=== PATIENT | female | born 1960 | race Caucasian/White ===

== ENCOUNTER → 2018-08-02 08:22 | Outpatient (CLI) | payer OTHER, SELFPAY ==
[2018-08-02 10:32] LABS: Homocysteine 8.4 umol/L (3.2-10.7)
[2018-08-02 10:45] LABS: Anion Gap 9 (5-15); BUN 18 mg/dL (7-18); BUN/Creat Ratio 24.4 RATIO (10-20); CRP < 2.90 mg/L (0.0-3.0); CRP, High Sensitivity Cardiac 0.18 mg/L; Chloride 108 mmol/L (98-107); Cholesterol 219 mg/dL (200); Creatinine, Serum 0.74 mg/dL (0.55-1.02); EST Glomerular Filtration Rate 86 mL/min (>60); Est Glom Filt Rate - Afr Amer 104 mL/min (>60); Glucose 95 mg/dL (74-106); High Density Lipoprotein 82 mg/dL; Sodium Level 143 mmol/L (136-145); Thyroid Stim Hormone (TSH) 1.54 uIU/mL (0.358-3.74); Triglycerides 77 mg/dL; Very Low Density Lipoprotein 15 mg/dL (5-40)
[2018-08-02 12:36] LABS: Microalbumin,Random Urine 11.1 mg/L (NO RANGE EST.); Microalbumin:Creatinine Ratio 6.8 mg/g CRE (<30 mg/g CRE)
== END ==
PROVIDERS: Family Provider Family Medicine; PCP Family Medicine; Visit Provider Family Medicine
DX: Z00.00 Encounter for general adult medical examination without abnormal findings (principal); M50.90 Cervical disc disorder, unspecified, unspecified cervical region; I10 Essential (primary) hypertension
CPT/HCPCS: 36415; 80048; 80061; 82043; 82570; 83090; 84443; 86140; 86141

== ENCOUNTER → 2018-09-04 07:40 | Outpatient (CLI) | payer OTHER, SELFPAY ==
--- NOTE | 2018-09-04 07:43 | BI_ITS ---
MAMMOGRAPHY - BILATERAL SCREENING REASON FOR EXAM: Female, 57 years old. Routine annual screening examination. PERTINENT HISTORY: Non-contributory. TECHNIQUE: Digital bilateral breast patty (3D mammographic acquisition) in the CC and MLO projections. 2-D mediolateral oblique (MLO) and craniocaudad (CC) views of both breasts were obtained. CAD: Full Field Digital Mammography with Computer Added Detection was performed. COMPARISON: Comparison is made with prior study dated April 05, 2009. FINDINGS: Breast Composition: The breasts are heterogeneously dense, which may obscure small masses. There are no dominant masses or suspicious calcifications. No other significant abnormalities are identified. There has been no significant change since the prior study. BI/SCREENING MAMM (CAD), BILAT IMPRESSION: Stable bilateral screening mammogram. Yearly follow-up mammogram recommended. (A) ASSESSMENT CATEGORY: BIRADS Category 1: Negative. A letter regarding these results will be sent to the patient by the facility within 30 days. Approximately 10% of breast cancers are not detected by mammography. A normal mammogram should not delay biopsy of a clinically suspicious abnormality. [id number] Electronically Signed: Murali Gerard, at 9:24 EST , Service support ,
== END ==
PROVIDERS: Family Provider Family Medicine; PCP Family Medicine; Referring Provider Family Medicine; Visit Provider Family Medicine
DX: Z12.31 Encounter for screening mammogram for malignant neoplasm of breast (principal)
CPT/HCPCS: 77063; 77067

== ENCOUNTER → 2019-09-12 08:00 | Outpatient (CLI) | payer OTHER, SELFPAY ==
[2019-09-12 11:15] LABS: Anion Gap 6 (5-15); BUN 17 mg/dL (7-18); BUN/Creat Ratio 23.2 RATIO (10-20); Calcium,Total 9.5 mg/dL (8.5-10.1); Chloride 107 mmol/L (98-107); Cholesterol 239 mg/dL (200); Creatinine, Serum 0.73 mg/dL (0.55-1.02); EST Glomerular Filtration Rate 86 mL/min (>60); Est Glom Filt Rate - Afr Amer 104 mL/min (>60); Glucose 93 mg/dL (74-106); High Density Lipoprotein 88 mg/dL; Potassium 3.8 mmol/L (3.5-5.1); Sodium Level 138 mmol/L (136-145)
[2019-09-12 11:34] LABS: Creatinine, Urine (random) < 13.00 mg/dL (NO RANGE EST.); Microalbumin,Random Urine < 5.0 mg/L (NO RANGE EST.)
== END ==
PROVIDERS: PCP Family Medicine; Referring Provider Family Medicine; Visit Provider Family Medicine
DX: I10 Essential (primary) hypertension (principal)
CPT/HCPCS: 36415; 80048; 82043; 82465; 82570; 83718

== ENCOUNTER → 2019-10-03 10:12 | Outpatient (CLI) | payer OTHER, SELFPAY ==
--- NOTE | 2019-10-03 10:40 | BI_ITS ---
MAMMOGRAPHY - BILATERAL SCREENING REASON FOR EXAM: Female, 58 years old. Routine annual screening examination. PERTINENT HISTORY: Non-contributory. TECHNIQUE: Digital bilateral breast frandy (3D mammographic acquisition) in the CC and MLO projections. 2-D mediolateral oblique (MLO) and craniocaudad (CC) views of both breasts were obtained. CAD: Full Field Digital Mammography with Computer Added Detection was performed. COMPARISON: Comparison is made with prior examination dated September 04, 2018. FINDINGS: Breast Composition: The breasts are heterogeneously dense, which may obscure small masses. There are no dominant masses or suspicious calcifications. No other significant abnormalities are identified. There has been no significant change since the prior study. BI/SCREEN MAMM (CAD) W/FRANDY BILAT IMPRESSION: Stable bilateral screening mammogram. Yearly follow-up mammogram recommended. (A) ASSESSMENT CATEGORY: BIRADS Category 1: Negative. A letter regarding these results will be sent to the patient by the facility within 30 days. Approximately 10% of breast cancers are not detected by mammography. A normal mammogram should not delay biopsy of a clinically suspicious abnormality. [id number] Electronically Signed: Murali Gerard, at 11:26 EDT , Service support ,
== END ==
PROVIDERS: PCP Family Medicine; Referring Provider Family Medicine; Visit Provider Family Medicine
DX: Z12.31 Encounter for screening mammogram for malignant neoplasm of breast (principal)
CPT/HCPCS: 77063; 77067

== ENCOUNTER → 2020-05-05 08:15 | Outpatient (CLI) | payer OTHER, SELFPAY ==
[2020-05-05 10:55] LABS: Vitamin D,25 Hydroxy 52.8 ng/mL
[2020-05-05 11:07] LABS: CRP, High Sensitivity Cardiac 0.19 mg/L; Cholesterol 227 mg/dL (200); High Density Lipoprotein 101 mg/dL; Thyroid Stim Hormone (TSH) 1.66 uIU/mL (0.358-3.74); Triglycerides 69 mg/dL; Very Low Density Lipoprotein 14 mg/dL (5-40)
== END ==
PROVIDERS: PCP Family Medicine; Referring Provider Family Medicine; Visit Provider Family Medicine
DX: I10 Essential (primary) hypertension (principal); E55.9 Vitamin D deficiency, unspecified
CPT/HCPCS: 36415; 80061; 82306; 84443; 86141

== ENCOUNTER → 2020-10-15 10:51 | Outpatient (CLI) | payer OTHER, SELFPAY ==
--- NOTE | 2020-10-15 10:54 | RAD_ITS ---
STUDY: X-RAY - LUMBAR SPINE REASON FOR EXAM: Female, 59 years old. BACK PAIN TECHNIQUE: 5 view(s) of the lumbar spine were obtained. COMPARISON: None FINDINGS: Normal lumbar lordosis. There is a mild levoscoliosis of the lumbar spine. There is a normal alignment of the vertebrae. There is multilevel endplate spondylosis of the lumbar vertebrae. There is multi-level degenerative disc disease with multi-level disc space narrowing. There is no demonstrated fracture. The soft tissue structures are unremarkable. RAD/L/S Spine Min 4 Views IMPRESSION: Degenerative changes of the spine, as detailed above. Mild levoscoliosis Electronically Signed: Gallo Heredia MD at 11:16 EDT , Service support ,
[2020-10-15 13:28] LABS: AST(SGOT) 12 U/L (15-37); Alanine Aminotransfer ALT/SGPT 23 U/L (13-56); Albumin, Serum 3.7 g/dL (3.2-5.0); Alkaline Phosphatase 79 U/L (45-117); Anion Gap 6 (5-15); BUN 19 mg/dL (7-18); BUN/Creat Ratio 27.6 RATIO (10-20); Chloride 109 mmol/L (98-107); Creatinine, Serum 0.69 mg/dL (0.55-1.02); EST Glomerular Filtration Rate 92 mL/min (>60); Est Glom Filt Rate - Afr Amer 112 mL/min (>60); Ferritin 87 ng/mL (8-252); Globulin 3.6 g/dL (2.2-4.2); Glucose 89 mg/dL (74-106); Potassium 3.6 mmol/L (3.5-5.1); Protein, Total 7.3 g/dL (6.4-8.2); Sodium Level 140 mmol/L (136-145); Thyroid Stim Hormone (TSH) 1.16 uIU/mL (0.358-3.74)
[2020-10-15 13:31] LABS: Microalbumin,Random Urine < 5.0 mg/L (NO RANGE EST.)
== END ==
PROVIDERS: PCP Family Medicine; Referring Provider Family Medicine; Visit Provider Family Medicine
DX: I10 Essential (primary) hypertension (principal); G25.81 Restless legs syndrome; M54.9 Dorsalgia, unspecified
CPT/HCPCS: 36415; 72110; 80053; 82043; 82570; 82728; 84443

== ENCOUNTER → 2021-04-08 09:41 | Outpatient (CLI) | payer OTHER, SELFPAY | PROVIDERS: PCP Family Medicine; Referring Provider Family Medicine; Visit Provider Family Medicine | DX: Z01.84 Encounter for antibody response examination (principal) | CPT/HCPCS: 36415 ==

== ENCOUNTER → 2022-02-22 | Outpatient (CLI) | payer OTHER, SELFPAY ==
--- NOTE | 2022-02-22 08:03 | BI_ITS ---
MAMMOGRAPHY - BILATERAL SCREENING 3-D TOMOSYNTHESIS REASON FOR EXAM: Female, 61 years old. SCREENING PERTINENT HISTORY: No significant family history. TECHNIQUE: 2-D mammograms and 3-D Tomosynthesis of the breast (s) were performed. CAD was performed. COMPARISON: 10/03/2019 FINDINGS: The breast composition is heterogeneously dense that can obscure small breast masses. Scattered benign calcifications are seen. No dominant nodule in the right breast. 1 cm oval circumscribed equal density mass in the axillary tail left breast and focal compression views recommended for further evaluation. No suspicious calcifications.. No architectural distortion is identified. There is no skin thickening or retraction. BI/SCRN MAMM (CAD)W/FRANDY BILAT IMPRESSION: 1 cm oval circumscribed equal density mass maxillary tail left breast and focal compression views recommended for further evaluation. ASSESSMENT CATEGORY: BIRADS Category 0: Incomplete. Need additional imaging evaluation as above. A letter regarding these results will be sent to the patient by the facility within 30 days. FOLLOW UP RECOMMENDATION: Additional imaging recommended as above. (E) Approximately 10% of breast cancers are not detected by mammography. A normal mammogram should not delay biopsy of a clinically suspicious abnormality. Electronically Signed: Jagdeep Garcia MD at 9:19 EDT ,
== END | disposition home or self-care (01) ==
LOC: OPBI 08:01
PROVIDERS: PCP Family Medicine; Visit Provider Family Medicine
DX: Z12.31 Encounter for screening mammogram for malignant neoplasm of breast (principal); N63.32 Unspecified lump in axillary tail of the left breast
CPT/HCPCS: 77063; 77067

== ENCOUNTER → 2022-03-01 | Outpatient (CLI) | payer OTHER, SELFPAY ==
--- NOTE | 2022-03-01 13:35 | BI_ITS ---
MAMMOGRAPHY - UNILATERAL DIAGNOSTIC: LEFT BREAST REASON FOR EXAM: Female, 61 years old. Abnormal screening mammogram. PERTINENT HISTORY: Non-contributory. TECHNIQUE: Compression spot views of the left breast were obtained in the mediolateral oblique and craniocaudad projections were obtained. CAD: Full Field Digital Mammography with Computer Added Detection was performed. COMPARISON: Comparison is made with prior mammogram dated 02/22/2022. FINDINGS: Breast Composition: The breasts are heterogeneously dense, which may obscure small masses. There is a 1.1 cm x 0.7 cm spiculated nodule in the deep upper central portion of the left breast. Correlation with ultrasound is recommended. No other significant abnormalities are identified. BI/DIAG MAMM W/CAD, UNILAT IMPRESSION: 1.1 cm x 0.7 cm spiculated nodule in the deep upper central portion of the left breast as described. Correlation with ultrasound is recommended. ASSESSMENT CATEGORY: BIRADS Category 0: Incomplete. Need additional imaging evaluation. A letter regarding these results will be sent to the patient by the facility within 30 days. Approximately 10% of breast cancers are not detected by mammography. A normal mammogram should not delay biopsy of a clinically suspicious abnormality. Electronically Signed: Murali Gerard MD at 14:23 EDT ,
--- NOTE | 2022-03-01 13:35 | US_ITS ---
STUDY: ULTRASOUND BREAST - LEFT REASON FOR EXAM: Female, 61 years old. Abnormal screening and diagnostic mammograms. TECHNIQUE: Axial and longitudinal images of the LEFT breast were performed with a high resolution ultrasound transducer. # OF IMAGES: 16 COMPARISON: Comparison is made with prior mammogram done earlier in the day. FINDINGS: LEFT Breast: The mammographic abnormality corresponds to an 8 mm x 7 mm x 7 mm slightly lobulated hypoechoic solid nodule. Biopsy recommended. US/Breast Limited Unilateral IMPRESSION: 8 mm x 7 mm x 7 mm slightly lobulated hypoechoic solid nodule 11 o''clock position breast at 12 cm from nipple. Biopsy recommended. ASSESSMENT CATEGORY: BIRADS Category 4: Suspicious - Biopsy Should Be Considered. A letter regarding these results will be sent to the patient by the facility within 30 days. Electronically Signed: Murali Gerard MD at 14:30 EDT ,
== END | disposition home or self-care (01) ==
LOC: OPBI 13:33
PROVIDERS: PCP Family Medicine; Visit Provider Family Medicine
DX: N63.22 Unspecified lump in the left breast, upper inner quadrant (principal)
CPT/HCPCS: 76642; 77065

== ENCOUNTER → 2022-03-15 | Outpatient (CLI) | payer OTHER, SELFPAY ==
--- NOTE | 2022-03-15 | IMM_PTH ---
PATIENT: LILIA ALBA LOC: [facility] U#:[id number] AGE/SX: 61/F ROOM: RE03/15/[address]: Dr. Eliceo Johnson MD : 1960 BED: DIS: 03/15/2022 SPEC #: [id number] RECD: 03/16/22 14:22 STATUS: ERNIE REQ #: [id number] IRMA: 03/15/22 00:[address]: Eliceo Johnson DEPT: IMMUNOHISTOCHEMISTRY RECD BY: Renetta Masters ENTERED: 03/16/22 14:23 SP TYPE: IMMUNO OTHR DR: Dr. Naman Proctor MD Tissues: Left breast, NOS Procedures: CALPONIN-1 (add) CK5-6 (add) CK8 (add) E-CAD (add) HER2 MICHAEL (add) KI-67 (add) P53 (add) IL (add) P40 (add) ER (initial) PHYSICIAN & INSTITUTION [address] [address] SPECIMEN INFORMATION: Tissue Source: Left breast Clinical Info: Left breast mass Specimen Number: [id number] CPT code: 86650, 68913 x6, 32338 x3 METHODOLOGY: Deparaffinized sections of prefer/formalin-fixed tissue or PAP/DQ stained slides are incubated with monoclonal/polyclonal antibodies/oligonucleotide probes. Localization is made via biotin free immunoperoxidase method. Appropriate controls are performed and reacted as expected. Results on target cell population are indicated in the following table: RESULTS: ANTIBODY / CLONE RESULT E-Cad (ECH-6) positive CK8 (29natgR49) positive Calponin-1 (ZL815D) negative CK5-6 (D5 & 1684) negative P40 (BC28) negative P53 (DO-7) positive (>80%) Ki-67 (30-9) positive, moderate (~50%) MORPHOMETRIC ANALYSIS ER (clone 6F11) 0 IL (clone 16/1E2) 0 Her-2Neu (clone CB11) 3+ The prognostic test for HER2 is performed on formalin-fixed paraffin embedded tissue. A 3+ (positive) staining pattern is defined as intense, homogeneous, complete, circumferential membranous staining in >10% of contiguous tumor cells. A similar weak (2+) staining pattern is interpreted as equivocal. NAM follow-up testing is recommended for all equivocal cases. Positivity/negativity for ER/IL is reported if > or < 1% of the tumor cells are immuno- reactive, respectively. The ASCO/CAP criteria is used for scoring. Reference: Journal of Clinical Oncology, 2013; 31:7424-4017 & 2010; 16:0911-9259. Duration of fixation: 9.5 Hrs; Sample Adequate: Yes. These assays have not been validated on decalcified tissues. Results should be interpreted with caution given the likelihood of false negativity on decalcified specimens. These tests were developed and their performance characteristics determined by [facility]. They may not have been cleared or approved by the U.S. Food and Drug Administration. The FDA has determined that such clearance or approval is not necessary. The above immunohistochemical/dualISH markers are ordered and reviewed by the Pathologist. INTERPRETATION: Left breast, core biopsy: Invasive ductal carcinoma, nuclear grade 3. Negative for estrogen receptors (unfavorable prognostic indicator). Negative for progesterone receptors (unfavorable prognostic indicator). Positive for overexpression of HKR3qqa. SJ:sanjana 03/17/2022
--- NOTE | 2022-03-15 | BRBX_PTH ---
PATIENT: LILIA ALBA LOC: [facility] U#:[id number] AGE/SX: 61/F ROOM: RE03/15/[address]: Dr. Eliceo Johnson MD : 1960 BED: DIS: 03/15/2022 SPEC #: [id number] RECD: 03/15/22 12:46 STATUS: ERNIE IYER #: [id number] IRMA: 03/15/22 00:[address]: Eliceo Johnson DEPT: SURGICAL PATHOLOGY RECD BY: Sb Cohen ENTERED: 03/15/22 12:46 SP TYPE: BREAST BX OTHR DR: Dr. Naman Proctor MD Tissues: Left breast, NOS Procedures: Surgery Specimen Level IV HEADER OPERATION: Left breast biopsy PRE-OP DIAGNOSIS: Left breast mass TISSUE SUBMITTED: Left breast tissue MICROSCOPIC DIAGNOSIS Left breast, core biopsy: Invasive ductal carcinoma, nuclear grade 3 (0.8 cm in greatest length). See comment. ANNA:sanjana 03/16/2022 COMMENT Skeletal muscle tissue fragments are also noted in the specimen. No invasion of tumor is noted in the skeletal muscle tissue framents. Immunohistochemistry ([id number]) supports the above diagnosis. ER/MA/Azl4lwu studies are being performed on sections of tumor and the results from this study will be reported separately ([id number]). Case has been reviewed in consultation with Dr. Ureña who concurs with the above diagnosis. IDC:AM MICROSCOPIC DESCRIPTION Slides are reviewed. GROSS DESCRIPTION Received in fixative is one container labeled with the patient's name and designated left breast. The specimen consists of multiple elongated fragments of coronel-yellow fibroadipose tissue that in aggregate measure 1.5 x 0.6 x 0.1 cm. The entire specimen is submitted in one cassette. / SJ:sanjana 03/15/2022 TC:0 CPT: 14110 ADDENDUM ADDENDUM ADDENDUM ADDENDUM ADDENDUM ADDENDUM ADDENDUM ADDENDUM ADDENDUM ADDENDUM ADDENDUM 08/18/2022 10:25 ADDENDUM 08/18/2022 10:25 ADDENDUM 08/18/2022 10:25 ADDENDUM 08/18/2022 10:25 ADDENDUM 08/18/2022 10:25 This addendum is added to incorporate an outside pathology consultation report. The case was examined at [facility] (#[id number]) and the following diagnosis was rendered. Left breast, core biopsy: Invasive ductal carcinoma, grade 3 (score: tubule 3, nuclear 3, mitotic 2), 0.7 cm in greatest length. Please see complete above mentioned consultation report in EMR
== END | disposition home or self-care (01) ==
LOC: LABSPEC 12:24
PROVIDERS: PCP Family Medicine; Visit Provider Surgery
DX: C50.912 Malignant neoplasm of unspecified site of left female breast (principal)
CPT/HCPCS: 88305; 88341; 88342

== ENCOUNTER → 2022-03-22 | Outpatient (CLI) | payer OTHER, SELFPAY ==
--- NOTE | 2022-03-22 08:36 | US_ITS ---
STUDY: ULTRASOUND BREAST - LEFT REASON FOR EXAM: Female, 61 years old. Clip placement following biopsy. TECHNIQUE: Axial and longitudinal images of the LEFT breast were performed with a high resolution ultrasound transducer. # OF IMAGES: 38 COMPARISON: Comparison is made with prior mammogram dated 03/01/2022. FINDINGS: LEFT Breast: The tissue marker is seen adjacent to the lobulated nodule. US/Breast Limited Unilateral IMPRESSION: Patient with marker is seen adjacent to the lobulated nodule. ASSESSMENT CATEGORY: BIRADS Category 2: Benign. A letter regarding these results will be sent to the patient by the facility within 30 days. Electronically Signed: Murali Gerard MD at 9:34 EDT ,
--- NOTE | 2022-03-22 08:36 | BI_ITS ---
MAMMOGRAPHY - UNILATERAL DIAGNOSTIC: LEFT BREAST REASON FOR EXAM: Female, 61 years old. Post biopsy clip placement. PERTINENT HISTORY: Abnormal screening mammogram. TECHNIQUE: Mediolateral oblique and craniocaudad views were obtained. CAD: Full Field Digital Mammography with Computer Added Detection was performed. COMPARISON: Comparison is made with prior mammogram dated 02/22/2022. FINDINGS: Breast Composition: The breasts are heterogeneously dense, which may obscure small masses. A tissue clip marker is seen within the nodular density in the deep upper central aspect of the left breast. No other significant abnormalities are identified. BI/DIAG MAMM W/CAD, UNILAT IMPRESSION: Tissue clip marker is seen within the nodular density in the deep axillary central portion of the left breast. ASSESSMENT CATEGORY: BIRADS Category 2: Benign. A letter regarding these results will be sent to the patient by the facility within 30 days. Approximately 10% of breast cancers are not detected by mammography. A normal mammogram should not delay biopsy of a clinically suspicious abnormality. Electronically Signed: Murali Gerard MD at 9:33 EDT ,
== END | disposition home or self-care (01) ==
PROVIDERS: PCP Family Medicine; Referring Provider Surgery; Visit Provider Surgery
DX: C50.919 Malignant neoplasm of unspecified site of unspecified female breast (principal)
CPT/HCPCS: 76642; 77065

== ENCOUNTER 2022-04-05 08:57 | Day surgery (SDC) | payer OTHER, SELFPAY ==
[2022-04-05] VITALS (7 sets, daily range): BP systolic 139–164; BP diastolic 77–87; PULSE 59–74; RESP 16–18; TEMP 36.6–37.1; O2SAT 97–100; BMI 25.7
[2022-04-05] MEDS: Lactated Ringers 1,000 ML 15 ML IV (09:05)
--- NOTE | 2022-04-05 09:55 | HP.PCM_ITS ---
History and Physical Date of Admission: 04/05/22 Date of Service:? 03/28/22 MR#: [id number] Acct: [id number] Patient:LILIA CRAWFORD Rep #: [id number] : 1960 ? ? Provider: Dr. Eliceo Johnson MD Age/Sex:? 61/F ? ? Location: [facility] Status: Signed Intake Intake Visit Reasons:?Discuss/schedule port Chief Complaint: Discuss Port Placement [employer] Required: No Is patient in pain?: No Allergies No Known Allergies Allergy (Unverified 03/28/22 10:21) Medications aspirin 81 mg tablet,delayed release (Adult Aspirin Regimen) 81 mg PO DAILY 03/15/22 [History Confirmed 03/28/22] valsartan 160 mg tablet 160 mg PO DAILY 03/15/22 [History Confirmed 03/28/22] ascorbate calcium (vitamin C) 500 mg tablet 1,000 mg PO DAILY 03/27/22 [History Confirmed 03/28/22] cetirizine 10 mg tablet (Allergy Relief (cetirizine)) 10 mg PO DAILY PRN 03/27/22 [History Confirmed 03/28/22] cholecalciferol (vitamin D3) 125 mcg (5,000 unit) capsule 125 mcg PO DAILY 03/27/22 [History Confirmed 03/28/22] coenzyme Q10 100 mg capsule (CoQ-10) 200 mg PO DAILY 03/27/22 [History Confirmed 03/28/22] glucosamine-chondroitin 500 mg-400 mg tablet (Cosamin DS) 3 tab PO TID 03/27/22 [History Confirmed 03/28/22] indapamide 1.25 mg tablet 0.625 mg PO .QOD 03/27/22 [History Confirmed 03/28/22] magnesium citrate 100 mg tablet 100 mg PO DAILY 03/27/22 [History Confirmed 03/28/22] melatonin 10 mg tablet 10 mg PO HS 03/27/22 [History Confirmed 03/28/22] -kyo-fge-other lzggd0s-tsvw oil 350 mg- 400 mg capsule 1 cap PO DAILY 03/27/22 [History Confirmed 03/28/22] turmeric 400 mg capsule 750 mg PO 03/27/22 [History Confirmed 03/28/22] PFSH Medical History? Anxiety Asthma Breast cancer of upper-outer quadrant of left female breast Hypertension Surgical History? History of carpal tunnel release Family History? Father Hypertension Diabetes Lung cancer SmokerMother HypertensionSister Breast cancer,? Onset Age: 62 ?? ? precancerous cells, lumpectomy/radiation Cancer,? Onset Age: 50 ?? ? lung - other sister (smoker) Hypertension Smoker Multiple sclerosis ?? ? sister w/ breast cancerBrother Heart disease Hypertension Social History? household members:? spouse number of children:? 4 Smoking Status:? Former smoker Tobacco: How many years used:? 10 how long ago did patient quit smoking:? in her mid 20's second hand exposure:? Yes alcohol intake:? current alcohol intake frequency: a few times a week Alcohol type: wine details:? occasional substance use type:? does not use HPI HPI Chief Complaint: Discuss Port Placement Details: Patient was informed that this visit will be billed to patient. This visit was conducted during -. LILIA ALBA, is a 61 F who presents via telephone today for discussions around a subcutaneous port placement.? She was previously evaluated by me on 03/15/2022 and underwent ultrasound-guided core needle biopsy of a left breast lesion and led to a diagnosis of infiltrating ductal carcinoma.? On pathologic analysis this measured 0.8 cm in greatest dimension, but morphometric analysis showed it to be ER KY negative HER2 positive.? She met with oncology yesterday and plans are to perform neoadjuvant chemotherapy.? Therefore, she requires durable vascular access?occasioning today's visit. Mrs. Alba denies any prior central line placement and states she is only ever had regular IVs.? She has no history of renal dysfunction and confirms that she is checked every 6 months for this issue given her history of hypertension.? She has no active rashes or skin infections.? She denies any history of staph infections.? She was not given a definitive date on initiating her chemotherapy, but estimates it to be either later next week or earlier the following week following a echocardiogram late next week. Exam Const General: cooperative Orientation: alert, awake and oriented x3 Chest Other: No further physical exam could be obtained given the nature of today's visit Details: Details:: Exam was limited due to phone visit with no video. Quality Reporting Tobacco Screening ([facility] 138) Smoking Status: Former smoker Coding Level of Care Code Level 2 Telephone Diagnoses Breast cancer of upper-outer quadrant of left female breast? C50.412 Time Spent (min) 15 Assessment and Plan Assessment and Plan (1) Breast cancer of upper-outer quadrant of left female breast: ?Status:?Acute ?Comment: This is a 61-year-old female with infiltrating ductal carcinoma of the left breast ER/KY negative, HER2 positive who is due for initiation of neoadjuvant therapy.? Oncology requests port placement for initiation of chemotherapy.? Patient has no prior history of central venous access or concerns for impending dialysis.? Further, she has no history of cutaneous infections.? We reviewed the procedure for placement of a port in detail as well as the postoperative recommendations for avoiding line infections.? Patient denies any further questions.? She has been given the number for our supervisor hairspring fabrication to set up a date so that this access will be in place for initiation of chemotherapy either later next week or earlier the following week. ?Plan: ? Placement of ultrasound-guided right versus left, tunneled, internal jugular Port-A-Cath at first mutually agreeable date?to be selected by patient with our office supervisor [employer] fabrication I have re-examined the patient. There are no clinical changes since date of exam. I reviewed the details of the procedure as well as postprocedure expectations with the patient and her sister. Mrs. Alba was interested to know whether she is able to go in their new hot tub with her port. I have informed her that this would be unsafe until the wound is completely healed over the port pocket. She expressed understanding of this information and has no further questions regarding the procedure. We will therefore plan to proceed with ultrasound-guided right versus left insertion of tunneled Port-A-Cath today.
[2022-04-05] MEDS: Cefazolin 2 GM in 0.9% Normal Saline 100 ML IV (10:32)
--- NOTE | 2022-04-05 11:56 | OP.PCM_ITS ---
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 Reference #[id number], LOT [id number] Surgeon: Eliceo Johnson performance improvement specialist: None Type of Anesthesia: MAC/Supplemental Anesthesiologist: Cornel Booker Special Medications: Heparinized saline (concentration 50U/5mL) Description of Procedure: After appropriate identification in the preoperative holding area the patient was brought to the operating room. There she was administered preoperative antibiotics and positioned supine on the operating room table. Once sedation was begun, the upper chest and lower cervical region were prepped and draped in usual sterile fashion. A formal timeout was then conducted to confirm both the patient and procedure. Ultrasound was used to localize the right internal jugular vein. Then a wheal of 0.25% bupivacaine plain local anesthetic was raised superficially in this location and the vein was accessed under direct ultrasound guidance using a Seldinger technique and micro access kit to place a guidewire. The position of the guidewire was confirmed with fluoroscopy. The micro access guidewire was exchanged for standard 035 guidewire using provided sheath. Next the position of the port pocket was determined and again local anesthetic was used to anesthetize the area of both the pocket and the tunneling cephalad. A transverse incision approximately 3 cm in width was made down thro ugh the subcutaneous tissue. Selective electrocautery was used to obtain hemostasis. Then with blunt dissection the port pocket was developed. The catheter was connected to the tunneler and was tunneled up to the position of the guidewire. Here the dilator and peel-away sheath were placed over the guidewire and the guidewire was removed. Position was again confirmed with fluoroscopy. The catheter length was estimated based on the external placement of a hemostat to approximate the level of the yaquelin and the cavoatrial junction. The catheter was then fed into the sheath and slowly the sheath was peeled away as the catheter was inserted fully into the neck. Back in the chest the excess catheter was trimmed and the port was connected to the catheter. The port was tied into the pocket using 2-0 Prolene. Function was then tested using sterile saline on a Elizondo needle. The port pocket was closed with a deep dermal stitch using a running 3-0 Vicryl followed by 4-0 Monocryl subcuticular stitch. The 1 cm incision in the neck was closed with a single interrupted subcuticular stitch using 4-0 Monocryl. The port was accessed percutaneously and aspirated and flushed easily with saline then it was locked with 2.5 mL of heparinized saline (concentration 50U/5mL). Dermabond was applied as a dressing. Patient was then aroused from the sedation and taken to PACU for ongoing jozef very were a portable chest x-ray was obtained to confirm port positioning and exclude any pneumothorax. Complications None Procedures Cardiovascular CF Procedures [id number]: [id number] Insert tunneled cv cath
--- NOTE | 2022-04-05 11:58 | DCINST_ITS ---
Discharge Instructions Diet Discharge Diet: No restrictions Activity May shower in (days): 1 Dressing / Incision Call your doctor if your incision/area has: Increased Pain/ Swelling, Increased Redness and Swelling at the incision site Call your doctor if you observe: Fever of 101 or Higher and Uncontrolled pain Follow Up Care Test Results: Test results from this visit will be discussed in further detail at your follow- up appointment, if applicable. Discharge Plan Admission Primary Reason for Your Visit: Placement of right Port-A-Cath Attending Provider: Eliceo Johnson Primary Care Provider: Naman Proctor Instructions Patient Instructions: Caring for Your Central Vein Access Discharge Orders/Prescriptions Prescriptions: No Action aspirin [Adult Aspirin Regimen] 81 mg tablet,delayed release (DR/EC) 81 mg PO DAILY valsartan 160 mg tablet 160 mg PO DAILY indapamide 1.25 mg tablet 0.625 mg PO .QOD magnesium citrate 100 mg tablet 100 mg PO DAILY cholecalciferol (vitamin D3) 125 mcg (5,000 unit) capsule 125 mcg PO DAILY hkypr-1b-gtw-epa-fish oil 350-400 mg capsule 1 cap PO DAILY coenzyme Q10 [CoQ-10] 100 mg capsule 200 mg PO DAILY ascorbate calcium (vitamin C) 500 mg tablet 1,000 mg PO DAILY glucosamine-chondroitin [Cosamin DS] 500-400 mg tablet 3 tab PO TID melatonin 10 mg tablet 10 mg PO HS turmeric 400 mg capsule 750 mg PO DAILY Label Comments: takes Turmeric/Curcumin 750mg daily cetirizine [Allergy Relief (cetirizine)] 10 mg tablet 10 mg PO DAILY PRN (Reason: ALLERGIES) lidocaine-prilocaine 2.5-2.5 % cream 1 applic topical ONCE PRN (Reason: port access) 30 Days Qty: 30 2RF ondansetron 8 mg tablet,disintegrating 8 mg PO Q8H PRN (Reason: nausea and vomiting) Qty: 30 2RF prochlorperazine maleate 10 mg tablet 10 mg PO Q6H PRN (Reason: nausea and vomiting) Qty: 30 2RF Referrals / Follow Up: Naman Proctor MD [Primary Care Provider] - Disposition Disposition (needs filled in before D/C Order can be placed): Home, Self Care
--- NOTE | 2022-04-05 12:10 | RAD_ITS ---
STUDY: X-RAY CHEST REASON FOR EXAM: Female, 61 years old. Status post line placement TECHNIQUE: Single AP portable view of the chest. COMPARISON: None. FINDINGS: A right-sided portacatheter is seen with the tip at the junction of the superior vena cava and right atrium. EKG electrodes are seen. The lungs are clear and expanded. There is no demonstrated pleural abnormality. Normal size heart. Normal mediastinum and kar. Normal visualized pulmonary arteries. Normal visualized aortic arch and descending thoracic aorta. Normal visualized thoracic spine. Normal visualized ribs, clavicles, and shoulders. There is no demonstrated abnormality of the visualized soft tissue structures of the upper abdomen. RAD/CXR for Line Placement IMPRESSION: The tip of the right heron catheter is at the junction of the superior vena cava and right atrium. Electronically Signed: Murali Gerard MD at 12:41 EDT ,
== END 2022-04-05 13:16 | disposition home or self-care (01) ==
LOC: SDC 08:58 → AC 08:58
PROVIDERS: PCP Family Medicine; Referring Provider Surgery; Visit Provider Surgery
PROC: (CPT 36561; principal; 2022-04-05 10:15)
DX: Z45.2 Encounter for adjustment and management of vascular access device (principal); C50.412 Malignant neoplasm of upper-outer quadrant of left female breast; I10 Essential (primary) hypertension; M19.90 Unspecified osteoarthritis, unspecified site; Z17.0 Estrogen receptor positive status [ER+]; Z79.82 Long term (current) use of aspirin; Z79.899 Other long term (current) drug therapy; Z87.891 Personal history of nicotine dependence
CPT/HCPCS: 36561; 00532; 71045; 77001; J7120; C1788; J2405

== ENCOUNTER → 2022-04-06 | Outpatient (CLI) | payer OTHER, SELFPAY ==
--- NOTE | 2022-04-06 11:03 | ECHODONC_ITS ---
Reason For Study: Breast Cancer Procedure This was a 2D Doppler, Color Flow transthoracic echocardiogram. Myocardial strain analysis was performed in this exam to aid in the assessment of cardiac function. Exam performed in department. Left Ventricle Normal LV size. Left ventricular systolic function is normal. The estimated ejection fraction is 65 %. No regional wall motion abnormalities noted. Right Ventricle Normal RV size. Normal systolic function. Atria Normal left atrium. Normal right atrium. Mitral Valve Normal mitral valve. Tricuspid Valve Normal tricuspid valve. Aortic Valve Normal aortic valve. Trisinus/trileaflet aortic valve. Pulmonic Valve Normal pulmonic valve. Great Vessels Normal aortic root. The pulmonary artery is normal size. Normal inferior vena cava. Pericardium/Pleural No pericardial effusion. MMode/2D Measurements & Calculations LVIDd: 4.6 cm IVSd: 1.0 cm Ao root diam: 2.7 cm LVIDs: 3.0 cm LVPWd: 0.83 cm LA dimension: 3.6 cm RVDd: 2.5 cm FS: 34.4 % LAV(MOD-bp): 44.9 ml LVAd ap4: 19.6 cm2 SV(MOD-sp4): 29.5 ml LAV(MOD-bp) Indexed: 26.7 ml/m2 LVLd ap4: 6.8 cm LAV(MOD-sp2): 39.3 ml EDV(MOD-sp4): 47.0 ml LAV(MOD-sp4): 46.2 ml EDV(sp4-el): 48.0 ml LVAs ap4: 9.7 cm2 LVLs ap4: 4.6 cm ESV(MOD-sp4): 17.5 ml ESV(sp4-el): 17.2 ml EF(MOD-sp4): 62.7 % EF(sp4-el): 64.2 % SV(sp4-el): 30.8 ml LA A4 area: 17.4 cm2 RA A4 area: 11.1 cm2 Time Measurements MV dec time: 0.19 sec Doppler Measurements & Calculations MV E max johnny: 72.0 cm/sec Lat Peak E' Johnny: 9.3 cm/sec Med Peak E' Johnny: 8.8 cm/sec MV A max johnny: 111.1 cm/sec E/E' lat: 7.8 E/E' med: 8.2 MV E/A: 0.65 MV V2 max: 100.0 cm/sec MV P1/2t max johnny: 81.6 cm/sec Ao V2 max: 116.8 cm/sec MV max P.0 mmHg MV P1/2t: 61.8 msec Ao max P.5 mmHg MV V2 mean: 54.9 cm/sec Ao V2 mean: 75.7 cm/sec MV mean P.4 mmHg MV dec slope: 386.9 cm/sec2 Ao mean P.6 mmHg MV V2 VTI: 27.2 cm MVA(P1/2t): 3.6 cm2 Ao V2 VTI: 27.5 cm LV V1 max: 111.1 cm/sec PA V2 max: 83.8 cm/sec TR max johnny: 239.6 cm/sec LV V1 max P.9 mmHg PA V2 mean: 59.6 cm/sec TR max P.0 mmHg ECHO/ONC Echo Complete Interpretation Summary Normal LV size. Left ventricular systolic function is normal. The estimated ejection fraction is 65 %. The global longitudinal strain is normal. The global longitudinal strain = -23. 6 % (normal). Structurally normal valves. Ordering Physician: Chantale Jeronimo Referring Physician: Chantale Jeronimo Performed By: Cristiano Walter RCS
== END | disposition home or self-care (01) ==
LOC: CVS 11:03
PROVIDERS: PCP Family Medicine; Referring Provider Internal Medicine Hematology & Oncology; Visit Provider Internal Medicine Hematology & Oncology
DX: Z01.818 Encounter for other preprocedural examination (principal); C50.412 Malignant neoplasm of upper-outer quadrant of left female breast
CPT/HCPCS: 93306; 93356

== ENCOUNTER → 2022-06-29 | Outpatient (CLI) | payer OTHER, SELFPAY ==
--- NOTE | 2022-06-29 07:44 | ECHODONC_ITS ---
Reason For Study: Breast CA Procedure This was a 2D Doppler, Color Flow transthoracic echocardiogram. Myocardial strain analysis was performed in this exam to aid in the assessment of cardiac function. The exam was of adequate technical quality. Exam performed in department. Left Ventricle Normal LV size. Mid cavitary false tendon noted. Left ventricular systolic function is normal. The estimated ejection fraction is 70 %. The global longitudinal strain = -19 % (normal). No evidence for diastolic dysfunction. No regional wall motion abnormalities noted. Right Ventricle Normal RV size. Normal systolic function. Atria Normal left atrium. Normal right atrium. No doppler evidence for ASD. Mitral Valve There is no mitral annular calcification. Normal mitral valve. Trivial mitral valve insufficiency. Tricuspid Valve Normal tricuspid valve. Mild to moderate (1-2+) tricuspid valve insufficiency. Right ventricular systolic pressure estimated to be 24 mmHg. Aortic Valve Trisinus/trileaflet aortic valve. Normal aortic valve. Pulmonic Valve The pulmonic valve is not well visualized. Trivial pulmonic valve insufficiency. Great Vessels Normal sized aortic root. Pericardium/Pleural No pericardial effusion. MMode/2D Measurements & Calculations LVIDd: 3.6 cm IVSd: 1.0 cm Ao root diam: 2.9 cm LVIDs: 2.1 cm LVPWd: 0.87 cm RVDd: 3.0 cm FS: 39.9 % LAV(MOD-bp): 26.0 ml LVAd ap4: 19.4 cm2 LVAd ap2: 19.3 cm2 LAV(MOD-bp) Indexed: 15.6 ml/m2 LVLd ap4: 6.7 cm LVLd ap2: 6.9 cm LAV(MOD-sp2): 30.6 ml EDV(MOD-sp4): 46.0 ml EDV(MOD-sp2): 46.1 ml LAV(MOD-sp4): 21.8 ml EDV(sp4-el): 47.4 ml EDV(sp2-el): 45.8 ml LVAs ap4: 9.6 cm2 LVAs ap2: 9.7 cm2 LVLs ap4: 5.4 cm LVLs ap2: 6.0 cm ESV(MOD-sp4): 14.4 ml ESV(MOD-sp2): 13.7 ml ESV(sp4-el): 14.6 ml ESV(sp2-el): 13.4 ml EF(MOD-sp4): 68.7 % EF(MOD-sp2): 70.2 % EF(sp4-el): 69.1 % SV(MOD-sp4): 31.6 ml SV(MOD-sp2): 32.4 ml SV(sp4-el): 32.7 ml LA dimension(2D): 3.4 cm LA A4 area: 10.8 cm2 RA A4 area: 9.8 cm2 Time Measurements MV dec time: 0.26 sec Doppler Measurements & Calculations MV E max johnny: 64.0 cm/sec Lat Peak E' Johnny: 6.8 cm/sec Med Peak E' Johnny: 6.7 cm/sec MV A max johnny: 87.8 cm/sec E/E' lat: 9.4 E/E' med: 9.5 MV E/A: 0.73 MV dec slope: 265.7 cm/sec2 Ao V2 max: 120.2 cm/sec LV V1 max: 92.2 cm/sec Ao max P.8 mmHg LV V1 max P.4 mmHg PA V2 max: 99.1 cm/sec TR max johnny: 228.8 cm/sec TR max P.0 mmHg ECHO/ONC Echo Complete Interpretation Summary Left ventricular systolic function is normal. The estimated ejection fraction is 70 %. The global longitudinal strain = -19 % (normal). Mid cavitary false tendon noted. Trivial mitral valve insufficiency. Mild to moderate (1-2+) tricuspid valve insufficiency. Trivial pulmonic valve insufficiency. Right ventricular systolic pressure estimated to be 24 mmHg. No evidence for diastolic dysfunction. Ordering Physician: Janet Hernandez Referring Physician: Naman Proctor MD Performed By: Neda Singh RDCS
== END | disposition home or self-care (01) ==
LOC: CVS 07:44
PROVIDERS: PCP Family Medicine; Visit Provider Nurse Practitioner Family
DX: Z79.899 Other long term (current) drug therapy (principal); C50.919 Malignant neoplasm of unspecified site of unspecified female breast; Z51.81 Encounter for therapeutic drug level monitoring
CPT/HCPCS: 93306; 93356

== ENCOUNTER 2022-09-19 12:00 | Outpatient (RCR) | payer OTHER, SELFPAY ==
--- NOTE | 2022-03-10 12:54 | HP.PTEVAL ---
Patient's Visit Information LILIA ALBA is a 61 year old F referred to Physical Therapy by Dr. Claire Ybarra MD with a diagnosis of CYSTOCELE, UTERINE PROLAPSE. Date of Evaluation: 03/10/22 Physical Therapist: Elizabeth Miller PT, Cert MDT - Visit Plan Frequency: 1x/Week Duration: 6-8 Plan: MANUAL PF THERAPY FOR STRENGTHENING, LENGTHENING/RELAXATION AND ENDURANCE TRAINING. CONSIDER INTERNAL OR EXTERNAL PF BIOFEEDBACK WITH EQUIPMENT. TRAINING IN COORDINATION OF PELVIC FLOOR MUSCULATURE WITH CORE (TRANSVERSE ABDOMINUS) AND HIP STRENGTHENING AND ADL'S. TRAINING IN ABDOMINAL CAVITY PRESSURE MGMT WITH ADL'S TO DECREASE ANY URINARY LEAKING. EDUCATION IN PROLAPSE MANGEMENT DURING ADL'S. - Subjective Work/Leisure: WATCHING 3 YEAR OLD GRANDDAUGHTER 3 DAYS A WEEK. [address] [place]. Disability: NO. Present symptoms: PATIENT REPORTS SHE FEELS PRESSURE IN THE PELVIC AREA DAILY BUT NOT CONSTANT. ABOUT 6-8 WEEKS AGO SHE FIRST NOTICED PROLAPSE TYPE SYMPTOMS AND IT DIDN'T GO AWAY SO SHE WENT TO DR. NOYOLA. SHE WAS THEN REFERRED TO DR. YBARRA. Present since: ABOUT 2 MONTHS AGO. Pain Scale: NO PAIN. Commenced as a result of: NO APPARENT REASON. Worse: LIFTING UP GRANDDAUGHTER (ABOUT 30 LBS). Better: KEGEL EX. Disturbed sleep: YES. HAS TO GET UP TO URINATE AT LEAST ONCE A NIGHT. Coughing/sneezing/straining: POSITIVE FOR UTERINE LEAKING BUT NOT DAILY - ONCE IN AWHILE. Bowel or Bladder Dysfunction: NO BOWEL INCONTINENCE. REPORTS MINIMAL BLADDER INCONTINENCE. Accidents: NO. Unexplained weight loss: NO. TESTS: URINE TEST AND BLADDER US. DOING A LOG ABOUT URINATING AND FLUID INTAKE FOR DR. YBARRA. PMH/Recent major surgery: HTN, ARTHRITIS IN KNEES - TREATED WITH PT. DDD IN LOW BACK. OTHER: PATIENT REPORTS DR. YBARRA TOLD HER SHE HAS MILD TO MODERATE UTERINE AND BLADDER PROLAPSE AND SURGERY NOT RECOMMENDED AT THIS TIME. NO PESSARY AT THIS TIME. - Objective Sitting/Standing Posture: SCOLIOSIS. LEFT SHLD LEVEL LOWER THAN RIGHT. Lordosis: REDUCED. Other Observations: INDEP GAIT AND TRANSFERS. Sensory deficit: RIZWAN LE LIGHT TOUCH SENSATION GROSSLY INTACT AND SYMMETRICAL. ROM deficit: RIZWAN LE'S WFL. Motor deficit: RIZWAN LE'S GROSSLY 5/5 WITH MMT'ING EXCEPT HIPS 4/5. PF WEAKNESS - SEE BELOW. Dural Signs: NEGATIVE RIZWAN LE'S. Lumbar mvmt loss: flex - MIN. ext - IRENA. R SG - MOD. L SG - MOD. PATIENT C/O MILD LOW BACK PAIN WITH RIZWAN SG TESTING. Core strength: POOR. Palpation: INTERNAL EXAM OF PELVIC FLOOR MUSCLES REVEALS 3/5 STRENGTH X 4 SEC AND TIGHTNESS. NO TENDERNESS WITH PALPATION OF PELVIC FLOOR. - Goals Goal 1:: INCREASE PELVIC FLOOR MUSCLE STRENGTH GRADE TO 5/5 Goal Time Frame: 6-8 Weeks Goal 2:: PATIENT WILL DEMONSTRATE 10 CONSISTENT AND CONSECUTIVE 10 SECOND PELVIC FLOOR MUSCLE CONTRACTIONS. Goal Time Frame: 6-8 Weeks Goal 3:: VOID FREQUENCEY EVERY 3-4 HOURS Goal Time Frame: 6-8 Weeks Goal 4:: FLUID INTAKE OF ? BODY WEIGHT IN OUNCES PER DAY WITH 2/3 BEING WATER. Goal Time Frame: 6-8 Weeks Goal 5:: PATIENT WILL BE INDEP WITH A HEP FOR CONTINUED IMPROVEMENT ONCE FORMAL PHYSICAL THERAPY CONCLUDES. Goal Time Frame: 6-8 Weeks - Anticipated Interventions Patient/Client Instruction: Educate patient on: Condition, Plan of Care, Risk Factors For the Purpose of:: To improve self management Therapeutic Exercise to Include: Strength training, Endurance training, Coordination, Postural training, Flexibilty training, Neuromotor development, Biofeedback For the Purpose of:: To improve muscle performance and motor function, To increase tolerance to activity/condition/position Manual Therapy Techniques to Include: Trigger point massage, Soft tissue mobilization, Other Comment: MANUAL BIOFEEDBACK For the Purpose of:: To improve muscle performance and motor function Thank you for the opportunity to evaluate your patient. For Medicare and Medicare HMO plans, please review the plan of care and approve it. It will need to be FAXED BACK to us at [phone] for Medicare purposes. For Medicare only, by signing this I certify the plan of care. Please let me know if there are questions or concerns regarding this plan of care. Physician Signature: Date:
--- NOTE | 2022-09-19 12:55 | HP.PTDCSUM ---
It has been my pleasure to treat LILIA ALBA referred by Dr. Claire Cummings MD, with the diagnosis of CYSTOCELE, UTERINE PROLAPSE for a total of 8 visit(s). Discharge Date: Please see the following information for a summary of their discharge status. Subjective: PATIENT REPORTS SHE IS NOT HAVING ANY INCONTINENCE SX'S. PATIENT REPORTS SHE DOES STILL GET A FEELING OF PROLAPSE BUT IT IS INTERMITTENT AND NOT DAILY. PATIENT REPORTS SHE HAS DONE HER SX'S INTERMITTENTLY BUT SOMETIMES TOO TIRED TO. STATES SHE IS BACK TO FEELING BETTER AND READY TO RE-START STRENGTHENING. PESSARY HAS NOT BEEN RECOMMENDED BY DR. CUMMINGS AND STATES SHE DOES NOT WANT ONE. HAS NOT BEEN BACK TO DR. CUMMINGS - PUT ON HOLD DUE TO CANCER AND WANTS TO DO PT FIRST. CHEMOTHERAPY UNTIL JUL 26 2022. 08/22/22 HAD LUMPECTOMY. RADIATION TREATMENTS WILL START NEXT MONDAY 09/25 X 3-4 WKS, 5 DAYS A WK. Objective/Function: PATIENT WAS SEEN TODAY FOR RE-ASSESSMENT OF PROGRESS TOWARD THE SET PT GOALS AND THE NEED FOR FURTHER PHYSICAL THERAPY VS READINESS FOR DISCHARGE. ALL GOALS APPEAR TO HAVE BEEN MET AND PATIENT IS APPROPRIATE FOR DISCHARGE. PATIENT IS AGREEABLE. PROGRESSED PATIENT TO PF ELEVATOR EX TODAY. WRITTEN HOME INSTRUCTIONS FOR ALL EX'S HAVE BEEN PROVIDED. Goal 1:: INCREASE PELVIC FLOOR MUSCLE STRENGTH GRADE TO 5/5 Goal Progress: SUBJECTIVELY MET Goal 2:: PATIENT WILL DEMONSTRATE 10 CONSISTENT AND CONSECUTIVE 10 SECOND PELVIC FLOOR MUSCLE CONTRACTIONS. Goal Progress: SUBJECTIVELY MET Goal 3:: VOID FREQUENCEY EVERY 3-4 HOURS Goal Progress: SUBJECTIVELY MET Goal 4:: FLUID INTAKE OF ? BODY WEIGHT IN OUNCES PER DAY WITH 2/3 BEING WATER. Goal Progress: SUBJECTIVELY MET Goal 5:: PATIENT WILL BE INDEP WITH A HEP FOR CONTINUED IMPROVEMENT ONCE FORMAL PHYSICAL THERAPY CONCLUDES. Goal Progress: Goal Met Plan: C/C If there are questions or concerns regarding this patient's physical therapy, please feel free to call me at [phone]. Thank you for the referral of this patient. Sincerely, Elizabeth Miller, PT, Cert MDT
== END 2022-09-19 19:00 | disposition home or self-care (01) ==
LOC: PT 12:00
PROVIDERS: PCP Family Medicine; Referring Provider Urology; Visit Provider Urology
DX: N32.89 Other specified disorders of bladder (principal); N18.4 Chronic kidney disease, stage 4 (severe)
CPT/HCPCS: 97162; 97164; 97530

== ENCOUNTER → 2022-09-19 | Outpatient (CLI) | payer OTHER, SELFPAY ==
--- NOTE | 2022-09-19 09:44 | BD_ITS ---
STUDY: DUAL ENERGY X-RAY ABSORPTIOMETRY / DXA REASON FOR EXAM: Female, 61 years old. Z780 TECHNIQUE: Bone Mineral Density (BMD) measurements of lumbar spine and bilateral hips were obtained. COMPARISON: None. FINDINGS: Lumbar Spine (L1-L4): g/cm2 (0.948) / T-score (-0.8) / Z-score (0.8) Findings are suggestive of normal bone density with a low fracture risk. Left Femur Total: g/cm2 (0.800) / T-score (-1.2) / Z-score (-0.1) Left Femoral Neck: g/cm2 (0.705) / T-score (-1.3) / Z-score (0.1) Right Femur Total: g/cm2 (0.828) / T-score (-0.9) / Z-score (0.2) Right Femoral Neck: g/cm2 (0.705) / T-score (-1.3) / Z-score (0.1) BD/Dexa Bone Density Study IMPRESSION: The patient is considered osteopenic as outlined below according to World Darius Organization (WHO) criteria with a low fracture risk. Reference Information: The T-score is the number of standard deviations above or below the standard which is normal for young adults at their peak bone mineral density. The World Health Organization (WHO) interprets the T-scores as follows: Above -1 Normal bone density Between -1 and -2.5 Osteopenia Equal to / or below -2.5 Osteoporosis As a practical clinical guideline, osteopenia may be graded as follows: Mild -1 through -1.5 Moderate -1.6 through -2.0 Severe -2.1 through -2.4 The Z-score is the number of standard deviations above or below age-matched controls. A Z-score of less than -1.5 would be considered abnormal. References: 1. NIH Osteoporosis and Related Bone Diseases www osteo.org 2. International Society for Clinical Densitometry www iscd.org 3. National Osteoporosis Foundation www nof.org Electronically Signed: Murali Gerard MD at 12:43 EDT ,
--- NOTE | 2022-09-19 13:55 | ECHOLONC_ITS ---
Reason For Study: OTHER Procedure This was a limited 2D transthoracic echocardiogram. Exam performed in department. Left Ventricle Normal LV size. Left ventricular systolic function is normal. The estimated ejection fraction is 60 %. No regional wall motion abnormalities noted. Right Ventricle Normal RV size. Normal systolic function. Atria Normal left atrium. Normal right atrium. Mitral Valve Normal mitral valve. Tricuspid Valve Normal tricuspid valve. Aortic Valve Normal aortic valve. Trisinus/trileaflet aortic valve. Pulmonic Valve Normal pulmonic valve. Great Vessels Normal aortic root. The pulmonary artery is normal size. Normal inferior vena cava. Pericardium/Pleural No pericardial effusion. MMode/2D Measurements & Calculations LVIDd: 4.0 cm IVSd: 1.2 cm LAV(MOD-bp): 35.1 ml LVIDs: 2.7 cm LVPWd: 0.87 cm LAV(MOD-bp) Indexed: 21.4 ml/m2 FS: 32.3 % LAV(MOD-sp2): 51.5 ml LAV(MOD-sp4): 20.2 ml SV(MOD-sp4): 34.9 ml SV(sp4-el): 37.5 ml LVAd ap4: 21.5 cm2 LVLd ap4: 6.9 cm EDV(MOD-sp4): 55.5 ml EDV(sp4-el): 57.1 ml LVAs ap4: 11.6 cm2 LVLs ap4: 5.8 cm ESV(MOD-sp4): 20.6 ml ESV(sp4-el): 19.6 ml EF(MOD-sp4): 62.9 % EF(sp4-el): 65.7 % LA A4 area: 10.1 cm2 LA dimension(2D): 3.7 cm RA A4 area: 10.8 cm2 ECHO/ONC Echo, Limited Study Interpretation Summary Normal LV size. Left ventricular systolic function is normal. The estimated ejection fraction is 60 %. Structurally normal valves. The global longitudinal strain is normal. The globa l longitudinal strain = -20.8 % (normal). Ordering Physician: Chantale Jeronimo Referring Physician: Naman Proctor Performed By: Isaura Gipson RCS
== END | disposition home or self-care (01) ==
LOC: OPBD 09:34
PROVIDERS: PCP Family Medicine; Referring Provider Family Medicine; Visit Provider Family Medicine
DX: C50.412 Malignant neoplasm of upper-outer quadrant of left female breast (principal)
CPT/HCPCS: 77080; 93308; 93356

== ENCOUNTER → 2022-12-20 | Outpatient (CLI) | payer OTHER, SELFPAY ==
--- NOTE | 2022-12-20 10:00 | ECHODONC_ITS ---
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 Myocardial strain analysis was performed in this exam to aid in the assessment of cardiac function. Exam performed in department. Left Ventricle Normal LV size. Left ventricular systolic function is normal. The estimated ejection fraction is 65 %. Stage 1 diastolic dysfunction. No regional wall motion abnormalities noted. Right Ventricle Normal RV size. Normal systolic function. Atria Normal left atrium. Normal right atrium. Mitral Valve Normal mitral valve. Tricuspid Valve Normal tricuspid valve. Aortic Valve Normal aortic valve. Trisinus/trileaflet aortic valve. Pulmonic Valve Normal pulmonic valve. Great Vessels Normal aortic root. The pulmonary artery is normal size. Normal inferior vena cava. Pericardium/Pleural No pericardial effusion. MMode/2D Measurements & Calculations LVIDd: 3.7 cm IVSd: 0.94 cm Ao root diam: 3.0 cm LVIDs: 2.4 cm LVPWd: 0.85 cm RVDd: 3.0 cm FS: 36.7 % LAV(MOD-bp): 21.9 ml LVAd ap4: 18.6 cm2 SV(MOD-sp4): 29.8 ml LAV(MOD-bp) Indexed: 13.5 ml/m2 LVLd ap4: 6.6 cm LAV(MOD-sp2): 32.6 ml EDV(MOD-sp4): 43.2 ml LAV(MOD-sp4): 14.9 ml EDV(sp4-el): 44.8 ml LVAs ap4: 9.1 cm2 LVLs ap4: 5.1 cm ESV(MOD-sp4): 13.4 ml ESV(sp4-el): 13.8 ml EF(MOD-sp4): 69.0 % EF(sp4-el): 69.2 % SV(sp4-el): 31.0 ml LA A4 area: 8.6 cm2 LA dimension(2D): 3.2 cm RA A4 area: 6.9 cm2 Time Measurements MV dec time: 0.23 sec Doppler Measurements & Calculations MV E max johnny: 72.0 cm/sec Lat Peak E' Johnny: 7.0 cm/sec Med Peak E' Johnny: 6.0 cm/sec MV A max johnny: 101.5 cm/sec E/E' lat: 10.3 E/E' med: 12.0 MV E/A: 0.71 Ao V2 max: 116.2 cm/sec LV V1 max: 98.4 cm/sec MV dec slope: 307.8 cm/sec2 Ao max P.4 mmHg LV V1 max P.9 mmHg Ao V2 mean: 80.8 cm/sec Ao mean P.9 mmHg Ao V2 VTI: 24.6 cm PA V2 max: 85.3 cm/sec TR max johnny: 252.2 cm/sec TR max P.4 mmHg ECHO/ONC Echo Complete Interpretation Summary Normal LV size. Left ventricular systolic function is normal. The estimated ejection fraction is 65 %. Stage 1 diastolic dysfunction. The global longitudinal strain is normal. The global longitudinal strain = -22. 4 % (normal). Ordering Physician: Janet Hernandez Referring Physician: Naman Proctor Performed By: Yuliana Pandya RDCS, RVT
== END | disposition home or self-care (01) ==
LOC: CVS 10:00
PROVIDERS: PCP Family Medicine; Referring Provider Internal Medicine Hematology & Oncology; Visit Provider Internal Medicine Hematology & Oncology
DX: Z51.81 Encounter for therapeutic drug level monitoring (principal); C50.919 Malignant neoplasm of unspecified site of unspecified female breast; Z79.899 Other long term (current) drug therapy
CPT/HCPCS: 93306; 93356

== ENCOUNTER → 2023-05-29 | Outpatient (CLI) | payer OTHER, SELFPAY ==
--- NOTE | 2023-05-29 13:02 | ECHODONC_ITS ---
Reason For Study: ANTINEOPLASTIC CHEMO Procedure This was a 2D Doppler, Color Flow transthoracic echocardiogram. Myocardial strain analysis was performed in this exam to aid in the assessment of cardiac function. Exam performed in department. Left Ventricle Normal LV size. Left ventricular systolic function is normal. The estimated ejection fraction is 67 %. Stage 1 diastolic dysfunction. No regional wall motion abnormalities noted. Right Ventricle Normal right ventricle. Normal systolic function. Atria Normal left atrium. Normal right atrium. Mitral Valve Normal mitral valve. Tricuspid Valve Normal tricuspid valve. Mild tricuspid valve insufficiency. Pulmonary artery systolic pressure is 24 mmHg. Aortic Valve Trisinus/trileaflet aortic valve. Pulmonic Valve Normal pulmonic valve. Great Vessels Normal aortic root. The pulmonary artery is normal size. Normal inferior vena cava. Pericardium/Pleural No pericardial effusion. MMode/2D Measurements & Calculations LVIDd: 4.5 cm IVSd: 0.78 cm Ao root diam: 2.8 cm LVIDs: 3.1 cm LVPWd: 0.78 cm RVDd: 2.8 cm FS: 31.4 % LAV(MOD-bp): 42.0 ml LA A4 area: 13.7 cm2 LA dimension(2D): 3.6 cm LAV(MOD-bp) Indexed: 25.4 ml/m2 LAV(MOD-sp2): 39.0 ml LAV(MOD-sp4): 39.2 ml TAPSE: 2.3 cm Time Measurements MV dec time: 0.22 sec Doppler Measurements & Calculations MV E max johnny: 72.1 cm/sec Lat Peak E' Johnny: 5.5 cm/sec Med Peak E' Johnny: 7.5 cm/sec MV A max johnny: 93.6 cm/sec E/E' lat: 13.1 E/E' med: 9.6 MV E/A: 0.77 MV V2 max: 114.8 cm/sec MV P1/2t max johnny: 97.6 cm/sec Ao V2 max: 105.1 cm/sec MV max P.3 mmHg MV P1/2t: 81.7 msec Ao max P.4 mmHg MV V2 mean: 62.4 cm/sec Ao V2 mean: 73.4 cm/sec MV mean P.8 mmHg MV dec slope: 349.7 cm/sec2 Ao mean P.5 mmHg MV V2 VTI: 27.7 cm MVA(P1/2t): 2.7 cm2 Ao V2 VTI: 24.6 cm AV (velocity ratio): 0.85 LV V1 max: 96.3 cm/sec PA V2 max: 96.6 cm/sec TR max johnny: 232.7 cm/sec LV V1 max P.7 mmHg PA V2 mean: 67.9 cm/sec TR max P.7 mmHg LV V1 mean P.0 mmHg LV V1 mean: 66.4 cm/sec LV V1 VTI: 20.8 cm ECHO/ONC Echo Complete Interpretation Summary Normal LV size. Left ventricular systolic function is normal. The estimated ejection fraction is 67 %. Stage 1 diastolic dysfunction. The global longitudinal strain is normal. The global longitudinal strain = -20. 9 % (normal). Ordering Physician: Josue Haywood Referring Physician: Naman Proctor Performed By: Kaur Bishop, CHONG, RVT
--- NOTE | 2023-05-29 13:06 | CT_ITS ---
STUDY: CT CHEST WITHOUT CONTRAST REASON FOR EXAM: Female, 62 years old. LIPID PROFILE. Cardiac Over read examination. RADIATION DOSAGE (If Supplied By Facility): CTDIvol = ( 12.19 ) mGy, DLP = ( 195.04 ) mGycm TECHNIQUE: Transaxial imaging was performed without the administration of intravenous contrast material. Individualized dose optimization techniques were used for this CT. COMPARISON: No relevant priors. FINDINGS: CHEST Minimal linear scarring and/or linear atelectasis in the posterior medial segment of the left lower lobe. There is no demonstrated pleural abnormality. There are calcifications of the coronary arteries. There are small lymph nodes within the mediastinum, which are normal in size and morphology most compatible with reactive lymph hyperplasia. Normal hilar regions. Normal unenhanced pulmonary arteries. Atherosclerotic plaque formation of the aortic arch. Normal osseous structures. Small hiatal hernia. CT/Limited Chest CT Cardiac Only IMPRESSION: Coronary artery calcification. Electronically Signed: Murali Gerard MD at 12:29 EST ,
--- NOTE | 2023-05-29 17:08 | CA.SCORE ---
Calcium Scoring Date of Study:: 05/29/23 Indications Indications: Abnormal Lipid profile Coronary Calcium Scoring: High-resolution Computed Tomographic imaging of the chest was performed on [05/29/23 ], with particular attention paid to the coronary arteries. Images from the examination were analyzed for the presence and extent of coronary artery calcification , using coronary calcium quantification software. The patient tolerated the procedure well and there were no complications. The results of the coronary calcification analysis are provided below. Findings Coronary Artery Left Main (LM): 0 Left Anterior Descending (LAD): 27 Left Circumflex (LCX): 0 Right Coronary Artery (RCA): 0 Total Agatston Score: 27 Percentile Rankin-75% Calcium Scoring Interpretation: Different methods to categorize the overall amount of coronary plaque. Overall amount CAC SIS Visual of coronary plaque P1 Mild -100 <2 1-2 vessels with mild amount of plaque P2 Moderate 101-300 3-4 1-2 vessels with moderate amount, 3 vessels with mild amount of plaque P3 Severe 301-999 5-7 3 vessels with moderate amount, 1 vessel with severe amount of plaque P4 Extensive >1000 >8 2-3 vessels with severe amount of plaque Conclusion: Minimal atherosclerotic plaque
== END | disposition home or self-care (01) ==
LOC: CVS 13:01
PROVIDERS: PCP Family Medicine; Referring Provider Internal Medicine Cardiovascular Disease; Visit Provider Internal Medicine Cardiovascular Disease
DX: Z51.11 Encounter for antineoplastic chemotherapy (principal); I10 Essential (primary) hypertension; I34.0 Nonrheumatic mitral (valve) insufficiency; Z51.81 Encounter for therapeutic drug level monitoring; Z79.899 Other long term (current) drug therapy
CPT/HCPCS: 75571; 76380; 93306; 93356

== ENCOUNTER → 2023-06-11 | Outpatient (CLI) | payer OTHER, SELFPAY ==
[2023-06-11 12:35] LABS: Absolute Lymphocyte Count 0.75 X10^3/uL (0.83-4.51); Absolute Neutrophil Count 1.7 X10^3/uL (2.0-7.7); Basophil# 0.01 X10^3/uL; Basophil% 0.4 % (0-1); Eosinophil# 0.08 X10^3/uL; Eosinophils% 2.8 % (0-5); Hematocrit 40.4 % (37-47); Hemoglobin 13.7 g/dL (12.0-15.0); Lymphocyte # 0.75 X10^3/ul (0.83-4.51); Lymphocyte % 26.4 % (19-41); Mean Corp Hgb Conc 33.9 g/dL (32-36); Mean Corpuscular Hgb 30.8 pg (27.0-32.0); Mean Corpuscular Volume 90.8 fL (81-99); Mean Platelet Vol. 10.1 fl (6.2-12.0); Monocyte# 0.33 X10^3/uL; Monocyte% 11.6 % (0-10); NRBC Flagged by Analyzer 0 % (0-5); Neutrophil # 1.67 X10^3/uL (2.7-7.7); Neutrophil % 58.8 % (47-70); Platelet Count 186 K/mm3 (150-450); RBC Distribution Width SD 39.9 fl (35.1-43.9); Red Blood Count 4.45 M/mm3 (4.2-5.4); White Blood Count 2.8 K/mm3 (4.4-11.0)
[2023-06-11 12:49] LABS: Microalbumin,Random Urine < 5.0 mg/L (NO RANGE EST.)
[2023-06-11 13:55] LABS: AST(SGOT) 20 U/L (15-37); Alanine Aminotransfer ALT/SGPT 29 U/L (13-56); Albumin, Serum 3.8 g/dL (3.2-5.0); Alkaline Phosphatase 87 U/L (45-117); Anion Gap 8 (5-15); BUN 15 mg/dL (7-18); BUN/Creat Ratio 18.6 RATIO (10-20); Calcium,Total 9.5 mg/dL (8.5-10.1); Chloride 106 mmol/L (98-107); Cholesterol 236 mg/dL (200); EST Glomerular Filtration Rate 76 mL/min (>60); Est Glom Filt Rate - Afr Amer 92 mL/min (>60); Globulin 3.7 g/dL (2.2-4.2); Glucose 106 mg/dL (74-106); High Density Lipoprotein 83 mg/dL; Potassium 3.9 mmol/L (3.5-5.1); Protein, Total 7.5 g/dL (6.4-8.2); Sodium Level 139 mmol/L (136-145); Triglycerides 178 mg/dL; Very Low Density Lipoprotein 36 mg/dL (5-40)
== END | disposition home or self-care (01) ==
LOC: MFPLAB 11:03
PROVIDERS: PCP Family Medicine; Visit Provider Family Medicine
DX: I10 Essential (primary) hypertension (principal)
CPT/HCPCS: 36415; 80053; 80061; 82043; 82570; 85025

== ENCOUNTER → 2023-08-03 | Outpatient (CLI) | payer OTHER, SELFPAY ==
[2023-08-03 12:50] LABS: Vitamin B12 528 pg/mL (211-911)
[2023-08-03 13:35] LABS: T4 Free Direct 0.96 ng/dL (0.76-1.46); Thyroid Stim Hormone (TSH) 1.58 uIU/mL (0.358-3.74)
[2023-08-06 13:07] LABS: ANTINUCLEAR ANTIBODIES DIRECT Positive (Negative)
[2023-08-10 07:08] LABS: Zinc, Plasma or Serum 66 ug/dL (44-115)
== END | disposition home or self-care (01) ==
LOC: MFPLAB 10:52
PROVIDERS: PCP Family Medicine; Visit Provider Family Medicine
DX: R53.83 Other fatigue (principal)
CPT/HCPCS: 36415; 82607; 82746; 84439; 84443; 84630; 86038

== ENCOUNTER → 2024-05-16 | Outpatient (CLI) | payer OTHER, SELFPAY | END | disposition home or self-care (01) | PROVIDERS: PCP Family Medicine; Referring Provider Internal Medicine Cardiovascular Disease; Visit Provider Internal Medicine Cardiovascular Disease | DX: I10 Essential (primary) hypertension (principal) | CPT/HCPCS: 93005 ==

== ENCOUNTER → 2024-05-23 | Outpatient (CLI) | payer OTHER, SELFPAY ==
--- NOTE | 2024-05-23 07:54 | ECHODONC_ITS ---
Reason For Study: Antineoplastic Chemo Procedure This was a 2D Doppler, Color Flow transthoracic echocardiogram. Myocardial strain analysis was performed in this exam to aid in the assessment of cardiac function. Exam performed in department. Left Ventricle Normal LV size. Left ventricular systolic function is normal. The left ventricular ejection fraction is 65 %. No regional wall motion abnormalities noted. Right Ventricle Normal RV size. Normal systolic function. Atria Normal left atrium. Normal right atrium. Mitral Valve Normal mitral valve. Tricuspid Valve Normal tricuspid valve. Mild tricuspid valve insufficiency. Right ventricular systolic pressure estimated to be 30 mmHg. Aortic Valve Trisinus/trileaflet aortic valve. Mild focal aortic valve thickening. Pulmonic Valve Normal pulmonic valve. Great Vessels Normal aortic root. The pulmonary artery is normal size. Normal inferior vena cava. Pericardium/Pleural No pericardial effusion. MMode/2D Measurements & Calculations LVIDd: 3.9 cm IVSd: 0.91 cm Ao root diam: 3.0 cm LVIDs: 2.5 cm LVPWd: 0.94 cm RVDd: 3.0 cm FS: 36.5 % LAV(MOD-bp): 28.3 ml LVAd ap4: 18.1 cm2 SV(MOD-sp4): 27.6 ml LAV(MOD-bp) Indexed: 17.0 ml/m2 LVLd ap4: 6.7 cm SI(MOD-sp4): 16.6 ml/m2 LAV(MOD-sp2): 31.0 ml EDV(MOD-sp4): 41.2 ml LAV(MOD-sp4): 24.2 ml EDV(sp4-el): 41.7 ml LVAs ap4: 9.2 cm2 LVLs ap4: 5.3 cm ESV(MOD-sp4): 13.6 ml ESV(sp4-el): 13.3 ml EF(MOD-sp4): 66.9 % EF(sp4-el): 68.1 % SV(sp4-el): 28.4 ml LA A4 area: 11.4 cm2 LA dimension(2D): 3.8 cm RA A4 area: 7.9 cm2 TAPSE: 1.9 cm Time Measurements MV dec time: 0.23 sec Doppler Measurements & Calculations MV E max johnny: 74.3 cm/sec Lat Peak E' Johnny: 8.8 cm/sec Med Peak E' Johnny: 7.4 cm/sec MV A max johnny: 104.8 cm/sec E/E' lat: 8.5 E/E' med: 10.0 MV E/A: 0.71 Ao V2 max: 121.1 cm/sec LV V1 max: 99.8 cm/sec MV dec slope: 326.8 cm/sec2 Ao max P.9 mmHg LV V1 max P.0 mmHg Ao V2 mean: 77.7 cm/sec Ao mean P.8 mmHg Ao V2 VTI: 23.7 cm PA V2 max: 91.0 cm/sec TR max johnny: 261.6 cm/sec TR max P.4 mmHg ECHO/ONC Echo Complete Interpretation Summary Normal LV size. Left ventricular systolic function is normal. The left ventricular ejection fraction is 65 %. The global longitudinal strain is normal. The global longitudinal strain = -20. 7 % (normal). Structurally normal valves. Compared to previous study, the left ventricular sy stolic function is the same.. Ordering Physician: Josue Haywood Referring Physician: Naman Proctor Performed By: Yuliana Pandya, CHONG, RVT
== END | disposition home or self-care (01) ==
LOC: CVS 07:54
PROVIDERS: PCP Family Medicine; Referring Provider Internal Medicine Cardiovascular Disease; Visit Provider Internal Medicine Cardiovascular Disease
DX: I34.0 Nonrheumatic mitral (valve) insufficiency (principal)
CPT/HCPCS: 93306; 93356

== ENCOUNTER → 2024-05-27 | Outpatient (CLI) | payer OTHER, SELFPAY ==
--- NOTE | 2024-05-27 17:33 | STRESSREP ---
Stress Test Report Exercise stress test. 63-year-old lady with a history of chest pain Stress protocol: Resting EKG demonstrates normal sinus rhythm with a rate of 76 bpm resting blood pressure is 176/86 mmHg. The patient exercised according to the regular Jeremy protocol for a total duration of 9 minutes and 36 seconds attaining a maximum heart rate of 160 bpm which was 102% of maximum predicted heart rate; the maximum workload was 12 metabolic equivalents. At rest there were no ST or T wave changes noted to suggest ischemia and at peak exercise upsloping ST changes only were noted which did not meet the criteria for ischemia. No clinical angina was noted the test was terminated due to the target heart rate being achieved/fatigue. The peak blood pressure was 210/90 mmHg. Rate-pressure product was 28,400. Hypertensive response to exercise noted Conclusion: Exercise stress test with no EKG criteria for ischemia at a high workload. Good functional aerobic capacity. Resting hypertension and hypertensive response to exercise present.
== END | disposition home or self-care (01) ==
LOC: CVS 11:52
PROVIDERS: PCP Family Medicine; Referring Provider Internal Medicine Cardiovascular Disease; Visit Provider Internal Medicine Cardiovascular Disease
DX: I10 Essential (primary) hypertension (principal)
CPT/HCPCS: 93017

== ENCOUNTER → 2024-07-18 | Outpatient (CLI) | payer BC, SELFPAY ==
[2024-07-18 10:56] LABS: Anion Gap 5 (5-15); BUN 20 mg/dL (7-18); BUN/Creat Ratio 23.9 RATIO (10-20); Calcium,Total 9.6 mg/dL (8.5-10.1); Chloride 108 mmol/L (98-107); Creatinine, Serum 0.84 mg/dL (0.55-1.02); EST Glomerular Filtration Rate 73 mL/min (>60); Est Glom Filt Rate - Afr Amer 88 mL/min (>60); Glucose 99 mg/dL (74-106); Potassium 4.1 mmol/L (3.5-5.1); Sodium Level 139 mmol/L (136-145)
[2024-07-18 11:18] LABS: Microalbumin,Random Urine 11.3 mg/L (NO RANGE EST.); Microalbumin:Creatinine Ratio 7.2 mg/g CRE (<30 mg/g CRE)
== END | disposition home or self-care (01) ==
LOC: MFPLAB 08:57
PROVIDERS: PCP Family Medicine; Referring Provider Family Medicine; Visit Provider Family Medicine
DX: I10 Essential (primary) hypertension (principal)
CPT/HCPCS: 36415; 80048; 82043; 82570

== ENCOUNTER → 2025-06-10 | Outpatient (CLI) | payer MEDICARE, BC, SELFPAY ==
--- OUTSIDE RECORDS SUMMARY | 2025-06-10 07:09 | XMS RPT_ITS | CCD ---
Author Organization 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 Vincenzo Proctor Primary Care Provider Dr. Vincenzo Proctor Referring Provider [phone] Eliceo Johnson Attending Provider Dr. Chantale Jeronimo Attending Provider Dr. Vincenzo Proctor Primary Care Provider Dr. Vincenzo Proctor Referring Provider [phone] Eliceo Johnson Attending Provider Dr. Chantale Jeronimo Attending Provider Mary JURY CONSULTANT, JURY CONSULTANT-C Janet Attending Provider Dr. Eliceo Johnson Referring Provider Dr. Eliceo Johnson Other Provider Dr. Josue Haywood Attending Provider Dr. Jay Pascal Attending Provider [phone] Altagracia Kent RN Unavailable Unavailable Mary DIRECTOR OF PUPIL PERSONNEL PROGRAM-EXECUTIVE HOUSEKEEPER, Janet R Unavailable Vincenzo Proctor MD [facility] Avery Rios DO Unavailable Dr. Vincenzo Proctor Primary Care Provider Dr. Vincenzo Proctor Referring Provider Dr. Chantale Jeronimo Attending Provider Mary JURY CONSULTANT, JURY CONSULTANT-C Janet Attending Provider Dr. Jay Pascal Attending Provider Dr. Avery Rios Attending Provider CARMEN Morrison Attending Provider Dr. Josue Haywood Attending Provider Dr. Vincenzo Proctor Primary Care Provider Dr. Vincenzo Proctor Referring Provider Dr. Chantale Jeronimo Attending Provider Dr. Avery Rois Referring Provider Dr. Vincenzo Proctor Primary Care Provider Dr. Vinecnzo Proctor Referring Provider Dr. Chantale Jeronimo Attending Provider Mary JURY CONSULTANT, JURY CONSULTANT-C Janet Attending Provider Donte RN, Altagracia Unavailable Unavailable Mary DIRECTOR OF PUPIL PERSONNEL PROGRAM-EXECUTIVE HOUSEKEEPER, Janet R Unavailable Vincenzo Proctor MD Primary Care Provider [facility] Avery Rios DO Unavailable Dr. Vincenzo Proctor Primary Care Provider Dr. Vincenzo Proctor Referring Provider Dr. Chantale Jeronimo Attending Provider Dr. Eliceo Johnson Attending Provider Dr. Avery Rios Attending Provider CARMEN Morrison Attending Provider Dr. Josue Haywood Attending Provider Trae JURY CONSULTANT, JURY CONSULTANT-C Susan Attending Provider Mumtaz JURY CONSULTANT, JURY CONSULTANT-C Cholo Guevara Attending Provider Dr. Vincenzo Proctor Primary Care Provider Dr. Vincenzo Proctor Referring Provider Dr. Chantale Jeronimo Attending Provider Dr. Avery Rios Attending Provider Mary DIRECTOR OF PUPIL PERSONNEL PROGRAM-EXECUTIVE HOUSEKEEPER, Janet R Unavailable Hitesh BARAJAS, Vincenzo Chappell Primary Care Provider PADMA CARPIO Attending Unavailable PROCTOR, VINCENZO A Primary Care Unavailable PADMA CARPIO Attending Unavailable PROCTOR, VINCENZO A Primary Care Unavailable LUCIANA TY Attending Unavailable PADMA CARPIO Referring Unavailable PROCTOR, VINCENZO A Primary Care Unavailable Hitesh BARAJAS, Dr. Florence Primary Care Provider Hitesh BARAJAS, Dr. Florence Referring Provider Mary JURY CONSULTANT-C, Janet Attending Provider Hitesh BARAJAS, Dr. Florence Primary Care Provider Amada BARAJAS, Dr. Rangel Attending Provider Dr. Avery Rios DO Attending Provider Hitesh BARAJAS, Vincenzo Chappell Primary Care Provider Phani GREGORY [facility], Chantale S Unavailable Avery Rios DO Unavailable NALLELY LILIA Carola Referring Unavailable PROCTOR, VINCENZO A Primary Care Unavailable LORENZO FARRIS III Attending Unavailyuliya BROWNING LILIA Carola Referring Unavailable PROCTOR, VINCENZO A Primary Care Unavailable LORENZO FARRIS III Attending Unavailabl e PROCTOR, VINCENZO A Primary Care Unavailable LORENZO FARRIS III Attending Unavailabl e HAMLETINO LILIA Carola Referring Unavailable MANGINO, LILIA D Referring Unavailable PROCTOR, VINCENZO A Primary Care Unavailable LORENZO FARRIS III Attending Unavailyuliya Hernandez JURY CONSULTANT, Janet Attending Unavailable Proctor, Vincenzo Referring Unavailable Proctor, Vincenzo Primary Care Unavailable Proctor, Vincenzo Primary Care Unavailable Chastity, [place] Attending Unavailable Proctor, Vincenzo Primary Care Unavailable Chastity, [place] Attending Unavailable Chastity, [place] Referring Unavailable Chantale Jeronimo Attending Unavailable Chantale Jeronimo Referring Unavailable Proctor, Vincenzo Primary Care Unavailable Proctor, Vincenzo Attending Unavailable Proctor, Vincenzo Referring Unavailable Proctor, Vincenzo Primary Care Unavailable Proctor, Vincenzo Primary Care Unavailable Chastity, Josue Attending Unavailable Josue Haywood Referring Unavailable Proctor, Vincenzo Primary Care Unavailable Susan Larkin NP Attending Unavailable Proctor, Vincenzo Primary Care Unavailable Josue Haywood Consulting Unavailable oJsue Haywood Attending Unavailable Josue Haywood Referring Unavailable Avery Rios Attending Unavailable Proctor, Vincenzo Referring Unavailable Proctor, Vincenzo Primary Care Unavailable Chantale Jeronimo Attending Unavailable Proctor, Vincenzo Referring Unavailable Proctor, Vincenzo Primary Care Unavailable Janet Hernandez NP Attending Unavailable Proctor, Vincenzo Referring Unavailable Proctor, Vincenzo Primary Care Unavailable Proctor, Vincenzo Primary Care Unavailable Avery Rios Attending Unavailable Proctor, Vincenzo Referring Unavailable Chantale Jeronimo Attending Unavailable Proctor, Vincenzo Referring Unavailable Proctor, Vincenzo Primary Care Unavailable Medications Current Medications Medication Drug Class(es) Dates Sig (Normalized) Sig (Original) ascorbic acid 1000 mg oral tablet (19 sources) Vitamin C take 1 tablet by mouth once daily Ascorbic Acid (Vitamin C) 1000 MG tablet Take 1 tablet by mouth daily. Active calcium ascorbate 500 mg oral tablet (10 sources) Start: 03-27-2022 take 2 tablets by mouth once daily Ascorbate Calcium (Vitamin C) 500 mg tablet Active 1000 mg PO DAILY March 27, 2022 12:00am Start: 03-27-2022 take 1000 mg by mouth once zuhair ly Ascorbate Calcium (Vitamin C) Active 1000 MG PO DAILY March 26, 2022 11:00pm cholecalciferol 0.125 mg oral capsule (20 sources) Vitamin D Start: 03-27-2022 take 1 capsule by mouth once daily Cholecalciferol (Vitamin D3) 125 mcg (5,000 unit) capsule Active 125 ug PO DAILY March 27, 2022 12:00am Cholecalciferol (Vitamin D3) 125 MCG (5000 UT) Tab Dispersible Take by mouth daily. Active cholecalciferol, vitamin D3, 125 mcg (5,000 unit) ODT Take by mouth. Active docosahexaenoic acid 120 mg / eicosapentaenoic acid 180 mg oral capsule (16 sources) take 1 capsule by mouth once daily [place]-3 1000 MG capsule Take 1 capsule by mouth daily. Active flaxseed oil (OMEGA 3 ORAL) (3 sources) take 1000 mg by mouth once daily flaxseed oil (OMEGA 3 ORAL) Take 1,000 mg by mouth once daily. Active Hair Prosthesis (18 sources) Start: 04-12-2022 Hair Prosthesis Active 0 .Route .MEDSUPPLY 1 0 April 12, 2022 5:25pm Alopecia Malignant neoplasm of upper-outer quadrant of left female breast Nonscarring hair loss, unspecified Malignant neoplasm of upper-outer quadrant of left female breast As directed Start: 04-12-2022 Hair Prosthesi s Active 0 .Route .MEDSUPPLY 1 April 12, 2022 5:25pm As directed Start: 04-12-2022 Hair Prosthesi s Active 0 .Route .MEDSUPPLY 1 April 12, 2022 4:25pm As directed Start: 04-06-2022 End: 04-12-2022 Hair Prosthesis Discontinued 0 .Route .MEDSUPPLY 1 0 April 06, 2022 12:00am April 12, 2022 5:26pm Alopecia Malignant neoplasm of upper-outer quadrant of left female breast Nonscarring hair loss, unspecified Malignant neoplasm of upper-outer quadrant of left female breast As directed Start: 04-06-2022 End: 04-12-2022 Hair Prosthesis Discontinued 0 .Route .MEDSUPPLY 1 April 06, 2022 12:00am April 12, 2022 5:26pm As directed Start: 04-06-2022 End: 04-12-2022 Hair Prosthesis Discontinued 0 .Route .MEDSUPPLY April 05, 2022 11:00pm April 12, 2022 4:26pm As directed hydroCHLOROthiazide 25 mg oral tablet (1 source) Thiazide Diuretic Start: 12-24-2009 End: 07-18-2024 HYDROCHLOROTHIAZIDE 25 MG TAB Take one(1) tablet daily. 0 12/24/2009 07/18/2024 Discontinued (Discontinued by Patient) ibuprofen 600 mg oral tablet (2 sources) Nonsteroidal Anti-inflammator y Drug Start: 08-22-2022 End: 09-01-2022 take 1 tablet by mouth every eight hours as needed Ibuprofen 600 MG tablet Take 1 tablet by mouth every 8 hours for mild or moderate pain for 5 days, after 5 days, take every 8 hours NEEDED for pain 30 tablet 0 08/22/2022 09/01/2022 Active lisinopril 20 mg oral tablet (1 source) Angiotensin Converting Enzyme Inhibitor End: 07-18-2024 take 1 tablet by mouth twice daily lisinopril (ZESTRIL, PRINIVIL) 20 mg tablet Take 20 mg by mouth twice daily. 07/18/2024 Discontinued (Discontinued by Patient) MAGNESIUM GLUCONATE (11 sources) MAGNESIUM GLUCON ATE ORAL Take by mouth once daily. Active Magnesium Glucon ate (MAGNESIUM 27 PO) Take by mouth daily. Active Magnesium Glucon ate (MAGNESIUM 27 PO) Take by mouth. 0 Active magnesium oxide 400 mg oral capsule (6 sources) Start: 11-16-2022 take 1 capsule by mouth once daily Magnesium Oxide 400 mg magnesium capsule Active 400 mg PO DAILY November 16, 2022 12:00am melatonin 10 mg oral tablet (17 sources) Start: 03-27-2022 End: 09-20-2022 take 1 tablet by mouth at bedtime as needed Melatonin 10 mg tablet Active 10 mg PO BEDTIME as needed September 20, 2022 11:22am Beeus-4c-Zsx-Epa-Fish Oil (8 sources) Start: 03-27-2022 take 1 capsule by mouth once daily Acxwg-8p-Ela-Epa-Fish Oil Active 1 CAP PO DAILY March 26, 2022 11:00pm Start: 03-27-2022 take 1 capsule by mo [facility] once daily Rtvbu-6q-Jmb-Epa-Fish Oil Active 1 CAP PO DAILY March 27, 2022 12:00am Dmcsj-0j-Dvw-Epa-Fish Oil 350-400 mg capsule (2 sources) Start: 03-27-2022 Sixfi-6n-Wbl-Epa-Fish Oil 350-400 mg capsule Active 1 NMA PO DAILY March 27, 2022 12:00am oxyCODONE hydrochloride 5 mg oral tablet (2 sources) Opioid Agonist Start: 08-22-2022 End: 08-29-2022 take 1 tablet by mouth every six hours as needed for pain oxyCODONE 5 MG tablet Indications: Malignant neoplasm of upper-inner quadrant of left breast in female, estrogen receptor negative Take 1 tablet by mouth every 6 hours as needed for severe pain or breakthrough pain for up to 7 days. 12 tablet 0 08/22/2022 08/29/2022 Active polyethylene glycol 3350 040978 mg / potassium chloride 2970 mg / sodium bicarbonate 6740 mg / sodium chloride 5860 mg / sodium sulfate 94050 mg powder for oral solution (1 source) Osmotic Laxative Start: 07-18-2024 End: 07-18-2024 peg 3350-Electrolytes (GOLYTELY) 236-22.74-6.74 -5.86 gram suspension Indications: Encounter for screening for malignant neoplasm of colon Take 4,000 mL by mouth one time only for 1 dose. Refer to printed prep instructions from your provider. 4000 mL 07/18/2024 07/18/2024 Active valsartan 160 mg oral tablet (20 sources) Angiotensin 2 Receptor Patito Start: 11-09-2023 End: 05-27-2024 take 1 tablet by mouth once daily Valsartan 160 mg tablet Discontinued 160 mg PO DAILY 180 November 09, 2023 10:17am May 27, 2024 6:39pm Start: 04-20-2023 End: 04-20-2023 take 1 tablet by mouth once daily Valsartan 320 mg tablet Discontinued 320 mg PO DAILY 90 April 20, 2023 8:52am April 20, 2023 9:13am Start: 07-18-2022 End: 06-03-2024 take 1 tablet by mouth twice daily Valsartan 160 MG tablet Take 1 tablet by mouth 2 times daily. 07/18/2022 Active Start: 09-01-2020 End: 04-20-2023 take 1 tablet by mouth once daily Valsartan 160 mg tablet Discontinued 160 mg PO DAILY March 15, 2022 12:00am April 20, 2023 8:53am Vitamin B Complex (B Complex-Vitamin B12) tablet (7 sources) Start: 09-20-2022 Vitamin B Comp loretta (B Complex-Vitamin B12) tablet Active 1 {tbl} PO DAILY September 20, 2022 12:00am Start: 09-20-2022 take 1 tablet by chente th once daily Vitamin B Complex (B Complex-Vitamin B12) tablet Active 1 TABLET PO DAILY September 19, 2022 11:00pm Start: 09-20-2022 take 1 tablet by chente th once daily Vitamin B Complex (B Complex-Vitamin B12) tablet Active 1 TABLET PO DAILY September 20, 2022 12:00am VITAMIN B COMPLEX ORAL (3 sources) VITAMIN B COMPLE X ORAL Take by mouth once daily. Active vitamin B12 (6 sources) Vitamin B12 Cyanocobalamin ( B-12 PO) Take by mouth daily. Active Zinc (16 sources) take 1 tablet by mouth once daily Zinc 22.5 MG tablet Take 1 tablet by mouth daily. Active take 1 tablet by mouth once babar y Zinc 22.5 MG tablet Take 1 tablet by mouth daily. 0 Active zinc gluconate 50 mg oral tablet (3 sources) Start: 06-30-2020 take 1 tablet by mouth once daily Zinc Gluconate 50 mg tablet Take 50 mg by mouth once daily. 06/30/2020 Active zinc glycinate (1 source) Start: 02-24-2025 take 1 capsule by mouth once daily Zinc Glycinate 20 mg capsule Active 20 mg PO daily February 24, 2025 12:00am Completed/Discontinued Medications Medication Drug Class(es) Dates Sig (Normalized) Sig (Original) acetaminophen 325 mg oral tablet (4 sources) Start: 08-22-2022 End: 08-22-2022 take 1 tablet by mouth every four hours as needed Acetaminophen (TYLENOL) tablet 650 mg Start: 08-22-2022 End: 09-01-2022 take 3 tablets by mouth every eight hours as needed Acetaminophen 325 MG tablet Take 3 tablets by mouth every 8 hours for mild pain for 5 days, after 5 days, take every 8 hours NEEDED for pain 90 tablet 0 08/22/2022 09/01/2022 Active Start: 08-22-2022 End: 08-22-2022 Acetaminophen (TYLENOL) tabl et 975 mg Acetaminophen / oxyCODONE (1 source) Opioid Agonist Start: 08-22-2022 End: 08-22-2022 take 1 tablet by mouth every four hours as needed oxyCODONE-acetaminophen (PERCOCET) 5-325 MG per tablet 1 tablet aspirin 81 mg delayed release oral tablet (20 sources) Platelet Aggregation Inhibitor, Nonsteroidal Anti-inflammator y Drug Start: 12-24-2009 End: 07-18-2024 take 1 tablet by mouth once daily Aspirin (Adult Aspirin Regimen) 81 mg tablet,delayed release (DR/EC) Discontinued 81 mg PO DAILY March 15, 2022 12:00am March 27, 2023 9:09am End: 03-13-2024 take 1 tablet by mouth once daily ASPIRIN 81 PO Take 1 tablet by mouth daily. 03/13/2024 Discontinued take 1 tablet by chente th once daily ASPIRIN 81 PO Take 1 tablet by mouth daily. 0 Active calcium chloride 0.0014 meq/ml / potassium chloride 0.004 meq/ml / sodium chloride 0.103 meq/ml / sodium lactate 0.028 meq/ml injectable solution (2 sources) Start: 08-05-2024 End: 08-05-2024 take 30 mL intravenously every hour 30 mL/hr, INTRAVENOUS, CONTINUOUS, Starting on Sun08/05/24 at 1200, Until Sun08/05/24 at 1251, Preprocedure Start: 08-22-2022 End: 08-22-2022 Lactated ringers IV solution cetirizine hydrochloride 10 mg oral tablet (10 sources) Histamine-1 Receptor Antagonist Start: 03-27-2022 End: 06-14-2022 take 1 tablet by mouth once daily as needed Cetirizine (Allergy Relief (Cetirizine)) 10 mg tablet Discontinued 10 mg PO DAILY as needed for ALLERGIES March 27, 2022 12:00am June 14, 2022 9:02am chondroitin sulfates 400 mg / glucosamine hydrochloride 500 mg oral tablet (10 sources) Start: 03-27-2022 End: 11-09-2023 Glucosamine-Chondroi tin (Cosamin Ds) 500-400 mg tablet Discontinued 3 {tbl} PO THREE TIMES A DAY March 27, 2022 12:00am November 09, 2023 9:59am Coenzyme Q10 (CO Q 10 PO) (9 sources) End: 03-08-2023 take 1 tablet by mouth once daily Coenzyme Q10 (CO Q 10 PO) Take 1 tablet by mouth daily. 0 03/08/2023 Discontinued (Medication Reconciliation (suppress cancel msg)) take 1 tablet by mouth once babar y Coenzyme Q10 (CO Q 10 PO) Take 1 tablet by mouth daily. 0 Active diphenhydrAMINE (1 source) Histamine-1 Receptor Antagonist Start: 08-05-2024 End: 08-05-2024 12.5-50 mg, INTRAVENOUS, DIRECTED, Starting on Sun08/05/24 at 1230, Until Sun08/05/24 at 1629, DOSING DIRECTED BY PHYSICIAN FOR PROCEDURAL SEDATION ONLY, Intraprocedure doxycycline hyclate 100 mg oral tablet (6 sources) Tetracycline-clas s Drug Start: 11-16-2022 End: 11-20-2022 take 1 tablet by mouth twice daily Doxycycline Hyclate 100 mg tablet Discontinued 100 mg PO TWICE A DAY November 16, 2022 12:00am November 20, 2022 1:39pm X 4 days 1 ml fentaNYL 0.05 mg/ml injection (1 source) Opioid Agonist Start: 08-05-2024 End: 08-05-2024 25-100 mcg, INTRAVENOUS, DIRECTED, Starting on Sun08/05/24 at 1230, Until Sun08/05/24 at 1629, DOSING DIRECTED BY PHYSICIAN FOR PROCEDURAL SEDATION ONLY, Intraprocedure 1 ml haloperidol 5 mg/ml injection (1 source) Typical Antipsychotic Start: 08-22-2022 End: 08-22-2022 Haloperidol lactate (HALDOL) injection 1 mg HYDROmorphone (DILAUDID) injection 0.2 mg (1 source) Start: 08-22-2022 End: 08-22-2022 HYDROmorphone (DILAUDID) injection 0.2 mg HYDROmorphone (DILAUDID) injection 0.5 mg (1 source) Start: 08-22-2022 End: 08-22-2022 take 0.5 mg intravenously every three hours as needed HYDROmorphone (DILAUDID) injection 0.5 mg indapamide 1.25 mg oral tablet (16 sources) Thiazide-like Diuretic Start: 03-27-2022 End: 04-20-2023 take 1 tablet by mouth every other day as needed Indapamide 1.25 mg tablet Discontinued 0.625 mg PO .QOD as needed November 16, 2022 9:58am April 20, 2023 8:58am Start: 03-27-2022 End: 04-20-2023 take 0.625 mg by mouth every other day Indapamide Discontinued 0.625 MG PO .QOD November 16, 2022 8:58am April 20, 2023 7:58am labetalol hydrochloride 5 mg/ml injectable solution (1 source) beta-Adrenergic Patito Start: 08-22-2022 End: 08-22-2022 Labetalol (NORMODYNE) injection 5 mg Lactobacillus Combination No.9 (Adult 50 Plus Probiotic) 4 billion cell capsule (9 sources) Start: 05-03-2022 End: 06-14-2022 take 4 capsules by mouth once daily Lactobacillus Combination No.9 (Adult 50 Plus Probiotic) 4 billion cell capsule Discontinued 4000 NMA PO DAILY May 03, 2022 12:00am June 14, 2022 9:03am administer with a meal Start: 05-03-2022 End: 06-14-2022 take 4 capsules by mouth once daily Lactobacillus Combination No.9 (Adult 50 Plus Probiotic) 4 billion cell capsule Discontinued 4000 MMU CELLS PO DAILY May 03, 2022 12:00am June 14, 2022 9:03am administer with a meal Start: 05-03-2022 End: 06-14-2022 take 4 capsules by mouth once daily Lactobacillus Combination No.9 (Adult 50 Plus Probiotic) 4 billion cell capsule Discontinued 4000 MMU CELLS PO DAILY May 02, 2022 11:00pm June 14, 2022 8:03am administer with a meal 10 ml lidocaine hydrochloride 10 mg/ml injection (2 sources) Antiarrhythmic, Amide Local Anesthetic Start: 08-22-2022 End: 08-22-2022 Lidocaine 1% (PF) (XYLOCAINE MPF) 1 % injection 3 mL Start: 08-22-2022 End: 08-22-2022 Lidocaine (XYLOCAINE) 10 mg/ mL injection 50 mg lidocaine 25 mg/ml / prilocaine 25 mg/ml topical cream (9 sources) Antiarrhythmic, Amide Local Anesthetic Start: 03-29-2022 End: 04-20-2023 Lidocaine-Prilocaine 2.5-2.5 % cream Discontinued 1 NMA TOPICAL ONCE as needed for port access March 29, 2022 12:00am April 20, 2023 8:36am 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 03/13/2024 Discontinued magnesium citrate 100 mg oral tablet (10 sources) Start: 03-27-2022 End: 06-14-2022 take 1 tablet by mouth once daily Magnesium Citrate 100 mg tablet Discontinued 100 mg PO DAILY March 27, 2022 12:00am June 14, 2022 9:04am 5 ml midazolam 1 mg/ml injection (1 source) Benzodiazepine Start: 08-05-2024 End: 08-05-2024 1-5 mg, INTRAVENOUS, DIRECTED, Starting on Sun08/05/24 at 1230, Until Sun08/05/24 at 1629, DOSING DIRECTED BY PHYSICIAN FOR PROCEDURAL SEDATION ONLY, Intraprocedure 2 ml ondansetron 2 mg/ml injection (10 sources) Serotonin-3 Receptor Antagonist Start: 08-22-2022 End: 08-22-2022 take 4 mg intravenously every four hours as needed Ondansetron 4mg/2ml (ZOFRAN) injection 4 mg Start: 03-29-2022 End: 04-20-2023 take 1 tablet by mouth every eight hours as needed for nausea and vomiting Ondansetron 8 mg tablet,disintegrating Discontinued 8 mg PO Q8H as needed for nausea and vomiting March 29, 2022 12:00am April 20, 2023 8:36am 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 07/18/2024 Discontinued (Discontinued by Patient) 2 ml prochlorperazine 5 mg/ml injection (10 sources) Phenothiazine Start: 08-22-2022 End: 08-22-2022 take 5 mg intravenously every hour as needed Prochlorperazine (COMPAZINE) injection 5 mg Start: 03-29-2022 End: 12-06-2022 take 1 tablet by mouth every six hours as needed for nausea and vomiting Prochlorperazine Maleate 10 mg tablet Discontinued 10 mg PO EVERY 6 HOURS as needed for nausea and vomiting March 29, 2022 12:00am December 06, 2022 10:30am Chemotherapy-induced nausea and vomiting Malignant neoplasm of upper-outer quadrant of left female breast Nausea with vomiting, unspecified Adverse effect of antineoplastic and immunosuppressive drugs, initial encounter Malignant neoplasm of upper-outer quadrant of left female breast 1 ml promethazine hydrochloride 25 mg/ml injection (1 source) Phenothiazine Start: 08-22-2022 End: 08-22-2022 take 12.5 mg intravenously every six hours as needed Promethazine (PHENERGAN) injection 12.5 mg sennosides, alf 8.6 mg oral tablet (5 sources) Start: 08-22-2022 End: 03-08-2023 take 1 tablet by mouth every twelve hours as needed Senna 8.6 MG tablet Take 1 tablet by mouth every 12 hours as needed for constipation 20 tablet 0 08/22/2022 03/08/2023 Discontinued TC-99M SULFUR COLLOID (0.10 UM FILTRATE) IVPB 0.36-0.6 millicurie (1 source) Start: 08-22-2022 End: 08-22-2022 TC-99M SULFUR COLLOID (0.10 UM FILTRATE) IVPB 0.36-0.6 millicurie Turmeric extract (10 sources) Start: 03-27-2022 End: 05-03-2022 take 1 capsule by mouth once daily Turmeric 400 mg capsule Discontinued 750 mg PO DAILY March 27, 2022 12:00am May 03, 2022 8:56am Start: 03-27-2022 End: 05-03-2022 take 750 mg by mouth once daily Turmeric Discontinued 750 MG PO DAILY March 27, 2022 12:00am May 03, 2022 8:56am Start: 03-27-2022 End: 05-03-2022 take 750 mg by mouth once daily Turmeric Discontinued 750 MG PO DAILY March 26, 2022 11:00pm May 03, 2022 7:56am Start: 03-27-2022 Turmeric Activ e 750 MG PO March 27, 2022 12:00am ubidecarenone 100 mg oral capsule (10 sources) Start: 03-27-2022 End: 04-20-2023 Coenzyme Q10 (Coq-10) 100 mg capsule Discontinued 200 mg PO DAILY March 27, 2022 12:00am April 20, 2023 8:37am VERIFY LINKED PATCH PLACEMEN T (1 source) Start: 08-22-2022 End: 08-22-2022 VERIFY LINKED PATCH PLACEMEN T Problems Active Problems Problem Classification Problem Date Documented Date Episodic/Chronic Administrative/socia l admission (19 sources) Patient encounter status; Translations: [Counseling, unspecified] Episodic Allergic reactions (12 sources) Acral erythema; Translations: [Localized skin eruption due to drugs and medicaments taken internally] Episodic Anxiety disorders (12 sources) Anxiety; Translations: [Anxiety disorder, unspecified] Chronic Comment on above: SITUATIONAL Asthma (11 sources) Asthma; Translations: [Unspecified asthma, uncomplicated] 03-30-2022 Chronic Comment on above: MILD/NO INHALER Cancer of breast (20 sources) Malignant tumor of breast ; Translations: [Malignant neoplasm of unspecified site of unspecified female breast] Onset: 03-15-2022 Chronic Cancer of breast (1 source) History of malignant neoplasm of breast; Translations: [Personal history of malignant neoplasm of breast] 07-18-2024 Episodic Complications of surgical procedures or medical care (11 sources) Skin reaction to suture material; Translations: [Disruption of wound, unspecified, initial encounter] 09-19-2022 Episodic Esophageal disorders (3 sources) Gastroesophageal reflux disease; Translations: [Gastro-esophageal reflux disease without esophagitis] 12-24-2009 Chronic Essential hypertension (20 sources) Hypertensive disorder; Translations: [Essential (primary) hypertension] Onset: 06-24-2024 03-30-2022 Chronic Fluid and electrolyte disorders (20 sources) Hypokalemia; Translations: [Hypokalemia] Episodic Heart valve disorders (1 source) Nonrheumatic mitral (valve) insufficiency; Translations: [Nonrheumatic mitral (valve) insufficiency] Onset: 06-19-2024 Chronic Maintenance chemotherapy; radiotherapy (19 sources) Patient encounter status; Translations: [Encounter for antineoplastic chemotherapy] Chronic Nonmalignant breast conditions (2 sources) Breast lump; Translations: [Unspecified lump in the left breast, upper inner quadrant] Episodic Osteoarthritis (11 sources) Arthritis; Translations: [Unspecified osteoarthritis, unspecified site] 03-15-2022 Chronic Other aftercare (7 sources) Drug therapy finding; Translations: [Encounter for therapeutic drug level monitoring] 06-14-2022 Episodic Other aftercare (3 sources) Encounter for therapeutic drug level monitoring; Translations: [Encounter for therapeutic drug monitoring] Episodic Other aftercare (2 sources) Long-term current use of drug therapy; Translations: [Encounter for therapeutic drug level monitoring] 06-14-2022 Episodic Other and unspecified benign neoplasm (1 source) Polyp ; Translations: [Benign neoplasm, unspecified site] 08-18-2024 Episodic Other and unspecified benign neoplasm (1 source) Benign neoplasm, unspecified site; Translations: [Adenomatous polyp] Onset: 08-19-2024 Episodic Other circulatory disease (5 sources) Device in situ; Translations: [Presence of other vascular implants and grafts] 04-20-2023 Chronic Comment on above: removed Other circulatory disease (4 sources) Presence of other vascular implants and grafts; Translations: [Other postprocedural status] 03-27-2023 Chronic Other nutritional; endocrine; and metabolic disorders (8 sources) Hypomagnesemia; Translations: [Hypomagnesemia] 08-09-2022 Chronic Other nutritional; endocrine; and metabolic disorders (2 sources) Hypomagnesemia; Translations: [Disorders of magnesium metabolism] 08-09-2022 Chronic Other skin disorders (9 sources) Alopecia; Translations: [Nonscarring hair loss, unspecified] 04-06-2022 Episodic Residual codes; unclassified (2 sources) Estrogen receptor negative status [ER-]; Translations: [Estrogen receptor negative status (ER-)] Onset: 08-04-2022 Episodic Residual codes; unclassified (2 sources) Estrogen receptor positive status [ER+]; Translations: [Estrogen receptor positive status [ER+]] Onset: 05-20-2025 Episodic Past or Other Problems Problem Classification Problem Date Documented Da te Episodic/Chronic Esophageal disorders (3 sources) Esophagitis; Translations: [Esophagitis, unspecified] Onset: 12-27-2009 12-27-2009 Episodic Gastritis and duodenitis (3 sources) Acute gastritis; Translations: [Acute gastritis without bleeding] Onset: 12-27-2009 12-27-2009 Episodic Mood disorders (16 sources) Mood disorders Onset: 08-04-2022 Resolved: 03-19-2025 08-04-2022 Nonspecific chest pain (3 sources) Chest pain; Translations: [Other chest pain] Onset: 12-24-2009 12-24-2009 Episodic Other screening for suspected conditions (not mental disorders or infectious disease) (7 sources) Mammography abnormal; Translations: [Other abnormal and inconclusive findings on diagnostic imaging of breast] Onset: 08-05-2024 03-13-2024 Episodic Results Test Name Value Interpretation Reference Range Facility CBC W/Diff, Automatedon 11- Absolute Lymph 1.08 X10 3/uL Normal 0.83-4.51 [facility] Comment on above: Performed By: #### L 500.4050, L100.0100 #### [facility] [address] [place], [address] Absolute Neut 2.3 X10 3/uL Normal 2.0-7.7 [facility] Comment on above: Performed By: #### L 500.4050, L100.0100 #### [facility] [address] [place], [address] Basophils/100 WBC (Bld) 0.5 % Normal 0-1 [facility] Comment on above: Performed By: #### L 500.4050, L100.0100 #### [facility] [address] [place], [address] Eosinophils/100 WBC (Bld) 1.9 % Normal 0-5 [facility] Comment on above: Performed By: #### L 500.4050, L100.0100 #### [facility] [address] [place], [address] Erythrocyte distribution width (RBC) [Ratio] 12.0 % Normal 11.6-14.6 [facility] Comment on above: Performed By: #### L 500.4050, L100.0100 #### [facility] [address] [place], [address] Hematocrit (Bld) [Volume fraction] 36.9 % Low 37-47 [facility] Comment on above: Performed By: #### L 500.4050, L100.0100 #### [facility] [address] [place], [address] Hemoglobin (Bld) [Mass/Vol] 13.1 g/dL Normal 12.0-15.0 [facility] Comment on above: Performed By: #### L 500.4050, L100.0100 #### [facility] [address] [place], [address] IG% 0.300 Normal 0.0-0.9 [facility] Comment on above: Result Comment: IG% - Immature Granulocytes (promyelocytes, myelocytes and metamyelocytes) > 1% indicates that a LEFT SHIFT is Present. Performed By: #### L 500.4050, L100.0100 #### [facility] [address] [place], [address] Lymphocytes/100 WBC (Bld) 28.8 % Normal 19-41 [facility] Comment on above: Performed By: #### L 500.4050, L100.0100 #### [facility] [address] [place], [address] MCH (RBC) [Entitic mass] 30.2 pg Normal 27.0-32.0 [facility] Comment on above: Performed By: #### L 500.4050, L100.0100 #### [facility] [address] [place], [address] MCHC (RBC) [Mass/Vol] 35.5 g/dL Normal 32-36 [facility] Comment on above: Performed By: #### L 500.4050, L100.0100 #### [facility] [address] [place], [address] MCV (RBC) [Entitic vol] 85.0 fL Normal 81-99 [facility] Comment on above: Performed By: #### L 500.4050, L100.0100 #### [facility] [address] [place], [address] Monocytes/100 WBC (Bld) 8.5 % Normal 0-10 [facility] Comment on above: Performed By: #### L 500.4050, L100.0100 #### [facility] [address] [place], [address] Neutrophils/100 WBC (Bld) 60.0 % Normal 47-70 [facility] Comment on above: Performed By: #### L 500.4050, L100.0100 #### [facility] [address] [place], [address] Nucleated RBC (Bld) [#/Vol] 0 10*3/uL Normal 0-5 [facility] Comment on above: Performed By: #### L 500.4050, L100.0100 #### [facility] [address] [place], [address] Platelet mean volume (Bld) [Entitic vol] 10.0 fL Normal 6.2-12.0 [facility] Comment on above: Performed By: #### L 500.4050, L100.0100 #### [facility] [address] [place], [address] Platelets (Bld) [#/Vol] 179 10*3/uL Normal 150-450 [facility] Comment on above: Performed By: #### L 500.4050, L100.0100 #### [facility] [address] [place], [address] RBC (Bld) [#/Vol] 4.34 10*6/uL Normal 4.2-5.4 [facility] Comment on above: Performed By: #### L 500.4050, L100.0100 #### [facility] [address] [place], [address] RDW SD 37.4 fl Normal 35.1-43.9 [facility] Comment on above: Performed By: #### L 500.4050, L100.0100 #### [facility] [address] [place], [address] WBC (Bld) [#/Vol] 3.8 10*3/uL Low 4.4-11.0 [facility] Comment on above: Performed By: #### L 500.4050, L100.0100 #### [facility] [address] [place], [address] Comprehensive Metabolic Prof ilon 05-19-2025 Albumin [Mass/Vol] 4.2 g/dL Normal 3.4-4.8 [facility] Comment on above: Performed By: #### L 500.4050, L100.0100 #### [facility] [address] [place], [address] Albumin/Globulin [Mass ratio] 1.8 {ratio} Normal 0.9-2.4 [facility] Comment on above: Performed By: #### L 500.4050, L100.0100 #### [facility] [address] [place], [address] ALK PHOS 72 U/L Normal 35-104 [facility] Comment on above: Performed By: #### L 500.4050, L100.0100 #### [facility] [address] [place], [address] ALT [Catalytic activity/Vol] 13 U/L Normal <=34 [facility] Comment on above: Performed By: #### L 500.4050, L100.0100 #### [facility] [address] [place], [address] AST [Catalytic activity/Vol] 17 U/L Normal <=31 [facility] Comment on above: Performed By: #### L 500.4050, L100.0100 #### [facility] [address] [place], [address] Bilirubin [Mass/Vol] 0.28 mg/dL Normal 0.00-1.30 [facility] Comment on above: Performed By: #### L 500.4050, L100.0100 #### [facility] [address] [place], [address] BUN/CRE 18.1 RATIO Normal 10-20 [facility] Comment on above: Performed By: #### L 500.4050, L100.0100 #### [facility] [address] [place], [address] Calcium [Mass/Vol] 9.4 mg/dL Normal 7.6-11.0 [facility] Comment on above: Performed By: #### L 500.4050, L100.0100 #### [facility] [address] [place], [address] Chloride [Moles/Vol] 105 mmol/L Normal 98-108 [facility] Comment on above: Performed By: #### L 500.4050, L100.0100 #### [facility] [address] [place], [address] CO2 [Moles/Vol] 25.9 mmol/L Normal 21.0-32.0 [facility] Comment on above: Performed By: #### L 500.4050, L100.0100 #### [facility] [address] [place], [address] Creatinine [Mass/Vol] 0.92 mg/dL Normal 0.70-1.20 [facility] Comment on above: Performed By: #### L 500.4050, L100.0100 #### [facility] [address] [place], [address] ECRCL 54.73 ml/min Normal 50-250 [facility] Comment on above: Performed By: #### L 500.4050, L100.0100 #### [facility] [address] [place], [address] GAP 9 Normal 5-15 [facility] Comment on above: Performed By: #### L 500.4050, L100.0100 #### [facility] [address] [place], [address] GFR/1.73 sq M.predicted among non-blacks MDRD (S/P/Bld) [Vol rate/Area] 69 mL/min/{1.73_m2} Normal >60 [facility] Comment on above: Result Comment: mL/m in/1.73m2 CKD-EPI Creatinine Equation (2020) Performed By: #### L 500.4050, L100.0100 #### [facility] [address] [place], [address] Globulin (S) [Mass/Vol] 2.4 g/dL Normal 2.2-4.2 [facility] Comment on above: Performed By: #### L 500.4050, L100.0100 #### [facility] [address] [place], [address] Glucose [Mass/Vol] 104 mg/dL High 70-99 [facility] Comment on above: Performed By: #### L 500.4050, L100.0100 #### [facility] [address] [place], [address] Potassium [Moles/Vol] 3.6 mmol/L Normal 3.3-5.1 [facility] Comment on above: Performed By: #### L 500.4050, L100.0100 #### [facility] [address] [place], [address] Sodium [Moles/Vol] 140 mmol/L Normal 133-145 [facility] Comment on above: Performed By: #### L 500.4050, L100.0100 #### [facility] [address] [place], [address] T PROT 6.7 g/dL Normal 5.9-8.4 [facility] Comment on above: Performed By: #### L 500.4050, L100.0100 #### [facility] [address] [place], [address] Urea nitrogen [Mass/Vol] 17 mg/dL Normal 4-19 [facility] Comment on above: Performed By: #### L 500.4050, L100.0100 #### [facility] [address] [place], [address] Oncology Visit Reporton 05-09 Oncology Visit Report [facility] [address] [place] [address] OFFICE VISIT Date of Service: 05/19/25 1528 MR#: [id number] Acct: [id number] Name: LILIA ALBA Rep #: [id number] : 1960 From: Chantale Jeronimo MD Age/Sex: 64/F Location: [email or web address] Status: Signed HPI Subjective Date of Service 01/22/25 Chief Complaint Breast cancer follow-up History of Present Illness 64-year-old female who presented after an abnormal screening mammogram. She missed screening mammography 2020. Positive family history for breast cancer; sister with DCIS. 02/22/2022 Mammograph: MPRESSION: 1 cm oval circumscribed equal density mass maxillary tail left breast and focal compression??? 02/22/2022 U/S: IMPRESSION: 8 mm x 7 mm x 7 mm slightly lobulated hypoechoic solid nodule 11 o''clock position breast at 12 cm from nipple. ???03/15/2022 Left breast, core biopsy: Invasive ductal carcinoma, nuclear grade 3 (0.8 cm in greatest length). ANTIBODY / CLONE RESULT E-Cad (ECH-6) positive CK8 ([id number]) positive Calponin-1 (XL938D) negative CK5-6 (D5 1684) negative P40 (BC28) negative P53 (DO-7) positive (>80%) Ki-67 (30-9) positive, moderate ( 50%) MORPHOMETRIC ANALYSIS ER (clone 6F11) 0 MA (clone 16/1E2) 0 Her-2Neu (clone CB11) 3+ September 21, 2022 left partial mastectomy and sentinel lymph node biopsy Pathology: Complete pathologic remission Treatment summary and response: * Neoadjuvant TCHP April 12, 2022-July 26, 2022 (6 cycles) * Left partial mastectomy with sentinel lymph node biopsy at [facility] September 21, 2022; was in complete pathologic remission. * Adjuvant Herceptin October 24, 2022-March 01, 2023 (1 year total) * Adjuvant radiation therapy to the left breast consisting of 4000 cGy delivered to the whole breast and 4800 cGy delivered to the lumpectomy cavity with a simultaneous integrated boost technique all in 15 fractions.??? She was treated with a 3D conformal technique in the prone position.??? Date of First Treatment: 09/25/2022 Date of Last Treatment: 10/13/2022 Total Elapsed Days (including weekend and holidays): 18 PFSH Medical History Bladder prolapse Hypokalemia Hypomagnesemia Hand foot syndrome HER2-positive carcinoma of breast Encounter for monitoring cardiotoxic drug therapy Hypokalemia Encounter for chemotherapy management Port-A-Cath in place Alopecia Wears contact lenses Wears glasses Cancer Alcohol use Arthritis Back pain Former smoker History of pain when walking History of stress test Cardiology follow-up encounter Encounter for education Breast cancer of upper-outer quadrant of left female breast Asthma Anxiety Hypertension Surgical History History of removal of Port-a-Cath H/O lumpectomy History of carpal tunnel release Family History Father Hypertension Diabetes Lung cancer Smoker Mother Hypertension Sister Breast cancer, Onset Age: 62 precancerous cells, lumpectomy/radiation Cancer, Onset Age: 50 lung - other sister (smoker) Hypertension Smoker Multiple sclerosis sister w/ breast cancer Brother Heart disease Hypertension Social History household members: spouse number of children: 4 Smoking Status: Former smoker Tobacco: How many years used: 10 how long ago did patient quit smoking: in her mid 20's second hand exposure: Yes alcohol intake: current alcohol intake frequency: a few times a week Alcohol type: wine details: occasional substance use type: does not use ROS Constitutional Constitutional: Reports systems reviewed and no addt'l complaints, except as documented; Denies fatigue, fever(s) or weight loss Eyes Eyes: Reports systems reviewed and no addt'l complaints, except as documented; Denies change in vision ENT HEENT: Reports systems reviewed and no addt'l complaints, except as documented; Denies headache(s) or mouth lesions Cardiovascular Cardiovascular: Reports systems reviewed and no addt'l complaints, except as documented; Denies chest pain with activity or edema Respiratory/Chest Respiratory/Chest: Reports systems reviewed and no addt'l complaints, except as documented; Denies cough, dyspnea, wheezing or breast mass Gastrointestinal Gastrointestinal: Reports systems reviewed and no addt'l complaints, except as documented, heartburn and hemorrhoids; Denies change in bowel habits, hematochezia, melena or nausea Genitourinary Genitourinary: Reports systems reviewed and no addt'l complaints, except as documented; Denies difficulty urinating Musculoskeletal Musculoskeletal: Reports systems reviewed and no addt'l complaints, except as documente (more content not included)... Normal [facility] MAMMO DIAGNOSTIC WITH FRANDY B ILATERALon 03-19-2025 MAMMO DIAGNOSTIC WITH FRANDY BILATERAL EXAM: MAMMO DIAGNOSTIC WITH FRANDY BILATERAL, 03/19/2025 11:11 AM CLINICAL INDICATIONS AND HISTORY: screening C50.212:Malignant neoplasm of upper-inner quadrant of left breast in female, estrogen receptor negative Z17.1:Malignant neoplasm of upper-inner quadrant of left breast in female, estrogen receptor negative 64 year old female with history of left breast carcinoma status post lumpectomy, radiation therapy, and chemotherapy in 2022. COMPARISON: Diagnostic mammogram November 11, 2024, March 13, 3035, March 08, 2023. MAMMOGRAM TECHNIQUE: 2-D MLO and CC views were obtained of the bilateral breasts. 3-D MLO and CC digital tomosynthesis images were also acquired. Computer aided detection was utilized. MAMMOGRAM FINDINGS: Breast Density: There are scattered areas of fibroglandular density. Post lumpectomy changes in the left upper central breast at posterior depth. There are stable probably benign calcifications along the anterior margin of the lumpectomy bed. There are no suspicious masses, calcifications, or architectural distortions in the right breast. IMPRESSION: 1. Left breast postsurgical changes with probably benign calcifications, favoring to represent evolving fat necrosis. 12-month follow-up mammogram with magnification views is recommended to ensure two year stability, at the time of bilateral annual mammography. 2. No mammographic evidence of malignancy in the right breast. BI-RADS: 3: Probably benign Recommendation: 12-month follow-up. Recommendation Laterality: Left [facility] Facility: [facility], [address] [place] [address], I personally viewed and interpreted these images and I have reviewed and approved this report. Table formatting from the original result was not included. MAMMO STANDARD RISK SA SITE BEGIN [place] [address] SA SITE END Abnormal [facility] MG Breast - bilateral Diagno sticOrdered By: Sarah Molina on 03-19-2025 Interpretation and review of laboratory results Abnormal [facility] Work Phone: [facility] Work Phone: MG Breast - bilateral Diagno sticon 03-19-2025 IMPRESSION: 1. Left breast postsurgical changes with probably benign calcifications, favoring to represent evolving fat necrosis. 12-month follow-up mammogram with magnification views is recommended to ensure two year stability, at the time of bilateral annual mammography. 2. No mammographic evidence of malignancy in the right breast. BI-RADS: 3: Probably benign Recommendation: 12-month follow-up. Recommendation Laterality: Left [facility] Facility: [facility], [address] [place] [address], I personally viewed and interpreted these images and I have reviewed and approved this report. OLOGY EXAM: MAMMO DIAGNOST IC WITH FRANDY BILATERAL, 03/19/2025 11:11 AM CLINICAL INDICATIONS AND HISTORY: screening C50.212:Malignant neoplasm of upper-inner quadrant of left breast in female, estrogen receptor negative Z17.1:Malignant neoplasm of upper-inner quadrant of left breast in female, estrogen receptor negative 64 year old female with history of left breast carcinoma status post lumpectomy, radiation therapy, and chemotherapy in 2022. COMPARISON: Diagnostic mammogram November 11, 2024, March 13, 3035, March 08, 2023. MAMMOGRAM TECHNIQUE: 2-D MLO and CC views were obtained of the bilateral breasts. 3-D MLO and CC digital tomosynthesis images were also acquired. Computer aided detection was utilized. MAMMOGRAM FINDINGS: Breast Density: There are scattered areas of fibroglandular density. Post lumpectomy changes in the left upper central breast at posterior depth. There are stable probably benign calcifications along the anterior margin of the lumpectomy bed. There are no suspicious masses, calcifications, or architectural distortions in the right breast. RADIOLOGY Sarah Molina DO - 03/19/2025 EXAM: MAMMO DIAGNOSTIC WITH FRANDY BILATERAL, 03/19/2025 11:11 AM CLINICAL INDICATIONS AND HISTORY: screening C50.212:Malignant neoplasm of upper-inner quadrant of left breast in female, estrogen receptor negative Z17.1:Malignant neoplasm of upper-inner quadrant of left breast in female, estrogen receptor negative 64 year old female with history of left breast carcinoma status post lumpectomy, radiation therapy, and chemotherapy in 2022. COMPARISON: Diagnostic mammogram November 11, 2024, March 13, 3035, March 08, 2023. MAMMOGRAM TECHNIQUE: 2-D MLO and CC views were obtained of the bilateral breasts. 3-D MLO and CC digital tomosynthesis images were also acquired. Computer aided detection was utilized. MAMMOGRAM FINDINGS: Breast Density: There are scattered areas of fibroglandular density. Post lumpectomy changes in the left upper central breast at posterior depth. There are stable probably benign calcifications along the anterior margin of the lumpectomy bed. There are no suspicious masses, calcifications, or architectural distortions in the right breast. IMPRESSION IMPRESSION: 1. Left breast postsurgical changes with probably benign calcifications, favoring to represent evolving fat necrosis. 12-month follow-up mammogram with magnification views is recommended to ensure two year stability, at the time of bilateral annual mammography. 2. No mammographic evidence of malignancy in the right breast. BI-RADS: 3: Probably benign Recommendation: 12-month follow-up. Recommendation Laterality: Left [facility] Facility: [facility], [address] [place] [address], I personally viewed and interpreted these images and I have reviewed and approved this report. [facility] Radiology Study observation (narrative) [facility] Radiation Oncology Visiton 0 02-24-2025 Radiation Oncology Visit [facility] [address] [address] OFFICE VISIT Date of Service: 02/24/25934 MR#: [id number] Acct: [id number] Name: LILIA ALBA Rep #: [id number] : 1960 From: Avery Rios DO Age/Sex: 64/F Location: [facility] Status: Signed Intake Vital Signs 06/26/24 14:32 01/22/25 10:58 02/24/25 09:53 Height 5 ft 3 in 5 ft 3 in 5 ft 3 in Weight: 140 lb 2 oz BMI 24.8 BP 156/88 H Blood Pressure Location Rt brachial Position Sitting Respiration 16 Pulse 69 Pulse Source Monitor Temp 97.3 F L Temperature Source Temporal Artery Pulse Oximetry (%) 98 Oxygen Delivery Method room air Intake Visit Reasons: 8 MONTH BREAST F/U Chief Complaint: Breast cancer follow-up Allergies No Known Allergies Allergy (Verified 02/24/25 09:38) Medications ???Medication ???Instructions ???Recorded ???Confirmed ???Type ascorbate calcium (vitamin C) 500 1,000 mg PO DAILY 03/27/22 History mg tablet cholecalciferol (vitamin D3) 125 125 mcg PO DAILY 03/27/22 02/24/25 History mcg (5,000 unit) capsule lnirz7-lde-lch-other tbalo2r-sxoo 1 cap PO DAILY 03/27/22 02/24/25 History oil 350 mg-400 mg capsule Hair Prosthesis #1 ea 04/12/22 01/22/25 Rx melatonin 10 mg tablet 10 mg PO HS PRN 09/20/22 02/24/25 History vitamin B complex (B 1 tab PO DAILY 09/20/22 02/24/25 H istory Complex-Vitamin B12 tablet) magnesium oxide 400 mg PO DAILY 11/16/22 02/24/25 History valsartan 160 mg tablet 160 mg PO BID #180 tabs 06/03/24 0 02/24/25 Rx zinc glycinate 20 mg capsule 20 mg PO QDAY 02/24/25 02/24/25 Hi story Have you fallen in the past year?: No PFSH PFSH Medical History Bladder prolapse Hypokalemia Hypomagnesemia Hand foot syndrome HER2-positive carcinoma of breast Encounter for monitoring cardiotoxic drug therapy Hypokalemia Encounter for chemotherapy management Port-A-Cath in place Alopecia Wears contact lenses Wears glasses Cancer Alcohol use Arthritis Back pain Former smoker History of pain when walking History of stress test Cardiology follow-up encounter Encounter for education Breast cancer of upper-outer quadrant of left female breast Asthma Anxiety Hypertension Home Medications ???Medication ???Instructions ???Recorded ???Last Taken ???Type ascorbate calcium (vitamin C) 500 1,000 mg PO DAILY 03/27/22 Unknow n History mg tablet cholecalciferol (vitamin D3) 125 125 mcg PO DAILY 03/27/22 Unknown History mcg (5,000 unit) capsule eepex4-bbu-xlo-other sstkc9f-roaq 1 cap PO DAILY 03/27/22 Unknown H istory oil 350 mg-400 mg capsule Hair Prosthesis #1 ea 04/12/22 Unknown Rx melatonin 10 mg tablet 10 mg PO HS PRN 09/20/22 Unknown H istory vitamin B complex (B 1 tab PO DAILY 09/20/22 Unknown Hi story Complex-Vitamin B12 tablet) magnesium oxide 400 mg PO DAILY 11/16/22 Unknown H istory valsartan 160 mg tablet 160 mg PO BID #180 tabs 06/03/24 U nknown Rx zinc glycinate 20 mg capsule 20 mg PO QDAY 02/24/25 Unknown His tory Allergy/AdvReac Type Severity Reaction Status Date / Time No Known Allergies Allergy Verified 02/24/25 09:38 Family History Father Hypertension Diabetes Lung cancer Smoker Mother Hypertension Sister Breast cancer, Onset Age: 62 precancerous cells, lumpectomy/radiation Cancer, Onset Age: 50 lung - other sister (smoker) Hypertension Smoker Multiple sclerosis sister w/ breast cancer Brother Heart disease Hypertension Surgical History History of removal of Port-a-Cath H/O lumpectomy History of carpal tunnel release Social History household members: spouse number of children: 4 Smoking Status: Former smoker Tobacco: How many years used: 10 how long ago did patient quit smoking: in her mid 20's second hand exposure: Yes alcohol intake: current alcohol intake frequency: a few times a week Alcohol type: wine details: occasional substance use type: does not use Diagnosis: Lilia Alba is a 64 year-old female diagnosed with clinical stage IA, prognostic stage IA (cT1c cN0, ypT0 yp N0 (i-) (sn) Mx) grade 3 invasive ductal carcinoma (ER 0%, MA 0%, HER2 3+ IHC) status post bilateral screening mammography (02/22/2022), left breast diagnostic mammogram and ultrasound (03/01/2022), left breast core needle biopsy (03/15/2022), completion of 6 cycles of neoadjuvant TCHP (04/12/2022 ??? 07/31/2022), and completion of left breast lumpectomy and sentinel lymph node biopsy (08/22/2022). From 09/25/2022 ??? 10/13/2022 she completed adjuvant radi (more content not included)... Normal [facility] Oncology Visit Reporton 01-06 Oncology Visit Report [facility] [place] [address] OFFICE VISIT Date of Service: 01/22/25 1050 MR#: [id number] Acct: [id number] Name: LILIA ALBA Rep #: [id number] : 1960 From: Janet Hernandez NP [employer] Age/Sex: 64/F Location: [facility] Status: Signed HPI Subjective Date of Service 01/22/25 Chief Complaint Breast cancer follow-up History of Present Illness 64-year-old female who presented after an abnormal screening mammogram. She missed screening mammography 2020. Positive family history for breast cancer; sister with DCIS. 02/22/2022 Mammograph: MPRESSION: 1 cm oval circumscribed equal density mass maxillary tail left breast and focal compression??? 02/22/2022 U/S: IMPRESSION: 8 mm x 7 mm x 7 mm slightly lobulated hypoechoic solid nodule 11 o''clock position breast at 12 cm from nipple. ???03/15/2022 Left breast, core biopsy: Invasive ductal carcinoma, nuclear grade 3 (0.8 cm in greatest length). ANTIBODY / CLONE RESULT E-Cad (ECH-6) positive CK8 ([id number]) positive Calponin-1 (IW904B) negative CK5-6 (D5 1684) negative P40 (BC28) negative P53 (DO-7) positive (>80%) Ki-67 (30-9) positive, moderate ( 50%) MORPHOMETRIC ANALYSIS ER (clone 6F11) 0 MA (clone 16/1E2) 0 Her-2Neu (clone CB11) 3+ September 21, 2022 left partial mastectomy and sentinel lymph node biopsy Pathology: Complete pathologic remission Treatment summary and response: * Neoadjuvant TCHP April 12, 2022-July 26, 2022 (6 cycles) * Left partial mastectomy with sentinel lymph node biopsy at [facility] September 21, 2022; was in complete pathologic remission. * Adjuvant Herceptin October 24, 2022-March 01, 2023 (1 year total) * Adjuvant radiation therapy to the left breast consisting of 4000 cGy delivered to the whole breast and 4800 cGy delivered to the lumpectomy cavity with a simultaneous integrated boost technique all in 15 fractions.??? She was treated with a 3D conformal technique in the prone position.??? Date of First Treatment: 09/25/2022 Date of Last Treatment: 10/13/2022 Total Elapsed Days (including weekend and holidays): 18 Interval History The patient is presenting to clinic for a planned 4 month follow up. She met with Dr. Farris at [facility] for clinical breast exam and she underwent left breast diagnostic mammogram on 12/12/24, BIRADS 3 report indicates redemonstration of probably benign calcifications int he left breast adjacent to prior lumpectomy site. Plans repeat left breast mammogram in March. Exercising three times per week one hour circuit training to include weight lifting and cardio. BPs at home are running 130/70s. Once in a great while experiences palpitations only occurs with anxiety in social situations. Underwent a screening colonoscopy under the care of Dr. Ty at [facility] earlier this year, pt reports 1 polyp and repeat was recommended in 3 years. Specifically denies weight loss, headache, dizziness, CP,, cough, SOB, abd pain, bone pain. PFSH Medical History Bladder prolapse Hypokalemia Hypomagnesemia Hand foot syndrome HER2-positive carcinoma of breast Encounter for monitoring cardiotoxic drug therapy Hypokalemia Encounter for chemotherapy management Port-A-Cath in place Alopecia Wears contact lenses Wears glasses Cancer Alcohol use Arthritis Back pain Former smoker History of pain when walking History of stress test Cardiology follow-up encounter Encounter for education Breast cancer of upper-outer quadrant of left female breast Asthma Anxiety Hypertension Surgical History History of removal of Port-a-Cath H/O lumpectomy History of carpal tunnel release Family History Father Hypertension Diabetes Lung cancer Smoker Mother Hypertension Sister Breast cancer, Onset Age: 62 precancerous cells, lumpectomy/radiation Cancer, Onset Age: 50 lung - other sister (smoker) Hypertension Smoker Multiple sclerosis sister w/ breast cancer Brother Heart disease Hypertension Social History household members: spouse number of children: 4 Smoking Status: Former smoker Tobacco: How many years used: 10 how long ago did patient quit smoking: in her mid 20's second hand exposure: Yes alcohol intake: current alcohol intake frequency: a few times a week Alcohol type: wine details: occasional substance use type: does not use ROS ROS Narrative Negative except as documented in the interval HPI Intake Vital Signs 09/18/24 14:38 01/22/25 10:53 01/22/25 10:58 Height 5 ft 3 in 5 ft 3 in 5 ft 3 in Weight: 140 lb 4 oz 142 lb 4 oz BMI 24.8 25.2 BP 162/78 H 177/82 H B (more content not included)... Normal [facility] CBC W/Diff, Automatedon 09-06 Absolute Lymph 1.04 X10 3/uL Normal 0.83-4.51 [facility] Comment on above: Performed By: #### L 500.4050, L100.0100 #### [facility] [address] [place], [address] Absolute Neut 2.2 X10 3/uL Normal 2.0-7.7 [facility] Comment on above: Performed By: #### L 500.4050, L100.0100 #### [facility] [address] [place], [address] Basophils/100 WBC (Bld) 0.8 % Normal 0-1 [facility] Comment on above: Performed By: #### L 500.4050, L100.0100 #### [facility] [address] [place], [address] Eosinophils/100 WBC (Bld) 2.6 % Normal 0-5 [facility] Comment on above: Performed By: #### L 500.4050, L100.0100 #### [facility] [address] [place], [address] Erythrocyte distribution width (RBC) [Ratio] 12.1 % Normal 11.6-14.6 [facility] Comment on above: Performed By: #### L 500.4050, L100.0100 #### [facility] [address] [place], [address] Hematocrit (Bld) [Volume fraction] 38.2 % Normal 37-47 [facility] Comment on above: Performed By: #### L 500.4050, L100.0100 #### [facility] [address] [place], [address] Hemoglobin (Bld) [Mass/Vol] 13.3 g/dL Normal 12.0-15.0 [facility] Comment on above: Performed By: #### L 500.4050, L100.0100 #### [facility] [address] [place], [address] IG% 0.000 Normal 0.0-0.9 [facility] Comment on above: Result Comment: IG% - Immature Granulocytes (promyelocytes, myelocytes and metamyelocytes) > 1% indicates that a LEFT SHIFT is Present. Performed By: #### L 500.4050, L100.0100 #### [facility] [address] [place], [address] Lymphocytes/100 WBC (Bld) 27.5 % Normal 19-41 [facility] Comment on above: Performed By: #### L 500.4050, L100.0100 #### [facility] [address] [place], [address] MCH (RBC) [Entitic mass] 29.8 pg Normal 27.0-32.0 [facility] Comment on above: Performed By: #### L 500.4050, L100.0100 #### [facility] [address] [place], [address] MCHC (RBC) [Mass/Vol] 34.8 g/dL Normal 32-36 [facility] Comment on above: Performed By: #### L 500.4050, L100.0100 #### [facility] [address] [place], [address] MCV (RBC) [Entitic vol] 85.7 fL Normal 81-99 [facility] Comment on above: Performed By: #### L 500.4050, L100.0100 #### [facility] [address] [place], [address] Monocytes/100 WBC (Bld) 9.8 % Normal 0-10 [facility] Comment on above: Performed By: #### L 500.4050, L100.0100 #### [facility] [address] [place], [address] Neutrophils/100 WBC (Bld) 59.3 % Normal 47-70 [facility] Comment on above: Performed By: #### L 500.4050, L100.0100 #### [facility] [address] [place], [address] Nucleated RBC (Bld) [#/Vol] 0 10*3/uL Normal 0-5 [facility] Comment on above: Performed By: #### L 500.4050, L100.0100 #### [facility] [address] [place], [address] Platelet mean volume (Bld) [Entitic vol] 9.8 fL Normal 6.2-12.0 [facility] Comment on above: Performed By: #### L 500.4050, L100.0100 #### [facility] [address] [place], [address] Platelets (Bld) [#/Vol] 193 10*3/uL Normal 150-450 [facility] Comment on above: Performed By: #### L 500.4050, L100.0100 #### [facility] [address] [place], [address] RBC (Bld) [#/Vol] 4.46 10*6/uL Normal 4.2-5.4 [facility] Comment on above: Performed By: #### L 500.4050, L100.0100 #### [facility] [address] [place], [address] RDW SD 37.8 fl Normal 35.1-43.9 [facility] Comment on above: Performed By: #### L 500.4050, L100.0100 #### [facility] [address] [place], [address] WBC (Bld) [#/Vol] 3.8 10*3/uL Low 4.4-11.0 [facility] Comment on above: Performed By: #### L 500.4050, L100.0100 #### [facility] [address] [place], [address] Comprehensive Metabolic Prof ilon 09-18-2024 Albumin [Mass/Vol] 4.3 g/dL Normal 3.4-4.8 [facility] Comment on above: Performed By: #### L 500.4050, L100.0100 #### [facility] [address] [place], [address] Albumin/Globulin [Mass ratio] 1.6 {ratio} Normal 0.9-2.4 [facility] Comment on above: Performed By: #### L 500.4050, L100.0100 #### [facility] [address] [place], [address] ALK PHOS 79 U/L Normal 35-104 [facility] Comment on above: Performed By: #### L 500.4050, L100.0100 #### [facility] [address] [place], [address] ALT [Catalytic activity/Vol] 21 U/L Normal <=34 [facility] Comment on above: Performed By: #### L 500.4050, L100.0100 #### [facility] [address] [place], [address] AST [Catalytic activity/Vol] 21 U/L Normal <=31 [facility] Comment on above: Performed By: #### L 500.4050, L100.0100 #### [facility] [address] [place], [address] Bilirubin [Mass/Vol] 0.34 mg/dL Normal 0.00-1.30 [facility] Comment on above: Performed By: #### L 500.4050, L100.0100 #### [facility] [address] [place], [address] BUN/CRE 24.2 RATIO High 10-20 [facility] Comment on above: Performed By: #### L 500.4050, L100.0100 #### [facility] [address] [place], [address] Calcium [Mass/Vol] 9.5 mg/dL Normal 7.6-11.0 [facility] Comment on above: Performed By: #### L 500.4050, L100.0100 #### [facility] [address] [place], [address] Chloride [Moles/Vol] 104 mmol/L Normal 98-108 [facility] Comment on above: Performed By: #### L 500.4050, L100.0100 #### [facility] [address] [place], [address] CO2 [Moles/Vol] 23.4 mmol/L Normal 21.0-32.0 [facility] Comment on above: Performed By: #### L 500.4050, L100.0100 #### [facility] [address] [place], [address] Creatinine [Mass/Vol] 0.94 mg/dL Normal 0.70-1.20 [facility] Comment on above: Performed By: #### L 500.4050, L100.0100 #### [facility] [address] [place], [address] ECRCL 54.60 ml/min Normal 50-250 [facility] Comment on above: Performed By: #### L 500.4050, L100.0100 #### [facility] [address] [place], [address] GAP 11 Normal 5-15 [facility] Comment on above: Performed By: #### L 500.4050, L100.0100 #### [facility] [address] [place], [address] GFR/1.73 sq M.predicted among non-blacks MDRD (S/P/Bld) [Vol rate/Area] 67 mL/min/{1.73_m2} Normal >60 [facility] Comment on above: Result Comment: mL/m in/1.73m2 CKD-EPI Creatinine Equation (2020) Performed By: #### L 500.4050, L100.0100 #### [facility] [address] [place], [address] Globulin (S) [Mass/Vol] 2.7 g/dL Normal 2.2-4.2 [facility] Comment on above: Performed By: #### L 500.4050, L100.0100 #### [facility] [address] [place], [address] Glucose [Mass/Vol] 102 mg/dL High 70-99 [facility] Comment on above: Performed By: #### L 500.4050, L100.0100 #### [facility] [address] [place], [address] Potassium [Moles/Vol] 3.7 mmol/L Normal 3.3-5.1 [facility] Comment on above: Performed By: #### L 500.4050, L100.0100 #### [facility] [address] [place], [address] Sodium [Moles/Vol] 138 mmol/L Normal 133-145 [facility] Comment on above: Performed By: #### L 500.4050, L100.0100 #### [facility] [address] [place], [address] T PROT 7.1 g/dL Normal 5.9-8.4 [facility] Comment on above: Performed By: #### L 500.4050, L100.0100 #### [facility] [address] [place], [address] Urea nitrogen [Mass/Vol] 23 mg/dL High 4-19 [facility] Comment on above: Performed By: #### L 500.4050, L100.0100 #### [facility] [address] [place], [address] Oncology Visit Reporton 09-06 Oncology Visit Report [facility] [address] [place] [address] OFFICE VISIT Date of Service: 09/18/24 1435 MR#: [id number] Acct: [id number] Name: LILIA ALBA Rep #: [id number] : 1960 From: Chantale eJronimo MD Age/Sex: 63/F Location: [facility] Status: Signed HPI Subjective Date of Service 09/18/24 Chief Complaint Breast cancer follow-up History of Present Illness 63-year-old female who presented after an abnormal screening mammogram. She missed screening mammography 2020. Positive family history for breast cancer; sister with DCIS. 02/22/2022 Mammograph: MPRESSION: 1 cm oval circumscribed equal density mass maxillary tail left breast and focal compression??? 02/22/2022 U/S: IMPRESSION: 8 mm x 7 mm x 7 mm slightly lobulated hypoechoic solid nodule 11 o''clock position breast at 12 cm from nipple. ???03/15/2022 Left breast, core biopsy: Invasive ductal carcinoma, nuclear grade 3 (0.8 cm in greatest length). ANTIBODY / CLONE RESULT E-Cad (ECH-6) positive CK8 (97yaqpF14) positive Calponin-1 (CJ666L) negative CK5-6 (D5 1684) negative P40 (BC28) negative P53 (DO-7) positive (>80%) Ki-67 (30-9) positive, moderate ( 50%) MORPHOMETRIC ANALYSIS ER (clone 6F11) 0 MA (clone 16/1E2) 0 Her-2Neu (clone CB11) 3+ September 21, 2022 left partial mastectomy and sentinel lymph node biopsy Pathology: Complete pathologic remission Treatment summary and response: * Neoadjuvant TCHP April 12, 2022-July 26, 2022 (6 cycles) * Left partial mastectomy with sentinel lymph node biopsy at [facility] September 21, 2022; was in complete pathologic remission. * Adjuvant Herceptin October 24, 2022-March 01, 2023 (1 year total) * Adjuvant radiation therapy to the left breast consisting of 4000 cGy delivered to the whole breast and 4800 cGy delivered to the lumpectomy cavity with a simultaneous integrated boost technique all in 15 fractions.??? She was treated with a 3D conformal technique in the prone position.??? Date of First Treatment: 09/25/2022 Date of Last Treatment: 10/13/2022 Total Elapsed Days (including weekend and holidays): 18 PFSH Medical History Bladder prolapse Hypokalemia Hypomagnesemia Hand foot syndrome HER2-positive carcinoma of breast Encounter for monitoring cardiotoxic drug therapy Hypokalemia Encounter for chemotherapy management Port-A-Cath in place Alopecia Wears contact lenses Wears glasses Cancer Alcohol use Arthritis Back pain Former smoker History of pain when walking History of stress test Cardiology follow-up encounter Encounter for education Breast cancer of upper-outer quadrant of left female breast Asthma Anxiety Hypertension Surgical History History of removal of Port-a-Cath H/O lumpectomy History of carpal tunnel release Family History Father Hypertension Diabetes Lung cancer Smoker Mother Hypertension Sister Breast cancer, Onset Age: 62 precancerous cells, lumpectomy/radiation Cancer, Onset Age: 50 lung - other sister (smoker) Hypertension Smoker Multiple sclerosis sister w/ breast cancer Brother Heart disease Hypertension Social History household members: spouse number of children: 4 Smoking Status: Former smoker Tobacco: How many years used: 10 how long ago did patient quit smoking: in her mid 20's second hand exposure: Yes alcohol intake: current alcohol intake frequency: a few times a week Alcohol type: wine details: occasional substance use type: does not use ROS Constitutional Constitutional: Reports systems reviewed and no addt'l complaints, except as documented; Denies fatigue, fever(s) or weight loss Eyes Eyes: Reports systems reviewed and no addt'l complaints, except as documented; Denies change in vision ENT HEENT: Reports systems reviewed and no addt'l complaints, except as documented; Denies headache(s) or mouth lesions Cardiovascular Cardiovascular: Reports systems reviewed and no addt'l complaints, except as documented; Denies chest pain with activity or edema Respiratory/Chest Respiratory/Chest: Reports systems reviewed and no addt'l complaints, except as documented; Denies cough, dyspnea or wheezing Gastrointestinal Gastrointestinal: Reports systems reviewed and no addt'l complaints, except as documented, heartburn and hemorrhoids; Denies change in bowel habits, hematochezia, melena or nausea Genitourinary Genitourinary: Reports systems reviewed and no addt'l complaints, except as documented; Denies difficulty urinating Musculoskeletal Musculoskeletal: Reports systems reviewed and no addt'l complaints, except as documented and arthr (more content not included)... Normal [facility] MAMMO DIAGNOSTIC WITH FRANDY L [facility] 09-11-2024 MAMMO DIAGNOSTIC WITH FRANDY LEFT EXAM: MAMMO DIAGNOSTIC WITH FRANDY LEFT, 09/11/2024 11:22 AM CLINICAL INDICATIONS AND HISTORY: bi-rads 3, post surgical changes C50.212:Malignant neoplasm of upper-inner quadrant of left breast in female, estrogen receptor negative R92.8:Abnormal mammogram 63-year-old female six-month follow-up for calcifications in the left breast. History of left-sided IDC status post lumpectomy in 2022 with chemotherapy and radiation. COMPARISON: Mammogram March 13, 2024, March 08, 2023, August 22, 2022 MAMMOGRAM TECHNIQUE: 2-D MLO and CC views were obtained of the breast. 3-D MLO and CC digital tomosynthesis images were also acquired. CC and ML magnification views were also obtained. Computer aided detection was utilized. MAMMOGRAM FINDINGS: Breast Density: There are scattered areas of fibroglandular density. Postsurgical change in the left upper central breast at posterior depth. In the postoperative bed, there is redemonstration of probably benign calcifications which are favored to represent evolving fat necrosis. There are no new suspicious masses, calcifications, or architectural distortions. IMPRESSION: Redemonstration of probably benign calcifications in the left breast adjacent to prior lumpectomy site, likely representing evolving fat necrosis. Recommend 6 month follow-up mammogram with magnification views to ensure stability. BI-RADS: 3: Probably benign Recommendation: 6-month follow-up. Recommendation Laterality: Left [facility] Facility: [facility], [address] [place] [address], I personally viewed and interpreted these images and I have reviewed and approved this report. Table formatting from the original result was not included. MAMMO STANDARD RISK SA SITE BEGIN [place] [id number] MQSA SITE END Abnormal [facility] MG Breast ViewsOrdered By: Misti Jaramillo on 09-11-2024 Interpretation and review of laboratory results Abnormal [facility] Work Phone: [facility] Work Phone: MG Breast Viewson 09-11-2024 IMPRESSION: Redemonstration of probably benign calcifications in the left breast adjacent to prior lumpectomy site, likely representing evolving fat necrosis. Recommend 6 month follow-up mammogram with magnification views to ensure stability. BI-RADS: 3: Probably benign Recommendation: 6-month follow-up. Recommendation Laterality: Left [facility] Facility: [facility], [address] [place] [address], I personally viewed and interpreted these images and I have reviewed and approved this report. OLOGY EXAM: MAMMO DIAGNOST IC WITH FRANDY LEFT, 09/11/2024 11:22 AM CLINICAL INDICATIONS AND HISTORY: bi-rads 3, post surgical changes C50.212:Malignant neoplasm of upper-inner quadrant of left breast in female, estrogen receptor negative R92.8:Abnormal mammogram 63-year-old female six-month follow-up for calcifications in the left breast. History of left-sided IDC status post lumpectomy in 2022 with chemotherapy and radiation. COMPARISON: Mammogram March 13, 2024, March 08, 2023, August 22, 2022 MAMMOGRAM TECHNIQUE: 2-D MLO and CC views were obtained of the breast. 3-D MLO and CC digital tomosynthesis images were also acquired. CC and ML magnification views were also obtained. Computer aided detection was utilized. MAMMOGRAM FINDINGS: Breast Density: There are scattered areas of fibroglandular density. Postsurgical change in the left upper central breast at posterior depth. In the postoperative bed, there is redemonstration of probably benign calcifications which are favored to represent evolving fat necrosis. There are no new suspicious masses, calcifications, or architectural distortions. RADIOLOGY Susan Jaramillo DO - 09/11/2024 EXAM: MAMMO DIAGNOSTIC WITH FRANDY LEFT, 09/11/2024 11:22 AM CLINICAL INDICATIONS AND HISTORY: bi-rads 3, post surgical changes C50.212:Malignant neoplasm of upper-inner quadrant of left breast in female, estrogen receptor negative R92.8:Abnormal mammogram 63-year-old female six-month follow-up for calcifications in the left breast. History of left-sided IDC status post lumpectomy in 2022 with chemotherapy and radiation. COMPARISON: Mammogram March 13, 2024, March 08, 2023, August 22, 2022 MAMMOGRAM TECHNIQUE: 2-D MLO and CC views were obtained of the breast. 3-D MLO and CC digital tomosynthesis images were also acquired. CC and ML magnification views were also obtained. Computer aided detection was utilized. MAMMOGRAM FINDINGS: Breast Density: There are scattered areas of fibroglandular density. Postsurgical change in the left upper central breast at posterior depth. In the postoperative bed, there is redemonstration of probably benign calcifications which are favored to represent evolving fat necrosis. There are no new suspicious masses, calcifications, or architectural distortions. IMPRESSION IMPRESSION: Redemonstration of probably benign calcifications in the left breast adjacent to prior lumpectomy site, likely representing evolving fat necrosis. Recommend 6 month follow-up mammogram with magnification views to ensure stability. BI-RADS: 3: Probably benign Recommendation: 6-month follow-up. Recommendation Laterality: Left MQSA Facility: [facility], [address] [place] [address], I personally viewed and interpreted these images and I have reviewed and approved this report. [facility] Radiology Study observation (narrative) [facility] CNOVon 08-19-2024 CNOV Office Visit (GENSWS ) LILIA ALBA ([id number]) 1960 F Date Time Provider Department 08/19/24 8:00 AM PADMA CARPIO GENSWS During your visit today, we recorded the following information about you: Padma Carpio APRN.CNP 08/19/2024 9:12 AM Signed FOLLOW UP VISIT - ENDOSCOPY Lilia Alba 1960 [id number] REFERRING PHYSICIAN: No referring provider defined for this encounter. Lilia Alba is a patient I am following for screening colonoscopy. Dr. Ty performed lower endoscopy on 08/05/24. The patient was found to have Impression: - Diverticulosis in the sigmoid colon. - Non-bleeding internal hemorrhoids. - One 6 to 10 mm polyp in the ascending colon, removed with a hot snare. Resected and retrieved. Clip (MR conditional) was placed. 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 Pathology demonstrated: FINAL DIAGNOSIS A. Colon, right, polypectomy: - Tubular adenoma. AERhonda/yossi 08/06/2024 The patient notes no complaints since the procedure. VITALS: There were no vitals taken for this visit. General: patient is alert, cooperative, pleasant and in no acute distress On examination, the abdomen is benign. Assessment ASSESSMENT/PLAN: 1. Adenomatous polyp - ICD9: 229.9, ICD10: D36.9 (primary diagnosis) The operative findings and pathology report were reviewed with the patient, and the patient has had the opportunity to ask questions and have questions answered. If the patient notes any problems or changes in bowel function, the patient should contact me immediately. Otherwise I recommend follow up endoscopy in 3 years based on size. HM updated and recall letter generated. Discussed treatment plan and patient voices understanding. Patient's questions answered appropriately. Medications and potential side effects were discussed and patient voices understanding. Return to the office as scheduled or as needed for worsening/no improvement. Padma Carpio APRN.JOHN Allergies As of Date: 08/19/2024 (No Known Allergies) Date Reviewed: 08/19/2024 Reviewed by: Padma Carpio APRN.EXECUTIVE HOUSEKEEPER - Fully Assessed Reason for Visit: Follow Up [171] Primary Visit Diagnosis:Adenomatous polyp [D36.9] Prescriptions as of 08/19/2024 - valsartan (DIOVAN) 160 mg tablet Take 1 tablet by mouth once daily. - Zinc Gluconate 50 mg tablet Take 50 mg by mouth once daily. - cholecalciferol, vitamin D3, 125 mcg (5,000 unit) ODT Take by mouth. - MAGNESIUM GLUCONATE ORAL Take by mouth once daily. - ascorbic acid (VITAMIN C ORAL) Take 1,000 mg by mouth once daily. - flaxseed oil (OMEGA 3 ORAL) Take 1,000 mg by mouth once daily. - VITAMIN B COMPLEX ORAL Take by mouth once daily. Problem List As Of Date 08/19/2024 Noted Resolved Essential Hypertension, Benign [I10] Esophageal Reflux [K21.9] Other Chest Pain [R07.89] 12/24/2009 Unspecified Esophagitis [K20.90] 12/27/2009 Acute Gastritis without Mention of Hemorrhage [*12/27/2009 Encounter Status:Closed by PADMA CARPIO on 08/19/24 Normal [facility] [id number] 08-05-2024 [id number] HNO ID: [id number] Author: GENIE MEDLEY RN Service: ? Author Type: Registered Nurse Type: [id number] Filed: 08/05/2024 12:57 Note Text: The patient received a copy of Colonoscopy discharge instructions that contain information for how to contact the physician who performed the procedure and when to seek medical care. Normal [facility] Colonoscopyon 08-05-2024 Colonoscopy [place] [facility] Gastrointestinal Endoscopy Patient Name: Lilia Alba Procedure Date: 08/05/2024 12:03 PM Date of : 1960 Admit Type: Outpatient Age: 63 Gender: Female Note Status: Finalized Procedure: Colonoscopy Indications: Screening for colorectal malignant neoplasm Providers: Luciana Ty MD Patient Profile: Refer to note in patient chart for documentation of history and physical. Last Colonoscopy: 2013. Referring Physician: Padma Carpio (Referring MD) Medicines: Midazolam 5 mg IV, Fentanyl 50 micrograms IV, Diphenhydramine 50 mg IV Complications: No immediate complications. Requesting Provider: Procedure: Pre-Anesthesia Assessment: - Prior to the procedure, a History and Physical was performed, and patient medications and allergies were reviewed. The patient is competent. The risks and benefits of the procedure and the sedation options and risks were discussed with the patient. All questions were answered and informed consent was obtained. Patient identification and proposed procedure were verified by the physician in the pre-procedure area. Mental Status Examination: alert and oriented. Airway Examination: normal oropharyngeal airway and neck mobility. Respiratory Examination: clear to auscultation. CV Examination: normal. Prophylactic Antibiotics: The patient does not require prophylactic antibiotics. Prior Anticoagulants: The patient has taken no anticoagulant or antiplatelet agents. ASA Grade Assessment: II - A patient with mild systemic disease. After reviewing the risks and benefits, the patient was deemed in satisfactory condition to undergo the procedure. The anesthesia plan was to use moderate sedation / analgesia (conscious sedation). Immediately prior to administration of medications, the patient was re-assessed for adequacy to receive sedatives. The heart rate, respiratory rate, oxygen saturations, blood pressure, adequacy of pulmonary ventilation, and response to care were monitored throughout the procedure. The physical status of the patient was re-assessed after the procedure. After I obtained informed consent, the scope was passed under direct vision. Throughout the procedure, the patient's blood pressure, pulse, and oxygen saturations were monitored continuously. The Colonoscope was introduced through the anus and advanced to the cecum, identified by the appendiceal orifice, IC valve and transillumination. The colonoscopy was performed without difficulty. The patient tolerated the procedure well. The quality of the bowel preparation was adequate to identify polyps greater than 5 mm in size. The appendiceal orifice and the rectum were photographed. Moderate Sedation: The administration of moderate sedation was initiated at 12:14. Moderate (conscious) sedation was personally administered by the endoscopist. The following parameters were monitored: oxygen saturation, heart rate, blood pressure, and response to care. Total physician intraservice time was 18 minutes. Findings: The perianal and digital rectal examinations were normal. Multiple small-mouthed diverticula were found in the sigmoid colon. Non-bleeding internal hemorrhoids were found. A 6 to 10 mm polyp was found in the ascending colon. The polyp was sessile. The polyp was removed with a hot snare. Resection and retrieval were complete. Verification of patient identification for the specimen was done by the nurse. Estimated blood loss was minimal. To prevent bleeding after the polypectomy, one hemostatic clip was successfully placed (MR conditional). Clip weld technician: [employer]. There was no bleeding at the end of the procedure. Estimated blood loss was minimal. Impression: - Diverticulosis in the sigmoid colon. - Non-bleeding internal hemorrhoids. - One 6 to 10 mm polyp in the ascending colon, removed with a hot snare. Resected and retrieved. Clip (MR conditional) was placed. Clip weld technician: [employer]. Recommendation: - Repeat colonoscopy date to be determined after pending pathology results are reviewed for surveillance based on pathology results. - - Follow up with Thea Carpio NP, may be via televisit for discussion of pathology results and determination of timing of future endoscopies - Patient has a contact number available for emergencies. The signs and symptoms of potential delayed complications were discussed with the patient. Return to normal activities tomorrow. Written discharge instructions were provided to the patient. - Continue present medications. - Resume previous diet. Procedure Code(s): --- Professional --- 79512, Colonoscopy, flexible; with removal of tumor(s), polyp(s), or other lesion(s) by snare technique 84568, 59, Moderate sedation services provided by the same physician or other qualified health career services director performing the diagnostic or therap (more content not included)... Normal [facility] Colonoscopy Study observatio non 08-05-2024 [facility] Gastrointestinal Endoscopy Patient Name: Lilia Alba Procedure Date: 08/05/2024 12:03 PM Date of : 1960 Admit Type: Outpatient Age: 63 Gender: Female Note Status: Finalized Procedure: Colonoscopy Indications: Screening for colorectal malignant neoplasm Providers: Luciana Ty MD Patient Profile: Refer to note in patient chart for documentation of history and physical. Last Colonoscopy: 2013. Referring Physician: Padma Carpio (Referring MD) Medicines: Midazolam 5 mg IV, Fentanyl 50 micrograms IV, Diphenhydramine 50 mg IV Complications: No immediate complications. Requesting Provider: Procedure: Pre-Anesthesia Assessment: - Prior to the procedure, a History and Physical was performed, and patient medications and allergies were reviewed. The patient is competent. The risks and benefits of the procedure and the sedation options and risks were discussed with the patient. All questions were answered and informed consent was obtained. Patient identification and proposed procedure were verified by the physician in the pre-procedure area. Mental Status Examination: alert and oriented. Airway Examination: normal oropharyngeal airway and neck mobility. Respiratory Examination: clear to auscultation. CV Examination: normal. Prophylactic Antibiotics: The patient does not require prophylactic antibiotics. Prior Anticoagulants: The patient has taken no anticoagulant or antiplatelet agents. ASA Grade Assessment: II - A patient with mild systemic disease. After reviewing the risks and benefits, the patient was deemed in satisfactory condition to undergo the procedure. The anesthesia plan was to use moderate sedation / analgesia (conscious sedation). Immediately prior to administration of medications, the patient was re-assessed for adequacy to receive sedatives. The heart rate, respiratory rate, oxygen saturations, blood pressure, adequacy of pulmonary ventilation, and response to care were monitored throughout the procedure. The physical status of the patient was re-assessed after the procedure. After I obtained informed consent, the scope was passed under direct vision. Throughout the procedure, the patient's blood pressure, pulse, and oxygen saturations were monitored continuously. The Colonoscope was introduced through the anus and advanced to the cecum, identified by the appendiceal orifice, IC valve and transillumination. The colonoscopy was performed without difficulty. The patient tolerated the procedure well. The quality of the bowel preparation was adequate to identify polyps greater than 5 mm in size. The appendiceal orifice and the rectum were photographed. Moderate Sedation: The administration of moderate sedation was initiated at 12:14. Moderate (conscious) sedation was personally administered by the endoscopist. The following parameters were monitored: oxygen saturation, heart rate, blood pressure, and response to care. Total physician intraservice time was 18 minutes. Findings: The perianal and digital rectal examinations were normal. Multiple small-mouthed diverticula were found in the sigmoid colon. Non-bleeding internal hemorrhoids were found. A 6 to 10 mm polyp was found in the ascending colon. The polyp was sessile. The polyp was removed with a hot snare. Resection and retrieval were complete. Verification of patient identification for the specimen was done by the nurse. Estimated blood loss was minimal. To prevent bleeding after the polypectomy, one hemostatic clip was successfully placed (MR conditional). 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 There was no bleeding at the end of the procedure. Estimated blood loss was minimal. Impression: - Diverticulosis in the sigmoid colon. - Non-bl (more content not included)... PROVATION [facility] Radiology Study observation (narrative) [facility] HISTORY PHYSICALon HISTORY PHYSICAL HNO ID: [id number] Author: LUCIANA TY MD Service: General Surgery Author Type: Physician Type: H&P Filed: 08/05/2024 12:00 Note Text: HISTORY AND PHYSICAL Lilia Alba : 1960 REFERRING PHYSICIAN: No referring provider defined for this encounter. CHIEF COMPLAINT: Patient presents with: Consult: Colonoscopy, 2013 last colonoscopy HPI: Lilia is a 63 year old female referred for endoscopy. Lilia notes due for screening colonoscopy per oncology. Had negative Cologuard in 2022. Lilia denies abdominal pain. Lilia denies diarrhea. Lilia denies constipation. Lilia denies a change in bowel habits. Lilia denies melena. Lilia denies bright red blood per rectum. Lilia denies hemorrhoids. Lilia denies heartburn. Lilia denies dysphagia. Lilia denies a history of ulcers/ peptic ulcer disease. Lilia denies family history of colon issues. Lilia has a history of left breast cancer. Completed chemo/radiation 2022. Just finished Herceoptin 03/2024. She follows with [facility]. Other medical history is significant for HTN, GERD, Anxiety, RLS. Lilia has undergone prior endoscopy. Last colonoscopy was 06/[address] Albert at [facility]. Sedation:Fentanyl 50 micrograms IV, Midazolam 7 mg IV, Diphenhydramine 50 mg IV Impression: - The entire examined colon is normal. CURRENT MEDICATIONS Current Outpatient Medications Medication Sig valsartan (DIOVAN) 160 mg tablet Take 1 tablet by mouth once daily. Zinc Gluconate 50 mg tablet Take 50 mg by mouth once daily. cholecalciferol, vitamin D3, 125 mcg (5,000 unit) ODT Take by mouth. MAGNESIUM GLUCONATE ORAL Take by mouth once daily. ascorbic acid (VITAMIN C ORAL) Take 1,000 mg by mouth once daily. flaxseed oil (OMEGA 3 ORAL) Take 1,000 mg by mouth once daily. VITAMIN B COMPLEX ORAL Take by mouth once daily. peg 3350-Electrolytes (GOLYTELY) 236-22.74-6.74 -5.86 gram suspension Take 4,000 mL by mouth one time only for 1 dose. Refer to printed prep instructions from your provider. No current facility-administered medications for this visit. ALLERGIES: Patient has no known allergies. PAST MEDICAL HISTORY PAST MEDICAL HISTORY Diagnosis Date Acute gastritis without mention of hemorrhage Arrhythmia h/o palpitations, but cardiac workup neg Breast cancer (HCC) Esophageal reflux Esophagitis, unspecified Essential hypertension, benign PAST SURGICAL HISTORY PAST SURGICAL HISTORY Procedure Laterality Date BREAST LUMPECTOMY HX Left breast COLONOSCOPY FLX DX W/COLLJ SPEC WHEN PFRMD 06/24/2014 Colonoscopy EGD TRANSORAL BIOPSY SINGLE/MULTIPLE 12/27/2009 PAST SURGICAL HISTORY OF Left carpel tunnel FAMILY HISTORY FAMILY HISTORY Problem Relation Age of Onset Diabetes Father lung cancer Diabetes Brother Cancer Sister lung cancer SOCIAL HISTORY Social History Tobacco Use Smoking status: Former Vaping Use Vaping status: Never Used Substance Use Topics Alcohol use: No Drug use: No REVIEW OF SYMPTOMS: The review of systems data was entered by the nurse and reviewed by me SEE NURSING NOTE PHYSICAL EXAMINATION: General: The patient is 63 year old, female well nourished, well hydrated in no acute distress. The patient is oriented to time, place, and person. VITALS: Blood pressure 126/64, pulse 71, temperature (!) 35.9 ?C (96.6 ?F), height 160 cm (5' 3), weight 64.4 kg (142 lb), SpO2 99%. Body mass index is 25.15 kg/m?. HEENT: Normal cephalic, ataumatic, pupils are equally round, sclera are anicteric, mucous membranes are moist, oropharynx is clear. Neck has no masses, asymmetry or lymphadenopathy. Respiratory: Clear to auscultation and percussion. Normal respiratory excursion and pattern. Cardiac: Examination is regular rate and rhythm. Normal S1/S2 Abdominal exam: Soft, nontender, with no palpable masses. No hepatosplenomegaly. No palpable hernias. Extremities: no clubbing, cyanosis or edema. No adenopathy. LABORATORY VALUES: As Noted RADIOLOGIC STUDIES: As Noted Assessment IMPRESSION: screen for colon cancer, hx of breast cancer PLAN: I have reviewed my findings with the surgeon. Will plan for lower endoscopy. We discussed the risks and benefits of the planned endoscopy. I have informed the patient that complications can occur including failure to complete the endoscopy and perforation. Lilia had the opportunity to ask questions concerning the planned endoscopy. My staff has also explained the procedure to the patient in understandable terms and has given the patient printed material concerning the procedure. Lilia freely consents to surgery. I plan to use Golytely bowel preparation I have explained to the patient the difference between IV conscious sedation and MAC anesthesia - and I have offered either, according to the patient's wishes. I have explained that with IV conscious sedation there is no anesthesia provider available and therefore there is a limitation of the amount of IV medications t (more content not included)... Normal [facility] SURGICAL PATHOLOGYon 025 CASE REPORT Normal [facility] Comment on above: Order Comment: Speci men Type: TISSUE SPECIMEN Ordering Facility: [facility] Address: [address] [place] [place] [address] Result Comment: Surg ica Pathology Report Case: [id number] Authorizing Provider: Luciana Ty MD Collected: 08/05/2024 12:29 PM Ordering Location: Ambulatory Surgery Received: 08/05/2024 04:01 PM Pathologist: Gisela Johnson MD Specimen: Colon, Polyp, RIGHT colon polyp Performed By: #### S #### [facility] CLIA [id number] [address] [place] [address] OF [facility] FINAL DIAGNOSIS Normal [facility] Comment on above: Order Comment: Speci men Type: TISSUE SPECIMEN Ordering Facility: [facility] Address: [address] [place] [place] [address] Result Comment: A. Kimmie barclayon, right, polypectomy: - Tubular adenoma. AEB/yossi 08/06/2024 Performed By: #### S #### [facility] CLIA [id number] [address] [place] [address] OF [facility] FINAL PERFORMING LAB Normal [facility] Comment on above: Order Comment: Speci chase Type: TISSUE SPECIMEN Ordering Facility: [facility] Address: [address] [place] [place] [address] Result Comment: Diag nostic interpretation performed at: [facility], [address] [place] [address] CLIA# [id number] Radiator Repairer: Roosevelt Elder MD Performed By: #### S #### [facility] CLIA [id number] [address] [place] [address] OF [facility] GROSS DESCRIPTION A. Colon, Polyp Normal [facility] Comment on above: Order Comment: Dashai chase Type: TISSUE SPECIMEN Ordering Facility: [facility] Address: [address] [place] [place] [address] Result Comment: Rece ived in formalin are multiple pieces of coronel, soft tissue aggregating to 1.9 x 0.3 x 0.1 cm. Totally submitted in one cassette. DB August 06, 2024 12:24 AM Gross examination performed at [facility], [address] [place] [address], [place] [address] Performed By: #### S #### [facility] CLIA [id number] [address] [place] [address] [id number], [place] [address] [place] OF [facility] Basic Metabolic Profile (BMP )on 07-18-2024 BUN/CRE 23.9 RATIO High 10-20 [facility] Comment on above: Order Comment: Order Date: 07/15/24 Order Info: 0667-1 - BMP Performed By: #### L 500.2500, L502.0250 #### [facility] [address] [place], [address] CA,Total 9.6 mg/dL Normal 8.5-10.1 [facility] Comment on above: Order Comment: Order Date: 07/15/24 Order Info: 0667- - BMP Performed By: #### L 500.2500, L502.0250 #### [facility] [address] [place], [address] Chloride [Moles/Vol] 108 mmol/L High 98-107 [facility] [facility] [place] Comment on above: Order Comment: Order Date: 07/15/24 Order Info: 0667- - BMP Performed By: #### L 500.2500, L502.0250 #### [facility] [address] [place], [address] CO2 [Moles/Vol] 26.0 mmol/L Normal 21.0-32.0 [facility] Comment on above: Order Comment: Order Date: 07/15/24 Order Info: 0667-1 - BMP Performed By: #### L 500.2500, L502.0250 #### [facility] [address] [place], [address] Creatinine [Mass/Vol] 0.84 mg/dL Normal 0.55-1.02 [facility] Comment on above: Order Comment: Order Date: 07/15/24 Order Info: 0667-1 - BMP Result Comment: The validity of the calculated GFR GFRAA in patients over 70 years has not been determined. Clinical correlation is essential. Performed By: #### L 500.2500, L502.0250 #### [facility] [address] [place], [address] EST GFR - AA 88 mL/min Normal >60 [facility] Comment on above: Order Comment: Order Date: 07/15/24 Order Info: 0667-1 - BMP Result Comment: Afri can Austrian GFR Calc Performed By: #### L 500.2500, L502.0250 #### [facility] [address] [place], [address] GAP 5 Normal 5-15 [facility] Comment on above: Order Comment: Order Date: 07/15/24 Order Info: 0667-1 - BMP Performed By: #### L 500.2500, L502.0250 #### [facility] [address] [place], [address] GFR/1.73 sq M.predicted among non-blacks MDRD (S/P/Bld) [Vol rate/Area] 73 mL/min/{1.73_m2} Normal >60 [facility] Comment on above: Order Comment: Order Date: 07/15/24 Order Info: 0667-1 - BMP Result Comment: Non- GFR Calc Performed By: #### L 500.2500, L502.0250 #### [facility] [address] [place], [address] Glucose [Mass/Vol] 99 mg/dL Normal 74-106 [facility] Comment on above: Order Comment: Order Date: 07/15/24 Order Info: 0667-1 - BMP Performed By: #### L 500.2500, L502.0250 #### [facility] [address] [place], [address] Potassium [Moles/Vol] 4.1 mmol/L Normal 3.5-5.1 [facility] Comment on above: Order Comment: Order Date: 07/15/24 Order Info: 0667-1 - BMP Performed By: #### L 500.2500, L502.0250 #### [facility] [address] [place], [place], [address] Sodium [Moles/Vol] 139 mmol/L Normal 136-145 [facility] Comment on above: Order Comment: Order Date: 07/15/24 Order Info: 0667-1 - BMP Performed By: #### L 500.2500, L502.0250 #### [facility] [address] [place], [place], [address] Urea nitrogen [Mass/Vol] 20 mg/dL High 7-18 [facility] Comment on above: Order Comment: Order Date: 07/15/24 Order Info: 0667-1 - BMP Performed By: #### L 500.2500, L502.0250 #### [facility] [address] [place], [place], [address] CNOVon 07-18-2024 CNOV Office Visit (GENSWS ) LILIA ALBA ([id number]) 1960 F Date Time Provider Department 07/18/24 8:00 AM PADMA CARPIO GENSWS During your visit today, we recorded the following information about you: Temperature Pulse Blood pressure Weight 96.6 degrees 71/minute 126/64 64.4 kg Height 1.6 m Padma Carpio APRN.EXECUTIVE HOUSEKEEPER 07/18/2024 8:36 AM Signed HISTORY AND PHYSICAL Lilia Alba : 1960 REFERRING PHYSICIAN: No referring provider defined for this encounter. CHIEF COMPLAINT: Patient presents with: Consult: Colonoscopy, 2014 last colonoscopy HPI: Lilia is a 63 year old female referred for endoscopy. Lilia notes due for screening colonoscopy per oncology. Had negative Cologuard in 2022. Lilia denies abdominal pain. Lilia denies diarrhea. Lilia denies constipation. Lilia denies a change in bowel habits. Lilia denies melena. Lilia denies bright red blood per rectum. Lilia denies hemorrhoids. Lilia denies heartburn. Lilia denies dysphagia. Lilia denies a history of ulcers/ peptic ulcer disease. Lilia denies family history of colon issues. Lilia has a history of left breast cancer. Completed chemo/radiation 2022. Just finished Herceoptin 03/2024. She follows with [facility]. Other medical history is significant for HTN, GERD, Anxiety, RLS. Lilia has undergone prior endoscopy. Last colonoscopy was 06/[address] Albert at [facility]. Sedation:Fentanyl 50 micrograms IV, Midazolam 7 mg IV, Diphenhydramine 50 mg IV Impression: - The entire examined colon is normal. Current Outpatient Medications Medication Sig valsartan (DIOVAN) 160 mg tablet Take 1 tablet by mouth once daily. Zinc Gluconate 50 mg tablet Take 50 mg by mouth once daily. cholecalciferol, vitamin D3, 125 mcg (5,000 unit) ODT Take by mouth. MAGNESIUM GLUCONATE ORAL Take by mouth once daily. ascorbic acid (VITAMIN C ORAL) Take 1,000 mg by mouth once daily. flaxseed oil (OMEGA 3 ORAL) Take 1,000 mg by mouth once daily. VITAMIN B COMPLEX ORAL Take by mouth once daily. peg 3350-Electrolytes (GOLYTELY) 236-22.74-6.74 -5.86 gram suspension Take 4,000 mL by mouth one time only for 1 dose. Refer to printed prep instructions from your provider. No current facility-administered medications for this visit. ALLERGIES: Patient has no known allergies. PAST MEDICAL HISTORY Diagnosis Date Acute gastritis without mention of hemorrhage Arrhythmia h/o palpitations, but cardiac workup neg Breast cancer (HCC) Esophageal reflux Esophagitis, unspecified Essential hypertension, benign PAST SURGICAL HISTORY Procedure Laterality Date BREAST LUMPECTOMY HX Left breast COLONOSCOPY FLX DX W/COLLJ SPEC WHEN PFRMD 06/24/2014 Colonoscopy EGD TRANSORAL BIOPSY SINGLE/MULTIPLE 12/27/2009 PAST SURGICAL HISTORY OF Left carpel tunnel FAMILY HISTORY Problem Relation Age of Onset Diabetes Father lung cancer Diabetes Brother Cancer Sister lung cancer Social History Tobacco Use Smoking status: Former Vaping Use Vaping status: Never Used Substance Use Topics Alcohol use: No Drug use: No REVIEW OF SYMPTOMS: The review of systems data was entered by the nurse and reviewed by me SEE NURSING NOTE PHYSICAL EXAMINATION: General: The patient is 63 year old, female well nourished, well hydrated in no acute distress. The patient is oriented to time, place, and person. VITALS: Blood pressure 126/64, pulse 71, temperature (!) 35.9 ?C (96.6 ?F), height 160 cm (5' 3), weight 64.4 kg (142 lb), SpO2 99%. Body mass index is 25.15 kg/m?. HEENT: Normal cephalic, ataumatic, pupils are equally round, sclera are anicteric, mucous membranes are moist, oropharynx is clear. Neck has no masses, asymmetry or lymphadenopathy. Respiratory: Clear to auscultation and percussion. Normal respiratory excursion and pattern. Cardiac: Examination is regular rate and rhythm. Normal S1/S2 Abdominal exam: Soft, nontender, with no palpable masses. No hepatosplenomegaly. No palpable hernias. Extremities: no clubbing, cyanosis or edema. No adenopathy. LABORATORY VALUES: As Noted RADIOLOGIC STUDIES: As Noted Assessment IMPRESSION: screen for colon cancer, hx of breast cancer PLAN: I have reviewed my findings with the surgeon. Will plan for lower endoscopy. We discussed the risks and benefits of the planned endoscopy. I have informed the patient that complications can occur including failure to complete the endoscopy and perforation. Lilia had the opportunity to ask questions concerning the planned endoscopy. My staff has also explained the procedure to the patient in understandable terms and has given the patient printed material concerning the procedure. Lilia freely consents to surgery. I plan to use Golytely bowel preparation I have explained to the patient the difference between IV conscious sedation and MAC anesthesia - and I have offered either, accordi (more content not included)... Normal [facility] Microalb:Creat Ratio,Random URon 07-18-2024 Creatinine [Mass/Vol] 157.00 mg/dL Normal NO RANGE EST. [facility] Comment on above: Order Comment: Order Date: 07/15/24 Order Info: 0779-1 - MIACRE Performed By: #### L 500.2500, L502.0250 #### [facility] [address] [place], [address] MALB:CRE 7.2 mg/g CRE Normal <30 mg/g CRE [facility] Comment on above: Order Comment: Order Date: 07/15/24 Order Info: 0779-1 - MIACRE Performed By: #### L 500.2500, L502.0250 #### [facility] [address] [place], [address] MICROALBUMIN,UR 11.3 mg/L Normal NO RANGE EST. [facility] Comment on above: Order Comment: Order Date: 07/15/24 Order Info: 0779-1 - MIACRE Performed By: #### L 500.2500, L502.0250 #### [facility] [address] [place], [address] Oncology Visit Reporton 06-08 Oncology Visit Report [facility] [address] [place] [address] OFFICE VISIT Date of Service: 06/26/24 1407 MR#: [id number] Acct: [id number] Name: LILIA ABLA Rep #: [id number] : 1960 From: Janet Hernandez NP JURY CONSULTANT -C Age/Sex: 63/F Location: [facility] Status: Signed HPI Subjective Date of Service 06/26/24 Chief Complaint Breast cancer follow-up History of Present Illness 63-year-old female who presented after an abnormal screening mammogram. She missed screening mammography 2020. Positive family history for breast cancer; sister with DCIS. 02/22/2022 Mammograph: MPRESSION: 1 cm oval circumscribed equal density mass maxillary tail left breast and focal compression??? 02/22/2022 U/S: IMPRESSION: 8 mm x 7 mm x 7 mm slightly lobulated hypoechoic solid nodule 11 o''clock position breast at 12 cm from nipple. ???03/15/2022 Left breast, core biopsy: Invasive ductal carcinoma, nuclear grade 3 (0.8 cm in greatest length). ANTIBODY / CLONE RESULT E-Cad (ECH-6) positive CK8 (52oytcL38) positive Calponin-1 (EW615D) negative CK5-6 (D5 1684) negative P40 (BC28) negative P53 (DO-7) positive (>80%) Ki-67 (30-9) positive, moderate ( 50%) MORPHOMETRIC ANALYSIS ER (clone 6F11) 0 MA (clone 16/1E2) 0 Her-2Neu (clone CB11) 3+ September 21, 2022 left partial mastectomy and sentinel lymph node biopsy Pathology: Complete pathologic remission Treatment summary and response: * Neoadjuvant TCHP April 12, 2022-July 26, 2022 (6 cycles) * Left partial mastectomy with sentinel lymph node biopsy at [facility] September 21, 2022; was in complete pathologic remission. * Adjuvant Herceptin October 24, 2022-March 01, 2023 (1 year total) * Adjuvant radiation therapy to the left breast consisting of 4000 cGy delivered to the whole breast and 4800 cGy delivered to the lumpectomy cavity with a simultaneous integrated boost technique all in 15 fractions.??? She was treated with a 3D conformal technique in the prone position.??? Date of First Treatment: 09/25/2022 Date of Last Treatment: 10/13/2022 Total Elapsed Days (including weekend and holidays): 18 Interval History The patient is presenting to clinic for a planned 3 month follow up. Specifically denies headache, dizziness, CP, palpitations, cough, SOB, abd pain, bone pain, swelling/pain of her extremities. Does not perform a BSE routinely, but denies any changes in her breasts that she may have noticed while dressing or bathing. Exercises, HIIT, 3 times per week. [facility] Medical History Bladder prolapse Hypokalemia Hypomagnesemia Hand foot syndrome HER2-positive carcinoma of breast Encounter for monitoring cardiotoxic drug therapy Hypokalemia Encounter for chemotherapy management Port-A-Cath in place Alopecia Wears contact lenses Wears glasses Cancer Alcohol use Arthritis Back pain Former smoker History of pain when walking History of stress test Cardiology follow-up encounter Encounter for education Breast cancer of upper-outer quadrant of left female breast Asthma Anxiety Hypertension Surgical History History of removal of Port-a-Cath H/O lumpectomy History of carpal tunnel release Family History Father Hypertension Diabetes Lung cancer Smoker Mother Hypertension Sister Breast cancer, Onset Age: 62 precancerous cells, lumpectomy/radiation Cancer, Onset Age: 50 lung - other sister (smoker) Hypertension Smoker Multiple sclerosis sister w/ breast cancer Brother Heart disease Hypertension Social History household members: spouse number of children: 4 Smoking Status: Former smoker Tobacco: How many years used: 10 how long ago did patient quit smoking: in her mid 20's second hand exposure: Yes alcohol intake: current alcohol intake frequency: a few times a week Alcohol type: wine details: occasional substance use type: does not use ROS ROS Narrative Negative except as documented in the interval HPI Intake Vital Signs 03/25/24 14:11 05/09/24 09:56 06/26/24 14:07 Height 5 ft 3 in 5 ft 3 in 5 ft 3 in Weight: 142 lb BMI 25.1 BP 113/72 Blood Pressure Location Lt brachial Position Sitting Respiration 16 Pulse 80 Pulse Source Monitor Temp 98.2 F Temperature Source Temporal Artery Pulse Oximetry (%) 100 Oxygen Delivery Method room air Intake Car Runner Required: No Accompanied by: Self Is patient in pain?: No Allergies No Known Allergies Allergy (Verified 06/26/24 14:10) Medications ???Medication ???Instructions ???Recorded ???Confirmed ???Type ascorbate calcium (v (more content not included)... Normal [facility] Radiation Oncology Visiton 1 08-27-2023 Radiation Oncology Visit [facility] [address] [place] [address] OFFICE VISIT Date of Service: 06/26/24 1430 MR#: [id number] Acct: [id number] Name: LILIA ALBA Rep #: [id number] : 1960 From: Avery Rios DO Age/Sex: 63/F Location: [facility] Status: Signed Intake Vital Signs 12/04/23 10:32 05/09/24 09:56 06/26/24 14:07 06/26/24 14:32 Height 5 ft 3 in 5 ft 3 in 5 ft 3 in Weight: 142 lb 142 lb BMI 25.1 BP 113/71 Blood Pressure Location Lt brachial Position Sitting Respiration 16 Pulse 80 Pulse Source Monitor Temp 98.2 F Temperature Source Temporal Artery Pulse Oximetry (%) 100 Oxygen Delivery Method room air Intake Visit Reasons: 4 MONTH F/U BREAST Is patient in pain?: No Allergies No Known Allergies Allergy (Verified 06/26/24 14:10) PFSH PFSH Medical History Bladder prolapse Hypokalemia Hypomagnesemia Hand foot syndrome HER2-positive carcinoma of breast Encounter for monitoring cardiotoxic drug therapy Hypokalemia Encounter for chemotherapy management Port-A-Cath in place Alopecia Wears contact lenses Wears glasses Cancer Alcohol use Arthritis Back pain Former smoker History of pain when walking History of stress test Cardiology follow-up encounter Encounter for education Breast cancer of upper-outer quadrant of left female breast Asthma Anxiety Hypertension Allergy/AdvReac Type Severity Reaction Status Date / Time No Known Allergies Allergy Verified 06/26/24 14:10 Family History Father Hypertension Diabetes Lung cancer Smoker Mother Hypertension Sister Breast cancer, Onset Age: 62 precancerous cells, lumpectomy/radiation Cancer, Onset Age: 50 lung - other sister (smoker) Hypertension Smoker Multiple sclerosis sister w/ breast cancer Brother Heart disease Hypertension Surgical History History of removal of Port-a-Cath H/O lumpectomy History of carpal tunnel release Social History household members: spouse number of children: 4 Smoking Status: Former smoker Tobacco: How many years used: 10 how long ago did patient quit smoking: in her mid 20's second hand exposure: Yes alcohol intake: current alcohol intake frequency: a few times a week Alcohol type: wine details: occasional substance use type: does not use Diagnosis: Lilia Alba is a 63 year-old female diagnosed with clinical stage IA, prognostic stage IA (cT1c cN0, ypT0 yp N0 (i-) (sn) Mx) grade 3 invasive ductal carcinoma (ER 0%, MA 0%, HER2 3+ IHC) status post bilateral screening mammography (02/22/2022), left breast diagnostic mammogram and ultrasound (03/01/2022), left breast core needle biopsy (03/15/2022), completion of 6 cycles of neoadjuvant TCHP (04/12/2022 ??? 07/31/2022), and completion of left breast lumpectomy and sentinel lymph node biopsy (08/22/2022). From 09/25/2022 ??? 10/13/2022 she completed adjuvant radiation therapy to the left breast. History of Present Illness: 02/22/2022: Bilateral screening mammography was performed.??? This demonstrated a 1 cm oval circumscribed equal density mass in the axillary tail of the left breast and focal compression views are recommended for further evaluation.??? BI-RADS Category 0. 03/01/2022: Patient completed diagnostic mammogram of the left breast and ultrasound.??? This demonstrated a 1.1 x 0.7 cm spiculated nodule in the deep upper central portion of the left breast.??? On ultrasound the mammographic abnormality corresponds to an 8 x 7 x 7 mm slightly lobulated hypoechoic solid nodule, recommend biopsy.??? BI-RADS Category 4. 03/15/2022: Patient completed left breast core biopsy.??? Pathology demonstrated grade 3 invasive ductal carcinoma (ER 0%, MA 0%, HER2 3+ IHC). 04/12/2022 ??? 07/31/2022: Completed 6 cycles of Taxotere, carboplatin, Herceptin, Perjeta (TCHP) 08/22/2022: Patient completed left breast lumpectomy and sentinel lymph node biopsy to the upper inner quadrant tumor.??? Pathology demonstrated no evidence of residual tumor.??? 1 sentinel lymph node was obtained and did not contain any metastatic disease and no treatment effect was identified.??? ypT0 yp N0 (i-) (sn) From 09/25/2022 ??? 10/13/2022: received adjuvant radiation therapy to the left breast consisting of 4000 cGy delivered to the whole breast and 4800 cGy delivered to the lumpectomy cavity with a simultaneous integrated boost technique all in 15 fractions.??? She was treated with a 3D conformal technique in the prone position. 03/08/2023: Bilateral diagnostic mammogram was performed. This demonstrated bilateral benign- appearing calcifications, p (more content not included)... Normal [facility] Stress Reporton 05-27-2024 Stress Report [facility] [address] [place] [address] MR#: [id number] Acct: [id number] Name: LILIA ALBA Rep #: [id number] : 1960 63 From: Josue Haywood MD Primary Care: Dr. Vincenzo Proctor MD Status: R EG CLI Referring Dr: Josue Haywood MD Sex: F C Stress Test Report Exercise stress test. 63-year-old lady with a history of chest pain Stress protocol: Resting EKG demonstrates normal sinus rhythm with a rate of 76 bpm resting blood pressure is 176/86 mmHg. The patient exercised according to the regular Jeremy protocol for a total duration of 9 minutes and 36 seconds attaining a maximum heart rate of 160 bpm which was 102% of maximum predicted heart rate; the maximum workload was 12 metabolic equivalents. At rest there were no ST or T wave changes noted to suggest ischemia and at peak exercise upsloping ST changes only were noted which did not meet the criteria for ischemia. No clinical angina was noted the test was terminated due to the target heart rate being achieved/fatigue. The peak blood pressure was 210/90 mmHg. Rate- pressure product was 28,400. Hypertensive response to exercise noted Conclusion: Exercise stress test with no EKG criteria for ischemia at a high workload. Good functional aerobic capacity. Resting hypertension and hypertensive response to exercise present. 05/27/241736 Date Josue Haywood MD CC: Dr. Josue Haywood MD; Dr. Vincenzo Proctor MD Date Dictated: 05/27/241732 Date Transcribed: 05/27/241732 Aviation Survival Technician: CO Signed Normal [facility] ONC Echo Completeon 05-23-20 ONC Echo Complete [facility] [address] [place] [address] ONC Echo Complete 05/23/24 0805 MR#: [id number] Acct: [id number] Name: LILIA ALBA Rep #: [id number] : 1960 63 From: Josue Haywood MD Attending Dr: Dr. Josue Haywood MD Status: YOKO Burks Ordering Dr: Josue Haywood MD Date: 05/23/24 Location: [facility] Sex: F C Admitted: Reason For Study: Antineoplastic Chemo Procedure This was a 2D Doppler, Color Flow transthoracic echocardiogram. Myocardial strain analysis was performed in this exam to aid in the assessment of cardiac function. Exam performed in department. Left Ventricle Normal LV size. Left ventricular systolic function is normal. The left ventricular ejection fraction is 65 %. No regional wall motion abnormalities noted. Right Ventricle Normal RV size. Normal systolic function. Atria Normal left atrium. Normal right atrium. Mitral Valve Normal mitral valve. Tricuspid Valve Normal tricuspid valve. Mild tricuspid valve insufficiency. Right ventricular systolic pressure estimated to be 30 mmHg. Aortic Valve Trisinus/trileaflet aortic valve. Mild focal aortic valve thickening. Pulmonic Valve Normal pulmonic valve. Great Vessels Normal aortic root. The pulmonary artery is normal size. Normal inferior vena cava. Pericardium/Pleural No pericardial effusion. MMode/2D Measurements Calculations LVIDd: 3.9 cm IVSd: 0.91 cm Ao root diam: 3.0 cm LVIDs: 2.5 cm LVPWd: 0.94 cm RVDd: 3.0 cm FS: 36.5 % LAV(MOD-bp): 28.3 ml LVAd ap4: 18.1 cm2 SV(MOD-sp4): 27.6 ml LAV(MOD-bp) Indexed: 17.0 ml/m2 LVLd ap4: 6.7 cm SI(MOD-sp4): 16.6 ml/m2 LAV(MOD-sp2): 31.0 ml EDV(MOD-sp4): 41.2 ml LAV(MOD-sp4): 24.2 ml EDV(sp4-el): 41.7 ml LVAs ap4: 9.2 cm2 LVLs ap4: 5.3 cm ESV(MOD-sp4): 13.6 ml ESV(sp4-el): 13.3 ml EF(MOD-sp4): 66.9 % EF(sp4-el): 68.1 % SV(sp4-el): 28.4 ml LA A4 area: 11.4 cm2 LA dimension(2D): 3.8 cm RA A4 area: 7.9 cm2 TAPSE: 1.9 cm Time Measurements MV dec time: 0.23 sec Doppler Measurements Calculations MV E max lucinda: 74.3 cm/sec Lat Peak E' Lucinda: 8.8 cm/sec Med Peak E' Lucinda: 7.4 cm/sec MV A max lucinda: 104.8 cm/sec E/E' lat: 8.5 E/E' med: 10.0 MV E/A: 0.71 Ao V2 max: 121.1 cm/sec LV V1 max: 99.8 cm/sec MV dec slope: 326.8 cm/sec2 Ao max P.9 mmHg LV V1 max P.0 mmHg Ao V2 mean: 77.7 cm/sec Ao mean P.8 mmHg Ao V2 VTI: 23.7 cm PA V2 max: 91.0 cm/sec TR max lucinda: 261.6 cm/sec TR max P.4 mmHg ECHO/ONC Echo Complete Interpretation Summary Normal LV size. Left ventricular systolic function is normal. The left ventricular ejection fraction is 65 %. The global longitudinal strain is normal. The global longitudinal strain = -20.7 % (normal). Structurally normal valves. Compared to previous study, the left ventricular systolic function is the same.. Ordering Physician: Josue Haywood Referring Physician: Vincenzo Proctor Performed By: Yuliana Pandya, CARLYNCS, RVT 05/23/24 1303 Date Josue Haywood MD CC: Dr. Josue Haywood MD; Dr. Vincenzo Proctor MD Date Dictated: 05/23/24804 Date Transcribed: 05/23/24 130 Aviation Survival Technician: Signed Normal [facility] MG Breast - bilateral Diagno sticOrdered By: Lorna Simpson on 09-05-2024 Interpretation and review of laboratory results Abnormal [facility] Work Phone: [facility] Work Phone: MG Breast - bilateral Diagno sticon 03-13-2024 IMPRESSION: 1. Left breast postsurgical change with associated probably benign calcifications, likely representing evolving fat necrosis, for which six-month follow-up mammogram with magnification views is recommended. 2. No mammographic evidence of malignancy in the right breast. BI-RADS: 3: Probably benign Recommendation: 6-month follow-up. Recommendation Laterality: Left MQSA Facility: [facility], [address] [place] [address], OLOGY EXAM: MAMMO DIAGNOST IC WITH FRANDY BILATERAL, 03/13/2024 10:45 AM CLINICAL INDICATIONS AND HISTORY: screening C50.212:Malignant neoplasm of upper-inner quadrant of left breast in female, estrogen receptor negative Z17.1:Malignant neoplasm of upper-inner quadrant of left breast in female, estrogen receptor negative Z12.31:Encounter for screening mammogram for malignant neoplasm of breast History of left breast carcinoma status post lumpectomy, radiation therapy, and chemotherapy (2022). COMPARISON: March 08, 2023, March 01, 2022, February 22, 2022, October 03, 2019 MAMMOGRAM TECHNIQUE: 2-D MLO and CC views were obtained of the bilateral breasts. 3-D MLO and CC digital tomosynthesis images were also acquired. Additionally, left breast 2-D spot magnification ML and CC views were obtained. Computer aided detection was utilized. MAMMOGRAM FINDINGS: Breast Density: The breasts have scattered areas of fibroglandular density. In the left upper central breast, posterior depth, postsurgical change is noted consistent with prior lumpectomy. Along the anterior margin of the lumpectomy bed, dystrophic appearing calcifications are noted, some of which demonstrate central fat and are favored to represent probable evolving fat necrosis. In the right breast, there are no suspicious masses, calcifications, or architectural distortions. RADIOLOGY Lorna Simpson MD - 03/13/2024 EXAM: MAMMO DIAGNOSTIC WITH FRANDY BILATERAL, 03/13/2024 10:45 AM CLINICAL INDICATIONS AND HISTORY: screening C50.212:Malignant neoplasm of upper-inner quadrant of left breast in female, estrogen receptor negative Z17.1:Malignant neoplasm of upper-inner quadrant of left breast in female, estrogen receptor negative Z12.31:Encounter for screening mammogram for malignant neoplasm of breast History of left breast carcinoma status post lumpectomy, radiation therapy, and chemotherapy (2022). COMPARISON: March 08, 2023, March 01, 2022, February 22, 2022, October 03, 2019 MAMMOGRAM TECHNIQUE: 2-D MLO and CC views were obtained of the bilateral breasts. 3-D MLO and CC digital tomosynthesis images were also acquired. Additionally, left breast 2-D spot magnification ML and CC views were obtained. Computer aided detection was utilized. MAMMOGRAM FINDINGS: Breast Density: The breasts have scattered areas of fibroglandular density. In the left upper central breast, posterior depth, postsurgical change is noted consistent with prior lumpectomy. Along the anterior margin of the lumpectomy bed, dystrophic appearing calcifications are noted, some of which demonstrate central fat and are favored to represent probable evolving fat necrosis. In the right breast, there are no suspicious masses, calcifications, or architectural distortions. IMPRESSION IMPRESSION: 1. Left breast postsurgical change with associated probably benign calcifications, likely representing evolving fat necrosis, for which six-month follow-up mammogram with magnification views is recommended. 2. No mammographic evidence of malignancy in the right breast. BI-RADS: 3: Probably benign Recommendation: 6-month follow-up. Recommendation Laterality: Left MQSA Facility: [facility], [address] [place] [address], [facility] Radiology Study observation (narrative) [facility] Laboratory - Chemistry and C hemistry - challengeOrdered By: Vincenzo Proctor on 08-03-2023 Cobalamin (Vitamin B12) [Mass/Vol] 528 pg/mL 211-911 [facility] No Panel InformationOrdered By: Vincenzo Proctor on 08-03-2023 Anti-Nuclear Antibody Screen Positive Negative [facility] Comment on above: Performed at: [facility] [address] [id number] Director: Gigi Robbins PhD, Phone: [phone] Folate 34.90 ng/mL 3.1-55.4 [facility] Serum or plasma thyroid stim ulating hormone (TSH) measurement (units/volume)Ordered By: Vincenzo Proctor on 08-03-2023 TSH Qn 1.58 uIU/mL 0.358-3.74 [facility] Thin prep Papanicolaou smear with manual screeningOrdered By: Vincenzo Proctor on 08-03-2023 Thin prep Papanicolaou smear with manual screening 0.96 ng/dL 0.76-1.46 [facility] Absolute lymphocyte countOrd ered By: Vincenzo Proctor on 06-11-2023 Lymphocytes Auto (Unsp spec) [#/Vol] 0.75 10*3/uL 0.83-4.51 [facility] Basophil percentageOrdered B y: Vincenzo Proctor on 06-11-2023 Basophils/100 WBC (Bld) 0.4 % 0-1 [facility] Bilirubin [Mass/Vol] 0.30 mg/dL 0.20-1.00 [facility] Comment on above: For patients on eltr ombopag therapy, use of Dimension [place] TBIL is not recommended. Chloride [Moles/Vol] 106 mmol/L 98-107 [facility] Cholesterol [Mass/Vol] 236 mg/dL <200 [facility] Comment on above: <200 mg/dL Desirable 200-240 mg/dL Borderline >240 mg/dL High Risk Eosinophils/100 WBC (Bld) 2.8 % 0-5 [facility] Glucose [Mass/Vol] 106 mg/dL 74-106 [facility] Comment on above: Fasting Glucose resu lt from 100 to 125 mg/dL suggests IMPAIRED HOMEOSTASIS per A.D.A. criteria. Neutrophils (Bld) [#/Vol] 1.7 10*3/uL 2.0-7.7 [facility] Neutrophils/100 WBC (Bld) 58.8 % 47-70 [facility] Potassium [Moles/Vol] 3.9 mmol/L 3.5-5.1 [facility] Protein [Mass/Vol] 7.5 g/dL 6.4-8.2 [facility] Sodium [Moles/Vol] 139 mmol/L 136-145 [facility] Triglyceride [Mass/Vol] 178 mg/dL <199 [facility] Comment on above: The drugs N-Acetylcy steine and Metamizole may falsely depress this assay.Serum Triglycerides Reference Interval Normal <150 mg/dL Borderline high 150 - 199 mg/dL High 200 - 499 mg/dL Very High > or = 500 mg/dL WBC (Bld) [#/Vol] 2.8 10*3/uL 4.4-11.0 [facility] Blood erythrocytes count (nu mber/volume)Ordered By: Vincenzo Proctor on 06-11-2023 RBC (Bld) [#/Vol] 4.45 10*6/uL 4.2-5.4 [facility] Blood hemoglobin measurement (mass/volume)Ordered By: Vincenzo Proctor on 06-11-2023 Hemoglobin (Bld) [Mass/Vol] 13.7 g/dL 12.0-15.0 [facility] Blood lymphocytes/100 leukoc ytesOrdered By: Vincenzo Proctor on 06-11-2023 Lymphocytes/100 WBC (Bld) 26.4 % 19-41 [facility] Blood monocytes/100 leukocyt esOrdered By: Vincenzo Proctor on 06-11-2023 Monocytes/100 WBC (Bld) 11.6 % 0-10 [facility] Blood platelet mean volumeOr dered By: Vincenzo Proctor on 06-11-2023 Platelet mean volume (Bld) [Entitic vol] 10.1 fL 6.2-12.0 [facility] Determination of erythrocyte mean corpuscular volume (MCV)Ordered By: Vincenzo Proctor on 06-11-2023 MCV (RBC) [Entitic vol] 90.8 fL 81-99 [facility] Hematocrit Auto (Bld) [Volum e fraction]Ordered By: Vincenzo Proctor on 06-11-2023 Hematocrit (Bld) [Volume fraction] 40.4 % 37-47 [facility] Laboratory - Chemistry and C hemistry - challengeOrdered By: Vincenzo Proctor on 06-11-2023 ALP [Catalytic activity/Vol] 87 U/L 45-117 [facility] ALT [Catalytic activity/Vol] 29 U/L 13-56 [facility] CO2 [Moles/Vol] 25.0 mmol/L 21.0-32.0 [facility] Globulin (S) [Mass/Vol] 3.7 g/dL 2.2-4.2 [facility] Urea nitrogen/Creatinine [Mass ratio] 18.6 mg/mg 10-20 [facility] Laboratory - Hematology and Cell countsOrdered By: Vincenzo Proctor on 06-11-2023 Erythrocyte distribution width (RBC) [Entitic vol] 39.9 fL 35.1-43.9 [facility] Erythrocyte distribution width (RBC) [Ratio] 12.0 % 11.6-14.6 [facility] Immature granulocytes/100 WBC (Bld) 0.000 % 0.0-0.9 [facility] Comment on above: IG% - Immature Granu locytes (promyelocytes, myelocytes and metamyelocytes) > 1% indicates that a LEFT SHIFT is Present. MCH (RBC) [Entitic mass] 30.8 pg 27.0-32.0 [facility] Nucleated RBC/100 WBC (Bld) [Ratio] 0 % 0-5 [facility] MCHC Auto (RBC) [Mass/Vol]Or dered By: Vincenzo Proctor on 06-11-2023 MCHC (RBC) [Mass/Vol] 33.9 g/dL 32-36 [facility] No Panel InformationOrdered By: Vincenzo Proctor on 06-11-2023 Estimated GFR (MDRD) Amer 92 mL/min >60 [facility] Comment on above: GFR Calc Estimated GFR (MDRD) Non-Af Amer 76 mL/min >60 [facility] Comment on above: Non- GFR Calc Urine Microalbumin/Creatin ine Ratio TNP [facility] Comment on above: Test not performed Platelets bldOrdered By: Celeste Proctor on 06-11-2023 Platelets (Bld) [#/Vol] 186 10*3/uL 150-450 [facility] Serum or plasma albumin theodore urement (mass/volume)Ordered By: Vincenzo Proctor on 06-11-2023 Albumin [Mass/Vol] 3.8 g/dL 3.2-5.0 [facility] Serum or plasma albumin/glob ulin mass ratioOrdered By: Vincenzo Proctor on 06-11-2023 Albumin/Globulin [Mass ratio] 1.0 {ratio} 0.9-2.4 [facility] Serum or plasma calcium theodore urement (mass/volume)Ordered By: Vincenzo Proctor on 06-11-2023 Calcium [Mass/Vol] 9.5 mg/dL 8.5-10.1 [facility] Serum or plasma cholesterol in HDL measurement (mass/volume)Ordered By: Vincenzo Proctor on 06-11-2023 Cholesterol in HDL [Mass/Vol] 83 mg/dL >40 [facility] Comment on above: The drugs N-Acetylcy steine and Metamizole may falsely depress this assay. Reference Range HDL <40 mg/dL Low HDL Cholesterol HDL >or= 60 mg/dL High HDL Cholesterol Serum or plasma cholesterol in VLDL measurement (mass/volume)Ordered By: Vincenzo Proctor on 06-11-2023 Cholesterol in VLDL [Mass/Vol] 36 mg/dL 5-40 [facility] Serum or plasma creatinine m easurement (mass/volume)Ordered By: Vincenzo Proctor on 06-11-2023 Creatinine [Mass/Vol] 0.80 mg/dL 0.55-1.02 [facility] Comment on above: The validity of the calculated GFR & GFRAA in patients over 70 years has not been determined. Clinical correlation is essential. Serum or plasma low density lipoprotein (LDL) cholesterol measurement (mass/volume)Ordered By: Vincenzo Proctor on 06-11-2023 Cholesterol in LDL [Mass/Vol] 117 mg/dL 0-130 [facility] Serum or plasma urea nitroge n measurement (mass/volume)Ordered By: Vincenzo Proctor on 06-11-2023 Urea nitrogen [Mass/Vol] 15 mg/dL 7-18 [facility] Thin prep Papanicolaou smear with manual screeningOrdered By: Vincenzo Proctor on 06-11-2023 Thin prep Papanicolaou smear with manual screening 20 U/L 15-37 [facility] Thin prep Papanicolaou smear with manual screening 8 5-15 [facility] Thin prep Papanicolaou smear with manual screening < 5.0 mg/L NO RANGE EST. [facility] Urine creatinine measurement (mass/volume)Ordered By: Vincenzo Proctor on 06-11-2023 Creatinine (U) [Mass/Vol] 13.50 mg/dL NO RANGE EST. [facility] Absolute lymphocyte countOrd ered By: Chantale Jeronimo on 06-05-2023 Lymphocytes Auto (Unsp spec) [#/Vol] 1.30 10*3/uL 0.83-4.51 [facility] Basophil percentageOrdered B y: Chantale Jeronimo on 06-05-2023 Basophils/100 WBC (Bld) 0.4 % 0-1 [facility] Bilirubin [Mass/Vol] 0.40 mg/dL 0.20-1.00 [facility] [place] Comment on above: For patients on eltr ombopag therapy, use of Dimension [place] TBIL is not recommended. Chloride [Moles/Vol] 105 mmol/L 98-107 [facility] Eosinophils/100 WBC (Bld) 2.2 % 0-5 [facility] Glucose [Mass/Vol] 88 mg/dL 74-106 [facility] Neutrophils (Bld) [#/Vol] 2.7 10*3/uL 2.0-7.7 [facility] Neutrophils/100 WBC (Bld) 59.2 % 47-70 [facility] Potassium [Moles/Vol] 3.1 mmol/L 3.5-5.1 [facility] Protein [Mass/Vol] 8.0 g/dL 6.4-8.2 [facility] Sodium [Moles/Vol] 138 mmol/L 136-145 [facility] WBC (Bld) [#/Vol] 4.5 10*3/uL 4.4-11.0 [facility] Blood erythrocytes count (nu mber/volume)Ordered By: Chantale Jeronimo on 06-05-2023 RBC (Bld) [#/Vol] 4.57 10*6/uL 4.2-5.4 [facility] Blood hemoglobin measurement (mass/volume)Ordered By: Chantale Jeronimo on 06-05-2023 Hemoglobin (Bld) [Mass/Vol] 14.4 g/dL 12.0-15.0 [facility] Blood lymphocytes/100 leukoc ytesOrdered By: Chantale Jeronimo on 06-05-2023 Lymphocytes/100 WBC (Bld) 28.9 % 19-41 [facility] Blood monocytes/100 leukocyt esOrdered By: [facility] on 06-[facility]-2023 Monocytes/100 WBC (Bld) 9.1 % 0-10 [facility] Blood platelet mean volumeOr dered By: [facility] on 06-05-2023 Platelet mean volume (Bld) [Entitic vol] 9.4 fL 6.2-12.0 [facility] Determination of erythrocyte mean corpuscular volume (MCV)Ordered By: [facility] on 06-05-2023 MCV (RBC) [Entitic vol] 89.9 fL 81-99 [facility] Hematocrit Auto (Bld) [Volum e fraction]Ordered By: [employer] Phani on 06-05-2023 Hematocrit (Bld) [Volume fraction] 41.1 % 37-47 [facility] Laboratory - Chemistry and C hemistry - challengeOrdered By: [facility] on 06-05-2023 ALP [Catalytic activity/Vol] 100 U/L 45-117 [facility] ALT [Catalytic activity/Vol] 32 U/L 13-56 [facility] CO2 [Moles/Vol] 29.0 mmol/L 21.0-32.0 [facility] Globulin (S) [Mass/Vol] 3.9 g/dL 2.2-4.2 [facility] Urea nitrogen/Creatinine [Mass ratio] 17.8 mg/mg 10-20 [facility] Laboratory - Hematology and Cell countsOrdered By: [employer] Phani on 06-05-2023 Erythrocyte distribution width (RBC) [Entitic vol] 39.2 fL 35.1-43.9 [facility] Erythrocyte distribution width (RBC) [Ratio] 12.0 % 11.6-14.6 [facility] Immature granulocytes/100 WBC (Bld) 0.200 % 0.0-0.9 [facility] Comment on above: IG% - Immature Granu locytes (promyelocytes, myelocytes and metamyelocytes) > 1% indicates that a LEFT SHIFT is Present. MCH (RBC) [Entitic mass] 31.5 pg 27.0-32.0 [facility] Nucleated RBC/100 WBC (Bld) [Ratio] 0 % 0-5 [facility] MCHC Auto (RBC) [Mass/Vol]Or dered By: Chantale Jeronimo on 06-05-2023 MCHC (RBC) [Mass/Vol] 35.0 g/dL 32-36 [facility] No Panel InformationOrdered By: Chantale Jeronimo on 06-05-2023 Estimated Creatinine Clearance Calc 50.14 ml/min [facility] Estimated GFR (MDRD) Amer 76 mL/min >60 [facility] Comment on above: GFR Calc Estimated GFR (MDRD) Non-Af Amer 63 mL/min >60 [facility] Comment on above: Non- GFR Calc Platelets bldOrdered By: Sarmad Jeronimo on 06-05-2023 Platelets (Bld) [#/Vol] 202 10*3/uL 150-450 [facility] Serum or plasma albumin theodore urement (mass/volume)Ordered By: Chantale Jeronimo on 06-05-2023 Albumin [Mass/Vol] 4.1 g/dL 3.2-5.0 [facility] Serum or plasma albumin/glob ulin mass ratioOrdered By: Chantale Jeronimo on 06-05-2023 Albumin/Globulin [Mass ratio] 1.1 {ratio} 0.9-2.4 [facility] Serum or plasma calcium theodore urement (mass/volume)Ordered By: Chantale Jeronimo on 06-05-2023 Calcium [Mass/Vol] 9.5 mg/dL 8.5-10.1 [facility] Serum or plasma creatinine m easurement (mass/volume)Ordered By: Chantale Jeronimo on 06-05-2023 Creatinine [Mass/Vol] 0.95 mg/dL 0.55-1.02 [facility] Comment on above: The validity of the calculated GFR & GFRAA in patients over 70 years has not been determined. Clinical correlation is essential. Serum or plasma urea nitroge n measurement (mass/volume)Ordered By: Chantale Jeronimo on 06-05-2023 Urea nitrogen [Mass/Vol] 17 mg/dL 7-18 [facility] Thin prep Papanicolaou smear with manual screeningOrdered By: Chantale Jeronimo on 06-05-2023 Thin prep Papanicolaou smear with manual screening 22 U/L 15-37 [facility] Thin prep Papanicolaou smear with manual screening 4 5-15 [facility] MG Breast - bilateral Diagno sticon 03-08-2023 IMPRESSION: No mammographic evidence of malignancy. BI-RADS: 2: Benign Recommendation: Routine mammography. Recommendation Laterality: Bilateral OLOGY EXAM: MAMMO DIAGNOST IC WITH FRANDY BILATERAL, 03/08/2023 11:41 AM CLINICAL HISTORY: 62-year-old female with a history of left breast invasive ductal carcinoma with breast conservation therapy in 2022. COMPARISON: Mammogram 02/22/2022, 09/29/2019, 09/04/2018 TECHNIQUE: 2-D MLO and CC views were obtained of the bilateral breasts. 3-D MLO and CC digital tomosynthesis images were also acquired. Computer aided detection was utilized. FINDINGS: The breasts have scattered areas of fibroglandular density. Bilateral benign appearing calcifications are noted. Postsurgical changes from lumpectomy are noted in the upper inner posterior third of the left breast. There are no suspicious masses, calcifications, or architectural distortions. RADIOLOGY Kenia Campbell DO - 03/08/2023 EXAM: MAMMO DIAGNOSTIC WITH FRANDY BILATERAL, 03/08/2023 11:41 AM CLINICAL HISTORY: 62-year-old female with a history of left breast invasive ductal carcinoma with breast conservation therapy in 2022. COMPARISON: Mammogram 02/22/2022, 09/29/2019, 09/04/2018 TECHNIQUE: 2-D MLO and CC views were obtained of the bilateral breasts. 3-D MLO and CC digital tomosynthesis images were also acquired. Computer aided detection was utilized. FINDINGS: The breasts have scattered areas of fibroglandular density. Bilateral benign appearing calcifications are noted. Postsurgical changes from lumpectomy are noted in the upper inner posterior third of the left breast. There are no suspicious masses, calcifications, or architectural distortions. IMPRESSION IMPRESSION: No mammographic evidence of malignancy. BI-RADS: 2: Benign Recommendation: Routine mammography. Recommendation Laterality: Bilateral [facility] Radiology Study observation (narrative) [facility] MG Breast - bilateral Diagno sticOrdered By: Kenia Campbell on 03-08-2023 [facility] Work Phone: Absolute lymphocyte countOrd ered By: Chantale Jeronimo on 03-01-2023 Lymphocytes Auto (Unsp spec) [#/Vol] 0.71 10*3/uL 0.83-4.51 [facility] Basophil percentageOrdered B y: Chantale Jeronimo on 03-01-2023 Basophils/100 WBC (Bld) 0.3 % 0-1 [facility] Bilirubin [Mass/Vol] 0.30 mg/dL 0.20-1.00 [facility] [place] Comment on above: For patients on eltr ombopag therapy, use of Dimension [place] TBIL is not recommended. Chloride [Moles/Vol] 108 mmol/L 98-107 [facility] Eosinophils/100 WBC (Bld) 1.9 % 0-5 [facility] Glucose [Mass/Vol] 88 mg/dL 74-106 [facility] Neutrophils (Bld) [#/Vol] 2.2 10*3/uL 2.0-7.7 [facility] Neutrophils/100 WBC (Bld) 66.6 % 47-70 [facility] Potassium [Moles/Vol] 3.7 mmol/L 3.5-5.1 [facility] Protein [Mass/Vol] 7.0 g/dL 6.4-8.2 [facility] Sodium [Moles/Vol] 138 mmol/L 136-145 [facility] WBC (Bld) [#/Vol] 3.2 10*3/uL 4.4-11.0 [facility] Blood erythrocytes count (nu mber/volume)Ordered By: Chantale Jeronimo on 03-01-2023 RBC (Bld) [#/Vol] 3.90 10*6/uL 4.2-5.4 [facility] Blood hemoglobin measurement (mass/volume)Ordered By: Chantale Jeronimo on 03-01-2023 Hemoglobin (Bld) [Mass/Vol] 12.1 g/dL 12.0-15.0 [facility] Blood lymphocytes/100 leukoc ytesOrdered By: Chantale Jeronimo on 03-01-2023 Lymphocytes/100 WBC (Bld) 21.9 % 19-41 [facility] Blood monocytes/100 leukocyt esOrdered By: [facility] on 03-01-2023 Monocytes/100 WBC (Bld) 9.3 % 0-10 [facility] Blood platelet mean volumeOr dered By: Chantale Jeronimo on 03-01-2023 Platelet mean volume (Bld) [Entitic vol] 9.6 fL 6.2-12.0 [facility] Determination of erythrocyte mean corpuscular volume (MCV)Ordered By: [facility] on 03-01-2023 MCV (RBC) [Entitic vol] 91.0 fL 81-99 [facility] Hematocrit Auto (Bld) [Volum e fraction]Ordered By: [employer] Phani on 03-01-2023 Hematocrit (Bld) [Volume fraction] 35.5 % 37-47 [facility] Laboratory - Chemistry and C hemistry - challengeOrdered By: [employer] Phani on 03-01-2023 ALP [Catalytic activity/Vol] 78 U/L 45-117 [facility] ALT [Catalytic activity/Vol] 29 U/L 13-56 [facility] CO2 [Moles/Vol] 26.0 mmol/L 21.0-32.0 [facility] Globulin (S) [Mass/Vol] 3.5 g/dL 2.2-4.2 [facility] Urea nitrogen/Creatinine [Mass ratio] 24.1 mg/mg 10-20 [facility] Laboratory - Hematology and Cell countsOrdered By: [facility] on 03-01-2023 Erythrocyte distribution width (RBC) [Entitic vol] 40.3 fL 35.1-43.9 [facility] Erythrocyte distribution width (RBC) [Ratio] 12.1 % 11.6-14.6 [facility] Immature granulocytes/100 WBC (Bld) 0.000 % 0.0-0.9 [facility] Comment on above: IG% - Immature Granu locytes (promyelocytes, myelocytes and metamyelocytes) > 1% indicates that a LEFT SHIFT is Present. MCH (RBC) [Entitic mass] 31.0 pg 27.0-32.0 [facility] Nucleated RBC/100 WBC (Bld) [Ratio] 0 % 0-5 [facility] MCHC Auto (RBC) [Mass/Vol]Or dered By: Chantale Jeronimo on 03-01-2023 MCHC (RBC) [Mass/Vol] 34.1 g/dL 32-36 [facility] No Panel InformationOrdered By: Chantale Jeronimo on 03-01-2023 Estimated Creatinine Clearance Calc 52.34 ml/min [facility] Estimated GFR (MDRD) Amer 80 mL/min >60 [facility] Comment on above: GFR Calc Estimated GFR (MDRD) Non-Af Amer 66 mL/min >60 [facility] Comment on above: Non- GFR Calc Platelets bldOrdered By: Sarmad Jeronimo on 03-01-2023 Platelets (Bld) [#/Vol] 181 10*3/uL 150-450 [facility] Serum or plasma albumin theodore urement (mass/volume)Ordered By: Chantale Jeronimo on 03-01-2023 Albumin [Mass/Vol] 3.5 g/dL 3.2-5.0 [facility] Serum or plasma albumin/glob ulin mass ratioOrdered By: Chantale Jeronimo on 03-01-2023 Albumin/Globulin [Mass ratio] 1.0 {ratio} 0.9-2.4 [facility] Serum or plasma calcium theodore urement (mass/volume)Ordered By: Chantale Jeronimo on 03-01-2023 Calcium [Mass/Vol] 8.7 mg/dL 8.5-10.1 [facility] Serum or plasma creatinine m easurement (mass/volume)Ordered By: Chantale Jeronimo on 03-01-2023 Creatinine [Mass/Vol] 0.91 mg/dL 0.55-1.02 [facility] Comment on above: The validity of the calculated GFR & GFRAA in patients over 70 years has not been determined. Clinical correlation is essential. Serum or plasma urea nitroge n measurement (mass/volume)Ordered By: Chantale Jeronimo on 08-24-2023 Urea nitrogen [Mass/Vol] 22 mg/dL 7-18 [facility] Thin prep Papanicolaou smear with manual screeningOrdered By: Chantale Jeronimo on 03-01-2023 Thin prep Papanicolaou smear with manual screening 20 U/L 15-37 [facility] Thin prep Papanicolaou smear with manual screening 4 5-15 [facility] Absolute lymphocyte countOrd ered By: Dr. Jeronimo on 12-06-2022 Lymphocytes Auto (Unsp spec) [#/Vol] 0.57 10*3/uL 0.83-4.51 [facility] Basophil percentageOrdered B y: Dr. Jeronimo on 12-06-2022 Basophils/100 WBC (Bld) 0.7 % 0-1 [facility] Bilirubin [Mass/Vol] 0.40 mg/dL 0.20-1.00 [facility] [place] Comment on above: For patients on eltr ombopag therapy, use of Dimension [place] TBIL is not recommended. Chloride [Moles/Vol] 105 mmol/L 98-107 [facility] [place] Eosinophils/100 WBC (Bld) 2.0 % 0-5 [facility] Glucose [Mass/Vol] 124 mg/dL 74-106 [facility] Comment on above: Fasting Glucose resu lt from 100 to 125 mg/dL suggests IMPAIRED HOMEOSTASIS per A.D.A. criteria. Neutrophils (Bld) [#/Vol] 2.1 10*3/uL 2.0-7.7 [facility] Neutrophils/100 WBC (Bld) 69.6 % 47-70 [facility] Potassium [Moles/Vol] 3.4 mmol/L 3.5-5.1 [facility] Protein [Mass/Vol] 6.9 g/dL 6.4-8.2 [facility] Sodium [Moles/Vol] 137 mmol/L 136-145 [facility] WBC (Bld) [#/Vol] 3.1 10*3/uL 4.4-11.0 [facility] Blood erythrocytes count (nu mber/volume)Ordered By: Dr. Jernoimo on 12-06-2022 RBC (Bld) [#/Vol] 3.70 10*6/uL 4.2-5.4 [facility] Blood hemoglobin measurement (mass/volume)Ordered By: Dr. Jeronimo on 12-06-2022 Hemoglobin (Bld) [Mass/Vol] 11.7 g/dL 12.0-15.0 [facility] Blood lymphocytes/100 leukoc ytesOrdered By: Dr. Jeronimo on 12-06-2022 Lymphocytes/100 WBC (Bld) 18.6 % 19-41 [facility] Blood monocytes/100 leukocyt esOrdered By: Dr. Jeronimo on 12-06-2022 Monocytes/100 WBC (Bld) 9.1 % 0-10 [facility] Blood platelet adequacy dete ction by light microscopyOrdered By: Dr. Jeronimo on 12-06-2022 Platelets LM Ql (Bld) ADEQUATE ADEQ [facility] Blood platelet mean volumeOr dered By: Dr. Jeronimo on 12-06-2022 Platelet mean volume (Bld) [Entitic vol] 9.7 fL 6.2-12.0 [facility] Determination of erythrocyte mean corpuscular volume (MCV)Ordered By: Dr. Jeronimo on 12-06-2022 MCV (RBC) [Entitic vol] 91.4 fL 81-99 [facility] Hematocrit Auto (Bld) [Volum e fraction]Ordered By: Dr. Jeronimo on 12-06-2022 Hematocrit (Bld) [Volume fraction] 33.8 % 37-47 [facility] Laboratory - Chemistry and C hemistry - challengeOrdered By: Dr. Jeronimo on 12-06-2022 ALP [Catalytic activity/Vol] 81 U/L 45-117 [facility] ALT [Catalytic activity/Vol] 27 U/L 13-56 [facility] CO2 [Moles/Vol] 24.0 mmol/L 21.0-32.0 [facility] Globulin (S) [Mass/Vol] 3.6 g/dL 2.2-4.2 [facility] Urea nitrogen/Creatinine [Mass ratio] 24.9 mg/mg 10-20 [facility] Laboratory - Hematology and Cell countsOrdered By: Dr. Jeronimo on 12-06-2022 Erythrocyte distribution width (RBC) [Entitic vol] 40.3 fL 35.1-43.9 [facility] Erythrocyte distribution width (RBC) [Ratio] 12.0 % 11.6-14.6 [facility] Immature granulocytes/100 WBC (Bld) 0.000 % 0.0-0.9 [facility] Comment on above: IG% - Immature Granu locytes (promyelocytes, myelocytes and metamyelocytes) > 1% indicates that a LEFT SHIFT is Present. MCH (RBC) [Entitic mass] 31.6 pg 27.0-32.0 [facility] Nucleated RBC/100 WBC (Bld) [Ratio] 0 % 0-5 [facility] MCHC Auto (RBC) [Mass/Vol]Or dered By: Dr. Jeronimo on 12-06-2022 MCHC (RBC) [Mass/Vol] 34.6 g/dL 32-36 [facility] No Panel InformationOrdered By: Dr. Jeronimo on 12-06-2022 Estimated Creatinine Clearance Calc 56.71 ml/min [facility] Estimated GFR (MDRD) Amer 88 mL/min >60 [facility] Comment on above: GFR Calc Estimated GFR (MDRD) Non-Af Amer 73 mL/min >60 [facility] Comment on above: Non- GFR Calc Platelets bldOrdered By: Dr. Jeronimo on 12-06-2022 Platelets (Bld) [#/Vol] 149 10*3/uL 150-450 [facility] RBC morphologyOrdered By: Dr Elin Jeronimo on 12-06-2022 RBC morphology finding Nom (Bld) NORM C+C NORMAL NORM C&C [facility] Review by pathologistOrdered By: Dr. Jeronimo on 12-06-2022 Pathologist review Bill (Unsp spec) [Interp] Reviewed [facility] Comment on above: Previous reported re sult: November foll Edited by: RGOCHRIS on 12/08/22:0839LeukopeniaClinical correlation necessary.Shant Restrepo M.D. 12/08/22 AMENDED REPORT 12/08/22 0839 PATH REV previously reported as: November foll Serum or plasma albumin theodore urement (mass/volume)Ordered By: Dr. Jeronimo on 12-06-2022 Albumin [Mass/Vol] 3.3 g/dL 3.2-5.0 [facility] Serum or plasma albumin/glob ulin mass ratioOrdered By: Dr. Jeronimo on 12-06-2022 Albumin/Globulin [Mass ratio] 0.9 {ratio} 0.9-2.4 [facility] Serum or plasma calcium theodore urement (mass/volume)Ordered By: Dr. Jeronimo on 12-06-2022 Calcium [Mass/Vol] 9.2 mg/dL 8.5-10.1 [facility] Serum or plasma creatinine m easurement (mass/volume)Ordered By: Dr. Jeronimo on 12-06-2022 Creatinine [Mass/Vol] 0.84 mg/dL 0.55-1.02 [facility] Comment on above: The validity of the calculated GFR & GFRAA in patients over 70 years has not been determined. Clinical correlation is essential. Serum or plasma urea nitroge n measurement (mass/volume)Ordered By: Dr. Jeronimo on 12-06-2022 Urea nitrogen [Mass/Vol] 21 mg/dL 7-18 [facility] Thin prep Papanicolaou smear with manual screeningOrdered By: Dr. Jeronimo on 12-06-2022 Thin prep Papanicolaou smear with manual screening 16 U/L 15-37 [facility] Thin prep Papanicolaou smear with manual screening 8 5-15 [facility] Blood manual differential co mment interpretation (narrative result)Ordered By: Dr. Jeronimo on 10-24-2022 Manual differential comment Bill (Bld) [Interp] SCANNED [facility] Absolute lymphocyte countOrd ered By: Janet Hernandez on 09-20-2022 Lymphocytes Auto (Unsp spec) [#/Vol] 0.85 10*3/uL 0.83-4.51 [facility] Basophil percentageOrdered B y: Janet Hernandez on 09-20-2022 Basophils/100 WBC (Bld) 0.3 % 0-1 [facility] Bilirubin [Mass/Vol] 0.40 mg/dL 0.20-1.00 [facility] [place] Comment on above: For patients on eltr ombopag therapy, use of Dimension [place] TBIL is not recommended. Chloride [Moles/Vol] 108 mmol/L 98-107 [facility] [place] Eosinophils/100 WBC (Bld) 1.4 % 0-5 [facility] Glucose [Mass/Vol] 99 mg/dL 74-106 [facility] Neutrophils (Bld) [#/Vol] 1.7 10*3/uL 2.0-7.7 [facility] Neutrophils/100 WBC (Bld) 59.2 % 47-70 [facility] Potassium [Moles/Vol] 3.5 mmol/L 3.5-5.1 [facility] Protein [Mass/Vol] 6.8 g/dL 6.4-8.2 [facility] Sodium [Moles/Vol] 142 mmol/L 136-145 [facility] WBC (Bld) [#/Vol] 2.9 10*3/uL 4.4-11.0 [facility] Basophil percentageOrdered B y: Dr. Proctor on 09-20-2022 Cholesterol [Mass/Vol] 222 mg/dL <200 [facility] Comment on above: <200 mg/dL Desirable 200-240 mg/dL Borderline >240 mg/dL High Risk Triglyceride [Mass/Vol] 133 mg/dL <199 [facility] Comment on above: The drugs N-Acetylcy steine and Metamizole may falsely depress this assay.Serum Triglycerides Reference Interval Normal <150 mg/dL Borderline high 150 - 199 mg/dL High 200 - 499 mg/dL Very High > or = 500 mg/dL Blood erythrocytes count (nu mber/volume)Ordered By: Janet Hernandez on 09-20-2022 RBC (Bld) [#/Vol] 3.21 10*6/uL 4.2-5.4 [facility] Blood hemoglobin measurement (mass/volume)Ordered By: Janet Hernandez on 09-20-2022 Hemoglobin (Bld) [Mass/Vol] 10.8 g/dL 12.0-15.0 [facility] Blood lymphocytes/100 leukoc ytesOrdered By: Janet Hernandez on 09-20-2022 Lymphocytes/100 WBC (Bld) 29.2 % 19-41 [facility] Blood monocytes/100 leukocyt esOrdered By: Janet Hernandez on 09-20-2022 Monocytes/100 WBC (Bld) 9.6 % 0-10 [facility] Blood platelet mean volumeOr dered By: Janet Hernandez on 09-20-2022 Platelet mean volume (Bld) [Entitic vol] 9.6 fL 6.2-12.0 [facility] Determination of erythrocyte mean corpuscular volume (MCV)Ordered By: Janet Hernandez on 09-20-2022 MCV (RBC) [Entitic vol] 100.6 fL 81-99 [facility] Hematocrit Auto (Bld) [Volum e fraction][facility] Hematocrit (Bld) [Volume fraction] 32.3 % 37-47 [facility] Laboratory - Chemistry and C hemistry - challengeOrdered By: [facility] on 09-20-2022 ALP [Catalytic activity/Vol] 73 U/L 45-117 [facility] ALT [Catalytic activity/Vol] 34 U/L 13-56 [facility] CO2 [Moles/Vol] 26.0 mmol/L 21.0-32.0 [facility] Globulin (S) [Mass/Vol] 3.3 g/dL 2.2-4.2 [facility] Urea nitrogen/Creatinine [Mass ratio] 21.8 mg/mg 10-20 [facility] Laboratory - Hematology and Cell countsOrdered By: [facility]22 Erythrocyte distribution width (RBC) [Entitic vol] 42.5 fL 35.1-43.9 [facility] Erythrocyte distribution width (RBC) [Ratio] 11.6 % 11.6-14.6 [facility] Immature granulocytes/100 WBC (Bld) 0.300 % 0.0-0.9 [facility] Comment on above: IG% - Immature Granu locytes (promyelocytes, myelocytes and metamyelocytes) > 1% indicates that a LEFT SHIFT is Present. MCH (RBC) [Entitic mass] 33.6 pg 27.0-32.0 [facility] Nucleated RBC/100 WBC (Bld) [Ratio] 0 % 0-5 [facility] MCHC Auto (RBC) [Mass/Vol]Or dered By: Janet Hernandez on 09-20-2022 MCHC (RBC) [Mass/Vol] 33.4 g/dL 32-36 [facility] No Panel InformationOrdered By: Janet Hernandez on 09-20-2022 Estimated Creatinine Clearance Calc 65.20 ml/min [facility] Estimated GFR (MDRD) Amer 103 mL/min >60 [facility] Comment on above: GFR Calc Estimated GFR (MDRD) Non-Af Amer 85 mL/min >60 [facility] Comment on above: Non- GFR Calc Vitamin D 25-Hydroxy 43.7 ng/mL [facility] [place] Comment on above: Vitamin D 25(OH) Sta tus Range Deficiency <20 ng/mL (50nmol/L) Insufficiency 20 - 30 ng/mL (50 - 75 nmol/L) Sufficiency 30 - 100 ng/mL (75 - 250 nmol/L) Toxicity >100 ng/mL (>250 nmol/L) Platelets bldOrdered By: Daniela Hernandez on 09-20-2022 Platelets (Bld) [#/Vol] 177 10*3/uL 150-450 [facility] Serum or plasma albumin theodore urement (mass/volume)Ordered By: Janet Hernandez on 09-20-2022 Albumin [Mass/Vol] 3.5 g/dL 3.2-5.0 [facility] Serum or plasma albumin/glob ulin mass ratioOrdered By: Janet Hernandez on 09-20-2022 Albumin/Globulin [Mass ratio] 1.1 {ratio} 0.9-2.4 [facility] Serum or plasma calcium theodore urement (mass/volume)Ordered By: Janet Hernandez on 09-20-2022 Calcium [Mass/Vol] 9.2 mg/dL 8.5-10.1 [facility] Serum or plasma cholesterol in HDL measurement (mass/volume)Ordered By: Dr. Proctor on 09-20-2022 Cholesterol in HDL [Mass/Vol] 68 mg/dL >40 [facility] Comment on above: The drugs N-Acetylcy steine and Metamizole may falsely depress this assay. Reference Range HDL <40 mg/dL Low HDL Cholesterol HDL >or= 60 mg/dL High HDL Cholesterol Serum or plasma cholesterol in VLDL measurement (mass/volume)Ordered By: Dr. Proctor on 09-20-2022 Cholesterol in VLDL [Mass/Vol] 27 mg/dL 5-40 [facility] Serum or plasma creatinine m easurement (mass/volume)Ordered By: Janet Hernandez on 09-20-2022 Creatinine [Mass/Vol] 0.74 mg/dL 0.55-1.02 [facility] Comment on above: The validity of the calculated GFR & GFRAA in patients over 70 years has not been determined. Clinical correlation is essential. Serum or plasma low density lipoprotein (LDL) cholesterol measurement (mass/volume)Ordered By: Dr. Proctor on 09-20-2022 Cholesterol in LDL [Mass/Vol] 127 mg/dL 0-130 [facility] Serum or plasma retinol theodore urement (mass/volume)Ordered By: Janet Hernandez on 09-20-2022 Retinol [Mass/Vol] 57.7 ug/dL 22.0-69.5 [facility] Comment on above: Reference intervals for vitamin A determined from [facility] studies. Individuals with vitamin A less than 20ug/dL are considered vitamin A deficient and those withserum concentrations less than 10 ug/dL are consideredseverely deficient.This test was developed and its performance characteristicsdetermined by [facility]. It has not been cleared orapproved by the Food and Drug Administration.Performed at: [address] [id number] Director: Tad Bronson MD, Phone: [phone] Serum or plasma urea nitroge n measurement (mass/volume)Ordered By: Janet Hernandez on 09-20-2022 Urea nitrogen [Mass/Vol] 16 mg/dL 7-18 [facility] Thin prep Papanicolaou smear with manual screeningOrdered By: Janet Hernandez on 09-20-2022 Thin prep Papanicolaou smear with manual screening 21 U/L 15-37 [facility] Thin prep Papanicolaou smear with manual screening 8 5-15 [facility] CONTINUOUS CARDIAC MONITORIN G STRIPon 08-22-2022 [facility] CONTINUOUS CARDIAC MONITORIN G STRIPOrdered By: Unassigned Pacs on 08-22-2022 [facility] Work Phone: GENERAL PROCEDUREon 08-22-19 Boroke Galvan MD - 08/22/2022 8:00 AM EST History and Physical Update: The H&P completed on 08/17/22 and 08/04/22 was reviewed and patient was assessed. No changes were noted. Brooke Galvan MD, 08/22/2022, 8:00 AM. [facility] Radiology Study observation (narrative) [facility] MG Breast Viewson 08-22-2022 IMPRESSION: Surgical specimen includes biopsy clip and hook wire.. OLOGY EXAM: MAMMO SPECIMEN RADIOGRAPH BREAST, 08/22/2022 11:56 AM CLINICAL INDICATIONS: Specimen radiograph after wire localization COMPARISON: same day localization TECHNIQUE: Radiograph of the surgical specimen. FINDINGS: Specimen includes the hook wire within the tissues, the clip and calcifications. RADIOLOGY IMPRESSION: Technically successful wire localization. Brooke Galvan MD was in the room and participated during all schulz portions of this procedure. OLOGY EXAM: MAMMO GUIDED N EEDLE LOCALIZATION BREAST LEFT, 08/22/2022 08:15 AM PRE-PROCEDURE DIAGNOSIS: Left IDC UIQ POST-PROCEDURE DIAGNOSIS: same PERFORMING PHYSICIAN: Brooke Galvan MD CARRY OUT CLERK AND SHELF STOCKER: None COMPARISON: 03/22/22 FINDINGS: Consent: Following a thorough discussion of the risks, benefits and alternatives of the procedure written informed consent was obtained. Preparation: Time out was performed. The patient was positioned using the medial approach. The patient's skin was cleansed, and the skin and subcutaneous tissues anesthetized with 1% lidocaine solution. The clip and calcifications in the upper inner quadrant was localized using mammographic guidance. Procedure: A 10 cm Mckeon-2 wire was placed in the left breast from a medial approach. The needle was removed from the wire and the wire was secured in place. ML and CC images confirm that the wire is appropriately positioned. The estimated blood loss is none. The patient tolerated the procedure well without evidence of immediate complications. RADIOLOGY Radiology Study observation (narrative) [facility] Radiology Study observation (narrative) [facility] MG Breast ViewsOrdered By: Chao Galvan on 08-22-2022 [facility] Work Phone: NM Lymphatic vessels Views W radionuclide intra lymphaticon 08-22-2022 IMPRESSION: Radiopharmaceutical administration for intraoperative localization of sentinel lymph nodes. OLOGY EXAM: NUC BREAST/LYM PH GLAND INJECTION, 08/22/2022 11:53 AM CLINICAL INDICATIONS: LYMPH NODE BIOPSY; LEFT SLNBX; TECHNIQUE: Utilizing aseptic technique, 453 microcuries Tc 99m filtered sulfur colloid in 0.4 mL normal saline was injected intradermally in the left breast by Dr. Farris in anticipation of the intraoperative gamma probe localization of draining lymphatics/lymph nodes. RADIOLOGY Brenda Mccarty MD - 08/22/2022 EXAM: NUC BREAST/LYMPH GLAND INJECTION, 08/22/2022 11:53 AM CLINICAL INDICATIONS: LYMPH NODE BIOPSY; LEFT SLNBX; TECHNIQUE: Utilizing aseptic technique, 453 microcuries Tc 99m filtered sulfur colloid in 0.4 mL normal saline was injected intradermally in the left breast by Dr. Farris in anticipation of the intraoperative gamma probe localization of draining lymphatics/lymph nodes. IMPRESSION IMPRESSION: Radiopharmaceutical administration for intraoperative localization of sentinel lymph nodes. [facility] Radiology Study observation (narrative) [facility] NM Lymphatic vessels Views W radionuclide intra lymphaticOrdered By: Brenda Mccarty on 08-22-2022 [facility] Work Phone: No Panel Informationon 08-22 [facility] XR Chest PA and Lateralon IMPRESSION: No acute cardiopulmonary disease I personally viewed and interpreted these images and I have reviewed and approved this report. OLOGY EXAM: XR CHEST PA AN D LATERAL, 08/17/2022 15:10 PM COMPARISON: No prior studies available for comparison. 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 Lungs: Clear, without mass, interstitial disease, or consolidation. Pleural Spaces: No pleural effusion. No pneumothorax. Mediastinum and Rosi: Normal Cardiac silhouette and great vessels: Normal heart size. Unremarkable aorta. Chest Wall: Normal RADIOLOGY Regina Perez MB [facility] - 08/17/2022 EXAM: XR CHEST PA AND LATERAL, 08/17/2022 15:10 PM COMPARISON: No prior studies available for comparison. 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 Lungs: Clear, without mass, interstitial disease, or consolidation. Pleural Spaces: No pleural effusion. No pneumothorax. Mediastinum and Rosi: Normal Cardiac silhouette and great vessels: Normal heart size. Unremarkable aorta. Chest Wall: Normal IMPRESSION IMPRESSION: No acute cardiopulmonary disease I personally viewed and interpreted these images and I have reviewed and approved this report. [facility] Radiology Study observation (narrative) [facility] XR Chest PA and LateralOrder ed By: Regina Perez on 08-17-2022 [facility] Work Phone: Absolute lymphocyte countOrd ered By: Dr. Jeronimo on 08-09-2022 Lymphocytes Auto (Unsp spec) [#/Vol] 0.67 10*3/uL 0.83-4.51 [facility] Basophil percentageOrdered B y: Dr. Jeronimo on 08-09-2022 Basophil percentage 3.1 mg/dL 2.5-4.9 [facility] Basophils/100 WBC (Bld) 0.2 % 0-1 [facility] Bilirubin [Mass/Vol] 0.30 mg/dL 0.20-1.00 [facility] [place] Comment on above: For patients on eltr ombopag therapy, use of Dimension [place] TBIL is not recommended. Chloride [Moles/Vol] 107 mmol/L 98-107 [facility] [place] Eosinophils/100 WBC (Bld) 0.0 % 0-5 [facility] Glucose [Mass/Vol] 103 mg/dL 74-106 [facility] Comment on above: Fasting Glucose resu lt from 100 to 125 mg/dL suggests IMPAIRED HOMEOSTASIS per A.D.A. criteria. Neutrophils (Bld) [#/Vol] 4.8 10*3/uL 2.0-7.7 [facility] Neutrophils/100 WBC (Bld) 82.0 % 47-70 [facility] Potassium [Moles/Vol] 3.1 mmol/L 3.5-5.1 [facility] Protein [Mass/Vol] 6.4 g/dL 6.4-8.2 [facility] Sodium [Moles/Vol] 141 mmol/L 136-145 [facility] WBC (Bld) [#/Vol] 5.8 10*3/uL 4.4-11.0 [facility] Blood erythrocytes count (nu mber/volume)Ordered By: Dr. Jeronimo on 08-09-2022 RBC (Bld) [#/Vol] 2.25 10*6/uL 4.2-5.4 [facility] Blood hemoglobin measurement (mass/volume)Ordered By: Dr. Jeronimo on 08-09-2022 Hemoglobin (Bld) [Mass/Vol] 7.9 g/dL 12.0-15.0 [facility] Blood lymphocytes/100 leukoc ytesOrdered By: Dr. Jeronimo on 08-09-2022 Lymphocytes/100 WBC (Bld) 11.5 % 19-41 [facility] Blood monocytes/100 leukocyt esOrdered By: Dr. Jeronimo on 08-09-2022 Monocytes/100 WBC (Bld) 5.8 % 0-10 [facility] Blood platelet mean volumeOr dered By: Dr. Jreonimo on 08-09-2022 Platelet mean volume (Bld) [Entitic vol] 10.4 fL 6.2-12.0 [facility] Determination of erythrocyte mean corpuscular volume (MCV)Ordered By: Dr. Jeronimo on 08-09-2022 MCV (RBC) [Entitic vol] 102.7 fL 81-99 [facility] Hematocrit Auto (Bld) [Volum e fraction]Ordered By: Dr. Jeronimo on 08-09-2022 Hematocrit (Bld) [Volume fraction] 23.1 % 37-47 [facility] Hemoglobin in reticulocytes (mass per reticulocyte)Ordered By: Dr. Jeronimo on 08-09-2022 Hemoglobin (Reticulocytes) [Entitic mass] 37.4 pg 30-35 [facility] Iron measurement (mass/mass) Ordered By: Dr. Jeronimo on 08-09-2022 Iron (Unsp spec) [Mass/Mass] 102 ug/dL 50-170 [facility] Laboratory - Chemistry and C hemistry - challengeOrdered By: Dr. Jeronimo on 08-09-2022 ALP [Catalytic activity/Vol] 75 U/L 45-117 [facility] ALT [Catalytic activity/Vol] 25 U/L 13-56 [facility] CO2 [Moles/Vol] 27.0 mmol/L 21.0-32.0 [facility] Globulin (S) [Mass/Vol] 3.2 g/dL 2.2-4.2 [facility] Magnesium [Mass/Vol] 1.1 mg/dL 1.6-2.6 [facility] [place] Urea nitrogen/Creatinine [Mass ratio] 18.2 mg/mg 10-20 [facility] Laboratory - Hematology and Cell countsOrdered By: Dr. Jeronimo on 08-09-2022 Erythrocyte distribution width (RBC) [Entitic vol] 59.0 fL 35.1-43.9 [facility] Erythrocyte distribution width (RBC) [Ratio] 15.9 % 11.6-14.6 [facility] Immature granulocytes/100 WBC (Bld) 0.500 % 0.0-0.9 [facility] Comment on above: IG% - Immature Granu locytes (promyelocytes, myelocytes and metamyelocytes) > 1% indicates that a LEFT SHIFT is Present. MCH (RBC) [Entitic mass] 35.1 pg 27.0-32.0 [facility] Nucleated RBC/100 WBC (Bld) [Ratio] 0 % 0-5 [facility] MCHC Auto (RBC) [Mass/Vol]Or dered By: Dr. Jeronimo on 08-09-2022 MCHC (RBC) [Mass/Vol] 34.2 g/dL 32-36 [facility] No Panel InformationOrdered By: Dr. Jeronimo on 08-09-2022 Estimated Creatinine Clearance Calc 80.42 ml/min [facility] Estimated GFR (MDRD) Amer 129 mL/min >60 [facility] Comment on above: GFR Calc Estimated GFR (MDRD) Non-Af Amer 107 mL/min >60 [facility] Comment on above: Non- GFR Calc Immature Platelet Fraction 5.3 % 1.0-7.9 [facility] Comment on above: Low PLT + Low IPF casillas ggest a bone marrow production disorderLow PLT + high IPF suggests peripheral destruction(e.g.ITP, TTP, HIT, DIC, autoimmune) or bone marrow recoveryTrending of serial IPF measurements is recommended when evaluating for bone marrow responesValue above normal range indicates an increase in RBC cellular response from bone marrow. Immature Reticulocyte Fraction 16.50 % 3.00-15.90 [facility] Reticulocyte Count 3.19 % 0.5-1.5 [facility] Total Iron Binding Capacity 407 ug/dL 250-450 [facility] Platelets bldOrdered By: Dr. Jeronimo on 08-09-2022 Platelets (Bld) [#/Vol] 102 10*3/uL 150-450 [facility] Serum or plasma albumin theodore urement (mass/volume)Ordered By: Dr. Jeronimo on 08-09-2022 Albumin [Mass/Vol] 3.2 g/dL 3.2-5.0 [facility] Serum or plasma albumin/glob ulin mass ratioOrdered By: Dr. Jeronimo on 08-09-2022 Albumin/Globulin [Mass ratio] 1.0 {ratio} 0.9-2.4 [facility] Serum or plasma calcium theodore urement (mass/volume)Ordered By: Dr. Jeronimo on 08-09-2022 Calcium [Mass/Vol] 8.4 mg/dL 8.5-10.1 [facility] Serum or plasma creatinine m easurement (mass/volume)Ordered By: Dr. Jeronimo on 08-09-2022 Creatinine [Mass/Vol] 0.60 mg/dL 0.55-1.02 [facility] Comment on above: The validity of the calculated GFR & GFRAA in patients over 70 years has not been determined. Clinical correlation is essential. Serum or plasma ferritin yash surement (mass/volume)Ordered By: Dr. Jeronimo on 08-09-2022 Ferritin [Mass/Vol] 284 ng/mL 8-252 [facility] Serum or plasma iron saturat ion measurement (mass fraction)Ordered By: Dr. Jeronimo on 08-09-2022 Iron saturation [Mass fraction] 25.1 % 15.0-55.0 [facility] Serum or plasma urea nitroge n measurement (mass/volume)Ordered By: Dr. Jeronimo on 08-09-2022 Urea nitrogen [Mass/Vol] 11 mg/dL 7-18 [facility] Thin prep Papanicolaou smear with manual screeningOrdered By: Dr. Jeronimo on 08-09-2022 Thin prep Papanicolaou smear with manual screening 19 U/L 15-37 [facility] Thin prep Papanicolaou smear with manual screening 7 5-15 [facility] MG Breast Viewson 08-01-2022 IMPRESSION: 1. Left breast invasive ductal carcinoma on ultrasound-guided biopsy of a 0.8 x 0.7 x 0.7 cm mass located far posteriorly in the left breast at 11:00 12 cm from the nipple with satisfactory position of a Bard coil-shaped clip. There are suspicious calcifications extending anteriorly from the inferior aspect of the mass measuring approximately 1.8 x 0.5 x 0.4 cm. Recommend 2-D/3-D CC, 2-D/3-D ML, magnification CC, and magnification ML view to evaluate the known malignancy and anterior calcifications. 2. No mammographic evidence of malignancy in the right breast. OLOGY EXAM: BREAST IMAGING SECOND OPINION READING, 08/01/2022 09:49 AM CLINICAL INDICATIONS: 61-year-old female diagnosed with left breast invasive ductal carcinoma on ultrasound-guided biopsy performed 03/15/2022 currently receiving neoadjuvant chemotherapy was in a patient of Dr. Farris's clinic. The patient's outside imaging was submitted for second opinion reading. The patient was initially recalled from screening mammography for a mass in the upper outer left breast. Ultrasound identified a 0.8 x 0.7 x 0.7 cm mass at 11:00 12 cm from the nipple. Left breast core biopsy was performed showing invasive ductal carcinoma, nuclear grade 3. ER negative, MA negative, HER-2/veronica positive. COMPARISON: Mammogram 09/04/2018 and 10/03/2019. 02/22/2022 BILATERAL SCREENING MAMMOGRAM WITH TOMOSYNTHESIS: 2-D MLO and CC views were obtained of the bilateral breasts. 3-D MLO and CC digital tomosynthesis images were also acquired. The breasts have scattered areas of fibroglandular density. There is a hyperdense mass in the upper inner posterior third of the left breast, only visualized on the MLO view, measuring 1.2 x 0.9 cm. There are calcifications, which appear to be extending anterior from the mass. There is no mass, distortion, or suspicious calcification in the right breast. 03/01/2022 DIAGNOSTIC LEFT MAMMOGRAM: 2-D spot compression CC, spot compression MLO, CC, and XCCL views of the left breast were obtained. There is redemonstration of the mass in the upper inner quadrant which measures 1.3 cm in transverse dimension. There is suspicious calcifications in a linear distribution measuring 1.8 cm AP x 0.5 cm TRV x 0.4 cm CC extending anterior inferior to the mass. Magnification views were not performed. 03/01/2022 LIMITED LEFT BREAST ULTRASOUND: Limited ultrasound of the left breast was performed with images obtained at 11:00. In the left breast 11:00 12 cm from the nipple, there is an oval hypoechoic mass with microlobulated margins measuring 0.8 x 0.7 x 0.7 cm. 03/15/2022 ULTRASOUND-GUIDED LEFT BREAST BIOPSY: Images show a needle traversing the mass. Postprocedure CC and MLO view show placement of a Bard coil-shaped clip within the superior anterior aspect of the mass. 03/22/2022 LIMITED LEFT BREAST AND LEFT AXILLARY ULTRASOUND: Images show redemonstration of the biopsy-proven malignancy in the left breast 11:00 measuring 0.8 x 0.6 x 0.8 cm. No abnormal-appearing left axillary lymph nodes were imaged. MRI FINDINGS: None submitted RADIOLOGY Kenia Campbell, DO - 08/01/2022 EXAM: BREAST IMAGING SECOND OPINION READING, 08/01/2022 09:49 AM CLINICAL INDICATIONS: 61-year-old female diagnosed with left breast invasive ductal carcinoma on ultrasound-guided biopsy performed 03/15/2022 currently receiving neoadjuvant chemotherapy was in a patient of Dr. Farris's clinic. The patient's outside imaging was submitted for second opinion reading. The patient was initially recalled from screening mammography for a mass in the upper outer left breast. Ultrasound identified a 0.8 x 0.7 x 0.7 cm mass at 11:00 12 cm from the nipple. Left breast core biopsy was performed showing invasive ductal carcinoma, nuclear grade 3. ER negative, MA negative, HER-2/veronica positive. COMPARISON: Mammogram 09/04/2018 and 10/03/2019. 02/22/2022 BILATERAL SCREENING MAMMOGRAM WITH TOMOSYNTHESIS: 2-D MLO and CC views were obtained of the bilateral breasts. 3-D MLO and CC digital tomosynthesis images were also acquired. The breasts have scattered areas of fibroglandular density. There is a hyperdense mass in the upper inner posterior third of the left breast, only visualized on the MLO view, measuring 1.2 x 0.9 cm. There are calcifications, which appear to be extending anterior from the mass. There is no mass, distortion, or suspicious calcification in the right breast. 03/01/2022 DIAGNOSTIC LEFT MAMMOGRAM: 2-D spot compression CC, spot compression MLO, CC, and XCCL views of the left breast were obtained. There is redemonstration of the mass in the upper inner quadrant which measures 1.3 cm in transverse dimension. There is suspicious calcifications in a linear distribution measuring 1.8 cm AP x 0.5 cm TRV x 0.4 cm CC extending anterior inferior to the mass. Magnification views were not performed. 03/01/2022 LIMITED LEFT BREAST ULTRASOUND: Limited ultrasound of the left breast was performed with images obtained at 11:00. In the left breast 11:00 12 cm from the nipple, there is an oval hypoechoic mass with microlobulated margins measuring 0.8 x 0.7 x 0.7 cm. 03/15/2022 ULTRASOUND-GUIDED LEFT BREAST BIOPSY: Images show a needle traversing the mass. Postprocedure CC and MLO view show placement of a Bard coil-shaped clip within the superior anterior aspect of the mass. 03/22/2022 LIMITED LEFT BREAST AND LEFT AXILLARY ULTRASOUND: Images show redemonstration of the biopsy-proven malignancy in the left breast 11:00 measuring 0.8 x 0.6 x 0.8 cm. No abnormal-appearing left axillary lymph nodes were imaged. MRI FINDINGS: None submitted IMPRESSION IMPRESSION: 1. Left breast invasive ductal carcinoma on ultrasound-guided biopsy of a 0.8 x 0.7 x 0.7 cm mass located far posteriorly in the left breast at 11:00 12 cm from the nipple with satisfactory position of a Bard coil-shaped clip. There are suspicious calcifications extending anteriorly from the inferior aspect of the mass measuring approximately 1.8 x 0.5 x 0.4 cm. Recommend 2-D/3-D CC, 2-D/3-D ML, magnification CC, and magnification ML view to evaluate the known malignancy and anterior calcifications. 2. No mammographic evidence of malignancy in the right breast. [facility] Radiology Study observation (narrative) [facility] MG Breast ViewsOrdered By: Rhonda Campbell on 08-01-2022 [facility] Work Phone: Blood manual differential co mment interpretation (narrative result)Ordered By: Dr. Jeronimo on 07-26-2022 Manual differential comment Bill (Bld) [Interp] COMMENT [facility] Comment on above: LYMPHOPENIA Review by pathologistOrdered By: Dr. Jeronimo on 07-26-2022 Pathologist review Bill (Unsp spec) [Interp] Reviewed [facility] Comment on above: Previous reported re sult: November roderick Edited by: PETE on 07/28/22:1004Pancytopenia.Leukopenia and Neutropenia.Macrocytic anemia.Mild ThrombocytopeniaClinical correlation necessary.Shant Restrepo M.D. 07/28/22 AMENDED REPORT 07/28/22 1004 PATH REV previously reported as: November Absolute lymphocyte counton 07-05-2022 Lymphocytes Auto (Unsp spec) [#/Vol] 0.64 10*3/uL 0.83-4.51 [facility] Work Phone: Basophil percentageon 2021 Basophils/100 WBC (Bld) 0.3 % 0-1 [facility] Work Phone: Bilirubin [Mass/Vol] 0.40 mg/dL 0.20-1.00 [facility] [place] Work Phone: Comment on above: For patients on eltr ombopag therapy, use of Dimension [place] TBIL is not recommended. Chloride [Moles/Vol] 106 mmol/L 98-107 [facility] [place] Work Phone: Eosinophils/100 WBC (Bld) 0.7 % 0-5 [facility] Work Phone: Glucose [Mass/Vol] 137 mg/dL 74-106 [facility] Work Phone: Comment on above: Fasting Glucose resu lt greater than or equal to 126 mg/dL suggests DIABETES MELLITUS per A.D.A. criteria. Neutrophils (Bld) [#/Vol] 2.1 10*3/uL 2.0-7.7 [facility] Work Phone: Neutrophils/100 WBC (Bld) 68.7 % 47-70 [facility] Work Phone: Potassium [Moles/Vol] 3.3 mmol/L 3.5-5.1 [facility] Work Phone: Protein [Mass/Vol] 6.6 g/dL 6.4-8.2 [facility] Work Phone: Sodium [Moles/Vol] 141 mmol/L 136-145 [facility] Work Phone: WBC (Bld) [#/Vol] 3.0 10*3/uL 4.4-11.0 [facility] Work Phone: Blood erythrocytes count (nu mber/volume)on 07-05-2022 RBC (Bld) [#/Vol] 2.79 10*6/uL 4.2-5.4 [facility]: Blood hemoglobin measurement (mass/volume)on 07-05-2022 Hemoglobin (Bld) [Mass/Vol] 9.3 g/dL 12.0-15.0 [facility] Work Phone: [phone] Blood lymphocytes/100 leukoc yteson 07-05-2022 Lymphocytes/100 WBC (Bld) 21.1 % 19-41 [facility] Work Phone: [phone] Blood monocytes/100 leukocyt eson 07-05-2022 Monocytes/100 WBC (Bld) 8.9 % 0-10 [facility] Work Phone: [phone] Blood platelet mean volumeon 07-05-2022 Platelet mean volume (Bld) [Entitic vol] 10.6 fL 6.2-12.0 [facility] Work Phone: Determination of erythrocyte mean corpuscular volume (MCV)on 07-05-2022 MCV (RBC) [Entitic vol] 96.4 fL 81-99 [facility] Work Phone: Hematocrit Auto (Bld) [Volum e fraction]on 07-05-2022 Hematocrit (Bld) [Volume fraction] 26.9 % 37-47 [facility] Work Phone: Laboratory - Chemistry and C hemistry - challengeon 07-05-2022 ALP [Catalytic activity/Vol] 70 U/L 45-117 [facility] Work Phone: ALT [Catalytic activity/Vol] 47 U/L 13-56 [facility] Work Phone: [phone] CO2 [Moles/Vol] 28.0 mmol/L 21.0-32.0 [facility] Work Phone: Globulin (S) [Mass/Vol] 3.3 g/dL 2.2-4.2 [facility] Work Phone: [phone] Magnesium [Mass/Vol] 1.8 mg/dL 1.6-2.6 [facility] [place] Work Phone: [phone] Urea nitrogen/Creatinine [Mass ratio] 28.9 mg/mg 10-20 [facility] Work Phone: [phone] Laboratory - Hematology and Cell countson 07-05-2022 Erythrocyte distribution width (RBC) [Entitic vol] 62.2 fL 35.1-43.9 [facility] Work Phone: [phone] Erythrocyte distribution width (RBC) [Ratio] 17.5 % 11.6-14.6 [facility] Work Phone: [phone] Immature granulocytes/100 WBC (Bld) 0.300 % 0.0-0.9 [facility] Work Phone: [phone] Comment on above: IG% - Immature Granu locytes (promyelocytes, myelocytes and metamyelocytes) > 1% indicates that a LEFT SHIFT is Present. MCH (RBC) [Entitic mass] 33.3 pg 27.0-32.0 [facility] Work Phone: Nucleated RBC/100 WBC (Bld) [Ratio] 0 % 0-5 [facility] Work Phone: [phone] MCHC Auto (RBC) [Mass/Vol]on 07-05-2022 MCHC (RBC) [Mass/Vol] 34.6 g/dL 32-36 [facility] Work Phone: No Panel Informationon 07-05 Estimated Creatinine Clearance Calc 69.93 ml/min [facility] Work Phone: [phone] Estimated GFR (MDRD) Amer 110 mL/min >60 [facility] Work Phone: [phone] Comment on above: GFR Calc Estimated GFR (MDRD) Non-Af Amer 91 mL/min >60 [facility] Work Phone: [phone] Comment on above: Non- GFR Calc Platelets bldon 07-05-2022 Platelets (Bld) [#/Vol] 124 10*3/uL 150-450 [facility] Work Phone: [phone] Serum or plasma albumin theodore urement (mass/volume)on 07-05-2022 Albumin [Mass/Vol] 3.3 g/dL 3.2-5.0 [facility] Work Phone: [phone] Serum or plasma albumin/glob ulin mass ratioon 07-05-2022 Albumin/Globulin [Mass ratio] 1.0 {ratio} 0.9-2.4 [facility] Work Phone: [phone] Serum or plasma calcium theodore urement (mass/volume)on 07-05-2022 Calcium [Mass/Vol] 9.0 mg/dL 8.5-10.1 [facility] Work Phone: [phone] Serum or plasma creatinine m easurement (mass/volume)on 07-05-2022 Creatinine [Mass/Vol] 0.69 mg/dL 0.55-1.02 [facility] Work Phone: Comment on above: The validity of the calculated GFR & GFRAA in patients over 70 years has not been determined. Clinical correlation is essential. Serum or plasma urea nitroge n measurement (mass/volume)on 07-05-2022 Urea nitrogen [Mass/Vol] 20 mg/dL 7-18 [facility] Work Phone: [phone] Thin prep Papanicolaou smear with manual screeningon 07-05-2022 Thin prep Papanicolaou smear with manual screening 30 U/L 15-37 [facility] Work Phone: [phone] Thin prep Papanicolaou smear with manual screening 7 5-15 [facility] Work Phone: [phone] Iron measurement (mass/mass) on 05-24-2022 Iron (Unsp spec) [Mass/Mass] 55 ug/dL 50-170 [facility] Work Phone: [phone] Panel Informationon 05-24 Total Iron Binding Capacity 346 ug/dL 250-450 [facility] Work Phone: [phone] Panel InformationOrdered By: Dr. Jeronimo on 05-24-2022 Vitamin B12 Level > 2000 pg/mL 211-911 [facility] Serum or plasma ferritin yash surement (mass/volume)on 05-24-2022 Ferritin [Mass/Vol] 187 ng/mL 8-252 [facility] Work Phone: Serum or plasma folate measu rement (mass/volume)Ordered By: Dr. Jeronimo on 05-24-2022 Folate [Mass/Vol] 11.50 ng/mL 3.1-55.4 [facility] Serum or plasma iron saturat ion measurement (mass fraction)on 05-24-2022 Iron saturation [Mass fraction] 15.9 % 15.0-55.0 [facility] Work Phone: Absolute lymphocyte counton 03-27-2022 Lymphocytes Auto (Unsp spec) [#/Vol] 0.72 10*3/uL 0.83-4.51 [facility] Work Phone: Basophil percentageon 2021 Basophils/100 WBC (Bld) 0.4 % 0-1 [facility] Work Phone: Bilirubin [Mass/Vol] 0.60 mg/dL 0.20-1.00 [facility] [place] Work Phone: [phone] Comment on above: For patients on eltr ombopag therapy, use of Dimension [place] TBIL is not recommended. Chloride [Moles/Vol] 108 mmol/L 98-107 [facility] [place] Work Phone: Eosinophils/100 WBC (Bld) 1.5 % 0-5 [facility] Work Phone: Glucose [Mass/Vol] 101 mg/dL 74-106 [facility] Work Phone: Comment on above: Fasting Glucose resu lt from 100 to 125 mg/dL suggests IMPAIRED HOMEOSTASIS per A.D.A. criteria. Neutrophils (Bld) [#/Vol] 3.4 10*3/uL 2.0-7.7 [facility] Work Phone: Neutrophils/100 WBC (Bld) 74.8 % 47-70 [facility] Work Phone: Potassium [Moles/Vol] 3.5 mmol/L 3.5-5.1 [facility] Work Phone: Protein [Mass/Vol] 7.9 g/dL 6.4-8.2 [facility] Work Phone: Sodium [Moles/Vol] 143 mmol/L 136-145 [facility] Work Phone: WBC (Bld) [#/Vol] 4.6 10*3/uL 4.4-11.0 [facility] Work Phone: Blood erythrocytes count (nu mber/volume)on 03-27-2022 RBC (Bld) [#/Vol] 4.85 10*6/uL 4.2-5.4 [facility] Work Phone: Blood hemoglobin measurement (mass/volume)on 03-27-2022 Hemoglobin (Bld) [Mass/Vol] 14.4 g/dL 12.0-15.0 [facility] Work Phone: Blood lymphocytes/100 leukoc yteson 03-27-2022 Lymphocytes/100 WBC (Bld) 15.7 % 19-41 [facility] Work Phone: Blood monocytes/100 leukocyt eson 03-27-2022 Monocytes/100 WBC (Bld) 7.4 % 0-10 [facility] Work Phone: Blood platelet mean volumeon 03-27-2022 Platelet mean volume (Bld) [Entitic vol] 10.3 fL 6.2-12.0 [facility] Work Phone: Determination of erythrocyte mean corpuscular volume (MCV)on 03-27-2022 MCV (RBC) [Entitic vol] 86.0 fL 81-99 [facility] Work Phone: Hematocrit Auto (Bld) [Volum e fraction]on 03-27-2022 Hematocrit (Bld) [Volume fraction] 41.7 % 37-47 [facility] Work Phone: Laboratory - Chemistry and C hemistry - challengeon 03-27-2022 ALP [Catalytic activity/Vol] 76 U/L 45-117 [facility] Work Phone: [phone] ALT [Catalytic activity/Vol] 18 U/L 13-56 [facility] Work Phone: [phone] CO2 [Moles/Vol] 28.0 mmol/L 21.0-32.0 [facility] Work Phone: [phone] Globulin (S) [Mass/Vol] 3.8 g/dL 2.2-4.2 [facility] Work Phone: [phone] Urea nitrogen/Creatinine [Mass ratio] 16.5 mg/mg 10-20 [facility] Work Phone: [phone] Laboratory - Hematology and Cell countson 03-27-2022 Erythrocyte distribution width (RBC) [Entitic vol] 38.0 fL 35.1-43.9 [facility] Work Phone: [phone] Erythrocyte distribution width (RBC) [Ratio] 12.1 % 11.6-14.6 [facility] Work Phone: [phone] Immature granulocytes/100 WBC (Bld) 0.200 % 0.0-0.9 [facility] Work Phone: [phone] Comment on above: IG% - Immature Granu locytes (promyelocytes, myelocytes and metamyelocytes) > 1% indicates that a LEFT SHIFT is Present. MCH (RBC) [Entitic mass] 29.7 pg 27.0-32.0 [facility] Work Phone: [phone] Nucleated RBC/100 WBC (Bld) [Ratio] 0 % 0-5 [facility] Work Phone: [phone] MCHC Auto (RBC) [Mass/Vol]on 03-27-2022 MCHC (RBC) [Mass/Vol] 34.5 g/dL 32-36 [facility] Work Phone: [phone] Panel Informationon 03-27 Estimated GFR (MDRD) Amer 104 mL/min >60 [facility] Work Phone: [phone] Comment on above: GFR Calc Estimated GFR (MDRD) Non-Af Amer 86 mL/min >60 [facility] Work Phone: Comment on above: Non- GFR Calc No Panel InformationOrdered By: Dr. Jeronimo on 03-27-2022 Miscellaneous Test Comment MAILED SPECIMEN [facility] Platelets bldon 03-27-2022 Platelets (Bld) [#/Vol] 231 10*3/uL 150-450 [facility] Work Phone: Serum or plasma albumin theodore urement (mass/volume)on 03-27-2022 Albumin [Mass/Vol] 4.1 g/dL 3.2-5.0 [facility] Work Phone: Serum or plasma albumin/glob ulin mass ratioon 03-27-2022 Albumin/Globulin [Mass ratio] 1.1 {ratio} 0.9-2.4 [facility] Work Phone: Serum or plasma calcium theodore urement (mass/volume)on 03-27-2022 Calcium [Mass/Vol] 9.8 mg/dL 8.5-10.1 [facility] Work Phone: Serum or plasma creatinine m easurement (mass/volume)on 03-27-2022 Creatinine [Mass/Vol] 0.73 mg/dL 0.55-1.02 [facility] Work Phone: Comment on above: The validity of the calculated GFR & GFRAA in patients over 70 years has not been determined. Clinical correlation is essential. Serum or plasma urea nitroge n measurement (mass/volume)on 03-27-2022 Urea nitrogen [Mass/Vol] 12 mg/dL 7-18 [facility] Work Phone: Thin prep Papanicolaou smear with manual screeningon 03-27-2022 Thin prep Papanicolaou smear with manual screening 13 U/L 15-37 [facility] Work Phone: Thin prep Papanicolaou smear with manual screening 7 5-15 [facility] Work Phone: Vital Signs Date Time Vital Sign Value Performing Clinician Facility 03-19-2025 11:52-0400 Body height 160 cm Lilia Mangino DIRECTOR OF PUPIL PERSONNEL PROGRAM-EXECUTIVE HOUSEKEEPER Work Phone: [facility] 03-19-2025 11:52-0400 Body mass index (BMI) [Ratio] 25.01 kg/m2 Lilia Mangino DIRECTOR OF PUPIL PERSONNEL PROGRAM-EXECUTIVE HOUSEKEEPER Work Phone: [facility] 03-19-2025 11:52-0400 Body temperature 97.5 [degF] Lilia Mangino DIRECTOR OF PUPIL PERSONNEL PROGRAM-EXECUTIVE HOUSEKEEPER Work Phone: [facility] 03-19-2025 11:52-0400 Body weight 64.05 kg Lilia Mangino DIRECTOR OF PUPIL PERSONNEL PROGRAM-EXECUTIVE HOUSEKEEPER Work Phone: [facility] 03-19-2025 11:52-0400 Diastolic blood pressure 76 mm[Hg] Lilia Mangino DIRECTOR OF PUPIL PERSONNEL PROGRAM-EXECUTIVE HOUSEKEEPER Work Phone: [facility] 03-19-2025 11:52-0400 Heart rate 67 /min Lilia Mangino DIRECTOR OF PUPIL PERSONNEL PROGRAM-EXECUTIVE HOUSEKEEPER Work Phone: [facility] 03-19-2025 11:52-0400 Systolic blood pressure 177 mm[Hg] Lilia Mangino DIRECTOR OF PUPIL PERSONNEL PROGRAM-EXECUTIVE HOUSEKEEPER Work Phone: [facility] 02-24-2025 09:53-0400 Body height 160.[address] Vincenzo Proctor MD Work Phone: [facility] 02-24-2025 09:53-0400 Body mass index (BMI) [Ratio] 24.8 kg/m2 Dr. Vincenzo Proctor MD Work Phone: [facility] 02-24-2025 09:53-0400 Body temperature 97.3 [degF] Dr. Vincenzo Proctor MD Work Phone: [facility] 02-24-2025 09:53-0400 Body weight 63.[address] Vincenzo Proctor MD Work Phone: [facility] 02-24-2025 09:53-0400 Diastolic blood pressure 88 mm[Hg] Dr. Vincenzo Proctor MD Work Phone: [facility] 02-24-2025 09:53-0400 Heart rate 69 /min Dr. Vincenzo Proctor MD Work Phone: [facility] 02-24-2025 09:53-0400 Respiratory rate 16 /min Dr. Vincenzo Proctor MD Work Phone: [facility] 02-24-2025 09:53-0400 SaO2% (BldA) [Mass fraction] 98 % Dr. Vincenzo Proctor MD Work Phone: [facility] 02-24-2025 09:53-0400 Systolic blood pressure 156 mm[Hg] Dr. Vincenzo Proctor MD Work Phone: [phone] [place] [address] 01-22-2025 10:58-0400 Body height 160.[address] Vincenzo Proctor MD Work Phone: [phone] [place] [address] 01-22-2025 10:53-0400 Body mass index (BMI) [Ratio] 25.2 kg/m2 Dr. Vincenzo Proctor MD Work Phone: [phone] [address] 01-22-2025 10:53-0400 Body temperature 98.4 [degF] Dr. Vincenzo Proctor MD Work Phone: [phone] [address] 01-22-2025 10:53-0400 Body weight 64.[address] Vincenzo Proctor MD Work Phone: [phone] [address] 01-22-2025 10:53-0400 Diastolic blood pressure 82 mm[Hg] Dr. Vincenzo Proctor MD Work Phone: 0(180)[phone] [place] [address] 01-22-2025 10:53-0400 Heart rate 65 /min Dr. Vincenzo Proctor MD Work Phone: [facility] 01-22-2025 10:53-0400 Respiratory rate 16 /min Dr. Vincenzo Proctor MD Work Phone: 3(882)[phone] [place] [address] 01-22-2025 10:53-0400 SaO2% (BldA) [Mass fraction] 98 % Dr. Vincenzo Proctor MD Work Phone: [facility] 01-22-2025 10:53-0400 Systolic blood pressure 177 mm[Hg] Dr. Vincenzo Proctor MD Work Phone: [facility] 09-11-2024 12:11-0500 Body height 160 cm Lorenzo Farris III, MD Work Phone: [facility] 09-11-2024 12:11-0500 Body mass index (BMI) [Ratio] 25.23 kg/m2 Lorenzo Farris III, MD Work Phone: [facility] 09-11-2024 12:11-0500 Body temperature 97.59 [degF] Lorenzo Farris III, MD Work Phone: [facility] 09-11-2024 12:11-0500 Body weight 64.59 kg Lorenzo Farris III, MD Work Phone: [facility] 09-11-2024 12:11-0500 Diastolic blood pressure 85 mm[Hg] Lorenzo Farris III, MD Work Phone: [facility] 09-11-2024 12:11-0500 Heart rate 67 /min Lorenzo Farris III, MD Work Phone: [facility] 09-11-2024 12:11-0500 Systolic blood pressure 183 mm[Hg] Lorenzo Farris III, MD Work Phone: [facility] 08-05-2024 13:08-0500 Diastolic blood pressure 74 mm[Hg] Luciana Ty MD Work Phone: [facility] 08-05-2024 13:08-0500 Heart rate 78 /min Luciana Ty MD Work Phone: [facility] 08-05-2024 13:08-0500 Respiratory rate 16 /min Luciana Ty MD Work Phone: [facility] 08-05-2024 13:08-0500 SaO2% (BldA) [Mass fraction] 99 % Luciana Ty MD Work Phone: [facility] 08-05-2024 13:08-0500 Systolic blood pressure 147 mm[Hg] Luciana Ty MD Work Phone: [facility] 08-05-2024 12:03-0500 Body temperature 97.81 [degF] Luciana Ty MD Work Phone: [facility] 07-18-2024 08:12-0500 Body height 160 cm Padma Balaji DIRECTOR OF PUPIL PERSONNEL PROGRAM.EXECUTIVE HOUSEKEEPER Work Phone: [facility] 07-18-2024 08:12-0500 Body mass index (BMI) [Ratio] 25.15 kg/m2 Padma Balaji DIRECTOR OF PUPIL PERSONNEL PROGRAM.EXECUTIVE HOUSEKEEPER Work Phone: [facility] 07-18-2024 08:12-0500 Body temperature 96.6 [degF] Padma Balaji DIRECTOR OF PUPIL PERSONNEL PROGRAM.EXECUTIVE HOUSEKEEPER Work Phone: [facility] 07-18-2024 08:12-0500 Body weight 64.41 kg Padma Balaji DIRECTOR OF PUPIL PERSONNEL PROGRAM.EXECUTIVE HOUSEKEEPER Work Phone: [facility] 07-18-2024 08:12-0500 Diastolic blood pressure 64 mm[Hg] Padma Balaji DIRECTOR OF PUPIL PERSONNEL PROGRAM.EXECUTIVE HOUSEKEEPER Work Phone: [facility] 07-18-2024 08:12-0500 Heart rate 71 /min Padma Balaji DIRECTOR OF PUPIL PERSONNEL PROGRAM.EXECUTIVE HOUSEKEEPER Work Phone: [facility] 07-18-2024 08:12-0500 SaO2% (BldA) [Mass fraction] 99 % Padma Balaji DIRECTOR OF PUPIL PERSONNEL PROGRAM.EXECUTIVE HOUSEKEEPER Work Phone: [facility] 07-18-2024 08:12-0500 Systolic blood pressure 126 mm[Hg] Padma Balaji DIRECTOR OF PUPIL PERSONNEL PROGRAM.EXECUTIVE HOUSEKEEPER Work Phone: [facility] 03-13-2024 11:12-0400 Body height 157.5 cm Lilia Browning DIRECTOR OF PUPIL PERSONNEL PROGRAM-EXECUTIVE HOUSEKEEPER Work Phone: [facility] 03-13-2024 11:12-0400 Body mass index (BMI) [Ratio] 25.61 kg/m2 Lilia Mangino DIRECTOR OF PUPIL PERSONNEL PROGRAM-EXECUTIVE HOUSEKEEPER Work Phone: [facility] 03-13-2024 11:12-0400 Body temperature 97.59 [degF] Lilia Mangino DIRECTOR OF PUPIL PERSONNEL PROGRAM-EXECUTIVE HOUSEKEEPER Work Phone: [facility] 03-13-2024 11:12-0400 Body weight 63.5 kg Lilia Mangino DIRECTOR OF PUPIL PERSONNEL PROGRAM-EXECUTIVE HOUSEKEEPER Work Phone: [facility] 03-13-2024 11:12-0400 Diastolic blood pressure 76 mm[Hg] Lilia Mangino DIRECTOR OF PUPIL PERSONNEL PROGRAM-EXECUTIVE HOUSEKEEPER Work Phone: [facility] 03-13-2024 11:12-0400 Heart rate 70 /min Lilia Mangino DIRECTOR OF PUPIL PERSONNEL PROGRAM-EXECUTIVE HOUSEKEEPER Work Phone: [facility] 03-13-2024 11:12-0400 Systolic blood pressure 164 mm[Hg] Lilia Mangino DIRECTOR OF PUPIL PERSONNEL PROGRAM-EXECUTIVE HOUSEKEEPER Work Phone: [facility] 07-31-2023 11:38-0500 Body height 160.[address] Vincenzo Proctor Work Phone: [facility] 07-31-2023 11:38-0500 Body mass index (BMI) [Ratio] 25.2 kg/m2 Dr. Vincenzo Proctor Work Phone: [facility] 07-31-2023 11:38-0500 Body temperature 97.5 [degF] Dr. Vincenzo Proctor Work Phone: [facility] 07-31-2023 11:38-0500 Body weight 64.[address] Vincenzo Proctor Work Phone: [facility] 07-31-2023 11:38-0500 Diastolic blood pressure 89 mm[Hg] Dr. Vincenzo Proctor Work Phone: [facility] 07-31-2023 11:38-0500 Heart rate 72 /min Dr. Vincenzo Proctor Work Phone: [facility] 07-31-2023 11:38-0500 Respiratory rate 18 /min Dr. Vincenzo Proctor Work Phone: [facility] 07-31-2023 11:38-0500 SaO2% (BldA) [Mass fraction] 97 % Dr. Vincenzo Proctor Work Phone: [facility] 07-31-2023 11:38-0500 Systolic blood pressure 129 mm[Hg] Dr. Vincenzo Proctor Work Phone: [facility] 06-05-2023 14:48-0500 Body height 160.[address] Vincenzo Proctor Work Phone: 8(294)[phone] [place] [address] 06-05-2023 14:47-0500 Body mass index (BMI) [Ratio] 24.8 kg/m2 Dr. Vincenzo Proctor Work Phone: [facility] 06-05-2023 14:47-0500 Body temperature 97.2 [degF] Dr. Vincenzo Proctor Work Phone: [facility] 06-05-2023 14:47-0500 Body weight 63.[address] Vincenzo Proctor Work Phone: [facility] 06-05-2023 14:47-0500 Diastolic blood pressure 84 mm[Hg] Dr. Vincenzo Proctor Work Phone: [facility] 06-05-2023 14:47-0500 Heart rate 70 /min Dr. Vincenzo Proctor Work Phone: [facility] 06-05-2023 14:47-0500 Respiratory rate 16 /min Dr. Vincenzo Proctor Work Phone: [facility] 06-05-2023 14:47-0500 SaO2% (BldA) [Mass fraction] 100 % Dr. Vincenzo Proctor Work Phone: [facility] 06-05-2023 14:47-0500 Systolic blood pressure 156 mm[Hg] Dr. Vincenzo Proctor Work Phone: [facility] 04-20-2023 08:34-0400 Body height 160.[address] Vincenzo Proctor Work Phone: [facility] 04-20-2023 08:34-0400 Body mass index (BMI) [Ratio] 24.7 kg/m2 Dr. Vincenzo Proctor Work Phone: [facility] 04-20-2023 08:34-0400 Body weight 63.[address] Vincenzo Proctor Work Phone: [facility] 04-20-2023 08:34-0400 Diastolic blood pressure 83 mm[Hg] Dr. Vincenzo Proctor Work Phone: [facility] 04-20-2023 08:34-0400 SaO2% (BldA) [Mass fraction] 100 % Dr. Vincenzo Proctor Work Phone: [facility] 04-20-2023 08:34-0400 Systolic blood pressure 173 mm[Hg] Dr. Vincenzo Proctor Work Phone: [facility] 03-29-2023 15:36-0400 Body mass index (BMI) [Ratio] 24.4 kg/m2 Dr. Vincenzo Proctor Work Phone: [facility] 03-29-2023 15:36-0400 Body temperature 97.7 [degF] Dr. Vincenzo Proctor Work Phone: [facility] 03-29-2023 15:36-0400 Body weight 62.[address] Vincenzo Proctor Work Phone: [facility] 03-29-2023 15:36-0400 Diastolic blood pressure 81 mm[Hg] Dr. Vincenzo Proctor Work Phone: [facility] 03-29-2023 15:36-0400 Heart rate 77 /min Dr. Vincenzo Proctor Work Phone: [facility] 03-29-2023 15:36-0400 Respiratory rate 16 /min Dr. Vincenzo Proctor Work Phone: [facility] 03-29-2023 15:36-0400 SaO2% (BldA) [Mass fraction] 95 % Dr. Vincenzo Proctor Work Phone: [facility] 03-29-2023 15:36-0400 Systolic blood pressure 120 mm[Hg] Dr. Vincenzo Proctor Work Phone: [facility] 03-27-2023 09:08-0400 Body mass index (BMI) [Ratio] 24.6 kg/m2 Dr. Vincenzo Proctor Work Phone: [facility] 03-27-2023 09:08-0400 Body weight 63.[address] Vincenzo Proctor Work Phone: [facility] 03-27-2023 09:08-0400 Diastolic blood pressure 82 mm[Hg] Dr. Vincenzo Proctor Work Phone: [facility] 03-27-2023 09:08-0400 Heart rate 73 /min Dr. Vincenzo Proctor Work Phone: [facility] 03-27-2023 09:08-0400 Respiratory rate 17 /min Dr. Vincenzo Proctor Work Phone: [facility] 03-27-2023 09:08-0400 SaO2% (BldA) [Mass fraction] 100 % Dr. Vincenzo Proctor Work Phone: [facility] 03-27-2023 09:08-0400 Systolic blood pressure 133 mm[Hg] Dr. Vincenzo Proctor Work Phone: [facility] 03-08-2023 12:42-0400 Body height 160 cm Lilia Browning DIRECTOR OF PUPIL PERSONNEL PROGRAM-EXECUTIVE HOUSEKEEPER Work Phone: [facility] 03-08-2023 12:42-0400 Body mass index (BMI) [Ratio] 24.27 kg/m2 Lilia Shineino DIRECTOR OF PUPIL PERSONNEL PROGRAM-EXECUTIVE HOUSEKEEPER Work Phone: [facility] 03-08-2023 12:42-0400 Body temperature 97.3 [degF] Lilia Browning DIRECTOR OF PUPIL PERSONNEL PROGRAM-EXECUTIVE HOUSEKEEPER Work Phone: [facility] 03-08-2023 12:42-0400 Body weight 62.14 kg Lilia Mangino DIRECTOR OF PUPIL PERSONNEL PROGRAM-EXECUTIVE HOUSEKEEPER Work Phone: [facility] 03-08-2023 12:42-0400 Diastolic blood pressure 86 mm[Hg] Lilia Mangino DIRECTOR OF PUPIL PERSONNEL PROGRAM-EXECUTIVE HOUSEKEEPER Work Phone: [facility] 03-08-2023 12:42-0400 Heart rate 65 /min Lilia Mangino DIRECTOR OF PUPIL PERSONNEL PROGRAM-EXECUTIVE HOUSEKEEPER Work Phone: [facility] 03-08-2023 12:42-0400 Systolic blood pressure 184 mm[Hg] Lilia Mangino DIRECTOR OF PUPIL PERSONNEL PROGRAM-EXECUTIVE HOUSEKEEPER Work Phone: [facility] 03-01-2023 15:46-0400 Body temperature 96.9 [degF] Dr. Vincenzo Proctor Work Phone: [facility] 03-01-2023 15:46-0400 Diastolic blood pressure 70 mm[Hg] Dr. Vincenzo Proctor Work Phone: [facility] 03-01-2023 15:46-0400 Heart rate 59 /min Dr. Vincenzo Proctor Work Phone: [facility] 03-01-2023 15:46-0400 Respiratory rate 16 /min Dr. Vincenzo Proctor Work Phone: [facility] 03-01-2023 15:46-0400 SaO2% (BldA) [Mass fraction] 100 % Dr. Vincenzo Proctor Work Phone: [facility] 03-01-2023 15:46-0400 Systolic blood pressure 152 mm[Hg] Dr. Vincenzo Proctor Work Phone: [facility] 03-01-2023 13:47-0400 Body mass index (BMI) [Ratio] 24.6 kg/m2 Dr. Vincenzo Proctor Work Phone: [facility] 03-01-2023 13:47-0400 Body temperature 97.4 [degF] Dr. Vincenzo Proctor Work Phone: [facility] 03-01-2023 13:47-0400 Body weight 63.[address] Vincenzo Proctor Work Phone: [facility] 03-01-2023 13:47-0400 Diastolic blood pressure 78 mm[Hg] Dr. Vincenzo Proctor Work Phone: [facility] 03-01-2023 13:47-0400 Heart rate 58 /min Dr. Vincenzo Proctor Work Phone: 1(153)534-967879 [address] 03-01-2023 13:47-0400 Respiratory rate 16 /min Dr. Vincenzo Proctor Work Phone: 8(750)[phone] [address] 03-01-2023 13:47-0400 SaO2% (BldA) [Mass fraction] 100 % Dr. Vincenzo Proctor Work Phone: 3(035)862-932527 [place] [address] 03-01-2023 13:47-0400 Systolic blood pressure 131 mm[Hg] Dr. Vincenzo Proctor Work Phone: 2(732)673-044527 [place] [address] 02-08-2023 14:31-0400 Body mass index (BMI) [Ratio] 24.3 kg/m2 Dr. Vincenzo Procotr Work Phone: 1(147)248-753479 [address] 12-06-2022 12:52-0400 Diastolic blood pressure 73 mm[Hg] Dr. Vincenzo Proctor Work Phone: 8(162)014-020827 [place] [address] 12-06-2022 12:52-0400 Heart rate 71 /min Dr. Vincenzo Proctor Work Phone: 5(505)347-107827 [place] [address] 12-06-2022 12:52-0400 Respiratory rate 16 /min Dr. Vincenzo Proctor Work Phone: 0(933)953-638932 [place] [address] 12-06-2022 12:52-0400 Systolic blood pressure 123 mm[Hg] Dr. Vincenzo Proctor Work Phone: 3(656)103-325727 [place] [address] 12-06-2022 10:38-0400 Body height 160.[address] Vincenzo Proctor Work Phone: 1(965)315-711727 [place] [address] 12-06-2022 10:38-0400 Body mass index (BMI) [Ratio] 23.6 kg/m2 Dr. Vincenzo Proctor Work Phone: [facility] 12-06-2022 10:38-0400 Body weight 60.[address] Vincenzo Proctor Work Phone: [facility] 11-20-2022 13:50-0400 Body mass index (BMI) [Ratio] 23.8 kg/m2 Dr. Vincenzo Proctor Work Phone: [facility] 11-20-2022 13:50-0400 Body temperature 98.2 [degF] Dr. Vincenzo Proctor Work Phone: [facility] 11-20-2022 13:50-0400 Body weight 60.[address] Vincenzo Proctor Work Phone: [facility] 11-20-2022 13:50-0400 Diastolic blood pressure 72 mm[Hg] Dr. Vincenzo Proctor Work Phone: 2(116)434-909679 [address] 11-20-2022 13:50-0400 Heart rate 85 /min Dr. Vincenzo Proctor Work Phone: [facility] 11-20-2022 13:50-0400 Respiratory rate 16 /min Dr. Vincenzo Proctor Work Phone: [facility] 11-20-2022 13:50-0400 SaO2% (BldA) [Mass fraction] 100 % Dr. Vincenzo Proctor Work Phone: [facility] 11-20-2022 13:50-0400 Systolic blood pressure 110 mm[Hg] Dr. Vincenzo Proctor Work Phone: [facility] 11-20-2022 13:40-0400 Body mass index (BMI) [Ratio] 23.8 kg/m2 Dr. Vincenzo Proctor Work Phone: [facility] 11-20-2022 13:40-0400 Body temperature 98.2 [degF] Dr. Vincenzo Proctor Work Phone: [facility] 11-20-2022 13:40-0400 Body weight 60.[address] Vincenzo Proctor Work Phone: [facility] 11-20-2022 13:40-0400 Diastolic blood pressure 72 mm[Hg] Dr. Vincenzo Proctor Work Phone: [facility] 11-20-2022 13:40-0400 Heart rate 85 /min Dr. Vincenzo Proctor Work Phone: [facility] 11-20-2022 13:40-0400 Respiratory rate 16 /min Dr. Vincenzo Proctor Work Phone: [facility] 11-20-2022 13:40-0400 SaO2% (BldA) [Mass fraction] 100 % Dr. Vincenzo Proctor Work Phone: [facility] 11-20-2022 13:40-0400 Systolic blood pressure 110 mm[Hg] Dr. Vincenzo Proctor Work Phone: [facility] 11-16-2022 12:48-0400 Body temperature 96.4 [degF] Dr. Vincenzo Proctor Work Phone: [facility] 11-16-2022 12:48-0400 SaO2% (BldA) [Mass fraction] 99 % Dr. Vincenzo Proctor Work Phone: [facility] 11-16-2022 10:03-0400 Body mass index (BMI) [Ratio] 23.9 kg/m2 Dr. Vincenzo Proctor Work Phone: [facility] 11-16-2022 10:03-0400 Body temperature 96.8 [degF] Dr. Vincenzo Proctor Work Phone: [facility] 11-16-2022 10:03-0400 Body weight 61.[address] Vincenzo Proctor Work Phone: [facility] 11-16-2022 10:03-0400 Diastolic blood pressure 85 mm[Hg] Dr. Vincenzo Proctor Work Phone: [facility] 11-16-2022 10:03-0400 Heart rate 85 /min Dr. Vincenzo Proctor Work Phone: [facility] 05-11-2023 10:03-0400 Respiratory rate 16 /min Dr. Vincenzo Proctor Work Phone: [facility] 11-16-2022 10:03-0400 SaO2% (BldA) [Mass fraction] 100 % Dr. Vincenzo Proctor Work Phone: [facility] 11-16-2022 10:03-0400 Systolic blood pressure 152 mm[Hg] Dr. Vincenzo Proctor Work Phone: [facility] 10-24-2022 09:05-0400 Body mass index (BMI) [Ratio] 23.8 kg/m2 Dr. Vincenzo Proctor Work Phone: [facility] 10-24-2022 09:05-0400 Body temperature 97.3 [degF] Dr. Vincenzo Proctor Work Phone: [facility] 10-24-2022 09:05-0400 Body weight [address] Vincenzo Proctor Work Phone: [facility] 10-24-2022 09:05-0400 Diastolic blood pressure 77 mm[Hg] Dr. Vincenzo Proctor Work Phone: [facility] 10-24-2022 09:05-0400 Heart rate 72 /min Dr. Vincenzo Proctor Work Phone: [facility] 10-24-2022 09:05-0400 Respiratory rate 16 /min Dr. Vincenzo Proctor Work Phone: [facility] 10-24-2022 09:05-0400 SaO2% (BldA) [Mass fraction] 99 % Dr. Vincenzo Proctor Work Phone: [facility] 10-24-2022 09:05-0400 Systolic blood pressure 148 mm[Hg] Dr. Vincenzo Proctor Work Phone: [facility] 10-11-2022 09:52-0400 Body mass index (BMI) [Ratio] 23.8 kg/m2 Dr. Vincenzo Proctor Work Phone: [facility] 10-11-2022 09:52-0400 Body temperature 96.8 [degF] Dr. Vincenzo Proctor Work Phone: [facility] 10-11-2022 09:52-0400 Body weight 60.[address] Vincenzo Proctor Work Phone: [facility] 10-11-2022 09:52-0400 Diastolic blood pressure 84 mm[Hg] Dr. Vincenzo Proctor Work Phone: [facility] 10-11-2022 09:52-0400 Heart rate 87 /min Dr. Vincenzo Proctor Work Phone: [facility] 10-11-2022 09:52-0400 Respiratory rate 16 /min Dr. Vincenzo Proctor Work Phone: [facility] 10-11-2022 09:52-0400 SaO2% (BldA) [Mass fraction] 97 % Dr. Vincenzo Proctor Work Phone: [facility] 10-11-2022 09:52-0400 Systolic blood pressure 136 mm[Hg] Dr. Vincenzo Proctor Work Phone: [facility] 10-04-2022 09:54-0400 Body mass index (BMI) [Ratio] 23.7 kg/m2 Dr. Vincenzo Proctor Work Phone: [facility] 10-04-2022 09:54-0400 Body temperature 96.9 [degF] Dr. Vincenzo Proctor Work Phone: [facility] 10-04-2022 09:54-0400 Body weight 60.[address] Vincenzo Proctor Work Phone: [facility] 10-04-2022 09:54-0400 Diastolic blood pressure 76 mm[Hg] Dr. Vincenzo Proctor Work Phone: [facility] 10-04-2022 09:54-0400 Heart rate 76 /min Dr. Vincenzo Proctor Work Phone: [facility] 10-04-2022 09:54-0400 Respiratory rate 16 /min Dr. Vincenzo Proctor Work Phone: [facility] 10-04-2022 09:54-0400 SaO2% (BldA) [Mass fraction] 96 % Dr. Vincenzo Proctor Work Phone: [facility] 10-04-2022 09:54-0400 Systolic blood pressure 130 mm[Hg] Dr. Vincenzo Proctor Work Phone: [facility] 09-27-2022 09:57-0400 Body mass index (BMI) [Ratio] 24.3 kg/m2 Dr. Vincenzo Proctor Work Phone: [facility] 09-27-2022 09:57-0400 Body temperature 97.5 [degF] Dr. Vincenzo Proctor Work Phone: [facility] 09-27-2022 09:57-0400 Body weight 62.[address] Vincenzo Proctor Work Phone: [facility] 09-27-2022 09:57-0400 Diastolic blood pressure 82 mm[Hg] Dr. Vincenzo Proctor Work Phone: [facility] 09-27-2022 09:57-0400 Heart rate 79 /min Dr. Vincenzo Proctor Work Phone: [facility] 09-27-2022 09:57-0400 Respiratory rate 18 /min Dr. Vincenzo Proctor Work Phone: [facility] 09-27-2022 09:57-0400 SaO2% (BldA) [Mass fraction] 97 % Dr. Vincenzo Proctor Work Phone: [facility] 09-27-2022 09:57-0400 Systolic blood pressure 128 mm[Hg] Dr. Vincenzo Proctor Work Phone: [facility] 09-21-2022 08:56-0400 Body height 160 cm Lorenzo Farris III, MD Work Phone: [facility] 09-21-2022 08:56-0400 Body mass index (BMI) [Ratio] 24.16 kg/m2 Lorenzo Farris III, MD Work Phone: [facility] 09-21-2022 08:56-0400 Body temperature 97.5 [degF] Lorenzo Farris III, MD Work Phone: [facility] 09-21-2022 08:56-0400 Body weight 61.87 kg Lorenzo Farris III, MD Work Phone: [facility] 09-21-2022 08:56-0400 Diastolic blood pressure 80 mm[Hg] Lorenzo Farris III, MD Work Phone: [facility] 09-21-2022 08:56-0400 Heart rate 74 /min Lorenzo Farris III, MD Work Phone: [facility] 09-21-2022 08:56-0400 Systolic blood pressure 128 mm[Hg] Lorenzo Farris III, MD Work Phone: [facility] 09-20-2022 11:25-0400 Body height 160.[address] Vincenzo Proctor Work Phone: [facility] 09-20-2022 11:23-0400 Body mass index (BMI) [Ratio] 24.1 kg/m2 Dr. Vincenzo Proctor Work Phone: [facility] 09-20-2022 11:23-0400 Body temperature 97.5 [degF] Dr. Vincenzo Proctor Work Phone: [facility] 09-20-2022 11:23-0400 Body weight 61.[address] Vincenzo Proctor Work Phone: [facility] 09-20-2022 11:23-0400 Diastolic blood pressure 81 mm[Hg] Dr. Vincenzo Proctor Work Phone: [facility] 09-20-2022 11:23-0400 Heart rate 74 /min Dr. Vincenzo Proctor Work Phone: [facility] 09-20-2022 11:23-0400 Respiratory rate 16 /min Dr. Vincenzo Proctor Work Phone: [facility] 09-20-2022 11:23-0400 SaO2% (BldA) [Mass fraction] 99 % Dr. Vincenzo Proctor Work Phone: [facility] 09-20-2022 11:23-0400 Systolic blood pressure 161 mm[Hg] Dr. Vincenzo Proctor Work Phone: [facility] 09-07-2022 12:49-0500 Body height 160 cm Lorenzo Farris III, MD Work Phone: [facility] 09-07-2022 12:49-0500 Body mass index (BMI) [Ratio] 23.95 kg/m2 Lorenzo Farris III, MD Work Phone: 4(456)[phone] [place] [address] 09-07-2022 12:49-0500 Body temperature 98.49 [degF] Lorenzo Farris III, MD Work Phone: 6(541)895-290306 [address] 09-07-2022 12:49-0500 Body weight 61.33 kg Lorenzo Farris III, MD Work Phone: [facility] 09-07-2022 12:49-0500 Diastolic blood pressure 88 mm[Hg] Lorenzo Farris III, MD Work Phone: [facility] 09-07-2022 12:49-0500 Heart rate 79 /min Lorenzo Farris III, MD Work Phone: [facility] 09-07-2022 12:49-0500 Systolic blood pressure 144 mm[Hg] Lorenzo Farris III, MD Work Phone: [facility] 09-05-2022 15:03-0500 Body height 160.[address] Vincenzo Proctor Work Phone: [facility] 09-05-2022 14:58-0500 Body mass index (BMI) [Ratio] 24.3 kg/m2 Dr. Vincenzo Proctor Work Phone: [facility] 09-05-2022 14:58-0500 Body temperature 97.4 [degF] Dr. Vincenzo Proctor Work Phone: [facility] 09-05-2022 14:58-0500 Body weight 62.[address] Vincenzo Proctor Work Phone: [facility] 09-05-2022 14:58-0500 Diastolic blood pressure 83 mm[Hg] Dr. Vincenzo Proctor Work Phone: [facility] 09-05-2022 14:58-0500 Heart rate 81 /min Dr. Vincenzo Proctor Work Phone: [facility] 09-05-2022 14:58-0500 Respiratory rate 18 /min Dr. Vincenzo Proctor Work Phone: [facility] 09-05-2022 14:58-0500 SaO2% (BldA) [Mass fraction] 97 % Dr. Vincenzo Proctor Work Phone: [facility] [facility] 09-[facility]-2022 14:58-0500 Systolic blood pressure 158 mm[Hg] Dr. Vincenzo Proctor Work Phone: [facility] 08-22-2022 14:45-0500 Diastolic blood pressure 65 mm[Hg] Lorenzo Farris III, MD Work Phone: [facility] 08-22-2022 14:45-0500 Heart rate 80 /min Lorenzo Farris III, MD Work Phone: [facility] 08-22-2022 14:45-0500 Respiratory rate 18 /min Lorenzo Farris III, MD Work Phone: [facility] 08-22-2022 14:45-0500 SaO2% (BldA) [Mass fraction] 97 % Lorenzo Farris III, MD Work Phone: [facility] 08-22-2022 14:45-0500 Systolic blood pressure 139 mm[Hg] Lorenzo Farris III, MD Work Phone: [facility] 08-22-2022 14:12-0500 Body temperature 98.29 [degF] Lorenzo Farris III, MD Work Phone: [facility] 08-22-2022 07:52-0500 Body height 160 cm Lorenzo Farris III, MD Work Phone: [facility] 08-22-2022 07:52-0500 Body mass index (BMI) [Ratio] 24.5 kg/m2 Lorenzo Farris III, MD Work Phone: [facility] 08-22-2022 07:52-0500 Body weight 62.73 kg Lorenzo Farris III, MD Work Phone: [facility] 08-09-2022 16:49-0500 Diastolic blood pressure 59 mm[Hg] Dr. Vincenzo Proctor Work Phone: [facility] 08-09-2022 16:49-0500 Heart rate 92 /min Dr. Vincenzo Proctor Work Phone: [facility] 08-09-2022 16:49-0500 Respiratory rate 16 /min Dr. Vincenzo Proctor Work Phone: [facility] 08-09-2022 16:49-0500 Systolic blood pressure 130 mm[Hg] Dr. Vincenzo Proctor Work Phone: [facility] 08-09-2022 11:23-0500 Body mass index (BMI) [Ratio] 24.5 kg/m2 Dr. Vincenzo Proctor Work Phone: [facility] 08-09-2022 11:23-0500 Body temperature 97.1 [degF] Dr. Vincenzo Proctor Work Phone: [facility] 08-09-2022 11:23-0500 Body weight 62.[address] Vincenzo Proctor Work Phone: [facility] 08-09-2022 11:23-0500 Diastolic blood pressure 75 mm[Hg] Dr. Vincenzo Proctor Work Phone: [facility] 02-01-2023 11:23-0500 Heart rate 90 /min Dr. Vincenzo Proctor Work Phone: [facility] 08-09-2022 11:23-0500 Respiratory rate 18 /min Dr. Vincenzo Proctor Work Phone: [facility] 08-09-2022 11:23-0500 SaO2% (BldA) [Mass fraction] 92 % Dr. Vincenzo Proctor Work Phone: [facility] 08-09-2022 11:23-0500 Systolic blood pressure 132 mm[Hg] Dr. Vincenzo Proctor Work Phone: [facility] 08-04-2022 08:00-0500 Body height 160 cm Lorenzo Farris III, MD Work Phone: [facility] 08-04-2022 08:00-0500 Body mass index (BMI) [Ratio] 23.91 kg/m2 Lorenzo Farris III, MD Work Phone: [phone] 08-04-2022 08:00-0500 Body temperature 98.8 [degF] Lorenzo Farris III, MD Work Phone: [facility] 08-04-2022 08:00-0500 Body weight 61.24 kg Lorenzo Farris III, MD Work Phone: [facility] 08-04-2022 08:00-0500 Diastolic blood pressure 72 mm[Hg] Lorenzo Farris III, MD Work Phone: [facility] 08-04-2022 08:00-0500 Heart rate 108 /min Lorenzo Farris III, MD Work Phone: [facility] 08-04-2022 08:00-0500 Systolic blood pressure 124 mm[Hg] Lorenzo Farris III, MD Work Phone: [facility] 07-26-2022 09:35-0500 Body mass index (BMI) [Ratio] 24.7 kg/m2 Dr. Vincenzo Proctor Work Phone: [facility] 07-26-2022 09:35-0500 Body weight 63.[address] Vincenzo Proctor Work Phone: [facility] 07-26-2022 09:01-0500 Body mass index (BMI) [Ratio] 24.7 kg/m2 Dr. Vincenzo Proctor Work Phone: [facility] 07-26-2022 09:01-0500 Body temperature 97.3 [degF] Dr. Vincenzo Proctor Work Phone: [facility] 07-26-2022 09:01-0500 Body weight 63.[address] Vincenzo Proctor Work Phone: [facility] 07-26-2022 09:01-0500 Diastolic blood pressure 76 mm[Hg] Dr. Vincenzo Proctor Work Phone: [facility] 07-26-2022 09:01-0500 Heart rate 89 /min Dr. Vincenzo Proctor Work Phone: [facility] 07-26-2022 09:01-0500 Respiratory rate 16 /min Dr. Vincenzo Proctor Work Phone: [facility] 07-26-2022 09:01-0500 SaO2% (BldA) [Mass fraction] 100 % Dr. Vincenzo Proctor Work Phone: [facility] 07-26-2022 09:01-0500 Systolic blood pressure 159 mm[Hg] Dr. Vincenzo Proctor Work Phone: [facility] 07-13-2022 13:05-0500 Body mass index (BMI) [Ratio] 24 kg/m2 Dr. Vincenzo Proctor Work Phone: [facility] 07-13-2022 13:05-0500 Body temperature 97.6 [degF] Dr. Vincenzo Proctor Work Phone: [facility] 07-13-2022 13:05-0500 Body weight 61.[address] Vincenzo Proctor Work Phone: [facility] 07-13-2022 13:05-0500 Diastolic blood pressure 78 mm[Hg] Dr. Vincenzo Proctor Work Phone: [facility] 07-13-2022 13:05-0500 Heart rate 96 /min Dr. Vincenzo Proctor Work Phone: [facility] 07-13-2022 13:05-0500 Respiratory rate 16 /min Dr. Vincenzo Protcor Work Phone: [facility] 07-13-2022 13:05-0500 SaO2% (BldA) [Mass fraction] 100 % Dr. Vincenzo Proctor Work Phone: [facility] 07-13-2022 13:05-0500 Systolic blood pressure 133 mm[Hg] Dr. Vincenzo Proctor Work Phone: [facility] 07-05-2022 12:36-0500 Body temperature 96 [degF] Dr. Vincenzo Proctor Work Phone: [facility] 07-05-2022 12:36-0500 Diastolic blood pressure 66 mm[Hg] Dr. Vincenzo Proctor Work Phone: [facility] Work Phone: 07-05-2022 12:36-0500 Heart rate 87 /min Dr. Vincenzo Proctor Work Phone: [facility] Work Phone: 07-05-2022 12:36-0500 Respiratory rate 16 /min Dr. Vincenzo Proctor Work Phone: [facility] Work Phone: 07-05-2022 12:36-0500 Systolic blood pressure 134 mm[Hg] Dr. Vincenzo Proctor Work Phone: [facility] Work Phone: 07-05-2022 08:49-0500 Body height 160.[address] Vincenzo Proctor Work Phone: [facility] Work Phone: 07-05-2022 08:49-0500 Body mass index (BMI) [Ratio] 24.7 kg/m2 Dr. Vincenzo Proctor Work Phone: [facility] Work Phone: 07-05-2022 08:49-0500 Body weight 63.[address] Vincenzo Proctor Work Phone: [facility] Work Phone: 07-05-2022 08:06-0500 Body mass index (BMI) [Ratio] 24.7 kg/m2 Dr. Vincenzo Proctor Work Phone: [facility] 07-05-2022 08:06-0500 Body temperature 97 [degF] Dr. Vincenzo Proctor Work Phone: [facility] 07-05-2022 08:06-0500 Body weight 63.[address] Vincenzo Proctor Work Phone: [facility] 07-05-2022 08:06-0500 Diastolic blood pressure 75 mm[Hg] Dr. Vincenzo Proctor Work Phone: [facility] 07-05-2022 08:06-0500 Heart rate 86 /min Dr. Vincenzo Proctor Work Phone: [facility] 07-05-2022 08:06-0500 Respiratory rate 16 /min Dr. Vincenzo Proctor Work Phone: [facility] 07-05-2022 08:06-0500 SaO2% (BldA) [Mass fraction] 100 % Dr. Vincenzo Proctor Work Phone: [facility] 07-05-2022 08:06-0500 Systolic blood pressure 126 mm[Hg] Dr. Vincenzo Proctor Work Phone: [facility] 06-14-2022 08:05-0500 Body mass index (BMI) [Ratio] 24.6 kg/m2 Dr. Vincenzo Proctor Work Phone: [facility] 06-14-2022 08:05-0500 Body temperature 97 [degF] Dr. Vincenzo Proctor Work Phone: [facility] 06-14-2022 08:05-0500 Body weight 63.[address] Vincenzo Proctor Work Phone: [facility] 06-14-2022 08:05-0500 Diastolic blood pressure 87 mm[Hg] Dr. Vincenzo Proctor Work Phone: [facility] 06-14-2022 08:05-0500 Heart rate 75 /min Dr. Vincenzo Proctor Work Phone: [facility] 06-14-2022 08:05-0500 Respiratory rate 16 /min Dr. Vincenzo Proctor Work Phone: [facility] 06-14-2022 08:05-0500 SaO2% (BldA) [Mass fraction] 97 % Dr. Vincenzo Proctor Work Phone: [facility] 06-14-2022 08:05-0500 Systolic blood pressure 149 mm[Hg] Dr. Vincenzo Proctor Work Phone: [facility] 05-24-2022 09:27-0500 Body mass index (BMI) [Ratio] 25 kg/m2 Dr. Vincenzo Proctor Work Phone: [facility] 05-24-2022 09:27-0500 Body temperature 98.1 [degF] Dr. Vincenzo Proctor Work Phone: [facility] 05-24-2022 09:27-0500 Body weight 63.[address] Vincenzo Proctor Work Phone: [facility] 05-24-2022 09:27-0500 Diastolic blood pressure 81 mm[Hg] Dr. Vincenzo Proctor Work Phone: [facility] 05-24-2022 09:27-0500 Heart rate 84 /min Dr. Vincenzo Proctor Work Phone: [facility] 05-24-2022 09:27-0500 Respiratory rate 16 /min Dr. Vincenzo Proctor Work Phone: [facility] 05-24-2022 09:27-0500 SaO2% (BldA) [Mass fraction] 99 % Dr. Vincenzo Proctor Work Phone: [facility] 05-24-2022 09:27-0500 Systolic blood pressure 154 mm[Hg] Dr. Vincenzo Proctor Work Phone: [facility] 05-17-2022 11:49-0500 Body mass index (BMI) [Ratio] 25.3 kg/m2 Dr. Vincenzo Proctor Work Phone: [facility] Work Phone: 05-17-2022 11:49-0500 Body temperature 97 [degF] Dr. Vincenzo Proctor Work Phone: [facility] Work Phone: 05-17-2022 11:49-0500 Body weight 64.[address] Vincenzo Proctor Work Phone: [facility] Work Phone: 05-17-2022 11:49-0500 Diastolic blood pressure 83 mm[Hg] Dr. Vincenzo Proctor Work Phone: [facility] Work Phone: 05-17-2022 11:49-0500 Heart rate 83 /min Dr. Vincenzo Proctor Work Phone: [facility] Work Phone: 05-17-2022 11:49-0500 Respiratory rate 16 /min Dr. Vincenzo Proctor Work Phone: [facility] Work Phone: 05-17-2022 11:49-0500 SaO2% (BldA) [Mass fraction] 98 % Dr. Vincenzo Proctor Work Phone: [facility] Work Phone: 05-17-2022 11:49-0500 Systolic blood pressure 153 mm[Hg] Dr. Vincenzo Proctor Work Phone: [facility] Work Phone: 05-03-2022 08:25-0400 Body mass index (BMI) [Ratio] 25.1 kg/m2 Dr. Vincenzo Proctor Work Phone: [facility] Work Phone: 05-03-2022 08:25-0400 Body temperature 97 [degF] Dr. Vincenzo Proctor Work Phone: [facility] Work Phone: 05-03-2022 08:25-0400 Body weight 64.[address] Vincenzo Proctor Work Phone: [facility] Work Phone: 05-03-2022 08:25-0400 Diastolic blood pressure 84 mm[Hg] Dr. Vincenzo Proctor Work Phone: [facility] Work Phone: 05-03-2022 08:25-0400 Heart rate 75 /min Dr. Vincenzo Proctor Work Phone: [facility] Work Phone: 05-03-2022 08:25-0400 Respiratory rate 16 /min Dr. Vincenzo Proctor Work Phone: [facility] Work Phone: 05-03-2022 08:25-0400 SaO2% (BldA) [Mass fraction] 95 % Dr. Vincenzo Proctor Work Phone: [facility] Work Phone: 05-03-2022 08:25-0400 Systolic blood pressure 166 mm[Hg] Dr. Vincenzo Proctor Work Phone: [facility] Work Phone: 04-12-2022 11:00-0400 SaO2% (BldA) [Mass fraction] 99 % Dr. Vincenzo Proctor Work Phone: [facility] 04-12-2022 08:59-0400 Body mass index (BMI) [Ratio] 25.2 kg/m2 Dr. Vincenzo Proctor Work Phone: [facility] Work Phone: 04-12-2022 08:59-0400 Body temperature 97.2 [degF] Dr. Vincenzo Proctor Work Phone: [facility] Work Phone: 04-12-2022 08:59-0400 Body weight 64.[address] Vincenzo Proctor Work Phone: [facility] Work Phone: 04-12-2022 08:59-0400 Diastolic blood pressure 84 mm[Hg] Dr. Vincenzo Proctor Work Phone: [facility] Work Phone: 04-12-2022 08:59-0400 Heart rate 73 /min Dr. Vincenzo Proctor Work Phone: [facility] Work Phone: 04-12-2022 08:59-0400 Respiratory rate 16 /min Dr. Vincenzo Proctor Work Phone: [facility] Work Phone: 04-12-2022 08:59-0400 SaO2% (BldA) [Mass fraction] 100 % Dr. Vincenzo Proctor Work Phone: [facility] Work Phone: 04-12-2022 08:59-0400 Systolic blood pressure 132 mm[Hg] Dr. Vincenzo Proctor Work Phone: [facility] Work Phone: 04-05-2022 13:13-0400 Body temperature 98.3 [degF] Dr. Vincenzo Proctor Work Phone: [facility] Work Phone: 04-05-2022 13:13-0400 Diastolic blood pressure 81 mm[Hg] Dr. Vincenzo Proctor Work Phone: [facility] Work Phone: 04-05-2022 13:13-0400 Heart rate 59 /min Dr. Vincenzo Proctor Work Phone: [facility] Work Phone: 04-05-2022 13:13-0400 Respiratory rate 16 /min Dr. Vincenzo Proctor Work Phone: [facility] Work Phone: 04-05-2022 13:13-0400 SaO2% (BldA) [Mass fraction] 100 % Dr. Vincenzo Proctor Work Phone: [facility] Work Phone: 04-05-2022 13:13-0400 Systolic blood pressure 156 mm[Hg] Dr. Vincenzo Proctor Work Phone: [facility] Work Phone: 04-05-2022 09:16-0400 Body mass index (BMI) [Ratio] 25.7 kg/m2 Dr. Vincenzo Proctor Work Phone: [facility] Work Phone: 04-05-2022 09:16-0400 Body weight [address] Vincenzo Proctor Work Phone: [facility] Work Phone: 03-29-2022 09:34-0400 Body mass index (BMI) [Ratio] 25.2 kg/m2 Dr. Vincenzo Proctor Work Phone: [facility] Work Phone: 03-29-2022 09:34-0400 Body temperature 97 [degF] Dr. Vincenzo Proctor Work Phone: [facility] Work Phone: 03-29-2022 09:34-0400 Body weight 64.[address] Vincenzo Proctor Work Phone: [facility] Work Phone: 03-29-2022 09:34-0400 Diastolic blood pressure 81 mm[Hg] Dr. Vincenzo Proctor Work Phone: [facility] Work Phone: 03-29-2022 09:34-0400 Heart rate 73 /min Dr. Vincenzo Proctor Work Phone: [facility] Work Phone: 03-29-2022 09:34-0400 Respiratory rate 16 /min Dr. Vincenzo Proctor Work Phone: [facility] Work Phone: 03-29-2022 09:34-0400 SaO2% (BldA) [Mass fraction] 99 % Dr. Vincenzo Proctor Work Phone: [facility] Work Phone: 03-29-2022 09:34-0400 Systolic blood pressure 142 mm[Hg] Dr. Vincenzo Proctor Work Phone: [facility] Work Phone: 03-27-2022 10:06-0400 Body height 160.[address] Vincenzo Proctor Work Phone: [facility] Work Phone: 03-27-2022 10:06-0400 Body mass index (BMI) [Ratio] 25.4 kg/m2 Dr. Vincenzo Proctor Work Phone: [facility] Work Phone: 03-27-2022 10:06-0400 Body temperature 98.4 [degF] Dr. Vincenzo Proctor Work Phone: [facility] Work Phone: 03-27-2022 10:06-0400 Body weight 65.[address] Vincenzo Proctor Work Phone: [facility] Work Phone: 03-27-2022 10:06-0400 Diastolic blood pressure 94 mm[Hg] Dr. Vincenzo Proctor Work Phone: [facility] Work Phone: 03-27-2022 10:06-0400 Heart rate 72 /min Dr. Vincenzo Proctor Work Phone: [facility] Work Phone: 03-27-2022 10:06-0400 Respiratory rate 16 /min Dr. Vincenzo Proctor Work Phone: [facility] Work Phone: 03-27-2022 10:06-0400 SaO2% (BldA) [Mass fraction] 99 % Dr. Vincenzo Proctor Work Phone: [facility] Work Phone: 03-27-2022 10:06-0400 Systolic blood pressure 162 mm[Hg] Dr. Vincenzo Proctor Work Phone: [facility] Work Phone: 03-17-2022 15:12-0400 Body height 160.[address] Vincenzo Proctor Work Phone: [facility] Work Phone: 03-15-2022 09:34-0400 Body mass index (BMI) [Ratio] 25.5 kg/m2 Dr. Vincenzo Proctor Work Phone: [facility] Work Phone: 03-15-2022 09:34-0400 Body weight 65.[address] Vincenzo Proctor Work Phone: [facility] Work Phone: 03-15-2022 09:34-0400 Diastolic blood pressure 99 mm[Hg] Dr. Vincenzo Proctor Work Phone: [facility] Work Phone: 03-15-2022 09:34-0400 Heart rate 75 /min Dr. Vincenzo Proctor Work Phone: [facility] Work Phone: 03-15-2022 09:34-0400 Respiratory rate 17 /min Dr. Vincenzo Proctor Work Phone: [facility] Work Phone: 03-15-2022 09:34-0400 SaO2% (BldA) [Mass fraction] 98 % Dr. Vincenzo Proctor Work Phone: [facility] Work Phone: 03-15-2022 09:34-0400 Systolic blood pressure 163 mm[Hg] Dr. Vincenzo Proctor Work Phone: [facility] Work Phone: Encounters Encounter Date Encounter Type Care Provider Facility Start: 05-19-2025 End: 05-19-2025 ambulatory Chantale Goncalves Facility:[facility] Start: 03-19-2025 End: 03-19-2025 Office outpatient visit 15 minutes Lorenzo Farris MD Work Phone: Division of Surgical Oncology Comment on above: Malignant neoplasm o f upper-inner quadrant of left breast in female, estrogen receptor negative (Primary Dx) Start: 03-19-2025 ambulatory LILIA BROWNING Facility: [facility] Start: 03-19-2025 End: 03-19-2025 Subsequent hospital visit by physician Lorenzo Farris MD Work Phone: [facility] Comment on above: Arrived Start: 02-24-2025 End: 02-24-[address] Avery Rios DO [facility] Work Phone: Start: 02-24-2025 End: 02-24-[address] Vincenzo Proctor MD Work Phone: [facility] Start: 01-22-2025 End: 01-22-2025 Patient encounter procedure Janet Hernandez [facility] Work Phone: Start: 01-22-2025 End: 01-22-[address] Vincenzo Proctor MD Work Phone: [facility] Start: 01-06-2025 Non-patient / Non-visit Dr. Claire otoole MD -[facility] Work Phone: Start: 09-18-2024 End: 09-18-2024 ambulatory Chantale Goncalves Facility:[facility] Start: 09-11-2024 End: 09-11-2024 Office outpatient visit 25 minutes Lorenzo Farris MD Work Phone: Division of Surgical Oncology Comment on above: Malignant neoplasm o f upper-inner quadrant of left breast in female, estrogen receptor negative (Primary Dx) Start: 09-11-2024 ambulatory LILIA BROWNING Facility: [facility] Start: 09-11-2024 End: 09-11-2024 Subsequent hospital visit by physician Lorenzo Farris MD Work Phone: [facility] Comment on above: Arrived Start: 08-19-2024 End: 08-19-2024 ambulatory PADMA BALAJI Facility:[facility] Start: 08-19-2024 End: 08-19-2024 Patient encounter procedure Padma Balaji DIRECTOR OF PUPIL PERSONNEL PROGRAM.EXECUTIVE HOUSEKEEPER Work Phone: General Surgery Comment on above: Adenomatous polyp (P rimary Dx) Start: 08-05-2024 End: 08-05-2024 ambulatory LUCIANA TY Facility:[facility] Start: 08-05-2024 End: 08-05-2024 Subsequent hospital visit by physician Luciana Ty MD Work Phone: Ambulatory Surgery Comment on above: Encounter for screen ing for malignant neoplasm of colon [Z12.11] Start: 07-18-2024 End: 07-18-2024 ambulatory PADMA BALAJI Facility:[facility] Start: 07-18-2024 End: 07-18-2024 Patient encounter procedure Padma Balaji DIRECTOR OF PUPIL PERSONNEL PROGRAM.EXECUTIVE HOUSEKEEPER Work Phone: General Surgery Comment on above: Encounter for screen ing for malignant neoplasm of colon (Primary Dx); History of breast cancer Start: 07-18-2024 End: 07-18-2024 ambulatory Vincenzo Proctor Facility:[facility] Start: 06-26-2024 End: 06-26-2024 ambulatory Vincenzo Proctor Facility:[facility] Start: 05-28-2024 ambulatory Vincenzo Proctor Facility:[facility] Start: 05-27-2024 ambulatory Vincenzo Proctor Facility:[facility] Start: 05-27-2024 End: 05-27-2024 ambulatory Vincenzo Proctor Facility:[facility] Start: 05-23-2024 ambulatory Vincenzo Proctor Facility:[facility] Start: 05-23-2024 End: 05-23-2024 ambulatory Vincenzo Proctor Facility:[facility] Start: 03-13-2024 End: 03-13-2024 Office outpatient visit 15 minutes Lorenzo Farris MD Work Phone: Division of Surgical Oncology Comment on above: Malignant neoplasm o f upper-inner quadrant of left breast in female, estrogen receptor negative (Primary Dx); Abnormal mammogram Start: 03-13-2024 End: 03-13-2024 Subsequent hospital visit by physician Lilia Browning APRN-EXECUTIVE HOUSEKEEPER Work Phone: [facility] Comment on above: Arrived Start: 08-03-2023 End: 08-03-[address] Vincenzo Proctor Work Phone: [facility] Work Phone: Start: 08-03-2023 End: 08-03-[address] Vincenzo Proctor Work Phone: [facility] Start: 07-31-2023 End: 07-31-[address] Vincenzo Proctor Work Phone: [facility] Work Phone: Start: 06-11-2023 End: 06-11-[address] Vincenzo Proctor Work Phone: [facility] Work Phone: Start: 06-11-2023 End: 06-11-[address] Vincenzo Proctor Work Phone: [facility] Start: 06-06-2023 Non-patient / Non-visit Dr. David Proctor Work Phone: [facility] Work Phone: Start: 06-05-[address] Vincenzo Proctor Work Phone: [facility] Start: 06-05-2023 End: 06-05-[address] Vincenzo Proctor Work Phone: [facility] Work Phone: Start: 05-29-2023 Non-patient / Non-visit Dr. David Proctor Work Phone: [facility] Work Phone: Start: 05-29-2023 Non-patient / Non-visit Dr. David Proctor Work Phone: [facility] Start: 05-29-2023 End: 05-29-[address] Vincenzo Proctor Work Phone: [facility] Work Phone: Start: 05-29-2023 End: 05-29-[address] [facility] Work Phone: Start: 04-20-2023 End: 04-20-[address] Vincenzo Proctor Work Phone: [facility] Work Phone: Start: 04-03-2023 End: 04-03-[address] Vincenzo Proctor Work Phone: [facility] Work Phone: Start: 03-29-2023 End: 03-29-[address] Vincenzo Proctor Work Phone: [facility] Work Phone: Start: 03-27-2023 End: 03-27-[address] Vincenzo Proctor Work Phone: [facility] Work Phone: Start: 03-08-2023 End: 03-08-2023 Office outpatient visit 15 minutes Lorenzo Farris MD Work Phone: Division of Surgical Oncology Comment on above: Malignant neoplasm o f upper-inner quadrant of left breast in female, estrogen receptor negative (Primary Dx); Encounter for screening mammogram for malignant neoplasm of breast Start: 03-08-2023 End: 03-08-2023 Subsequent hospital visit by physician Lorenzo Farris MD Work Phone: [facility] Start: 03-01-[address] Vincenzo Proctor Work Phone: [facility] [facility] Start: 03-01-2023 End: 03-01-[address] Vincenzo Proctor Work Phone: [facility] Work Phone: Start: 12-20-2022 Non-patient / Non-visit Dr. David Proctor Work Phone: [facility] Start: 12-20-2022 End: 12-20-[address] Vincenzo Proctor Work Phone: [facility] Work Phone: Start: 12-20-2022 End: 12-20-[address] [facility] Start: 12-06-[address] Vincenzo Proctor Work Phone: [facility] Start: 11-20-2022 End: 11-20-[address] Vincenzo Proctor Work Phone: [facility] Start: 11-16-2022 End: 11-16-[address] Vincenzo Proctor Work Phone: [facility] Start: 10-24-2022 End: 10-24-[address] Vincenzo Proctor Work Phone: [facility] Start: 10-13-2022 Non-patient / Non-visit Dr. David Proctor Work Phone: [facility] Start: 10-11-2022 End: 10-11-[address] Vincenzo Proctor Work Phone: [facility] Start: 10-04-2022 End: 10-04-[address] Vincenzo Proctor Work Phone: [facility] Start: 09-27-2022 End: 09-27-[address] Vincenzo Proctor Work Phone: [facility] Start: 09-25-[address] Vincenzo Proctor Work Phone: [facility] Start: 09-22-2022 Non-patient / Non-visit Dr. David Proctor Work Phone: [facility] Start: 09-21-2022 Non-patient / Non-visit Dr. David Proctor Work Phone: [facility] Start: 09-21-2022 End: 09-21-2022 Postop follow up visit related to original px Lorenzo Farris MD Work Phone: Division of Surgical Oncology Comment on above: Malignant neoplasm o f upper-inner quadrant of left breast in female, estrogen receptor negative (Primary Dx); Encounter for screening mammogram for malignant neoplasm of breast Start: 09-20-2022 Non-patient / Non-visit Dr. David Proctor Work Phone: [facility] Start: 09-20-2022 End: 09-20-[address] Vincenzo Proctor Work Phone: [facility] Start: 09-19-2022 Non-patient / Non-visit Dr. David Proctor Work Phone: [facility] Start: 09-19-2022 End: 09-19-[address] Vincenzo Proctor Work Phone: [facility] Start: 09-19-2022 End: 09-19-[address] Vincenzo Proctor Work Phone: [facility] Work Phone: Start: 09-19-2022 End: 09-19-[address] Vincenzo Proctor Work Phone: [facility] Start: 09-13-2022 Non-patient / Non-visit Dr. David Proctor Work Phone: [facility] Start: 09-13-[address] Vincenzo Proctor Work Phone: [facility] Start: 09-07-2022 End: 09-07-2022 Postop follow up visit related to original px Lorenzo Farris MD Work Phone: Division of Surgical Oncology Comment on above: Malignant neoplasm o f upper-inner quadrant of left breast in female, estrogen receptor negative (Primary Dx) Start: 09-05-2022 End: 09-05-[address] Vincenzo Proctor Work Phone: [facility] Start: 08-22-2022 End: 08-22-2022 Subsequent hospital visit by physician Lorenzo Farris MD Work Phone: [facility] Comment on above: Malignant neoplasm o f upper-inner quadrant of left breast in female, estrogen receptor negative Arrived Start: 08-22-2022 End: 08-22-2022 Subsequent hospital visit by physician Lorenzo Farris MD Work Phone: [facility] Comment on above: Arrived Start: 08-17-2022 End: 08-17-2022 Subsequent hospital visit by physician Lorenzo Farris MD Work Phone: Department of Radiology Comment on above: Arrived Start: 08-09-2022 End: 08-09-[address] Vincenzo Proctor Work Phone: [facility] Start: 08-04-2022 End: 08-04-2022 Office outpatient new 45 minutes Lorenzo Farris MD Work Phone: Division of Surgical Oncology Comment on above: Malignant neoplasm o f upper-inner quadrant of left breast in female, estrogen receptor negative (Primary Dx) Start: 08-01-2022 End: 08-01-2022 Subsequent hospital visit by physician Lilia NOWAK Work Phone: [facility] Comment on above: Arrived Start: 07-26-2022 End: 07-26-[address] Vincenzo Proctor Work Phone: [facility] Start: 07-13-2022 End: 07-13-[address] Vincenzo Proctor Work Phone: [facility] Start: 07-05-[address] Vincenzo Proctor Work Phone: [facility] Start: 07-05-2022 End: 07-05-[address] Vincenzo Proctor Work Phone: [facility] Start: 06-29-2022 Non-patient / Non-visit Dr. David Proctor Work Phone: [facility] Start: 06-29-2022 End: 06-29-[address] Vincenzo Proctor Work Phone: [facility] Work Phone: Start: 06-29-2022 End: 06-29-[address] Vincenzo Proctor Work Phone: [facility] Start: 06-14-2022 End: 06-14-[address] Vincenzo Proctor Work Phone: [facility] Start: 05-24-2022 End: 05-24-[address] Vincenzo Proctor Work Phone: [facility] Start: 05-19-[address] Vincenzo Proctor Work Phone: [facility] Start: 05-17-2022 End: 05-17-[address] Vincenzo Proctor Work Phone: [facility] Start: 05-03-2022 End: 05-03-[address] Vincenzo Proctor Work Phone: [facility] Start: 04-12-2022 End: 04-12-[address] Vincenzo Proctor Work Phone: [facility] Start: 04-06-2022 Non-patient / Non-visit Dr. David Proctor Work Phone: [facility] Start: 04-06-2022 End: 04-06-[address] Vincenzo Proctor Work Phone: [facility] Start: 04-05-2022 Non-patient / Non-visit Dr. David Proctor Work Phone: [facility] Start: 04-05-2022 End: 04-05-2022 Admission to same day surgery center Dr[facility] Vincenzo Proctor [facility] Start: 03-29-2022 End: 03-29-[address] Vincenzo Proctor Work Phone: [facility] Start: 03-28-2022 End: 03-28-[address] Vincenzo Proctor Work Phone: [facility] Start: 03-27-[address] Vincenzo Proctor Work Phone: [facility] Start: 03-27-2022 End: 03-27-[address] Vincenzo Proctor Work Phone: [facility] Start: 03-24-[address] Vincenzo Proctor Work Phone: [facility] Start: 03-22-2022 End: 03-22-[address] Vincenzo Proctor Work Phone: [facility] Work Phone: Start: 03-22-2022 End: 03-22-[address] Vincenzo Proctor Work Phone: [facility] Ultrasound Start: 03-20-2022 End: 03-20-[address] Vincenzo Proctor Work Phone: [facility] Start: 03-15-2022 End: 03-15-[address] Vincenzo Proctor Work Phone: [facility] Work Phone: Start: 03-15-2022 End: 03-15-[address] Vincenzo Proctor Work Phone: [facility]-Laboratory, Specimen Start: 03-15-2022 End: 03-15-[address] Vincenzo Proctor Work Phone: [facility] Start: 03-01-2022 End: 03-01-2022 ambulatory [facility] Work Phone: Start: 03-01-2022 End: 03-01-2022 Patient encounter procedure [facility] Breast Imaging Start: 02-22-2022 End: 02-22-2022 ambulatory [facility] Work Phone: Start: 02-22-2022 End: 02-22-2022 Patient encounter procedure [facility] Breast Imaging Procedures Date Procedure Procedure Detail Performing Clinician Start: 03-19-2025 Diagnostic mammograp hy computer-aided detcj bi Lilia Browning DIRECTOR OF PUPIL PERSONNEL PROGRAM-EXECUTIVE HOUSEKEEPER Work Phone: Start: 09-11-2024 Diagnostic mammograp hy computer-aided detcj uni Lilia Browning DIRECTOR OF PUPIL PERSONNEL PROGRAM-EXECUTIVE HOUSEKEEPER Work Phone: Start: 08-05-2024 Colonoscopy flx dx w /collj spec when pfrmd Padma Carpio DIRECTOR OF PUPIL PERSONNEL PROGRAM.EXECUTIVE HOUSEKEEPER Work Phone: Start: 08-05-2024 Colonoscopy Luciana Ty MD Work Phone: Start: 03-13-2024 Diagnostic mammograp hy computer-aided detcj bi Lilia D Mangino DIRECTOR OF PUPIL PERSONNEL PROGRAM-EXECUTIVE HOUSEKEEPER Work Phone: Start: 05-29-2023 CT angiography of co ronary arteries Dr. Vincenzo Proctor Work Phone: Start: 03-08-2023 Diagnostic mammograp hy computer-aided detcj bi Lilia D Mangino DIRECTOR OF PUPIL PERSONNEL PROGRAM-EXECUTIVE HOUSEKEEPER Work Phone: Start: 09-19-2022 Dual energy X-ray absorptiometry Dr. Vincenzo Proctor Work Phone: Start: 08-22-2022 End: 08-22-2022 Radiological examination surgical specimen Lorenzo Farris MD Work Phone: Start: 08-22-2022 End: 08-22-2022 CONTINUOUS CARDIAC MONITORING STRIP Other Other Start: 08-22-2022 Perq device placemen t breast loc 1st les w/gdnce Lilia Srivastava Mangino DIRECTOR OF PUPIL PERSONNEL PROGRAM-EXECUTIVE HOUSEKEEPER Work Phone: Start: 08-22-2022 GENERAL PROCEDURE Briana Galvan MD Work Phone: Start: 08-17-2022 Radiologic exam ches t 2 views Lilia Srivastava Mangino DIRECTOR OF PUPIL PERSONNEL PROGRAM-EXECUTIVE HOUSEKEEPER Work Phone: Start: 08-01-2022 MG Breast Views Lilia smallwood DIRECTOR OF PUPIL PERSONNEL PROGRAM-EXECUTIVE HOUSEKEEPER Work Phone: Start: 04-05-2022 Radiographic procedu re of chest Dr. Vincenzo Proctor Work Phone: Start: 04-05-2022 Fluoroscopic guidance Carola Proctor Work Phone: Start: 03-22-[address] Vincenzo matta Work Phone: Start: 03-22-[address] Vincenzo Proctor Work Phone: Start: 03-01-2022 Mammography Start: 03-01-2022 Ultrasonography of breast Start: 02-22-2022 Screening mammography Start: 06-24-2014 Colonoscopy Padma Carpio APRN.CNP Work Phone: Plan of Treatment Date Care Activity Detail Author Start: 11-26-2034 RSV Vaccine (1 - 1-dose 75+ series) RSV Vaccine (1 - 1-dose 75+ series) [facility] Start: 08-05-2034 Screening for malignant neoplasm of colon [facility] Start: 08-05-2027 Screening for malignant neoplasm of colon [facility] Start: 03-30-2026 Screening for malignant neoplasm of colon Cologuard (FIT-DNA) [facility] Start: 03-19-2026 End: 04-18-2026 MG Breast - bilateral Diagnostic MAMMO DIAGNOSTIC WITH FRANDY BILATERAL Imaging Routine Malignant neoplasm of upper-inner quadrant of left breast in female, estrogen receptor negative Expected: 03/19/2026, Expires: 04/18/2026 [facility] Comment on above: Expected: 03/19/2026, Expires: Start: 03-19-2026 Screening for malignant neoplasm of breast MAMMOGRAM SCREENING DISCUSSION [facility] Start: 03-18-2026 End: 03-18-2026 Patient encounter procedure [facility] Start: 08-17-2025 Diabetes Screening Diabetes Screening [facility] Start: 07-18-2025 BP Controlled (<130/80) BP Controlled (<130/80) [facility] in Start: 03-19-2025 End: 03-19-2025 Patient encounter procedure [facility] Start: 03-14-2025 End: 10-12-2025 MG Breast - bilateral Diagnostic MAMMO DIAGNOSTIC WITH FRANDY BILATERAL Imaging Routine Malignant neoplasm of upper-inner quadrant of left breast in female, estrogen receptor negative Expected: 03/14/2025, Expires: 10/12/2025 [facility] Comment on above: Expected: 03/14/2025, Expires: 6 Start: 03-13-2025 Screening for malignant neoplasm of breast [facility] Start: 03-09-2025 COVID-19 VACCINE ( season) COVID-19 VACCINE ( season) [facility] Start: 03-09-2025 Influenza vaccination INFLUENZA VACCINE (#1) [facility] Start: 09-11-2024 End: 09-11-2024 Patient encounter procedure [facility] Start: 09-10-2024 End: 04-12-2025 MG Breast Views MAMMO DIAGNOSTIC WITH FRANDY LEFT Imaging Routine Malignant neoplasm of upper-inner quadrant of left breast in female, estrogen receptor negative Abnormal mammogram Expected: 09/10/2024, Expires: 04/12/2025 [facility] Comment on above: Expected: 09/10/2024, Expires: Start: 08-19-2024 End: 08-19-2024 Patient encounter procedure 08/19/2024 8:00 AM EST Office Visit General Surgery [address] [place], [place] [id number] Padma Carpio APRN.EXECUTIVE HOUSEKEEPER [address] [place] [address] 08-05 Colonoscopy follow up / declined [facility] Comment on above: 08-05 Colonoscopy follow up / declined [facility] Start: 08-05-2024 End: 08-05-2024 Patient encounter procedure 08/05/2024 12:30 PM EST Appointment Ambulatory Surgery [address] [place] [address] Luciana Ty MD [address] [place] [id number] Encounter for screening for malignant neoplasm of colon [Z12.11] Ambulatory Surgery Comment on above: Encounter for screening for malignant ne oplasm of colon [Z12.11] Start: 06-24-2024 Screening for malignant neoplasm of colon [facility] Start: 03-30-2024 Screening for malignant neoplasm of colon COLORECTAL CANCER SCREENING DISCUSSION [facility] Start: 03-25-2024 Zoster vaccine hzv live for subcutaneous use ZOSTER (SHINGLES) VACCINE (2 of 2) [facility] Start: 03-13-2024 End: 03-13-2024 Patient encounter procedure 03/13/2024 11:45 AM EDT Office Visit Division of Surgical Oncology [address], [address] [place] [address] Lorenzo Farris III, MD [address], [address] [place] [phone] Division of Surgical Oncology Start: 03-13-2024 End: 03-13-2024 Patient encounter procedure 03/13/2024 10:40 AM EDT Appointment [facility] [address] [place] [phone] Lilia Browning, DIRECTOR OF PUPIL PERSONNEL PROGRAM-EXECUTIVE HOUSEKEEPER [address] [place] [address] [facility] Start: 03-09-2024 COVID-19 VACCINE ( season) COVID-19 VACCINE ( season) [facility] Start: 03-09-2024 Covid-19 Vaccine ( season) Covid-19 Vaccine ( season) [facility] Start: 03-09-2024 Influenza vaccination INFLUENZA VACCINE (#1) [facility] Start: 03-08-2024 End: 04-07-2024 MG Breast - bilateral Diagnostic MAMMO DIAGNOSTIC WITH FRANDY BILATERAL Imaging Routine Malignant neoplasm of upper-inner quadrant of left breast in female, estrogen receptor negative Encounter for screening mammogram for malignant neoplasm of breast Expected: 03/08/2024, Expires: 04/07/2024 [facility] Comment on above: Expected: 03/08/2024, Expires: Start: 03-08-2024 Screening for malignant neoplasm of breast MAMMOGRAM SCREENING DISCUSSION [facility] Start: 03-24-2023 End: 10-23-2023 MG Breast - bilateral Diagnostic MAMMO DIAGNOSTIC WITH FRANDY BILATERAL Imaging Routine Malignant neoplasm of upper-inner quadrant of left breast in female, estrogen receptor negative Encounter for screening mammogram for malignant neoplasm of breast Expected: 03/24/2023, Expires: 10/23/2023 [facility] Work Phone: Comment on above: Expected: 03/24/2023, Expires: Start: 03-22-2023 Screening for malignant neoplasm of breast MAMMOGRAM SCREENING DISCUSSION [facility] Start: 03-09-2023 Influenza vaccination INFLUENZA VACCINE (#1) [facility] Start: 03-08-2023 End: 03-08-2023 Patient encounter procedure [facility] Start: 03-01-2023 Patient referral [facility] Work Phone: Start: 09-21-2022 End: 09-21-2022 Patient encounter procedure 09/21/2022 Office Visit Surgical Oncology Lorenzo Farris III, MD [address], [address] [place] [address] Division of Surgical Oncology Start: 09-21-2022 End: 09-21-2022 Patient encounter procedure 09/21/2022 Office Visit Surgical Oncology Lorenzo Farris III, MD [address], [address] [place] [address] Division of Surgical Oncology Start: 09-20-2022 Retinol [Mass/volume] in Serum or Plasma [facility] Start: 09-19-2022 Dual energy X-ray absorptiometry Dexa Bone Density Study [facility] Start: 09-12-2022 End: 09-12-2022 Admission to same day surgery center 09/12/2022 Surgery Multispecialty Lorenzo Farris III, MD [address], [address] [place] [phone] MASTECTOMY PARTIAL (LUMPECTOMY) [facility] Comment on above: MASTECTOMY PARTIAL (LUMPECTOMY) Start: 09-12-2022 End: 09-12-2022 Axillary lymphadenectomy complete LYMPHADENECTOMY AXILLARY DEEP Malignant neoplasm of upper-inner quadrant of left breast in female, estrogen receptor negative 09/12/2022 1:00 PM EST [facility] Start: 09-12-2022 End: 09-12-2022 Bx/exc lymph node open deep axillary node BX LYMPH NODE AXILLARY DEEP Malignant neoplasm of upper-inner quadrant of left breast in female, estrogen receptor negative 09/12/2022 1:00 PM EST [facility] Start: 09-12-2022 End: 09-12-2022 Inj radioactive tracer for id of sentinel node INJECTION RADIOACTIVE TRACER FOR SENTINEL NODE IDENTIFICATION Malignant neoplasm of upper-inner quadrant of left breast in female, estrogen receptor negative 09/12/2022 1:00 PM EST [facility] Start: 09-12-2022 End: 09-12-2022 Mastectomy partial MASTECTOMY PARTIAL (LUMPECTOMY) Malignant neoplasm of upper-inner quadrant of left breast in female, estrogen receptor negative 09/12/2022 1:00 PM EST [facility] Start: 09-12-2022 Subsequent hospital visit by physician 09/12/2022 Hospital Encounter Multispecialty Lorenzo Farris III, MD [address], [address] [place] [phone] Malignant neoplasm of upper-inner quadrant of left breast in female, estrogen receptor negative [facility] Comment on above: Malignant neoplasm of upper-inner quadra nt of left breast in female, estrogen receptor negative Start: 09-12-2022 End: 09-12-2022 Patient encounter procedure [facility] Start: 09-07-2022 End: 09-07-2022 Patient encounter procedure 09/07/2022 Office Visit Surgical Oncology Lorenzo Farris III, MD [address], [address] [place] [address] Division of Surgical Oncology Start: 08-22-2022 End: 08-22-2022 Admission to same day surgery center 08/22/2022 Surgery Multispecialty Lorenzo Farris III, MD [address], [address] [place] [address] MASTECTOMY PARTIAL (LUMPECTOMY) [facility] Comment on above: MASTECTOMY PARTIAL (LUMPECTOMY) Start: 08-22-2022 End: 08-22-2022 Axillary lymphadenectomy complete [facility] Start: 08-22-2022 End: 08-22-2022 Bx/exc lymph node open deep axillary node [facility] Start: 08-22-2022 End: 08-22-2022 Inj radioactive tracer for id of sentinel node [facility] Start: 08-22-2022 End: 08-22-2022 Mastectomy partial [facility] Start: 08-22-2022 Subsequent hospital visit by physician [facility] 4 Comment on above: Malignant neoplasm of upper-inner quadra nt of left breast in female, estrogen receptor negative Start: 08-22-2022 End: 08-22-2022 Patient encounter procedure 08/22/2022 Appointment Mammography Lilia Browning, DIRECTOR OF PUPIL PERSONNEL PROGRAM-EXECUTIVE HOUSEKEEPER [address] [place] [address] [facility] Start: 08-15-2022 End: 08-15-2022 ambulatory 08/15/2022 Pre-Operative Nurse Assessment Multispecialty Lorenzo Farris III, MD [address], [address] [place] [address] [facility] Start: 08-04-2022 End: 09-04-2023 MG Breast Views MAMMO GUIDED NEEDLE LOCALIZATION BREAST LEFT Imaging Routine Malignant neoplasm of upper-inner quadrant of left breast in female, estrogen receptor negative Expected: 08/04/2022, Expires: 09/04/2023 [facility] Comment on above: Expected: 08/04/2022, Expires: 4 Start: 08-04-2022 End: 08-04-2023 NM Lymphatic vessels Views W radionuclide intra lymphatic NUC BREAST/LYMPH GLAND INJECTION Imaging Routine Malignant neoplasm of upper-inner quadrant of left breast in female, estrogen receptor negative Expected: 08/04/2022, Expires: 08/04/2023 [facility] Work Phone: Comment on above: Expected: 08/04/2022, Expires: 4 Start: 08-04-2022 End: 08-04-2022 Patient encounter procedure Division of Surgical Oncology Start: 04-12-2022 Venous catheter care management [facility] Start: 04-05-2022 Anesthesia access central venous circulation ANESTH VASCULAR ACCESS [facility] Work Phone: Start: 04-05-2022 Insj tunneled ctr vad w/subq port age 4 yr/> INSERT TUNNELED CV CATH [facility] Work Phone: Start: 04-05-2022 Patient discharge [facility] Work Phone: Start: 03-27-2022 Patient referral [facility] Work Phone: Start: 03-27-2022 [facility] Work Phone: Start: 03-09-2022 Influenza vaccination INFLUENZA VACCINE (#1) [facility] Start: 2019 RSV VACCINE (1 - 1-dose 60+ series) RSV VACCINE (1 - 1-dose 60+ series) [facility] Start: 06-24-2015 Screening for malignant neoplasm of colon COLORECTAL CANCER SCREENING DISCUSSION [facility] Start: 11-26-2009 Pneumococcal vaccination PNEUMOCOCCAL VACCINE SERIES (1 of 1 - PCV) [facility] Start: 11-26-2009 Pneumococcal Vaccine: 50+ (1 of 1 - PCV) Pneumococcal Vaccine: 50+ (1 of 1 - PCV) [facility] Start: 11-26-2009 Zoster vaccine hzv live for subcutaneous use ZOSTER (SHINGLES) VACCINE (1 of 2) [facility] Start: 11-26-2004 Lipid panel Lipid Screening [facility] Start: 11-26-2004 Screening for malignant neoplasm of colon [facility] Start: 1999 Lipid panel LIPID SCREENING [facility] Start: 11-26-1980 Screening for malignant neoplasm of cervix [facility] Start: 11-26-1978 Third diphtheria, tetanus and acellular pertussis (DTaP) vaccination TDAP (ADULT) [facility] Start: 11-26-1978 Urine microalbumin profile DTaP,Tdap,Td Vaccine (1 - Tdap) [facility] Start: 11-26-1977 Annual PCP Team Chronic Disease Visit Annual PCP Team Chronic Disease Visit [facility] Start: 11-26-1977 Anxiety Screening Anxiety Screening [facility] Start: 11-26-1977 Depression Screening Depression Screening [facility] Start: 11-26-1977 Hepatitis C screening Hepatitis C Screening [facility] Start: 11-26-1977 HIV screening HIV Screening [facility] Start: 11-26-1974 HIV screening HIV SCREENING DISCUSSION [facility] Start: 05-29-1960 COVID-19 VACCINE (#1) COVID-19 VACCINE (#1) [facility] Start: 1960 Hepatitis C screening HEPATITIS C VIRUS SCREENING [facility] Start: 1960 Screening for osteoporosis DEXA SCAN DISCUSSION [facility] Start: 1960 Tetanus vaccination TETANUS [facility] CBC W Auto Different ial panel - Blood [facility] CBC W Auto Different ial panel - Blood [facility] CBC W Auto Different ial panel - Blood [facility] Comprehensive metabo lic 2000 panel - Serum or Plasma [facility] MG Breast - bilatera l Screening [facility] Patient Education [facility] Central Vein Access [facility] Work Phone: Patient referral [facility] Work Phone: End: 07-18-2025 Screening colonoscopy COLONOSCOPY SCREENING Endoscopy Routine Encounter for screening for malignant neoplasm of colon 1 Occurrences starting 07/18/2024 until 07/18/2025 [facility] Work Phone: Comment on above: 1 Occurrences starting 07/18/2024 until 07/18/2025 SURG PATH REQUEST [facility] Comment on above: Release Upon Ordering for 1 Occurrences starting 08/22/2022 SURGICAL PATHOLOGY [facility] Work Phone: Comment on above: Release Upon Ordering for 1 Occurrences starting 08/05/2024, 1 completed US Heart [facility] Work Phone: Zinc [Mass/volume] i n Serum or Plasma [facility] Immun[place] Immunization Date Immunization Notes Care Provider Vivian martinez 01-29-2024 zoster vaccine, unspecified formulation Lilia Browning APRN-JOHN Work Phone: [facility] Payers Date Payer Category Payer Medicare Medicare A and B [id number] 2024 Blue [facility] BLUE CARD PPO OOS [id number] 2024 Managed Care (unspecified) [id number] 2024 Unknown [employer] BLUE CARD PPO OOS [id number] 2024-Present [phone] [address] [place] [address] PPO [id number] 2024 Unknown [id number] 2024 Unknown [id number] 2023 Private Health Insurance [id number] 2022 Medicare [id number] 2022 Self-pay [id number] 2022 Unknown [id number] 2022 Unknown [id number] 2013 Private Health Insurance [id number] 1959 Unknown [id number] .594 1959 Unknown [id number] [id number] .594 1959 Unknown [id number] [id number] .594 1959 Unknown [id number] 2.0.1.209357.3.579.2 .594 Private Health Insurance [id number] Unknown [id number] 2.840.1.832429.3.579.2 .462 Unknown [id number] 2.16.840.1.186193.3.579.2 .462 Unknown [id number] 2.16.840.1.978508.3.579.2 .462 Unknown [id number] 2.16.840.1.979258.3.579.2 .462 Unknown [id number] 2.16.840.1.581671.3.579.2 .462 Unknown [id number] 2.16.840.1.281180.3.579.2 .462 Unknown [id number] 2.16.840.1.245151.3.579.2 .462 Unknown [id number] 2.16.840.1.542515.3.579.2 .462 Unknown [id number] 2.16.840.1.962381.3.579.2 .462 Unknown [id number] 2.16.840.1.584349.3.579.2 .462 Unknown [id number] 2.16.840.1.669201.3.579.2 .462 Unknown [id number] 2.16.840.1.631383.3.579.2 .462 Unknown [id number] 2.16.840.1.110094.3.579.2 .462 Social History Date Type Detail Facility Start: 08-09-2015 End: 03-27-2023 Tobacco smoking status INIS Unknown if ever smoked [facility] Start: 1960 Sex Assigned At Female [facility] Start: 1960 Sex Assigned At Not on file [facility] Start: 07-22-2022 End: 09-07-2022 Exposure to SARS-CoV-2 (event) Unable to assess [facility] Start: 08-04-2022 End: 03-13-2024 Tobacco smoking status NHIS Ex-smoker [facility] History of tobacco use Current smoker [facility] History of tobacco use Cigarette Smoker [facility] Start: 08-04-2022 End: 03-19-2025 Cigarettes smoked current (pack per day) - Reported 1 [facility] Start: 08-04-2022 End: 03-13-2024 Tobacco use and exposure Smokeless tobacco non-user [facility] Start: 08-04-2022 End: 03-19-2025 Alcohol intake Ex-drinker (finding) [facility] Start: 08-04-2022 History SDOH Financial 5 [facility] Start: 08-04-2022 History SDOH Food Worry 1 [facility] Start: 08-04-2022 History SDOH Transpo rt Med 2 [facility] Start: 08-04-2022 Alcohol Comment wine occasiona lly prior to cancer diagnosis [facility] Start: 03-08-2023 End: 03-19-2025 Tobacco use panel [facility] How hard is it for y ou to pay for the very basics like food, housing, medical care, and heating Not hard at all [facility] (I/We) worried wherajinder er (my/our) food would run out before (I/we) got money to buy more. Never true [facility] Start: 08-09-2022 Gender identity Identifies as female gender (finding) [facility] Start: 08-09-2022 Sexual orientation Heterosexual (kellee frias) [facility] Start: 07-18-2024 End: 08-05-2024 Alcoholic beverage intake Current non-drinker of alcohol (finding) [facility] Start: 07-17-2022 Sex Female (finding) [facility] Medical Equipment Procedure Code Equipment Code Equipment Origin al Text Equipment Identifier Dates Insertion, vascular access port ([id number]) Vascular port/catheter [id number] [facility] Start: 04-05-2022 Goals Date Patient Goal Desired Activity /State Functional Status Date Assessment Result Facility 05-29-2014 Are you deaf, or do you have serious difficulty hearing No 05/29/2014 1:19 PM Sduha Arrieta Ma No [facility] 05-29-2014 Are you blind, or do you have serious difficulty seeing, even when wearing glasses No 05/29/2014 1:19 PM Sudha Arrieta Ma [facility] 05-29-2014 Do you have serious difficulty walking or climbing stairs No 05/29/2014 1:19 PM Sudha Arrieta Ma [facility] 05-29-2014 Do you have difficul ty dressing or bathing No 05/29/2014 1:19 PM Sudha Arrieta Ma [facility] 05-29-2014 Because of a physica l, mental, or emotional condition, do you have difficulty doing errands alone such as visiting a physician's office or shopping No 05/29/2014 1:19 PM Sudha Arrieta Ma [facility] Mental Status Date Assessment Result Facility 04-05-2022 Cognitive function Voice/Name [facility] Work Phone: 05-29-2014 Because of a physica l, mental, or emotional condition, do you have serious difficulty concentrating, remembering, or making decisions No 05/29/2014 1:19 PM SAM Sudha Sands Ma [facility] Clinical Notes 08-04-2022 to 03-19-2025 [facility] - 03/19/2025 11:45 AM Richard Shoemaker RN - 03/19/2025 11:45 AM [facility] - 03/19/2025 10:49 AM EDT Note Date & Type Note Facility 03-19-2025 History of Present illness Narrative Date of Service: 03/19/2025 Clinical Care Team: -Referring Provider: Lilia Browning APRN-CNP -Primary Care Provider: Vincenzo Proctor Chief complaint: Chief Complaint Patient presents with Follow-up Lt MMG today; pt w/no breast concerns; History of Present Illness: Lilia Alba presents today for a follow-up visit. Briefly, she is a 64 y.o. female with a history of left breast cancer. She received NAC TCHP x 6 cycles and finished that regimen in mid July 2022. She underwent left breast NL lump SLNBX performed 08/22/22. The pathology revealed no residual disease PCR. Alexy assessment demonstrated 0/1. She continues with Adjuvant Herceptin x 1 year completed last week. She completed adjuvant radiation locally on 10/13/22. She has no new complaints at the present time. She has not noted any new masses or suspicious lesions. She denies new headaches, chest pain, shortness of breath, bone pain, back pain or abdominal pain. Past Medical History: Diagnosis Date Anxiety BRCA negative Essential hypertension, benign Female bladder prolapse 2021 History of chemotherapy 04/12/2022 History of radiation therapy 09/2022 Hx of seasonal allergies Malignant neoplasm of upper-inner quadrant of left breast in female, estrogen receptor negative 03/15/2022 IDC, ER-/MA-/HER2+ Past Surgical History: Procedure Laterality Date EXCISIONAL BREAST BIOPSY Left 08/22/2022 MASTECTOMY PARTIAL (LUMPECTOMY) Left 08/22/2022 Laterality: Left; Surgeon: Lorenzo Farris III, MD; Location: [facility] BX LYMPH NODE AXILLARY DEEP Left 08/22/2022 Laterality: Left; Surgeon: Lorenzo Farris III, MD; Location: [facility] INJECTION RADIOACTIVE TRACER FOR SENTINEL NODE IDENTIFICATION Left 08/22/2022 Laterality: Left; Surgeon: Lorenzo Farris III, MD; Location: [facility] OR LYMPHADENECTOMY AXILLARY DEEP Left 08/22/2022 Laterality: Left; Surgeon: Lorenzo Farris III, MD; Location: [facility] OR BREAST LUMPECTOMY Left 08/22/2022 IDC, HER2+ BX LYMPH NODE Left 08/22/2022 NEG CORE BIOPSY OF THE BREAST Left 03/15/2022 IDC INSERTION CVC TUNNELED W/ PORT PUMP 2021 RELEASE CARPAL TUNNEL Left 2012 DILATION AND CURETTAGE Current Outpatient Medications Medication Sig Dispense Refill Ascorbic Acid (Vitamin C) 1000 MG tablet Take 1 tablet by mouth daily. Cholecalciferol (Vitamin D3) 125 MCG (5000 UT) Tab Dispersible Take by mouth daily. Cyanocobalamin (B-12 PO) Take by mouth daily. Magnesium Gluconate (MAGNESIUM 27 PO) Take by mouth daily. [place]-3 1000 MG capsule Take 1 capsule by mouth daily. Valsartan 160 MG tablet Take 1 tablet by mouth 2 times daily. Zinc 22.5 MG tablet Take 1 tablet by mouth daily. No current facility-administered medications for this visit. No Known Allergies Social History: Social History Tobacco Use Smoking status: Former Current packs/day: 1.00 Average packs/day: 1 pack/day for 10.0 years (10.0 ttl pk-yrs) Types: Cigarettes Smokeless tobacco: Never Substance Use Topics Alcohol use: Not Currently Comment: wine occasionally prior to cancer diagnosis Drug use: Not Currently Types: Marijuana Comment: in teens Family History Problem Relation Age of Onset Lung Cancer Father Lung Cancer Sister Other - Specify Sister multiple sclerosis Breast Cancer Sister 62 DCIS Breast Cancer Sister 78 Lumpectomy w/short course of radiation Breast Cancer Cousin 55 maternal 1st cousin Ovarian Cancer Neg Hx Uterine Cancer Neg Hx Colorectal Cancer Neg Hx Prostate Cancer Neg Hx Medical/Surgical/Family/Social History: I have reviewed Ms. Alba's medical, surgical and other pertinent history in detail, and have updated the computerized patient record where appropriate. Review of Systems: Negative for additional constitutional, HEENT, cardiovascular, respiratory, gastrointestinal, genitourinary, musculoskeletal, integumentary, neurological, psychiatric, endocrine, or hematologic/lymphatic complaints aside from that which was mentioned in the history of present illness. Physical Examination: General: The patient is a well developed, well nourished female who appears her stated age of 64 y.o.. Vitals: BP 177/76 Pulse 67 Temp 97.5 F (36.4 C) (Oral) Ht 1.6 m (5' 3) Wt 64 kg (141 lb 3.2 oz) BMI 25.01 kg/m Smoking Status Former Neuro/psych: Her speech patterns and movements are normal. Her affect is appropriate. She is oriented to person, place and time. Recent and remote memory is intact. Neck: The trachea is in the midline. Neck is supple without lymphadenopathy or thyromegaly Breasts: The breasts appear symmetrical. There is a well healed incision upper left breast. The skin, nipples and areolas appear normal. There is no skin dimpling with movement of the pectoralis. There is no nipple retraction. No nipple discharge can be elicited. The parenchyma is mildly nodular. There are no dominant masses in either breast. The axillary tails are normal. Lymphatics: There is no suspicious cervical, supraclavicular, or axillary lymphadenopathy. Healed left axillary incision. Skin: Skin is warm and dry. Flush, pallor and rash absent. There are no other suspicious cutaneous lesions. Studies: EXAM: MAMMO DIAGNOSTIC WITH FRANDY BILATERAL, 03/19/2025 11:11 AM CLINICAL INDICATIONS AND HISTORY: screening C50.212:Malignant neoplasm of upper-inner quadrant of left breast in female, estrogen receptor negative Z17.1:Malignant neoplasm of upper-inner quadrant of left breast in female, estrogen receptor negative 64 year old female with history of left breast carcinoma status post lumpectomy, radiation therapy, and chemotherapy in 2022. COMPARISON: Diagnostic mammogram November 11, 2024, March 13, 3035, March 08, 2023. MAMMOGRAM TECHNIQUE: 2-D MLO and CC views were obtained of the bilateral breasts. 3-D MLO and CC digital tomosynthesis images were also acquired. Computer aided detection was utilized. MAMMOGRAM FINDINGS: Breast Density: There are scattered areas of fibroglandular density. Post lumpectomy changes in the left upper central breast at posterior depth. There are stable probably benign calcifications along the anterior margin of the lumpectomy bed. There are no suspicious masses, calcifications, or architectural distortions in the right breast. IMPRESSION IMPRESSION: 1. Left breast postsurgical changes with probably benign calcifications, favoring to represent evolving fat necrosis. 12-month follow-up mammogram with magnification views is recommended to ensure two year stability, at the time of bilateral annual mammography. 2. No mammographic evidence of malignancy in the right breast. BI-RADS: 3: Probably benign Recommendation: 12-month follow-up. Recommendation Laterality: Left Assessment and Plan: Lilia Alba is a 64 y.o. female with a history of left breast cancer. She is doing well. She denies any new breast concerns. Clinical exam today is without concerns. Imaging today is stable plan repeat imaging in 12 months. I reviewed imaging in detail with she and her . She will call with any new concerns. Rtc in 12 months with imaging/Dr Farris. [facility] Lilia Alba was offered and declined a Medical Photo Lab Manager for this exam/procedure/test 03/19/2025. documented in this encounter [facility] 03-19-2025 History of Present illness Narrative Patient offered a medical critical care unit manager for sensitive exam. Pt declined documented in this encounter [facility] 02-24-2025 Progress note Note Date/Time February 24, 2025 11:33am [facility] [address] [place] [address] OFFICE VISIT Date of Service: 02/24/25934 MR#: [id number] Acct: [id number] Name: LILIA ALBA Rep #: [id number] : 1960 From: Avery aguilar DO Age/Sex: 64/F Location: [facility] Status: Signed Intake Vital Signs 06/26/24 14:32 01/22/25 10:58 02/24/25 09:53 Height 5 ft 3 in 5 ft 3 in 5 ft 3 in Weight: 140 lb 2 oz BMI 24.8 BP 156/88 H Blood Pressure Location Rt brachial Position Sitting Respiration 16 Pulse 69 Pulse Source Monitor Temp 97.3 F L Temperature Source Temporal Artery Pulse Oximetry (%) 98 Oxygen Delivery Method room air Intake Visit Reasons: 8 MONTH BREAST F/U Chief Complaint: Breast cancer follow-up Allergies No Known Allergies Allergy (Verified 02/24/25 09:38) Medications ?Medication ?Instructions ?Recorded ?Confirmed ?Type ascorbate calcium (vitamin C) 500 1,000 mg PO DAILY 02/24/25 History mg tablet cholecalciferol (vitamin D3) 125 125 mcg PO DAILY 03/0902/24/25 History mcg (5,000 unit) capsule -pyh-lst-other [id number] 1 cap PO DAILY 03/2702/24/25 History oil 350 mg-400 mg capsule Hair Prosthesis #1 ea 04/12/22 01/22/25 Rx melatonin 10 mg tablet 10 mg PO HS PRN 09/20/22 History vitamin B complex (B 1 tab PO DAILY 09/20/2202/06 History Complex-Vitamin B12 tablet) magnesium oxide 400 mg PO DAILY 11/16/22 History valsartan 160 mg tablet 160 mg PO BID #180 tabs 05/1002/24/25 Rx zinc glycinate 20 mg capsule 20 mg PO QDAY 02/24/25 History Have you fallen in the past year?: No PFSH PFSH Medical History Bladder prolapse Hypokalemia Hypomagnesemia Hand foot syndrome HER2-positive carcinoma of breast Encounter for monitoring cardiotoxic drug therapy Hypokalemia Encounter for chemotherapy management Port-A-Cath in place Alopecia Wears contact lenses Wears glasses Cancer Alcohol use Arthritis Back pain Former smoker History of pain when walking History of stress test Cardiology follow-up encounter Encounter for education Breast cancer of upper-outer quadrant of left female breast Asthma Anxiety Hypertension Home Medications ?Medication ?Instructions ?Recorded ?Last Taken ?Type ascorbate calcium (vitamin C) 500 1,000 mg PO DAILY Unknown History mg tablet cholecalciferol (vitamin D3) 125 125 mcg PO DAILY 03/09 03/30 Unknown History mcg (5,000 unit) capsule qqadr5-yml-ctf-other [id number] 1 cap PO DAILY 03/27 Unknown History oil 350 mg-400 mg capsule Hair Prosthesis #1 ea 04/12/22 Unknown Rx melatonin 10 mg tablet 10 mg PO HS PRN 09/20/22 Unk nown History vitamin B complex (B 1 tab PO DAILY 09/20/22 Unkn own History Complex-Vitamin B12 tablet) magnesium oxide 400 mg PO DAILY 11/16/22 Unk nown History valsartan 160 mg tablet 160 mg PO BID #180 tabs 05/10 12/30 Unknown Rx zinc glycinate 20 mg capsule 20 mg PO QDAY 02/24/25 Un known History Allergy/AdvReac Type Severity Reaction Status Date / Time No Known Allergies Allergy Verified 02/24/25 09:38 Family History Father Hypertension Diabetes Lung cancer Smoker Mother Hypertension Sister Breast cancer, Onset Age: 62 precancerous cells, lumpectomy/radiation Cancer, Onset Age: 50 lung - other sister (smoker) Hypertension Smoker Multiple sclerosis sister w/ breast cancer Brother Heart disease Hypertension Surgical History History of removal of Port-a-Cath H/O lumpectomy History of carpal tunnel release Social History household members: spouse number of children: 4 Smoking Status: Former smoker Tobacco: How many years used: 10 how long ago did patient quit smoking: in her mid 20's second hand exposure: Yes alcohol intake: current alcohol intake frequency: a few times a week Alcohol type: wine details: occasional substance use type: does not use Diagnosis: Lilia Alba is a 64 year-old female diagnosed with clinical stage IA, prognostic stage IA (cT1c cN0, ypT0 yp N0 (i-) (sn) Mx) grade 3 invasive ductal carcinoma (ER 0%, MA 0%, HER2 3+ IHC) status post bilateral screening mammography (02/22/2022), left breast diagnostic mammogram and ultrasound (03/01/2022), left breast core needle biopsy (03/15/2022), completion of 6 cycles of neoadjuvant TCHP(04/12/2022 ? 07/31/2022), and completion of left breast lumpectomy and sentinel lymph node biopsy (08/22/2022). From 09/25/2022 ? 10/13/2022 she completed adjuvant radiation therapy to the left breast. History of Present Illness: 02/22/2022: Bilateral screening mammography was performed.? This demonstrated a 1cm oval circumscribed equal density mass in the axillary tail of the left breastand focal compression views are recommended for further evaluation.? BI-RADS Category 0. 03/01/2022: Patient completed diagnostic mammogram of the left breast and ultrasound.? This demonstrated a 1.1 x 0.7 cm spiculated nodule in the deep upper central portion of the left breast.? On ultrasound the mammographic abnormality corresponds to an 8 x 7 x 7 mm slightly lobulated hypoechoic solid nodule, recommend biopsy.? BI-RADS Category 4. 03/15/2022: Patient completed left breast core biopsy.? Pathology demonstrated grade 3 invasive ductal carcinoma (ER 0%, MA 0%, HER2 3+ IHC). 04/12/2022 ? 07/31/2022: Completed 6 cycles of Taxotere, carboplatin, Herceptin, Perjeta (TCHP) 08/22/2022: Patient completed left breast lumpectomy and sentinel lymph node biopsy to the upper inner quadrant tumor.? Pathology demonstrated no evidence ofresidual tumor.? 1 sentinel lymph node was obtained and did not contain any metastatic disease and no treatment effect was identified.? ypT0 yp N0 (i-) (sn) From 09/25/2022 ? 10/13/2022: received adjuvant radiation therapy to the left breast consisting of 4000 cGy delivered to the whole breast and 4800 cGy delivered to the lumpectomy cavity with a simultaneous integrated boost technique all in 15 fractions.? She was treated with a 3D conformal technique inthe prone position. 03/08/2023: Bilateral diagnostic mammogram was performed. This demonstrated bilateral benign-appearing calcifications, postsurgical changes from the lumpectomy are again noted in the upper outer posterior third of the left breast. No suspicious masses calcifications or architectural distortion is noted. BI-RADS Category 2. 03/13/2024: bilateral diagnostic mammogram was completed, left breast showed probably benign calcifications. BIRADS 3 09/11/2024: Patient completed diagnostic mammogram of the left breast.? This demonstrated benign calcification in the left breast adjacent to the prior lumpectomy site likely representing fat necrosis, recommend 6-month follow-up mammogram.? BI-RADS Category 3. Radiation Treatment History: 1) From 09/25/2022 ? 10/13/2022: received adjuvant radiation therapy to the left breast consisting of 4000 cGy delivered to the whole breast and 4800 cGy deliveredto the lumpectomy cavity with a simultaneous integrated boost technique all in 15 fractions.? She was treated with a 3D conformal technique in the prone position. Interval History: Patient presents for follow-up approximately 28 months after completing adjuvantradiation to the left breast. She reports doing very well overall. She denies having skin thickening, tanning/erythema. She denies having any swelling or discomfort in this breast. She does report full arm range of motion without tightness or stiffness. She denies having any arm swelling. Energy level has remained fairly good. She denies cough, shortness of breath, chest pain, bone pain, headache, vision changes, focal weakness/numbness. She is staying active in her daily life and completes all ADLs without any difficulty. She is exercising regularly. She denies having other problems or concerns at this time. Review of Systems: A 12-point review of systems was completed and was negative except for what is noted in the HPI/Interval History and by the nurse. Physical Exam: Weight: 142 lbs ECO KARNOFSKY SCORE: 80% CONSTITUTIONAL: Well-developed, well-nourished, and in no apparent distress. NECK: Supple, no thyromegaly, and non-tender. Trachea midline. No cervical or supraclavicular adenopathy noted. CARDIAC: Regular rate and rhythm. Normal S1, S2. No murmurs, rubs, or gallops. PULMONARY/CHEST: Lungs are clear to auscultation and percussion bilaterally. No wheezes, rhonchi, or crackles noted. No increased work of breathing. BREAST: Bilateral breasts are examined in seated and supine position. Breasts appear mostly symmetrical. Within the left breast there is a well-healed lumpectomy incision and a well-healed incision within the left axilla, some volume loss noted. No tanning, skin erythema or peeling. No skin thickening isnoted. There are no palpable lesions in either breast or axilla. PSYCHIATRIC: Appropriate mood and affect for the clinical situation. Imaging: As per HPI Laboratory Data: None Assessment & Plan Assessment/Plan (1) Breast cancer of upper-outer quadrant of left female breast: QUALIFIERS: Estrogen receptor status: positive Qualified Code(s):C50.412 - Malignant neoplasm of upper-outer quadrant of left female breast; Z17.0 - Estrogen receptor positive status [ER+] PLAN: Plan Assessment: Lilia Alba is a 64 year-old female diagnosed with clinical stage IA, prognostic stage IA (cT1c cN0, ypT0 yp N0 (i-) (sn) Mx) grade 3 invasive ductal carcinoma (ER 0%, MA 0%, HER2 3+ IHC) status post bilateral screening mammography (02/22/2022), left breast diagnostic mammogram and ultrasound (03/01/2022), left breast core needle biopsy (03/15/2022), completion of 6 cycles of neoadjuvant TCHP (04/12/2022 ? 07/31/2022), and completion of left breast lumpectomy and sentinel lymph node biopsy (08/22/2022). From 09/25/2022 ? 10/13/2022 she completed adjuvant radiation therapy to the left breast. Plan: Patient presents for follow-up approximately 28 months after completing adjuvant radiation therapy to the left breast. There is no evidence of disease on exam. Mammogram completed 09/11/2024 demonstrated probably benign calcifications, planning repeat mammogram at [facility] in March. She does have persistent toxicity including volume loss. Reviewed skin care instructions including sun avoidance and use of lotion to prevent increased dryness. For disease follow-up I recommended that she have a breast exam every 6 months during years 3-5. I will plan to have her return for routine follow-up 6 months after her visit with her breast surgeon at [facility] next month and she was instructed to call with any further questions or concerns in the interim. Thank you for allowing me to participate in the management and care of your patient. If I may answer any questions in the interim, please do not hesitate to contact me at any time. Avery Rios DO, MS [employer], Department of Radiation Oncology [facility] Coding Level of Care Code Off vis,est,level 3 Diagnoses Malignant neoplasm of upper-outer quadrant of left breast in female, estrogen receptor positive C50.412; Z17.0 Estrogen receptor status: positive 02/24/25 1133 <Electronically signed by Avery Rios DO> Date _ Avery Rios DO [facility] Signature: Date (if applicable) CC: Dr. Vincenzo Proctor MD; Lorenzo Farris MD ~ [facility] [email or web address] Work Phone: [phone]) [phone] [facility] [address] [address] OFFICE VISIT Date of Service: 02/24/25 0935 MR#: [id number] Acct: [id number] Name: LILIA ALBA Rep #: [id number] : 1960 From: Avery aguilar DO Age/Sex: 64/F Location: [facility] Status: Signed Intake Vital Signs 06/26/24 14:32 01/22/25 10:58 02/24/25 09:53 Height 5 ft 3 in 5 ft 3 in 5 ft 3 in Weight: 140 lb 2 oz BMI 24.8 BP 156/88 H Blood Pressure Location Rt brachial Position Sitting Respiration 16 Pulse 69 Pulse Source Monitor Temp 97.3 F L Temperature Source Temporal Artery Pulse Oximetry (%) 98 Oxygen Delivery Method room air Intake Visit Reasons: 8 MONTH BREAST F/U Chief Complaint: Breast cancer follow-up Allergies No Known Allergies Allergy (Verified 02/24/25 09:38) Medications ?Medication ?Instructions ?Recorded ?Confirmed ?Type ascorbate calcium (vitamin C) 500 1,000 mg PO DAILY 02/24/25 History mg tablet cholecalciferol (vitamin D3) 125 125 mcg PO DAILY 03/0902/24/25 History mcg (5,000 unit) capsule -btk-usc-other vrbpq2x-bont 1 cap PO DAILY 03/2702/24/25 History oil 350 mg-400 mg capsule Hair Prosthesis #1 ea 04/12/22 01/22/25 Rx melatonin 10 mg tablet 10 mg PO HS PRN 09/20/22 History vitamin B complex (B 1 tab PO DAILY 09/20/2202/06 History Complex-Vitamin B12 tablet) magnesium oxide 400 mg PO DAILY 11/16/22 History valsartan 160 mg tablet 160 mg PO BID #180 tabs 05/1002/24/25 Rx zinc glycinate 20 mg capsule 20 mg PO QDAY 02/24/25 History Have you fallen in the past year?: No PFSH PFSH Medical History Bladder prolapse Hypokalemia Hypomagnesemia Hand foot syndrome HER2-positive carcinoma of breast Encounter for monitoring cardiotoxic drug therapy Hypokalemia Encounter for chemotherapy management Port-A-Cath in place Alopecia Wears contact lenses Wears glasses Cancer Alcohol use Arthritis Back pain Former smoker History of pain when walking History of stress test Cardiology follow-up encounter Encounter for education Breast cancer of upper-outer quadrant of left female breast Asthma Anxiety Hypertension Home Medications ?Medication ?Instructions ?Recorded ?Last Taken ?Type ascorbate calcium (vitamin C) 500 1,000 mg PO DAILY Unknown History mg tablet cholecalciferol (vitamin D3) 125 125 mcg PO DAILY 03/09 03/30 Unknown History mcg (5,000 unit) capsule ejhrm4-aav-ocn-other mfycz4d-rbxq 1 cap PO DAILY 03/27 Unknown History oil 350 mg-400 mg capsule Hair Prosthesis #1 ea 04/12/22 Unknown Rx melatonin 10 mg tablet 10 mg PO HS PRN 09/20/22 Unk nown History vitamin B complex (B 1 tab PO DAILY 09/20/22 Unkn own History Complex-Vitamin B12 tablet) magnesium oxide 400 mg PO DAILY 11/16/22 Unk nown History valsartan 160 mg tablet 160 mg PO BID #180 tabs 05/10 12/30 Unknown Rx zinc glycinate 20 mg capsule 20 mg PO QDAY 02/24/25 Un known History Allergy/AdvReac Type Severity Reaction Status Date / Time No Known Allergies Allergy Verified 02/24/25 09:38 Family History Father Hypertension Diabetes Lung cancer Smoker Mother Hypertension Sister Breast cancer, Onset Age: 62 precancerous cells, lumpectomy/radiation Cancer, Onset Age: 50 lung - other sister (smoker) Hypertension Smoker Multiple sclerosis sister w/ breast cancer Brother Heart disease Hypertension Surgical History History of removal of Port-a-Cath H/O lumpectomy History of carpal tunnel release Social History household members: spouse number of children: 4 Smoking Status: Former smoker Tobacco: How many years used: 10 how long ago did patient quit smoking: in her mid 20's second hand exposure: Yes alcohol intake: current alcohol intake frequency: a few times a week Alcohol type: wine details: occasional substance use type: does not use Diagnosis: Lilia Alba is a 64 year-old female diagnosed with clinical stage IA, prognostic stage IA (cT1c cN0, ypT0 yp N0 (i-) (sn) Mx) grade 3 invasive ductal carcinoma (ER 0%, MA 0%, HER2 3+ IHC) status post bilateral screening mammography (02/22/2022), left breast diagnostic mammogram and ultrasound (03/01/2022), left breast core needle biopsy (03/15/2022), completion of 6 cycles of neoadjuvant TCHP(04/12/2022? 07/31/2022), and completion of left breast lumpectomy and sentinel lymph node biopsy (08/22/2022). From 09/25/2022 ? 10/13/2022 she completed adjuvant radiation therapy to the left breast. History of Present Illness: 02/22/2022: Bilateral screening mammography was performed.? This demonstrated a 1cm oval circumscribed equal density mass in the axillary tail of the left breastand focal compression views are recommended for further evaluation.? BI- RADS Category 0. 03/01/2022: Patient completed diagnostic mammogram of the left breast and ultrasound.? This demonstrated a 1.1 x 0.7 cm spiculated nodule in the deep upper central portion of the left breast.? On ultrasound the mammographic abnormality corresponds to an 8 x 7 x 7 mm slightly lobulated hypoechoic solid nodule, recommend biopsy.? BI-RADS Category 4. 03/15/2022: Patient completed left breast core biopsy.? Pathology demonstrated grade 3 invasive ductal carcinoma (ER 0%, MA 0%, HER2 3+ IHC). 04/12/2022 ? 07/31/2022: Completed 6 cycles of Taxotere, carboplatin, Herceptin, Perjeta (TCHP) 08/22/2022: Patient completed left breast lumpectomy and sentinel lymph node biopsy to the upper inner quadrant tumor.? Pathology demonstrated no evidence ofresidual tumor.? 1 sentinel lymph node was obtained and did not contain any metastatic disease and no treatment effect was identified.? ypT0 ypN0 (i-) (sn) From 09/25/2022 ? 10/13/2022: received adjuvant radiation therapy to the left breast consisting of 4000 cGy delivered to the whole breast and 4800 cGy delivered to the lumpectomy cavity with a simultaneous integrated boost technique all in 15 fractions.? She was treated with a 3D conformal technique in the prone position. 03/08/2023: Bilateral diagnostic mammogram was performed. This demonstrated bilateral benign-appearing calcifications, postsurgical changes from the lumpectomy are again noted in the upper outer posterior third of the left breast. No suspicious masses calcifications or architectural distortion is not ed. BI-RADS Category 2. 03/13/2024: bilateral diagnostic mammogram was completed, left breast showed probably benign calcifications. BIRADS 3 09/11/2024: Patient completed diagnostic mammogram of the left breast.? This demonstrated benign calcification in the left breast adjacent to the prior lumpectomy site likely representing fat necrosis,recommend 6-month follow-up mammogram.? BI-RADS Category 3. Radiation Treatment History: 1) From 09/25/2022 ? 10/13/2022: received adjuvant radiation therapy to the left breast consisting of 4000 cGy delivered to the whole breast and 4800 cGy deliveredto the lumpectomy cavity with a simultaneous integrated boost technique all in 15 fractions.? She was treated with a 3D conformal techniquein the prone position. Interval History: Patient presents for follow-up approximately 28 months after completing adjuvantradiation to the left breast. She reports doing very well overall. She denies having skin thickening, tanning/erythema.She denies having any swelling or discomfort in this breast. She does report full arm range of motion without tightness or stiffness. She denies having any arm swelling. Energy level has remained fairly good. She denies cough, shortness of breath, chest pain, bone pain, headache, vision changes, focal weakness/numbness. She is staying active in her daily life and completes all ADLs without any difficulty. She is exercising regularly. She denies having other problems or concerns at this time. Review of Systems: A 12-point review of systems was completed and was negative except for what is noted in the HPI/Interval History and by the nurse. Physical Exam: Weight: 142 lbs ECO KARNOFSKY SCORE: 80% CONSTITUTIONAL: Well-developed, well-nourished, and in no apparent distress. NECK: Supple, no thyromegaly, and non-tender. Trachea midline. No cervical or supraclavicular adenopathy noted. CARDIAC: Regular rate and rhythm. Normal S1, S2. No murmurs, rubs, or gallops. PULMONARY/CHEST: Lungs are clear to auscultation and percussion bilaterally. No wheezes, rhonchi, or crackles noted. No increased work of breathing. BREAST: Bilateral breasts are examined in seated and supine position. Breasts appear mostly symmetrical. Within the left breast there is a well-healed lumpectomy incision and a well-healed incision within the left axilla, some volume loss noted. No tanning, skin erythema or peeling. No skin thickening isnoted. There are no palpable lesions in either breast or axilla. PSYCHIATRIC: Appropriate mood and affect for the clinical situation. Imaging: As per HPI Laboratory Data: None Assessment & Plan Assessment/Plan (1) Breast cancer of upper-outer quadrant of left female breast: QUALIFIERS: Estrogen receptor status: positive Qualified Code(s):C50.412 - Malignant neoplasm of upper-outer quadrant of left female breast; Z17.0 - Estrogen receptor positive status [ER+] PLAN: Plan Assessment: Lilia Alba is a 64 year-old female diagnosed with clinical stage IA, prognostic stage IA (cT1c cN0, ypT0 yp N0 (i-) (sn) Mx) grade 3 invasive ductal carcinoma (ER 0%, MA 0%, HER2 3+ IHC) status post bilateral screening mammography (02/22/2022), left breast diagnostic mammogram and ultrasound (03/01/2022), left breast core needle biopsy (03/15/2022), completion of 6 cycles of neoadjuvant TCHP (04/12/2022 ? 07/31/2022), and completion of left breast lumpectomy and sentinel lymph node biopsy (08/22/2022).From 09/25/2022 ? 10/13/2022 she completed adjuvant radiation therapy to the left breast. Plan: Patient presents for follow-up approximately 28 months after completing adjuvant radiation therapy to the left breast. There is no evidence of disease on exam. Mammogram completed 09/11/2024 demonstrated probably benign calcifications, planning repeat mammogram at [facility] in March. She does have persistent toxicity including volume loss. Reviewed skin care instructions including sun avoidance and use of lotion to prevent increased dryness. For disease follow-up I recommended that she have a breast exam every 6 months during years 3-5. I will plan to have her return for routine follow-up 6 months after her visit with her breast surgeon at [facility] next month and she was instructed to call with any further questions or concerns in the interim. Thank you for allowing me to participate in the management and care of your patient. If I may answer any questions in the interim, please do not hesitate to contact me at any time. Avery Rios DO, MS [employer], Department of Radiation Oncology [facility] Coding Level of Care Code Off vis,est,level 3 Diagnoses Malignant neoplasm of upper-outer quadrant of left breast in female, estrogen receptor positive C50.412; Z17.0 Estrogen receptor status: positive 02/24/25 1133 DO> Date _ Avery Rios DO [facility] Signature: Date (if applicable) CC: Dr. Vincenzo Proctor MD; Lorenzo Farris MD ~ [facility]07-17-2025 Evaluation note* Diagnosis Onset Date Resolution Status Admit Date Breast cancer of upper-outer quadrant of left female breast acute J andria 2024 10:28am Breast cancer of upper-outer quadrant of left female breast acute A ugust 2024 9:06am [facility] Work Phone: 1(720) 646-391007-17-2025 [facility] [address] [place], [place] [address] [address] OFFICE VISIT Date of Service: 01/22/25 1050 MR#: [id number] Acct: [id number] Name: LILIA ALBA Rep #: [id number] : 1960 From: Janet Callejas ch JURY CONSULTANT JURY CONSULTANT-C Age/Sex: 64/F Location: [facility] Status: Signed HPI Subjective Date of Service 01/22/25 Chief Complaint Breast cancer follow-up History of Present Illness 64-year-old female who presented after an abnormal screening mammogram. She missed screening mammography 2020. Positive family history for breast cancer; sister with DCIS. 02/22/2022 Mammograph: MPRESSION: 1 cm oval circumscribed equal density mass maxillary tail left breast and focal compression? 02/22/2022 U/S: IMPRESSION: 8 mm x 7 mm x 7 mm slightly lobulated hypoechoic solid nodule 11 o''clock position breast at 12 cm from nipple. ?03/15/2022 Left breast, core biopsy: Invasive ductal carcinoma, nuclear grade 3 (0.8 cm in greatest length). ANTIBODY / CLONE RESULT E-Cad (ECH-6) positive CK8 (84tyeiR34) positive Calponin-1 (EX975W) negative CK5-6 (D5 & 1684) negative P40 (BC28) negative P53 (DO-7) positive (>80%) Ki-67 (30-9) positive, moderate (~50%) MORPHOMETRIC ANALYSIS ER (clone 6F11) 0 MA (clone 16/1E2) 0 Her-2Neu (clone CB11) 3+ September 21, 2022 left partial mastectomy and sentinel lymph node biopsy Pathology: Complete pathologic remission Treatment summary and response: * Neoadjuvant TCHP April 12, 2022-July 26, 2022 (6 cycles) * Left partial mastectomy with sentinel lymph node biopsy at [facility] September 21, 2022; was incomplete pathologic remission. * Adjuvant Herceptin October 24, 2022-March 01, 2023 (1 year total) * Adjuvant radiation therapy to the left breast consisting of 4000 cGy delivered to the whole breast and 4800 cGy delivered to the lumpectomy cavity with a simultaneous integrated boost technique allin 15 fractions.? She was treated with a 3D conformal technique in the prone position.? Date of First Treatment: 09/25/2022 Date of Last Treatment: 10/13/2022 Total Elapsed Days (including weekend and holidays): 18 Interval History The patient is presenting to clinic for a planned 4 month follow up. She met with Dr. Farris at [facility] for clinical breast exam and she underwent left breast diagnostic mammogram on 12/12/24, BIRADS 3 report indicates redemonstrationof probably benign calcifications int heleft breast adjacent to prior lumpectomy site. Plans repeat left breast mammogram in March. Exercising three times per week one hour circuit training to include weight lifting and cardio. BPs at home are running 130/70s. Once in a great while experiences palpitations only occurs with anxiety in social situations. Underwent a screening colonoscopy under the care of Dr. Ty at [facility] earlier thisyear, pt reports 1 polyp and repeat was recommended in 3 years. Specifically denies weight loss, headache, dizziness, CP,, cough, SOB, abd pain,bone pain. [facility] Medical History Bladder prolapse Hypokalemia Hypomagnesemia Hand foot syndrome HER2-positive carcinoma of breast Encounter for monitoring cardiotoxic drug therapy Hypokalemia Encounter for chemotherapy management Port-A-Cath in place Alopecia Wears contact lenses Wears glasses Cancer Alcohol use Arthritis Back pain Former smoker History of pain when walking History of stress test Cardiology follow-up encounter Encounter for education Breast cancer of upper-outer quadrant of left female breast Asthma Anxiety Hypertension Surgical History History of removal of Port-a-Cath H/O lumpectomy History of carpal tunnel release Family History Father Hypertension Diabetes Lung cancer Smoker Mother Hypertension Sister Breast cancer, Onset Age: 62 precancerous cells, lumpectomy/radiation Cancer, Onset Age: 50 lung - other sister (smoker) Hypertension Smoker Multiple sclerosis sister w/ breast cancer Brother Heart disease Hypertension Social History household members: spouse number of children: 4 Smoking Status: Former smoker Tobacco: How many years used: 10 how long ago did patient quit smoking: in her mid 20's second hand exposure: Yes alcohol intake: current alcohol intake frequency: a few times a week Alcohol type: wine details: occasional substance use type: does not use ROS ROS Narrative Negative except as documented in the interval HPI Intake Vital Signs 09/18/24 14:38 01/22/25 10:53 01/22/25 10:58 Height 5 ft 3 in 5 ft 3 in 5 ft 3 in Weight: 140 lb 4 oz 142 lb 4 oz BMI 24.8 25.2 BP 162/78 H 177/82 H Blood Pressure Location Lt brachial Lt brachial Position Sitting Sitting Respiration 18 16 Pulse 67 65 Pulse Source Monitor Monitor Temp 97.7 F L 98.4 F Temperature Source Temporal Artery Temporal Artery Pulse Oximetry (%) 98 98 Oxygen Delivery Method room air room air Intake Is patient in pain?: No Allergies No Known Allergies Allergy (Verified 01/22/25 10:50) Medications ?Medication ?Instructions ?Recorded ?Confirmed ?Type ascorbate calcium (vitamin C) 500 1,000 mg PO DAILY 01/22/25 History mg tablet cholecalciferol (vitamin D3) 125 125 mcg PO DAILY 03/0901/22/25 History mcg (5,000 unit) capsule igbvz7-psg-zpv-other rqang1c-tjlp 1 cap PO DAILY 03/2701/22/25 History oil 350 mg-400 mg capsule Hair Prosthesis #1 ea 04/12/22 01/22/25 Rx melatonin 10 mg tablet 10 mg PO HS PRN 09/20/22 History vitamin B complex (B 1 tab PO DAILY 09/20/2201/06 History Complex-Vitamin B12 tablet) magnesium oxide 400 mg PO DAILY 11/16/22 History valsartan 160 mg tablet 160 mg PO BID #180 tabs 05/1001/22/25 Rx Have you fallen in the past year?: No Central Venous Access Central Venous Access: No Exam Physical Exam Narrative ECOG 0 Const alert, oriented x3 and no apparent distress General Appearance: comfortable HEENT normocephalic Face and Sinus: normal facial exam Mouth: oral and palatal mucosa normal Eyes General Eye: normal appearance of both eyes Neck no lymphadenopathy, supple and no JVD Chest Chest: symmetrical chest wall rise Resp clear to auscultation bilaterally Cardio regular rate and regular rhythm Jugular Venous Distention: Negative for JVD GI soft to palpation, non-tender and non-distended; Negative for hepatosplenomegaly no CVA tenderness Back/Spine no thoracic nor lumbar tenderness Extremity no clubbing, cyanosis or edema Skin no rashes or lesions noted Neuro oriented x3, CN's II-XII intact bilaterally, moves all extremities and no focal motor deficits Speech: speech normal Gait (Neuro): normal gait Psych mental status grossly normal Coding Level of Care Code Off vis,est,level 4 Exam Problem Focused Diagnoses Malignant neoplasm of upper-outer quadrant of left breast in female, estrogen receptor positive C50.412; Z17.0 Estrogen receptor status: positive Assessment and Plan Assessment and Plan (1) Breast cancer of upper-outer quadrant of left female breast: Status: Acute Qualifiers: Estrogen receptor status: positive Qualified Code(s): C50.412 - Malignant neoplasm of upper-outer quadrant of left female breast; Z17.0 - Estrogen receptor positive status [ER+] Plan 63-year-old female with an invasive ductal cancer of the left breast clinical stage I (T1c, N0, M0), ER negative, MA negative, HER2/veronica overexpressed 3+, Ki- 67 positive moderate 50%. Positive family history of breast cancer (sister with DCIS). Genetic testing March 2022 did not identify any known deleterious mutation. Received 6 cycles of neoadjuvant TCHP April?July 2022 no grade 3 or 4 toxicities. Underwent left breast partial mastectomy with sentinel lymph node biopsy at [facility] and wasfound to be in complete pathologic remission in September 2022. Concluded 1 year of adjuvant Herceptin March 01, 2023 Chronic comorbid conditions: Hypertension, degenerative joint disease, mild asthma (on rescue treatment only) and chronic anxiety. Plan: Based on the most recent NCCN guidelines and up-to-date review of management of early-stage HER2 positive invasive ductal cancer. 1. Patient is now on surveillance. 2. Screening mammography at [facility], next to schedule March 2025. 3. Postmenopausal osteopenia on vitamin D and calcium supplement. Clinical Quality Measures Falls Risk Screening/Assistive Devices Have you fallen in the past year?: No 01/22/25 1142 h JURY CONSULTANT JURY CONSULTANT-C> Date _ Janet Hernandez JURY CONSULTANT JURY CONSULTANT-C Cosigner Signature: Date (if applicable) CC: ~ [facility]07-17-2025 Progress note Author Janet Hernandez [facility] Note Date/Time January 22, 2025 11:4 2am [facility] [place] [address] OFFICE VISIT Date of Service: 01/22/25 1050 MR#: [id number] Acct: [id number] Name: LILIA ALBA Rep #: [id number] : 1960 From: Janet Callejas JURY CONSULTANT JURY CONSULTANT-C Age/Sex: 64/F Location: [facility] Status: Signed HPI Subjective Date of Service 01/22/25 Chief Complaint Breast cancer follow-up History of Present Illness 64-year-old female who presented after an abnormal screening mammogram. She missed screening mammography 2020. Positive family history for breast cancer; sister with DCIS. 02/22/2022 Mammograph: MPRESSION: 1 cm oval circumscribed equal density mass maxillary tail left breast and focal compression? 02/22/2022 U/S: IMPRESSION: 8 mm x 7 mm x 7 mm slightly lobulated hypoechoic solid nodule 11 o''clock position breast at 12 cm from nipple. ?03/15/2022 Left breast, core biopsy: Invasive ductal carcinoma, nuclear grade 3 (0.8 cm in greatest length). ANTIBODY / CLONE RESULT E-Cad (ECH-6) positive CK8 (23kzhpC02) positive Calponin-1 (AO690J) negative CK5-6 (D5 & 1684) negative P40 (BC28) negative P53 (DO-7) positive (>80%) Ki-67 (30-9) positive, moderate (~50%) MORPHOMETRIC ANALYSIS ER (clone 6F11) 0 MA (clone 16/1E2) 0 Her-2Neu (clone CB11) 3+ September 21, 2022 left partial mastectomy and sentinel lymph node biopsy Pathology: Complete pathologic remission Treatment summary and response: * Neoadjuvant TCHP April 12, 2022-July 26, 2022 (6 cycles) * Left partial mastectomy with sentinel lymph node biopsy at [facility] September 21, 2022; was in complete pathologic remission. * Adjuvant Herceptin October 24, 2022-March 01, 2023 (1 year total) * Adjuvant radiation therapy to the left breast consisting of 4000 cGy delivered to the whole breast and 4800 cGy delivered to the lumpectomy cavity with a simultaneous integrated boost technique all in 15 fractions.? She was treated with a 3D conformal technique in the prone position.? Date of First Treatment: 09/25/2022 Date of Last Treatment: 10/13/2022 Total Elapsed Days (including weekend and holidays): 18 Interval History The patient is presenting to clinic for a planned 4 month follow up. She met with Dr. Farris at [facility] for clinical breast exam and she underwent left breast diagnostic mammogram on 12/12/24, BIRADS 3 report indicates redemonstrationof probably benign calcifications int he left breast adjacent to prior lumpectomy site. Plans repeat left breast mammogram in March. Exercising three times per week one hour circuit training to include weight lifting and cardio. BPs at home are running 130/70s. Once in a great while experiences palpitations only occurs with anxiety in social situations. Underwent a screening colonoscopy under the care of Dr. Ty at [facility] earlier thisyear, pt reports 1 polyp and repeat was recommended in 3 years. Specifically denies weight loss, headache, dizziness, CP,, cough, SOB, abd pain,bone pain. PFSH Medical History Bladder prolapse Hypokalemia Hypomagnesemia Hand foot syndrome HER2-positive carcinoma of breast Encounter for monitoring cardiotoxic drug therapy Hypokalemia Encounter for chemotherapy management Port-A-Cath in place Alopecia Wears contact lenses Wears glasses Cancer Alcohol use Arthritis Back pain Former smoker History of pain when walking History of stress test Cardiology follow-up encounter Encounter for education Breast cancer of upper-outer quadrant of left female breast Asthma Anxiety Hypertension Surgical History History of removal of Port-a-Cath H/O lumpectomy History of carpal tunnel release Family History Father Hypertension Diabetes Lung cancer Smoker Mother Hypertension Sister Breast cancer, Onset Age: 62 precancerous cells, lumpectomy/radiation Cancer, Onset Age: 50 lung - other sister (smoker) Hypertension Smoker Multiple sclerosis sister w/ breast cancer Brother Heart disease Hypertension Social History household members: spouse number of children: 4 Smoking Status: Former smoker Tobacco: How many years used: 10 how long ago did patient quit smoking: in her mid 20's second hand exposure: Yes alcohol intake: current alcohol intake frequency: a few times a week Alcohol type: wine details: occasional substance use type: does not use ROS ROS Narrative Negative except as documented in the interval HPI Intake Vital Signs 09/18/24 14:38 01/22/25 10:53 01/22/25 10:58 Height 5 ft 3 in 5 ft 3 in 5 ft 3 in Weight: 140 lb 4 oz 142 lb 4 oz BMI 24.8 25.2 BP 162/78 H 177/82 H Blood Pressure Location Lt brachial Lt brachial Position Sitting Sitting Respiration 18 16 Pulse 67 65 Pulse Source Monitor Monitor Temp 97.7 F L 98.4 F Temperature Source Temporal Artery Temporal Artery Pulse Oximetry (%) 98 98 Oxygen Delivery Method room air room air Intake Is patient in pain?: No Allergies No Known Allergies Allergy (Verified 01/22/25 10:50) Medications ?Medication ?Instructions ?Recorded ?Confirmed ?Type ascorbate calcium (vitamin C) 500 1,000 mg PO DAILY 01/22/25 History mg tablet cholecalciferol (vitamin D3) 125 125 mcg PO DAILY 03/0901/22/25 History mcg (5,000 unit) capsule -dct-ifd-other [id number] 1 cap PO DAILY 03/2701/22/25 History oil 350 mg-400 mg capsule Hair Prosthesis #1 ea 04/12/22 01/22/25 Rx melatonin 10 mg tablet 10 mg PO HS PRN 09/20/22 History vitamin B complex (B 1 tab PO DAILY 09/20/2201/06 History Complex-Vitamin B12 tablet) magnesium oxide 400 mg PO DAILY 11/16/22 History valsartan 160 mg tablet 160 mg PO BID #180 tabs 05/1001/22/25 Rx Have you fallen in the past year?: No Central Venous Access Central Venous Access: No Exam Physical Exam Narrative ECOG 0 Const alert, oriented x3 and no apparent distress General Appearance: comfortable HEENT normocephalic Face and Sinus: normal facial exam Mouth: oral and palatal mucosa normal Eyes General Eye: normal appearance of both eyes Neck no lymphadenopathy, supple and no JVD Chest Chest: symmetrical chest wall rise Resp clear to auscultation bilaterally Cardio regular rate and regular rhythm Jugular Venous Distention: Negative for JVD GI soft to palpation, non-tender and non-distended; Negative for hepatosplenomegaly no CVA tenderness Back/Spine no thoracic nor lumbar tenderness Extremity no clubbing, cyanosis or edema Skin no rashes or lesions noted Neuro oriented x3, CN's II-XII intact bilaterally, moves all extremities and no focal motor deficits Speech: speech normal Gait (Neuro): normal gait Psych mental status grossly normal Coding Level of Care Code Off vis,est,level 4 Exam Problem Focused Diagnoses Malignant neoplasm of upper-outer quadrant of left breast in female, estrogen receptor positive C50.412; Z17.0 Estrogen receptor status: positive Assessment and Plan Assessment and Plan (1) Breast cancer of upper-outer quadrant of left female breast: Status: Acute Qualifiers: Estrogen receptor status: positive Qualified Code(s): C50.412 - Malignant neoplasm of upper-outer quadrant of left female breast; Z17.0 - Estrogen receptor positive status [ER+] Plan 63-year-old female with an invasive ductal cancer of the left breast clinical stage I (T1c, N0, M0), ER negative, MA negative, HER2/veronica overexpressed 3+, Ki-67 positive moderate 50%. Positive family history of breast cancer (sister with DCIS). Genetic testing March 2022 did not identify any known deleterious mutation. Received 6 cycles of neoadjuvant TCHP April?July 2022 no grade 3 or 4 toxicities. Underwent left breast partial mastectomy with sentinel lymph node biopsy at [facility] and was found to be in complete pathologic remission in September 2022. Concluded 1 year of adjuvant Herceptin March 01, 2023 Chronic comorbid conditions: Hypertension, degenerative joint disease, mild asthma (on rescue treatment only) and chronic anxiety. Plan: Based on the most recent NCCN guidelines and up-to-date review of management of early-stage HER2 positive invasive ductal cancer. 1. Patient is now on surveillance. 2. Screening mammography at [facility], next to schedule March 2025. 3. Postmenopausal osteopenia on vitamin D and calcium supplement. Clinical Quality Measures Falls Risk Screening/Assistive Devices Have you fallen in the past year?: No 01/22/25 1142 <Electronically signed by Janet guevara JURY CONSULTANT JURY CONSULTANT-C> Date _ Janet Hernandez JURY CONSULTANT JURY CONSULTANT-C Cosigner Signature: Date (if applicable) CC: ~ [employer] Work Phone: [phone] History of Present illness Narrative* Jade Hickey RN - 09/11/2024 11:15 AM EST Patient offered a medical critical care unit manager for sensitive exam. Patient accepted critical care unit manager. * Lorenzo Farris III, MD - 09/11/2024 11:15 AM EST PATIENT EVALUATION / HISTORY AND PHYSICAL EXAMINATION FOR SURGICAL ONCOLOGY CLINIC Stage = T1C N0 M0 = STAGE Ia HISTORY OF PRESENT ILLNESS Briefly, she is a 62 y.o. female with a history of left breast cancer. She received NAC TCHP x 6 cycles and finished that regimen in mid July 2022. She underwent left breast NL lump SLNBX performed 08/22/22. The pathology revealed no residual disease PCR. Alexy assessment demonstrated 0/1. She continues with Adjuvant Herceptin x 1 year completed last week. She completed adjuvant radiation locally on 10/13/22. She has no new complaints at the present time. She has not noted any new masses or suspicious lesions. She denies new headaches, chest pain, shortness of breath, bone pain, back pain or abdominal pain. REVIEW OF SYSTEMS General/Constitutional: Negative for fever, chills, fatigue, recent weight gain or loss. HEENT: No visual disturbances, diplopia, or amarosis fugax. No hearing loss, tinnitus, sore throat,nosebleeds, and rhinorrhea. No dysphagia or odynophagia. Cardiovascular: Negative for palpitations, chest pain, dyspnea on exertion, orthopnea or paroxysmalnocturnal dyspnea. Respiratory: No history of TB exposure. Negative for chronic or productive cough, hemoptysis, or asthma. Gastrointestinal: Negative for abdominal pain, nausea, vomiting, diarrhea, constipation or changes in bowel habits. Genitourinary: Negative for dysuria or hematuria. No frequency, urgency, or hesitancy. Musculoskeletal: Negative for arthralgias, myalgias, or back pain. Neurological: Negative for dizziness, syncope, focal weakness or headaches. Psychiatric: Negative for depression, anxiety or mood disorders. Lymph/Heme: No history of hematologic magligancies or bleeding disorders. No lymphadenopathy. Skin: Negative for acute skin lesions. PAST MEDICAL HISTORY She has a past medical history of Anxiety, BRCA negative, Essential hypertension, benign, Female bladder prolapse (2021), History of chemotherapy (04/12/2022), History of radiation therapy (09/2022),seasonal allergies, and Malignant neoplasm of upper-inner quadrant of left breast in female, estrogen receptor negative (03/15/2022). She has no past medical history of Genetic susceptibility to malignant neoplasm of breast. PAST SURGICAL HISTORY She has a past surgical history that includes core biopsy of the breast (Left, 03/15/2022); releasecarpal tunnel (Left, 2012); insertion cvc tunneled w/ port pump (2021); dilation and curettage; excisional breast biopsy (Left, 08/22/2022); mastectomy partial (lumpectomy) (Left, 08/22/2022); bx lymph node axillary deep (Left, 08/22/2022); injection radioactive tracer for sentinel node identification (Left, 08/22/2022); lymphadenectomy axillary deep (Left, 08/22/2022); breast lumpectomy (Left, 08/22/2022); and bx lymph node (Left, 08/22/2022). MEDICATIONS She has a current medication list which includes the following prescription(s): Ascorbic Acid (Vitamin C) 1000 MG tablet, Cholecalciferol (Vitamin D3) 125 MCG (5000 UT) Tab Dispersible, Cyanocobalamin (B-12 PO), Magnesium Gluconate (MAGNESIUM 27 PO), [place]-3 1000 MG capsule, Valsartan 160 MG tablet, and Zinc 22.5 MG tablet. ALLERGIES No Known Allergies IMMUNIZATIONS There is no immunization history on file for this patient. 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 Patient is postmenopausal.. Last PAP: unsure Para: 4 Age at of first child: 26 Age of menarche: 12 Age of menopause: 54 Patient denies hormonal therapy at this time. BREAST (GENERAL): Patient denies self-breast exams. Date of patient's first mammogram: age 54 Date of most recent mammogram: 2021 Bra/Cup Size: 36 C/D BREAST(HISTORICAL BIOPSY/THERAPY/TREATMENT) Patient admits to previous breast biopsy(s). Patient admits to being told they personally have breast cancer or a breast malignancy. Patient admits to chemotherapy, hormone therapy or radiation therapy during the last month. FAMILY HISTORY Her family history includes Breast Cancer (age of onset: 55) in her cousin; Breast Cancer (age of onset: 62) in her sister; Lung Cancer in her father and sister; Other - Specify in her sister. SOCIAL HISTORY She reports that she has quit smoking. Her smoking use included cigarettes. She has a 10 pack-year smoking history. She has never used smokeless tobacco. She reports that she does not currently use alcohol. She reports that she does not currently use drugs after having used the following drugs: Marijuana. PHYSICAL EXAMINATION Vital Signs: BP 183/85 Pulse 67 Temp 97.6 F (36.4 C) (Oral) Ht 1.6 m (5' 3) Wt 64.6 kg (142 lb 6.4 oz) BMI 25.23 kg/m Smoking Status Former , General: Well developed, well nourished female, who looks their stated age of 63 y.o.. No acute distress. HEENT: Head: Normocephalic and atraumatic. Eyes: Pupils are equal, round, and reactive to light andaccomodation. Extraocular movements are intact. Sclerae are anicteric. Neck: Supple, non-tender. Notracheal deviation. No thyromegally. Heart: Regular rate and rhythm. Normal S1, S2. No murmurs, rubs or gallops. Lung/Chest: Lungs are clear to auscultation bilaterally. No wheezes, rhonchi or rales noted. Breast: THERE IS A WELL-HEALED INCISION SUPERIORLY IN THE LEFT BREAST. THERE IS NO INDENTATION OR INDURATION HERE. THERE IS NO DOMINANT MASS OR NODULARITY IN THE LEFT OR RIGHT BREAST. Lymph Nodes: THERE IS NO CERVICAL OR SUPRACLAVICULAR OR AXILLARY LYMPHADENOPATHY. Abdomen: Abdomen with normoactive bowel sounds in all four quadrants. Soft, non- tender, non-distended. No organomegaly. Extremities: Normal range of motion in all four extremities, with normal strength equally and symmetrically. No cyanosis or clubbing or peripheral edema. Vascular: 2+ distal pulses in upper and lower extremities. 2+ carotid pulses without carotid bruits. Neurological: Conscious, alert and oriented. Grossly intact. Skin: Skin is warm and dry. No skin lesions. ASSESSMENT AND PLAN The patient is doing well. There was no evidence of local or distant recurrence. Mammogram is BI-RADS 3 unstable for fat necrosis near the lumpectomy site. We will see the patient in 6 months. I have reviewed Lilia Alba medical, surgical and other pertinent history in detail, and haveupdated medication and allergy information in the computerized patient record. REFERRING/PRIMARY PROVIDER(S) -Referring Provider for today's consult: Lilia Browning APRN-EXECUTIVE HOUSEKEEPER -Primary Care Provider: Vincenzo Proctor documented [facility] History of Present illness Narrative* Nasima Alba - 09/11/2024 11:04 AM EST Patient offered a medical critical care unit manager for sensitive exam. Pt declined documented in this encounterAvita [facility] History of Present illness Narrative* Padma Carpio APRN.JOHN - 08/19/2024 8:00 AM EST FOLLOW UP VISIT - ENDOSCOPY Lilia Alba 1960 [id number] REFERRING PHYSICIAN: No referring provider defined for this encounter. Lilia Alba is a patient I am following for screening colonoscopy. Dr. Ty performed lower endoscopy on 08/05/24. The patient was found to have Impression: - Diverticulosis in the sigmoid colon. - Non-bleeding internal hemorrhoids. - One 6 to 10 mm polyp in the ascending colon, removed with a hot snare. Resected and retrieved. Clip (MR conditional) was placed. 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 Pathology demonstrated: FINAL DIAGNOSIS A. Colon, right, polypectomy: - Tubular adenoma. AEB/kr 08/06/2024 The patient notes no complaints since the procedure. VITALS: There were no vitals taken for this visit. General: patient is alert, cooperative, pleasant and in no acute distress On examination, the abdomen is benign. Assessment ASSESSMENT/PLAN: 1. Adenomatous polyp - ICD9: 229.9, ICD10: D36.9 (primary diagnosis) The operative findings and pathology report were reviewed with the patient, and the patient has hadthe opportunity to ask questions and have questions answered. If the patient notes any problems or changes in bowel function, the patient should contact me immediately. Otherwise I recommend follow up endoscopy in 3 years based on size. HM updated and recall letter generated. Discussed treatment plan and patient voices understanding. Patient's questions answered appropriately. Medications and potential side effects were discussed and patient voices understanding. Return to the office as scheduled or as needed for worsening/no improvement. Padma Carpio APRN.JOHN documented in this encounterC[facility]25 NoteHNO ID: [id number] Author: PADMA CARPIO APRN.JOHN Service: ? Author Type: Nurse Practitioner Type: Progress Notes Filed: 08/19/2024 09:12 Note Text: FOLLOW UP VISIT - ENDOSCOPY Lilia Alba 1960 [id number] REFERRING PHYSICIAN: No referring provider defined for this encounter. Lilia Alba is a patient I am following for screening colonoscopy. Dr. Ty performed lower endoscopy on 08/05/24. The patient was found to have Impression: - Diverticulosis in the sigmoid colon. - Non-bleeding internal hemorrhoids. - One 6 to 10 mm polyp in the ascending colon, removed with a hot snare. Resected and retrieved. Clip (MR conditional) was placed. 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 Pathology demonstrated: FINAL DIAGNOSIS A. Colon, right, polypectomy: - Tubular adenoma. AEB/yossi 08/06/2024 The patient notes no complaints since the procedure. VITALS: There were no vitals taken for this visit. General: patient is alert, cooperative, pleasant and in no acute distress On examination, the abdomen is benign. Assessment ASSESSMENT/PLAN: 1. Adenomatous polyp - ICD9: 229.9, ICD10: D36.9 (primary diagnosis) The operative findings and pathology report were reviewed with the patient, and the patient has had the opportunity to ask questions and have questions answered. If the patient notes any problems or changes in bowel function, the patient should contact me immediately. Otherwise I recommend follow up endoscopy in 3 years based on size. HM updated and recall letter generated. Discussed treatment plan and patient voices understanding. Patient's questions answered appropriately. Medications and potential side effects were discussed and patient voices understanding. Return to the office as scheduled or as needed for worsening/no improvement. Padma Carpio APRN.[facility]01-28-2025 Note* Discharge Instr - Nursing - Genie Medley RN - 08/05/2024 12:57 PM EST The patient received a copy of Colonoscopy discharge instructions that contain information for how to contact the physician who performed the procedure and when to seek medical care. [facility]01-28-2025 Miscellaneous Notes* Discharge Instr - Nursing - Genie Medley RN - 08/05/2024 12:57 PM EST The patient received a copy of Colonoscopy discharge instructions that contain information for how to contact the physician who performed the procedure and when to seek medical care. documented in this encounterCleveland [facility]01-28-2025 History and physical note * Luciana Ty MD - 08/05/2024 12:45 PM EST HISTORY AND PHYSICAL Lilia Alba : 1960 REFERRING PHYSICIAN: No referring provider defined for this encounter. CHIEF COMPLAINT: Patient presents with: Consult: Colonoscopy, 2013 last colonoscopy HPI: Lilia is a 63 year old female referred for endoscopy. Lilia notes due for screening colonoscopy per oncology. Had negative Cologuard in 2022. Lilia denies abdominal pain. Lilia denies diarrhea. Lilia denies constipation. Lilia denies a change in bowel habits. Lilia denies melena. Lilia denies bright red blood per rectum. Lilia denies hemorrhoids. Lilia denies heartburn. Lilia denies dysphagia. Lilia denies a history of ulcers/ peptic ulcer disease. Lilia denies family history of colon issues. Lilia has a history of left breast cancer. Completed chemo/radiation 2022. Just finished Herceoptin 03/2024. She follows with [facility]. Other medical history is significant for HTN, GERD, Anxiety, RLS. Lilia has undergone prior endoscopy. Last colonoscopy was 06/[address] Albert at [facility]. Sedation:Fentanyl 50 micrograms IV, Midazolam 7 mg IV, Diphenhydramine 50 mg IV Impression: - The entire examined colon is normal. CURRENT MEDICATIONS Current Outpatient Medications Medication Sig valsartan (DIOVAN) 160 mg tablet Take 1 tablet by mouth once daily. Zinc Gluconate 50 mg tablet Take 50 mg by mouth once daily. cholecalciferol, vitamin D3, 125 mcg (5,000 unit) ODT Take by mouth. MAGNESIUM GLUCONATE ORAL Take by mouth once daily. ascorbic acid (VITAMIN C ORAL) Take 1,000 mg by mouth once daily. flaxseed oil (OMEGA 3 ORAL) Take 1,000 mg by mouth once daily. VITAMIN B COMPLEX ORAL Take by mouth once daily. peg 3350-Electrolytes (GOLYTELY) 236-22.74-6.74 -5.86 gram suspension Take 4,000 mL by mouth one time only for 1 dose. Refer to printed prep instructions from your provider. No current facility-administered medications for this visit. ALLERGIES: Patient has no known allergies. PAST MEDICAL HISTORY PAST MEDICAL HISTORY Diagnosis Date Acute gastritis without mention of hemorrhage Arrhythmia h/o palpitations, but cardiac workup neg Breast cancer (HCC) Esophageal reflux Esophagitis, unspecified Essential hypertension, benign PAST SURGICAL HISTORY PAST SURGICAL HISTORY Procedure Laterality Date BREAST LUMPECTOMY HX Left breast COLONOSCOPY FLX DX W/COLLJ SPEC WHEN PFRMD 06/24/2014 Colonoscopy EGD TRANSORAL BIOPSY SINGLE/MULTIPLE 12/27/2009 PAST SURGICAL HISTORY OF Left carpel tunnel FAMILY HISTORY FAMILY HISTORY Problem Relation Age of Onset Diabetes Father lung cancer Diabetes Brother Cancer Sister lung cancer SOCIAL HISTORY Social History Tobacco Use Smoking status: Former Vaping Use Vaping status: Never Used Substance Use Topics Alcohol use: No Drug use: No REVIEW OF SYMPTOMS: The review of systems data was entered by the nurse and reviewed by me SEE NURSING NOTE PHYSICAL EXAMINATION: General: The patient is 63 year old, female well nourished, well hydrated in no acute distress. Thepatient is oriented to time, place, and person. VITALS: Blood pressure 126/64, pulse 71, temperature (!) 35.9 C (96.6 F), height 160 cm (5' 3), weight 64.4 kg (142 lb), SpO2 99%. Body mass index is 25.15 kg/m . HEENT: Normal cephalic, ataumatic, pupils are equally round, sclera are anicteric, mucous membranesare moist, oropharynx is clear. Neck has no masses, asymmetry or lymphadenopathy. Respiratory: Clear to auscultation and percussion. Normal respiratory excursion and pattern. Cardiac: Examination is regular rate and rhythm. Normal S1/S2 Abdominal exam: Soft, nontender, with no palpable masses. No hepatosplenomegaly. No palpable hernias. Extremities: no clubbing, cyanosis or edema. No adenopathy. LABORATORY VALUES: As Noted RADIOLOGIC STUDIES: As Noted Assessment IMPRESSION: screen for colon cancer, hx of breast cancer PLAN: I have reviewed my findings with the surgeon. Will plan for lower endoscopy. We discussed therisks and benefits of the planned endoscopy. I have informed the patient that complications can occur including failure to complete the endoscopy and perforation. Lilia had the opportunity to ask questions concerning the planned endoscopy. My staff has also explained the procedure to the patient in understandable terms and has given the patient printed material concerning the procedure. Lilia freely consents to surgery. I plan to use Golytely bowel preparation I have explained to the patient the difference between IV conscious sedation and MAC anesthesia - and I have offered either, according to the patient's wishes. I have explained that with IV conscioussedation there is no anesthesia provider available and therefore there is a limitation of the amount of IV medications that can be given and that the patient may wake up in the middle of the procedure and/or experience pain/discomfort during the procedure. Further discussion was done and the patient was given the opportunity to ask questions and all questions were answered. Lilia chooses IV conscious sedation. Lilia was counseled that if there are changes in his/her medical condition, to let the office know ifsurgery should proceed. If there are changes in patient's medical condition from time of this encounter to the day of the procedure that preclude anesthesia, patient may have procedure cancelled for patient's safety. Diagnoses: (Z12.11) Encounter for screening for malignant neoplasm of colon (primary encounter diagnosis) (Z85.3) History of breast cancer Portions of this documentation were copied and pasted from previous office visit notes in order to provide a cohesive continuity of the history. The note has been reviewed and edited and updated as necessary. Padma Carpio APRN.EXECUTIVE HOUSEKEEPER [facility] Work Phone: [phone] 886-721801-28-2025 History and physical note* Luciana Ty MD - 08/05/2024 12:45 PM EST HISTORY AND PHYSICAL Lilia Alba : 1960 REFERRING PHYSICIAN: No referring provider defined for this encounter. CHIEF COMPLAINT: Patient presents with: Consult: Colonoscopy, 2013 last colonoscopy HPI: Lilia is a 63 year old female referred for endoscopy. Lilia notes due for screening colonoscopy per oncology. Had negative Cologuard in 2022. Lilia denies abdominal pain. Lilia denies diarrhea. Lilia denies constipation. Lilia denies a change in bowel habits. Lilia denies melena. Lilia denies bright red blood per rectum. Lilia denies hemorrhoids. Lilia denies heartburn. Lilia denies dysphagia. Lilia denies a history of ulcers/ peptic ulcer disease. Lilia denies family history of colon issues. Lilia has a history of left breast cancer. Completed chemo/radiation 2022. Just finished Herceoptin 03/2024. She follows with [facility]. Other medical history is significant for HTN, GERD, Anxiety, RLS. Lilia has undergone prior endoscopy. Last colonoscopy was 06/[address] Albert at [facility]. Sedation:Fentanyl 50 micrograms IV, Midazolam 7 mg IV, Diphenhydramine 50 mg IV Impression: - The entire examined colon is normal. CURRENT MEDICATIONS Current Outpatient Medications Medication Sig valsartan (DIOVAN) 160 mg tablet Take 1 tablet by mouth once daily. Zinc Gluconate 50 mg tablet Take 50 mg by mouth once daily. cholecalciferol, vitamin D3, 125 mcg (5,000 unit) ODT Take by mouth. MAGNESIUM GLUCONATE ORAL Take by mouth once daily. ascorbic acid (VITAMIN C ORAL) Take 1,000 mg by mouth once daily. flaxseed oil (OMEGA 3 ORAL) Take 1,000 mg by mouth once daily. VITAMIN B COMPLEX ORAL Take by mouth once daily. peg 3350-Electrolytes (GOLYTELY) 236-22.74-6.74 -5.86 gram suspension Take 4,000 mL by mouth one time only for 1 dose. Refer to printed prep instructions from your provider. No current facility-administered medications for this visit. ALLERGIES: Patient has no known allergies. PAST MEDICAL HISTORY PAST MEDICAL HISTORY Diagnosis Date Acute gastritis without mention of hemorrhage Arrhythmia h/o palpitations, but cardiac workup neg Breast cancer (HCC) Esophageal reflux Esophagitis, unspecified Essential hypertension, benign PAST SURGICAL HISTORY PAST SURGICAL HISTORY Procedure Laterality Date BREAST LUMPECTOMY HX Left breast COLONOSCOPY FLX DX W/COLLJ SPEC WHEN PFRMD 06/24/2014 Colonoscopy EGD TRANSORAL BIOPSY SINGLE/MULTIPLE 12/27/2009 PAST SURGICAL HISTORY OF Left carpel tunnel FAMILY HISTORY FAMILY HISTORY Problem Relation Age of Onset Diabetes Father lung cancer Diabetes Brother Cancer Sister lung cancer SOCIAL HISTORY Social History Tobacco Use Smoking status: Former Vaping Use Vaping status: Never Used Substance Use Topics Alcohol use: No Drug use: No REVIEW OF SYMPTOMS: The review of systems data was entered by the nurse and reviewed by me SEE NURSING NOTE PHYSICAL EXAMINATION: General: The patient is 63 year old, female well nourished, well hydrated in no acute distress. Thepatient is oriented to time, place, and person. VITALS: Blood pressure 126/64, pulse 71, temperature (!) 35.9 C (96.6 F), height 160 cm (5' 3), weight 64.4 kg (142 lb), SpO2 99%. Body mass index is 25.15 kg/m . HEENT: Normal cephalic, ataumatic, pupils are equally round, sclera are anicteric, mucous membranesare moist, oropharynx is clear. Neck has no masses, asymmetry or lymphadenopathy. Respiratory: Clear to auscultation and percussion. Normal respiratory excursion and pattern. Cardiac: Examination is regular rate and rhythm. Normal S1/S2 Abdominal exam: Soft, nontender, with no palpable masses. No hepatosplenomegaly. No palpable hernias. Extremities: no clubbing, cyanosis or edema. No adenopathy. LABORATORY VALUES: As Noted RADIOLOGIC STUDIES: As Noted Assessment IMPRESSION: screen for colon cancer, hx of breast cancer PLAN: I have reviewed my findings with the surgeon. Will plan for lower endoscopy. We discussed therisks and benefits of the planned endoscopy. I have informed the patient that complications can occur including failure to complete the endoscopy and perforation. Lilia had the opportunity to ask questions concerning the planned endoscopy. My staff has also explained the procedure to the patient in understandable terms and has given the patient printed material concerning the procedure. Lilia freely consents to surgery. I plan to use Golytely bowel preparation I have explained to the patient the difference between IV conscious sedation and MAC anesthesia - and I have offered either, according to the patient's wishes. I have explained that with IV conscioussedation there is no anesthesia provider available and therefore there is a limitation of the amount of IV medications that can be given and that the patient may wake up in the middle of the procedure and/or experience pain/discomfort during the procedure. Further discussion was done and the patient was given the opportunity to ask questions and all questions were answered. Lilia chooses IV conscious sedation. Lilia was counseled that if there are changes in his/her medical condition, to let the office know ifsurgery should proceed. If there are changes in patient's medical condition from time of this encounter to the day of the procedure that preclude anesthesia, patient may have procedure cancelled for patient's safety. Diagnoses: (Z12.11) Encounter for screening for malignant neoplasm of colon (primary encounter diagnosis) (Z85.3) History of breast cancer Portions of this documentation were copied and pasted from previous office visit notes in order to provide a cohesive continuity of the history. The note has been reviewed and edited and updated as necessary. Padma Carpio APRN.EXECUTIVE HOUSEKEEPER documented in [facility] NoteHNO ID: [id number] Author: SOPHIA CRUZ LPN Service: ? Author Type: LICENSED NURSE Type: Progress Notes Filed: 07/18/2024 08:36 Note Text: REVIEW OF SYSTEMS: General: The patient denies fatigue, denies weight loss, denies weight gain, denies feeling hot, and denies feelings of cold. Eyes: The patient denies glaucoma, denies eye injury/surgery, wears glasses or contacts. Ear/Nose/Throat: The patient notes allergies, denies hayfever, denies ear infections, and denies bloody noses. Cardiovascular: The patient denies chest pain, denies heart disease, notes high blood pressure,denies cardiac stent, denies prior heart attack, denies irregular heart beat, denies high cholesterol, denies poor circulation, denies heart failure, other cardiac issues, denies claudication, denies cold feet, denies peripheral arterial stent. Respiratory: The patient denies tuberculosis, denies pneumonia, denies frequent cough, denies pulmonary embolism, denies shortness of breath, and denies coughing up blood. Gastrointestinal: The patient denies difficulty swallowing, denies acid reflux, denies ulcers, denies vomiting, denies jaundice/hepatitis, denies gallbladder problems, denies black or tarry stools, denies hemorrhoids, denies bleeding from rectum, denies diverticulitis, denies constipation, denies diarrhea, denies loss of stool control, and denies hernias. Kidney/Bladder: The patient denies kidney stones, denies urine infections, and denies bloody urine. Skin: The patient denies a history of skin cancer, denies bleeding/changing moles, and denies a history of skin rash. Neurologic: The patient denies a history of epilepsy/convulsions, denies headaches, denies head/spinal injuries, and denies stroke/TIA. Psychiatric: The patient denies psychiatric medications, denies depression, and denies voices, denies substance abuse. Endocrine: The patient denies thyroid disorders, denies diabetes, and denies hormonal problems. Hematologic: The patient denies a history of bruising, denies bleeding, and denies anemia, denies blood clots. Infections: The patient denies a history of measles and mumps, denies rheumatic fever, and denies sexually transmitted diseases. Musculoskeletal: The patient denies back pain/injury, denies back problems, denies sciatica, notes knee/foot trouble, notes arthritis, or denies gout. When was patient's last Mammogram screening? 02/2024 Last Colonoscopy: 2013 Sophia Jacobo [facility]01-10-2025 History of Present illness Narrative* Sophia CruzJESUS - 07/18/2024 8:12 AM EST REVIEW OF SYSTEMS: General: The patient denies fatigue, denies weight loss, denies weight gain, denies feeling hot, and denies feelings of cold. Eyes: The patient denies glaucoma, denies eye injury/surgery, wears glasses or contacts. Ear/Nose/Throat: The patient notes allergies, denies hayfever, denies ear infections, and denies bloody noses. Cardiovascular: The patient denies chest pain, denies heart disease, notes high blood pressure,denies cardiac stent, denies prior heart attack, denies irregular heart beat, denies high cholesterol, denies poor circulation, denies heart failure, other cardiac issues, denies claudication, denies coldfeet, denies peripheral arterial stent. Respiratory: The patient denies tuberculosis, denies pneumonia, denies frequent cough, denies pulmonary embolism, denies shortness of breath, and denies coughing up blood. Gastrointestinal: The patient denies difficulty swallowing, denies acid reflux, denies ulcers, denies vomiting, denies jaundice/hepatitis, denies gallbladder problems, denies black or tarry stools, denies hemorrhoids, denies bleeding from rectum, denies diverticulitis, denies constipation, denies diarrhea, denies loss of stool control, and denies hernias. Kidney/Bladder: The patient denies kidney stones, denies urine infections, and denies bloody urine. Skin: The patient denies a history of skin cancer, denies bleeding/changing moles, and denies a history of skin rash. Neurologic: The patient denies a history of epilepsy/convulsions, denies headaches, denies head/spinal injuries, and denies stroke/TIA. Psychiatric: The patient denies psychiatric medications, denies depression, and denies voices, denies substance abuse. Endocrine: The patient denies thyroid disorders, denies diabetes, and denies hormonal problems. Hematologic: The patient denies a history of bruising, denies bleeding, and denies anemia, denies blood clots. Infections: The patient denies a history of measles and mumps, denies rheumatic fever, and denies sexually transmitted diseases. Musculoskeletal: The patient denies back pain/injury, denies back problems, denies sciatica, notes knee/foot trouble, notes arthritis, or denies gout. When was patient's last Mammogram screening? 02/2024 Last Colonoscopy: 2013 Sophia Cruz LPN * Padma Carpio APRN.EXECUTIVE HOUSEKEEPER - 07/18/2024 8:00 AM EST HISTORY AND PHYSICAL Lilia Alba : 1960 REFERRING PHYSICIAN: No referring provider defined for this encounter. CHIEF COMPLAINT: Patient presents with: Consult: Colonoscopy, 2013 last colonoscopy HPI: Lilia is a 63 year old female referred for endoscopy. Lilia notes due for screening colonoscopy per oncology. Had negative Cologuard in 2022. Lilia denies abdominal pain. Lilia denies diarrhea. Lilia denies constipation. Lilia denies a change in bowel habits. Lilia denies melena. Lilia denies bright red blood per rectum. Lilia denies hemorrhoids. Lilia denies heartburn. Lilia denies dysphagia. Lilia denies a history of ulcers/ peptic ulcer disease. Lilia denies family history of colon issues. Lilia has a history of left breast cancer. Completed chemo/radiation 2022. Just finished Herceoptin 03/2024. She follows with [facility]. Other medical history is significant for HTN, GERD, Anxiety, RLS. Lilia has undergone prior endoscopy. Last colonoscopy was 06/[address] Albert at [facility]. Sedation:Fentanyl 50 micrograms IV, Midazolam 7 mg IV, Diphenhydramine 50 mg IV Impression: - The entire examined colon is normal. Current Outpatient Medications Medication Sig valsartan (DIOVAN) 160 mg tablet Take 1 tablet by mouth once daily. Zinc Gluconate 50 mg tablet Take 50 mg by mouth once daily. cholecalciferol, vitamin D3, 125 mcg (5,000 unit) ODT Take by mouth. MAGNESIUM GLUCONATE ORAL Take by mouth once daily. ascorbic acid (VITAMIN C ORAL) Take 1,000 mg by mouth once daily. flaxseed oil (OMEGA 3 ORAL) Take 1,000 mg by mouth once daily. VITAMIN B COMPLEX ORAL Take by mouth once daily. peg 3350-Electrolytes (GOLYTELY) 236-22.74-6.74 -5.86 gram suspension Take 4,000 mL by mouth one time only for 1 dose. Refer to printed prep instructions from your provider. No current facility-administered medications for this visit. ALLERGIES: Patient has no known allergies. PAST MEDICAL HISTORY Diagnosis Date Acute gastritis without mention of hemorrhage Arrhythmia h/o palpitations, but cardiac workup neg Breast cancer (HCC) Esophageal reflux Esophagitis, unspecified Essential hypertension, benign PAST SURGICAL HISTORY Procedure Laterality Date BREAST LUMPECTOMY HX Left breast COLONOSCOPY FLX DX W/COLLJ SPEC WHEN PFRMD 06/24/2014 Colonoscopy EGD TRANSORAL BIOPSY SINGLE/MULTIPLE 12/27/2009 PAST SURGICAL HISTORY OF Left carpel tunnel FAMILY HISTORY Problem Relation Age of Onset Diabetes Father lung cancer Diabetes Brother Cancer Sister lung cancer Social History Tobacco Use Smoking status: Former Vaping Use Vaping status: Never Used Substance Use Topics Alcohol use: No Drug use: No REVIEW OF SYMPTOMS: The review of systems data was entered by the nurse and reviewed by me SEE NURSING NOTE PHYSICAL EXAMINATION: General: The patient is 63 year old, female well nourished, well hydrated in no acute distress. Thepatient is oriented to time, place, and person. VITALS: Blood pressure 126/64, pulse 71, temperature (!) 35.9 C (96.6 F), height 160 cm (5' 3), weight 64.4 kg (142 lb), SpO2 99%. Body mass index is 25.15 kg/m . HEENT: Normal cephalic, ataumatic, pupils are equally round, sclera are anicteric, mucous membranesare moist, oropharynx is clear. Neck has no masses, asymmetry or lymphadenopathy. Respiratory: Clear to auscultation and percussion. Normal respiratory excursion and pattern. Cardiac: Examination is regular rate and rhythm. Normal S1/S2 Abdominal exam: Soft, nontender, with no palpable masses. No hepatosplenomegaly. No palpable hernias. Extremities: no clubbing, cyanosis or edema. No adenopathy. LABORATORY VALUES: As Noted RADIOLOGIC STUDIES: As Noted Assessment IMPRESSION: screen for colon cancer, hx of breast cancer PLAN: I have reviewed my findings with the surgeon. Will plan for lower endoscopy. We discussed therisks and benefits of the planned endoscopy. I have informed the patient that complications can occur including failure to complete the endoscopy and perforation. Lilia had the opportunity to ask questions concerning the planned endoscopy. My staff has also explained the procedure to the patient in understandable terms and has given the patient printed material concerning the procedure. Lilia freely consents to surgery. I plan to use Golytely bowel preparation I have explained to the patient the difference between IV conscious sedation and MAC anesthesia - and I have offered either, according to the patient's wishes. I have explained that with IV conscioussedation there is no anesthesia provider available and therefore there is a limitation of the amount of IV medications that can be given and that the patient may wake up in the middle of the procedure and/or experience pain/discomfort during the procedure. Further discussion was done and the patient was given the opportunity to ask questions and all questions were answered. Lilia chooses IV conscious sedation. Lilia was counseled that if there are changes in his/her medical condition, to let the office know ifsurgery should proceed. If there are changes in patient's medical condition from time of this encounter to the day of the procedure that preclude anesthesia, patient may have procedure cancelled for patient's safety. Diagnoses: (Z12.11) Encounter for screening for malignant neoplasm of colon (primary encounter diagnosis) (Z85.3) History of breast cancer Portions of this documentation were copied and pasted from previous office visit notes in order to provide a cohesive continuity of the history. The note has been reviewed and edited and updated as necessary. Padma Carpio APRN.JOHN documented in this encounterCleveland [facility]01-10-[facility]25 NoteHNO ID: [id number] Author: PADMA CARPIO APRN.JOHN Service: ? Author Type: Nurse Practitioner Type: Progress Notes Filed: 07/18/2024 08:36 Note Text: HISTORY AND PHYSICAL Lilia Alba : 1960 REFERRING PHYSICIAN: No referring provider defined for this encounter. CHIEF COMPLAINT: Patient presents with: Consult: Colonoscopy, 2013 last colonoscopy HPI: Lilia is a 63 year old female referred for endoscopy. Lilia notes due for screening colonoscopy per oncology. Had negative Cologuard in 2022. Lilia denies abdominal pain. Lilia denies diarrhea. Lilia denies constipation. Lilia denies a change in bowel habits. Lilia denies melena. Lilia denies bright red blood per rectum. Lilia denies hemorrhoids. Lilia denies heartburn. Lilia denies dysphagia. Lilia denies a history of ulcers/ peptic ulcer disease. Lilia denies family history of colon issues. Lilia has a history of left breast cancer. Completed chemo/radiation 2022. Just finished Herceoptin 03/2024. She follows with [facility]. Other medical history is significant for HTN, GERD, Anxiety, RLS. Lilia has undergone prior endoscopy. Last colonoscopy was 06/[address] Albert at [facility]. Sedation:Fentanyl 50 micrograms IV, Midazolam 7 mg IV, Diphenhydramine 50 mg IV Impression: - The entire examined colon is normal. Current Outpatient Medications Medication Sig valsartan (DIOVAN) 160 mg tablet Take 1 tablet by mouth once daily. Zinc Gluconate 50 mg tablet Take 50 mg by mouth once daily. cholecalciferol, vitamin D3, 125 mcg (5,000 unit) ODT Take by mouth. MAGNESIUM GLUCONATE ORAL Take by mouth once daily. ascorbic acid (VITAMIN C ORAL) Take 1,000 mg by mouth once daily. flaxseed oil (OMEGA 3 ORAL) Take 1,000 mg by mouth once daily. VITAMIN B COMPLEX ORAL Take by mouth once daily. peg 3350-Electrolytes (GOLYTELY) 236-22.74-6.74 -5.86 gram suspension Take 4,000 mL by mouth one time only for 1 dose. Refer to printed prep instructions from your provider. No current facility-administered medications for this visit. ALLERGIES: Patient has no known allergies. PAST MEDICAL HISTORY Diagnosis Date Acute gastritis without mention of hemorrhage Arrhythmia h/o palpitations, but cardiac workup neg Breast cancer (HCC) Esophageal reflux Esophagitis, unspecified Essential hypertension, benign PAST SURGICAL HISTORY Procedure Laterality Date BREAST LUMPECTOMY HX Left breast COLONOSCOPY FLX DX W/COLLJ SPEC WHEN PFRMD 06/24/2014 Colonoscopy EGD TRANSORAL BIOPSY SINGLE/MULTIPLE 12/27/2009 PAST SURGICAL HISTORY OF Left carpel tunnel FAMILY HISTORY Problem Relation Age of Onset Diabetes Father lung cancer Diabetes Brother Cancer Sister lung cancer Social History Tobacco Use Smoking status: Former Vaping Use Vaping status: Never Used Substance Use Topics Alcohol use: No Drug use: No REVIEW OF SYMPTOMS: The review of systems data was entered by the nurse and reviewed by me SEE NURSING NOTE PHYSICAL EXAMINATION: General: The patient is 63 year old, female well nourished, well hydrated in no acute distress. The patient is oriented to time, place, and person. VITALS: Blood pressure 126/64, pulse 71, temperature (!) 35.9 ?C (96.6 ?F), height 160 cm (5' 3), weight 64.4 kg (142 lb), SpO2 99%. Body mass index is 25.15 kg/m?. HEENT: Normal cephalic, ataumatic, pupils are equally round, sclera are anicteric, mucous membranes are moist, oropharynx is clear. Neck has no masses, asymmetry or lymphadenopathy. Respiratory: Clear to auscultation and percussion. Normal respiratory excursion and pattern. Cardiac: Examination is regular rate and rhythm. Normal S1/S2 Abdominal exam: Soft, nontender, with no palpable masses. No hepatosplenomegaly. No palpable hernias. Extremities: no clubbing, cyanosis or edema. No adenopathy. LABORATORY VALUES: As Noted RADIOLOGIC STUDIES: As Noted Assessment IMPRESSION: screen for colon cancer, hx of breast cancer PLAN: I have reviewed my findings with the surgeon. Will plan for lower endoscopy. We discussed the risks and benefits of the planned endoscopy. I have informed the patient that complications can occur including failure to complete the endoscopy and perforation. Lilia had the opportunity to ask questions concerning the planned endoscopy. My staff has also explained the procedure to the patient in understandable terms and has given the patient printed material concerning the procedure. Lilia freely consents to surgery. I plan to use Golytely bowel preparation I have explained to the patient the difference between IV conscious sedation and MAC anesthesia - and I have offered either, according to the patient's wishes. I have explained that with IV conscious sedation there is no anesthesia provider available and therefore there is a limitation of the amount of IV medications that can be given and that the patient may wake up in the middle of the procedure and (more content not included)...[facility]09-05-2024 History of Present illness Narrative* SHE Parish - 03/13/2024 11:45 AM EDT Date of Service: 03/13/2024 Clinical Care Team: -Referring Provider: Lilia Browning APRN-CNP -Primary Care Provider: Vincenzo Proctor Chief complaint: Chief Complaint Patient presents with Follow-up Patient presents for annual exam and annual mammogram. Patient denies any new breast concerns. History of Present Illness: Lilia Alba presents today for a follow-up visit. Briefly, she is a 63 y.o. female with a history of left breast cancer. She received NAC TCHP x 6 cycles and finished that regimen in mid July 2022. She underwent left breast NL lump SLNBX performed 08/22/22. The pathology revealed no residual disease PCR. Alexy assessment demonstrated 0/1. She continues with Adjuvant Herceptin x 1 year completed last week. She completed adjuvant radiation locally on 10/13/22. She has no new complaints at the present time. She has not noted any new masses or suspicious lesions. She denies new headaches, chest pain, shortness of breath, bone pain, back pain or abdominal pain. Past Medical History: Diagnosis Date Anxiety BRCA negative Essential hypertension, benign Female bladder prolapse 2021 History of chemotherapy 04/12/2022 History of radiation therapy 09/2022 Hx of seasonal allergies Malignant neoplasm of upper-inner quadrant of left breast in female, estrogen receptor negative 03/15/2022 IDC, ER-/MA-/HER2+ Past Surgical History: Procedure Laterality Date EXCISIONAL BREAST BIOPSY Left 08/22/2022 MASTECTOMY PARTIAL (LUMPECTOMY) Left 08/22/2022 Laterality: Left; Surgeon: Lorenzo Farris III, MD; Location: [facility] MAIN OR BX LYMPH NODE AXILLARY DEEP Left 08/22/2022 Laterality: Left; Surgeon: Lorenzo Farris III, MD; Location: [facility] MAIN OR INJECTION RADIOACTIVE TRACER FOR SENTINEL NODE IDENTIFICATION Left 08/22/2022 Laterality: Left; Surgeon: Lorenzo Farris III, MD; Location: [facility] MAIN OR LYMPHADENECTOMY AXILLARY DEEP Left 08/22/2022 Laterality: Left; Surgeon: Lorenzo Farris III, MD; Location: [facility] MAIN OR BREAST LUMPECTOMY Left 08/22/2022 IDC, HER2+ BX LYMPH NODE Left 08/22/2022 NEG CORE BIOPSY OF THE BREAST Left 03/15/2022 [facility] INSERTION CVC TUNNELED W/ PORT PUMP 2021 RELEASE CARPAL TUNNEL Left 2012 DILATION AND CURETTAGE Current Outpatient Medications Medication Sig Dispense Refill Ascorbic Acid (Vitamin C) 1000 MG tablet Take 1 tablet by mouth daily. Cholecalciferol (Vitamin D3) 125 MCG (5000 UT) Tab Dispersible Take by mouth daily. Cyanocobalamin (B-12 PO) Take by mouth daily. Magnesium Gluconate (MAGNESIUM 27 PO) Take by mouth daily. [place]-3 1000 MG capsule Take 1 capsule by mouth daily. Valsartan 160 MG tablet Take 1 tablet by mouth daily. Zinc 22.5 MG tablet Take 1 tablet by mouth daily. ASPIRIN 81 PO Take 1 tablet by mouth daily. Loratadine 10 MG tablet Take 1 tablet by mouth daily. No current facility-administered medications for this visit. No Known Allergies Social History: Social History Tobacco Use Smoking status: Former Current packs/day: 1.00 Average packs/day: 1 pack/day for 10.0 years (10.0 ttl pk-yrs) Types: Cigarettes Smokeless tobacco: Never Substance Use Topics Alcohol use: Not Currently Comment: wine occasionally prior to cancer diagnosis Drug use: Not Currently Types: Marijuana Comment: in teens Family History Problem Relation Age of Onset Lung Cancer Father Lung Cancer Sister Other - Specify Sister multiple sclerosis Breast Cancer Sister 62 DCIS Breast Cancer Cousin 55 maternal 1st cousin Ovarian Cancer Neg Hx Uterine Cancer Neg Hx Medical/Surgical/Family/Social History: I have reviewed Ms. Alba's medical, surgical and other pertinent history in detail, and have updated the computerized patient record where appropriate. Review of Systems: Negative for additional constitutional, HEENT, cardiovascular, respiratory, gastrointestinal, genitourinary, musculoskeletal, integumentary, neurological, psychiatric, endocrine, or hematologic/lymphatic complaints aside from that which was mentioned in the history of present illness. Physical Examination: General: The patient is a well developed, well nourished female who appears her stated age of 63 y.o.. Vitals: BP 164/76 Pulse 70 Temp 97.6 F (36.4 C) (Oral) Ht 1.575 m (5' 2) Wt 63.5 kg (140 lb) BMI 25.61 kg/m Smoking Status Former Neuro/psych: Her speech patterns and movements are normal. Her affect is appropriate. She is oriented to person, place and time. Recent and remote memory is intact. Neck: The trachea is in the midline. Neck is supple without lymphadenopathy or thyromegaly Breasts: The breasts appear symmetrical. There is a well healed incision upper left breast. The skin, nipples and areolas appear normal. There is no skin dimpling with movement of the pectoralis. There is no nipple retraction. No nipple discharge can be elicited. The parenchyma is mildly nodular. There are no dominant masses in either breast. The axillary tails are normal. Lymphatics: There is no suspicious cervical, supraclavicular, or axillary lymphadenopathy. Healed left axillary incision. Skin: Skin is warm and dry. Flush, pallor and rash absent. There are no other suspicious cutaneous lesions. Studies: MAMMO DIAGNOSTIC WITH FRANDY BILATERAL, 03/13/2024 10:45 AM CLINICAL INDICATIONS AND HISTORY: screening C50.212:Malignant neoplasm of upper-inner quadrant of left breast in female, estrogen receptor negative Z17.1:Malignant neoplasm of upper-inner quadrant of left breast in female, estrogen receptor negative Z12.31:Encounter for screening mammogram for malignant neoplasm of breast History of left breast carcinoma status post lumpectomy, radiation therapy, and chemotherapy (2022). COMPARISON: March 08, 2023, March 01, 2022, February 22, 2022, October 03, 2019 MAMMOGRAM TECHNIQUE: 2-D MLO and CC views were obtained of the bilateral breasts. 3-D MLO and CC digital tomosynthesis images were also acquired. Additionally, left breast 2-D spot magnification ML and CC views were obtained. Computer aided detection was utilized. MAMMOGRAM FINDINGS: Breast Density: The breasts have scattered areas of fibroglandular density. In the left upper central breast, posterior depth, postsurgical change is noted consistent with prior lumpectomy. Along the anterior margin of the lumpectomy bed, dystrophic appearing calcifications are noted, some of which demonstrate central fat and are favored to represent probable evolving fat necrosis. In the right breast, there are no suspicious masses, calcifications, or architectural distortions. IMPRESSION IMPRESSION: 1. Left breast postsurgical change with associated probably benign calcifications, likely representing evolving fat necrosis, for which six-month follow-up mammogram with magnification views is recommended. 2. No mammographic evidence of malignancy in the right breast. BI-RADS: 3: Probably benign Recommendation: 6-month follow-up. Assessment and Plan: Lilia Alba is a 63 y.o. female with a history of left breast cancer. She is doing well. Clinical exam today is without suspicious features. Imaging today is bi-rads 3 on left with post surgical changes likely fat necrosis, right breast no concerns. I reviewed imaging in detail with she and her . We will plan to see her back in 6 months with a left mammo. She was encouraged to call with any new concerns. Rtc in 6 month with imaging/SHE Parr * Jade Hickey RN - 03/13/2024 11:45 AM EDT Lilia Alba was offered and declined a Medical Photo Lab Manager for this exam/procedure/test 03/13/2024. [facility] History of Present illness Narrative* Nasima Alba - 03/13/2024 10:32 AM EDT Patient offered a medical critical care unit manager for sensitive exam. Pt declined documented [facility] encounter[facility] History of Present illness Narrative* SHE Parish - 03/08/2023 12:00 PM EDT Date of Service: 03/08/2023 Clinical Care Team: -Referring Provider: Lilia Browning APRN-EXECUTIVE HOUSEKEEPER -Primary Care Provider: Vincenzo Proctor Chief complaint: Chief Complaint Patient presents with Follow-up Pt states no breast concerns, had bilateral mammo today, history of left breast cancer History of Present Illness: Lilia Alba presents today for a follow-up visit. Briefly, she is a 62 y.o. female with a history of left breast cancer. She received NAC TCHP x 6 cycles and finished that regimen in mid July 2022. She underwent left breast NL lump SLNBX performed 08/22/22. The pathology revealed no residual disease PCR. Alexy assessment demonstrated 0/1. She continues with Adjuvant Herceptin x 1 year completed last week. She completed adjuvant radiation locally on 10/13/22. She has no new complaints at the present time. She has not noted any new masses or suspicious lesions. She denies new headaches, chest pain, shortness of breath, bone pain, back pain or abdominal pain. Past Medical History: Diagnosis Date Anxiety BRCA negative Essential hypertension, benign Female bladder prolapse 2021 History of chemotherapy 04/12/2022 History of radiation therapy 09/2022 Hx of seasonal allergies Malignant neoplasm of upper-inner quadrant of left breast in female, estrogen receptor negative 03/15/2022 IDC, ER-/MA-/HER2+ Past Surgical History: Procedure Laterality Date EXCISIONAL BREAST BIOPSY Left 08/22/2022 MASTECTOMY PARTIAL (LUMPECTOMY) Left 08/22/2022 Laterality: Left; Surgeon: Lorenzo Farris III, MD; Location: [facility] OR BX LYMPH NODE AXILLARY DEEP Left 08/22/2022 Laterality: Left; Surgeon: Lorenzo Farris III, MD; Location: [facility] INJECTION RADIOACTIVE TRACER FOR SENTINEL NODE IDENTIFICATION Left 08/22/2022 Laterality: Left; Surgeon: Lorenzo Farris III, MD; Location: [facility] LYMPHADENECTOMY AXILLARY DEEP Left 08/22/2022 Laterality: Left; Surgeon: Lorenzo Farris III, MD; Location: [facility] BREAST LUMPECTOMY Left 08/22/2022 IDC, HER2+ BX LYMPH NODE Left 08/22/2022 NEG CORE BIOPSY OF THE BREAST Left 03/15/2022 [facility] INSERTION CVC TUNNELED W/ PORT PUMP 2021 RELEASE CARPAL TUNNEL Left 2012 DILATION AND CURETTAGE Current Outpatient Medications Medication Sig Dispense Refill Ascorbic Acid (Vitamin C) 1000 MG tablet Take 1 tablet by mouth daily. ASPIRIN 81 PO Take 1 tablet by mouth daily. Cholecalciferol (Vitamin D3) 125 MCG (5000 UT) Tab Dispersible Take by mouth daily. Loratadine 10 MG tablet Take 1 tablet by mouth daily. Magnesium Gluconate (MAGNESIUM 27 PO) Take by mouth. [place]-3 1000 MG capsule Take 1 capsule by mouth daily. Valsartan 160 MG tablet Take 1 tablet by mouth daily. Zinc 22.5 MG tablet Take 1 tablet by mouth daily. No current facility-administered medications for this visit. No Known Allergies Social History: Social History Tobacco Use Smoking status: Former Packs/day: 1.00 Years: 10.00 Total pack years: 10.00 Types: Cigarettes Smokeless tobacco: Never Substance Use Topics Alcohol use: Not Currently Comment: wine occasionally prior to cancer diagnosis Drug use: Not Currently Types: Marijuana Comment: in teens Family History Problem Relation Age of Onset Lung Cancer Father Lung Cancer Sister Other - Specify Sister multiple sclerosis Breast Cancer Sister 62 DCIS Breast Cancer Cousin 55 maternal 1st cousin Ovarian Cancer Neg Hx Uterine Cancer Neg Hx Medical/Surgical/Family/Social History: I have reviewed Ms. Alba's medical, surgical and other pertinent history in detail, and have updated the computerized patient record where appropriate. Review of Systems: Negative for additional constitutional, HEENT, cardiovascular, respiratory, gastrointestinal, genitourinary, musculoskeletal, integumentary, neurological, psychiatric, endocrine, or hematologic/lymphatic complaints aside from that which was mentioned in the history of present illness. Physical Examination: General: The patient is a well developed, well nourished female who appears her stated age of 62 y.o.. Vitals: BP 184/86 Pulse 65 Temp 97.3 F (36.3 C) (Oral) Ht 1.6 m (5' 3) Wt 62.1 kg (137 lb) BMI 24.27 kg/m Smoking Status Former Neuro/psych: Her speech patterns and movements are normal. Her affect is appropriate. She is oriented to person, place and time. Recent and remote memory is intact. Neck: The trachea is in the midline. Neck is supple without lymphadenopathy or thyromegaly Breasts: The breasts appear symmetrical. There is a well healed incision upper left breast. The skin, nipples and areolas appear normal. There is no skin dimpling with movement of the pectoralis. There is no nipple retraction. No nipple discharge can be elicited. The parenchyma is mildly nodular. There are no dominant masses in either breast. The axillary tails are normal. Lymphatics: There is no suspicious cervical, supraclavicular, or axillary lymphadenopathy. Healed left axillary incision. Skin: Skin is warm and dry. Flush, pallor and rash absent. There are no other suspicious cutaneous lesions. Studies: MAMMO DIAGNOSTIC WITH FRANDY BILATERAL, 03/08/2023 11:41 AM CLINICAL HISTORY: 62-year-old female with a history of left breast invasive ductal carcinoma with breast conservation therapy in 2022. COMPARISON: Mammogram 02/22/2022, 09/29/2019, 09/04/2018 TECHNIQUE: 2-D MLO and CC views were obtained of the bilateral breasts. 3-D MLO and CC digital tomosynthesis images were also acquired. Computer aided detection was utilized. FINDINGS: The breasts have scattered areas of fibroglandular density. Bilateral benign appearing calcifications are noted. Postsurgical changes from lumpectomy are noted in the upper inner posterior third of the left breast. There are no suspicious masses, calcifications, or architectural distortions. IMPRESSION IMPRESSION: No mammographic evidence of malignancy. BI-RADS: 2: Benign Recommendation: Routine mammography. Recommendation Laterality: Bilateral Assessment and Plan: Lilia Alba is a 62 y.o. female with a history of left breast cancer. She is doing well. Clinical exam today is without concerns. Imaging today is benign with no evidence of malignancy, bi-rads2. She will call with any new concerns. She prefers to come annually due to travel. She is following up locally every 3 months. She is aware typically see her every 6 months. SHE Parish [facility] History of Present illness Narrative* Madison Zavala - 03/08/2023 11:00 AM EDT Patient offered a medical critical care unit manager for sensitive exam. Pt declined [facility] History of Present illness Narrative* Loren Verdin RN - 09/21/2022 9:15 AM EDT Patient offered a medical critical care unit manager for sensitive exam. Patient declined critical care unit manager. * Lorenzo Farris III, MD - 09/21/2022 9:15 AM EDT The patient is here 1 month after a left breast needle localized wide local excision and axillary sentinel node biopsy that showed a complete response to neoadjuvant chemotherapy for a HER2 Veronica positive invasive ductal carcinoma. The incisions are healing well. There is no erythema or exudate or ecchymosis at her incisions. There is no firmness or induration at her incisions. I removed a small Vicryl suture from the medial aspect of the axillary incision. There is no opening here and no signs of infection. We went over the pathology again that showed a complete response. The patient is eatingwell and having normal bowel movements. There is no significant pain with her incisions. She is taking Herceptin for another year. We will see the patient in 5 months with imaging. [facility] this [facility] Discharge summary Author Elizabeth Miller [facility] September 19, 2022 12:56pm Note Date/Time September 19, 2022 12: 56pm [facility] Physical Therapy Health[address] [place] [address] / REHABILITATION SERVICES DISCHARGE SUMMARY MR#: [id number] Acct: [id number] Name: LILIA ALBA Rep #: [id number] : 1960 61 From: Elizabeth Miller PT, Cert. MDT Referring Dr.: Dr. Calire Ybarra MD Status: REG RCR Insurance: [employer] It has been my pleasure to treat LILIA ALBA referred by Dr. Claire Ybarra MD, with the diagnosis of CYSTOCELE, UTERINE PROLAPSE for a total of 8 visit(s). Discharge Date: Please see the following information for a summary of their discharge status. Subjective: PATIENT REPORTS SHE IS NOT HAVING ANY INCONTINENCE SX'S. PATIENT REPORTS SHE DOES STILL GET A FEELING OF PROLAPSE BUT IT IS INTERMITTENT AND NOT DAILY. PATIENT REPORTS SHE HAS DONE HER SX'S INTERMITTENTLY BUT SOMETIMES TOO TIRED TO. STATES SHE IS BACK TO FEELING BETTER AND READY TO RE-START STRENGTHENING. PESSARY HAS NOT BEEN RECOMMENDED BY DR. YBARRA AND STATES SHE DOES NOT WANT ONE. HAS NOT BEEN BACK TO DR. YBARRA - PUT ON HOLD DUE TO CANCERAND WANTS TO DO PT FIRST. CHEMOTHERAPY UNTIL JUL 26 2022. 08/22/22 HAD LUMPECTOMY. RADIATION TREATMENTS WILL START NEXT MONDAY 09/25 X 3-4 WKS, 5 DAYS AWK. Objective/Function: PATIENT WAS SEEN TODAY FOR RE-ASSESSMENT OF PROGRESS TOWARD THE SET PT GOALS AND THE NEED FOR FURTHER PHYSICAL THERAPY VS READINESS FOR DISCHARGE. ALL GOALS APPEAR TO HAVE BEEN MET AND PATIENT IS APPROPRIATE FOR DISCHARGE. PATIENT IS AGREEABLE. PROGRESSED PATIENT TO PF ELEVATOR EX TODAY. WRITTEN HOME INSTRUCTIONS FOR ALL EX'S HAVE BEEN PROVIDED. Goal 1:: INCREASE PELVIC FLOOR MUSCLE STRENGTH GRADE TO 5/5 Goal Progress: SUBJECTIVELY MET Goal 2:: PATIENT WILL DEMONSTRATE 10 CONSISTENT AND CONSECUTIVE 10 SECOND PELVICFLOOR MUSCLE CONTRACTIONS. Goal Progress: SUBJECTIVELY MET Goal 3:: VOID FREQUENCEY EVERY 3-4 HOURS Goal Progress: SUBJECTIVELY MET Goal 4:: FLUID INTAKE OF ? BODY WEIGHT IN OUNCES PER DAY WITH 2/3 BEING WATER. Goal Progress: SUBJECTIVELY MET Goal 5:: PATIENT WILL BE INDEP WITH A HEP FOR CONTINUED IMPROVEMENT ONCE FORMAL PHYSICAL THERAPY CONCLUDES. Goal Progress: Goal Met Plan: C/C If there are questions or concerns regarding this patient's physical therapy, please feel free to call me at [phone]. Thank you for the referral of thispatient. Sincerely, Elizabeth Miller PT, Cert MDT <Electronically signed by Elizabeth Miller PT, Cert. MDT> 09/19/22 1861 CC: Dr. Vincenzo Proctor MD; Dr. Claire Ybarra MD ~ ISELA Signed [facility] Work Phone: 1(133) 396-225203-02-2023 History of Present illness Narrative* Lorenzo Farris III, MD - 09/07/2022 12:30 PM EST Path explained - pt healing well documented in this encounterOS[facility] Miscellaneous Notes* Brief Op Note - Lorenzo Farris III, MD - 08/22/2022 2:58 PM EST Lilia Alba ([id number]) PRE OPERATIVE DIAGNOSIS Malignant neoplasm of upper-inner quadrant of left breast in female, estrogen receptor negative [C50.212, Z17.1] POST OPERATIVE DIAGNOSIS Post-Op Diagnosis Codes: * Malignant neoplasm of upper-inner quadrant of left breast in female, estrogen receptor negative [C50.212, Z17.1] PROCEDURE PERFORMED Procedure(s) (LRB): MASTECTOMY PARTIAL (LUMPECTOMY) (Left) BX LYMPH NODE AXILLARY DEEP (Left) INJECTION RADIOACTIVE TRACER FOR SENTINEL NODE IDENTIFICATION (Left) LYMPHADENECTOMY AXILLARY DEEP (Left) PRIMARY CLOSURE Yes INTRAOPERATIVE FINDINGS Clip in WLE by X-ray SLN #1 was hot and sent for permanent section SURGEON Surgeon(s) and Role: * Lorenzo Farris III, MD - Primary ANESTHESIOLOGIST Anesthesiologist: Dimitri Davey MD SURGICAL STAFF [place]ors[place] Coiling Machine Setter: Myah Patiño RN Relief Torsion Spring Coiling Machine Setter: Susan Ochoa RN Scrub Person: Cookie Acosta; Radha Braxton RN Resident Assisting: Darrel Poe MD COMPLICATIONS None ESTIMATED BLOOD LOSS Minimal SPECIMENS As noted below ID Type Source Tests Collected by Time Destination 1 : Left breast superior margin, clip = new margin Permanent SURG PATH SURG PATH REQUEST Lorenzo Farris III, MD 08/22/2022 1139 2 : Left breast inferior margin, clip = new margin Permanent SURG PATH SURG PATH REQUEST Lorenzo Farris III, MD 08/22/2022 1139 3 : Left breast medial margin, clip = new margin Permanent SURG PATH SURG PATH REQUEST Lorenzo Farris III, MD 08/22/2022 1139 4 : Left breast lateral margin, clip = new margin Permanent SURG PATH SURG PATH REQUEST Lorenzo Farris III, MD 08/22/2022 1139 5 : Left breast posterior margin, clip = new margin Permanent SURG PATH SURG PATH REQUEST Lorenzo Johnson III, MD 08/22/2022 1139 6 : Left breast anterior margin, clip = new margin Permanent SURG PATH SURG PATH REQUEST Lorenzo Farris III, MD 08/22/2022 1139 7 : Left breast needle localized wide excision--single = anterior, double = lateral, triple = superior Permanent SURG PATH SURG PATH REQUEST Lorenzo Farris III, MD 08/22/2022 1126 8 : Left axillary sentinel lymph node #1--count-140 Permanent SURG PATH SURG PATH REQUEST Lorenzo Johnson III, MD 08/22/2022 1204 [place] Node Biopsy for Breast Cancer Operation performed with curative intent Yes Tracer(s) used to identify sentinel nodes in the upfront surgery (non- neoadjuvant) setting Radioactive tracer Tracer(s) used to identify sentinel nodes in the neoadjuvant setting N/A All nodes (colored or non-colored) present at the end of a dye-filled lymphatic channel were removed N/A All significantly radioactive nodes were removed Yes All palpably suspicious nodes were removed Yes Biopsy-proven positive nodes marked with clips prior to chemotherapy were identified and removed N/A This procedure was not performed to treat breast cancer through axillary lymph node dissection The patient tolerated the procedure well. Dr. Farris was present for the entire case. Lorenzo Farris III, MD August 22, 2022 6:40 PM * Nursing Notes - Suzie Mosquera RN - 08/22/2022 2:17 PM EST 1410: Patient arrived to [facility] ASU from [facility] PACU via gurney. Vital signs taken and stable. Patient given drink and snacks. Family called to bedside. Patient assessed. 1457: Patient meets ASU discharge criteria and discharged per MD order to home. Patient taken by wheelchair by Keiko ROJAS to awaiting car. All belongings gathered with patient. Family/friend to drive patient home and care for patient 24 hours post-op. documented in this encounter[facility] Note* Brief Op Note - Lorenzo Farris III, MD - 08/22/2022 2:58 PM EST Lilia Alba ([id number]) PRE OPERATIVE DIAGNOSIS Malignant neoplasm of upper-inner quadrant of left breast in female, estrogen receptor negative [C50.212, Z17.1] POST OPERATIVE DIAGNOSIS Post-Op Diagnosis Codes: * Malignant neoplasm of upper-inner quadrant of left breast in female, estrogen receptor negative [C50.212, Z17.1] PROCEDURE PERFORMED Procedure(s) (LRB): MASTECTOMY PARTIAL (LUMPECTOMY) (Left) BX LYMPH NODE AXILLARY DEEP (Left) INJECTION RADIOACTIVE TRACER FOR SENTINEL NODE IDENTIFICATION (Left) LYMPHADENECTOMY AXILLARY DEEP (Left) PRIMARY CLOSURE Yes INTRAOPERATIVE FINDINGS Clip in WLE by X-ray SLN #1 was hot and sent for permanent section SURGEON Surgeon(s) and Role: * Lorenzo Farris III, MD - Primary ANESTHESIOLOGIST Anesthesiologist: Dimitri Davey MD SURGICAL STAFF [place] Coiling Machine Setter: Myah Patiño RN Relief Torsion Spring Coiling Machine Setter: Susan Ochoa RN Scrub Person: Cookie Acosta; Radha Braxton RN Resident Assisting: Darrel Poe MD COMPLICATIONS None ESTIMATED BLOOD LOSS Minimal SPECIMENS As noted below ID Type Source Tests Collected by Time Destination 1 : Left breast superior margin, clip = new margin Permanent SURG PATH SURG PATH REQUEST Lorenzo Farris III, MD 08/22/2022 1139 2 : Left breast inferior margin, clip = new margin Permanent SURG PATH SURG PATH REQUEST Lorenzo Farris III, MD 08/22/2022 1139 3 : Left breast medial margin, clip = new margin Permanent SURG PATH SURG PATH REQUEST Lorenzo Farris III, MD 08/22/2022 1139 4 : Left breast lateral margin, clip = new margin Permanent SURG PATH SURG PATH REQUEST Lorenzo Farris III, MD 08/22/2022 1139 5 : Left breast posterior margin, clip = new margin Permanent SURG PATH SURG PATH REQUEST Lorenzo Johnson III, MD 08/22/2022 1139 6 : Left breast anterior margin, clip = new margin Permanent SURG PATH SURG PATH REQUEST Lorenzo Farris III, MD 08/22/2022 1139 7 : Left breast needle localized wide excision--single = anterior, double = lateral, triple = superior Permanent SURG PATH SURG PATH REQUEST Lorenzo Farris III, MD 08/22/2022 1126 8 : Left axillary sentinel lymph node #1--count-140 Permanent SURG PATH SURG PATH REQUEST Lorenzo Johnson III, MD 08/22/2022 1204 Java Node Biopsy for Breast Cancer Operation performed with curative intent Yes Tracer(s) used to identify sentinel nodes in the upfront surgery (non- neoadjuvant) setting Radioactive tracer Tracer(s) used to identify sentinel nodes in the neoadjuvant setting N/A All nodes (colored or non-colored) present at the end of a dye-filled lymphatic channel were removed N/A All significantly radioactive nodes were removed Yes All palpably suspicious nodes were removed Yes Biopsy-proven positive nodes marked with clips prior to chemotherapy were identified and removed N/A This procedure was not performed to treat breast cancer through axillary lymph node dissection The patient tolerated the procedure well. Dr. Farris was present for the entire case. Lorenzo Farris III, MD August 22, 2022 6:40 PM [facility] Work Phone: 1(682) 737-419902-14-2023 Note* Nursing Notes - Suzie Mosquera RN - 08/22/2022 2:17 PM EST 1410: Patient arrived to [facility] A[facility] from [facility] PACU via gurney. Vital signs taken and stable. Patient given drink and snacks. Family called to bedside. Patient assessed. 1457: Patient meets ASU discharge criteria and discharged per MD order to home. Patient taken by wheelchair by Keiko ROJAS to awaiting car. All belongings gathered with patient. Family/friend to drive patient home and care for patient 24 hours post-op. [facility]02-14[facility] Hospital Discharge instructions* Discharge Instructions* Darrel Poe MD - 08/22/2022 12:56 PM EST Your provider is Office Number: [phone] During office hours, Sunday through Sunday, 8:00 AM to 4:30 PM, call the office if you have any questions or concerns. After hours, weekends and holidays call the office number and you will be transferred to the After Hours Nurse Line. Call 911 for Emergencies. Your Auto Wrecker (PCRM) has arranged your appointments for follow up based on your preference of where you would like to continue your care. If you are unable to attend appointments that have been arranged for you, it is your responsibility to call to reschedule at least 48 hours prior to the appointment date. Your After Visit Summary (AVS) has provided you with instructions for your discharge. It is your responsibility to ask questions if you have any. Please contact your medical care team at the numbers listed if you should have any additional questions. WHEN TO CALL THE DOCTOR? Bleeding that will not stop with pressure applied to the site Increase in pain in or around wound Change in the amount, color, or odor of drainage from your wound Redness, swelling or increased warmth around your wound Temperature greater than 100.4? F Incision separates/opens up Increasing or unrelieved pain while taking maximum dose of prescribed pain medication Persistent nausea and vomiting Inability to take medication without vomiting Inability to keep 8 oz. of fluids every 2 hours down When to call the doctor about your drains: Call your doctor right away if you have any of the following: The drain tubing pulls out of your skin. Your drain tube become detached from the drainage bulb Redness, swelling, or unusual drainage where the tube comes out of the skin Drainage that becomes milky, cloudy or smells bad, Drainage color changes from a light color and has become bloody or bright red in color. Drainage smell has changed. Drainage has pus. A sudden increase in the amount of drainage (more than 40 mLs) Any new or increased pain at the drain sites Clots or clogs in the tubing that you are unable to clear by stripping Little or no drainage in the drain and fluid is leaking where the tube comes out of your skin Your drain will not stay pressed together after you have emptied it Skin irritation, redness or blistering from the tape over your dressing CALL 911 if you have: Tender, swollen or reddened areas anywhere in your leg. Numbness or tingling in your lower leg or calf, or at the top of your leg or groin Skin on your leg looks pale or blue or feels cold to touch Chest pain or have trouble breathing CARE WHEN YOU GET HOME The first 1-2 days at home Rest quietly at home Have another adult with you for the first 6 hours Set up a schedule to take your medications and do wound and drain care You may have sore throat, jaw discomfort or muscle aches from anesthesia for surgery Do not drink alcoholic beverages Do not sign legal paperwork or make important decisions After General Anesthesia If you had general, monitored, or regional anesthesia, rest for [address], drink alcoholic beverages, or make important decisions during this time. General anesthesia may cause a sore throat, jaw discomfort or muscle aches. These symptoms can last for one or two days. MEDICATIONS AT HOME Resume pre-surgery medications as directed by your doctor. Pain Medications at Home You will be given medications to manage pain at home. Your provider may have asked you to keep a pain management log. If so, please fill it for two weeks or until your first post-operative appointment. If You Are Prescribed Acetaminophen and Ibuprofen - Alternate Taking These Medications: Do not take them at the same time. Acetaminophen 975 mg by mouth should be taken every 8 hours ALTERNATING with doses of Ibuprofen 400-600 mg by mouth every 8 hours. Ibuprofen is easier to take on a full stomach. Other pain medication (such as Oxycodone or Tramadol) are taken ONLY if the Acetaminophen and Ibuprofen are not controlling your pain. Here is an example of a schedule to follow for the first 5 days after surgery: 8:00 am: Take Ibuprofen 400-600 mg by mouth after eating 12:00 pm: Take Acetaminophen 975 mg by mouth 4:00 pm: Take Ibuprofen 400-600 mg by mouth after eating 8:00 pm: Take Acetaminophen 975 mg by mouth 12:00 am: Take Ibuprofen 400-600 mg by mouth after eating 4:00 am: Take Acetaminophen 975 mg by mouth (*take only if you are unable to sleep or concerned youwill wake up in pain) Five days after surgery do not take these medications at a scheduled time each day, instead, begin taking Ibuprofen and Acetaminophen only when you need it. Remember, do not take more than 3,000 mg of Acetaminophen in 24 hours. Opioid medications are taken ONLY if the Acetaminophen and Ibuprofen are not controlling your pain. Pain medication reminders: Do not drive or drink alcoholic beverages after taking opioid pain medication such as Oxycodone Take each dose of opioids or Ibuprofen with food or milk Keep medications out of reach of children and pets If you were given a nerve block to control pain and or a teal wristband, please note your block will wear off in 2-3 day and your pain may increase a bit after it wears off. Take the pain medicationsgiven to you by your provider to control pain. Prevent constipation Follow the instructions on the attached Constipation and Opioid (Pain Medication) Use Sheet Prior to discharge, you may be given prescriptions for stool softeners and laxatives that can be purchased over the counter at your local pharmacy. DIET Resume the diet you were on before surgery Eat three servings of protein a day and drink 12 (8 ounce) glasses of water a day to help your wound heal ACTIVITY AND BATHING Elevate the arm on the same side as your surgery on a pillow when sitting and at night for at leastone week after surgery You may walk short distances and around home. YOU MAY RESUME SHOWERING 48 hours after surgery. Have help nearby, avoid shower spray hit directly on incision (keep front side of body turned away from the shower spray) If your physician has asked allowed you to shower and wishes for you to keep your dressing on, applying press and seal plastic wrap over the wound may help keep it dry. You may use your arm on the same side as your surgery to eat, comb hair, and do light activities (such as folding laundry in your lap) unless instructed otherwise by your physician. You may resume sexual activity Until your physician gives you permission to do so: Do not raise the arm on the same side as your surgery more than a 90 degreee angle away from your body unless instructed otherwise by your physician Do not bend at the waist or have your head lower than your heart Do not resume exercise until approved by your physician. Avoid sudden movements such as bouncing, jumping jacks, etc. Do not lift more than 2 pounds. Do not push or pull forcefully. For example, do not vacuum, perform house cleaning, or push a lawnmower Do not drive - your provider will discuss when you can begin to drive at your post-operative appointment visits. Your provider will usually allow you to start driving when drains are out, and you arenot taking any sedating or opioid medications. You may shower when your surgeon feels you are ready. Depending on your surgeon's instructions takea daily sponge bath or shower, starting on the post- operative day that is specified. To follow activity restrictions, you may need someone to help you with bathing. You may not soak or submerge your incision or drain site in a pool, tub, or body of water CLOTHING If recommended by your surgeon, wear your sport or surgical bra at all times. Do not insert a soft filler in in the bra until your physician gives you permission. Wear a loose shirt over the bra,with a button front if possible, until your physician removes your drains. Pin drains to the shirt to avoid tugging. When comfortable for you and approved by your provider, you may use a mastectomy bra with a soft insert prosthesis. If applicable, and you had a mastectomy without reconstruction, you will be given a prescription for a permanent prosthesis and prosthetic bra in several weeks after surgery and you are completely healed. When you receive this prescription make an appointment at [facility] or the shop of your choice to be fitted for a prosthesis and post mastectomy clothing such as bras, swimsuits, etc. You may also purchase items online, one source is: https://ajkay-ezujsdie-kli.[employer]ake[employer]stOUYA.net/ If your surgeon does not wish for you to wear a surgical bra, wear a loose shirt without a bra, with a button front if possible until your physician removes your drains and allows you to wear a bra or loose camisole. Pin drains to the shirt to avoid tugging. CARE FOR YOU WOUNDS/INCISIONS Your wound dressing should remain dry and remain in place until the time your provider asks you to remove it. Incision dressing and care Your surgical incision is closed with Dermabond (adhesive): It will remain in place for up to 2 to 3 weeks and it will wear off (peel off) naturally. Do not scratch, rub, or pick at the transparent film skin closure; if you do, the transparent film skin closure may become loose before your surgical incision site is fully healed. Keep your surgical incision site dry for 48 hours after surgery. When you are instructed to resume showering; keep front of body turned away from shower spray and allow water to stream gently over chest. Resources and Support Support Group for breast cancer survivors: There is a monthly support group for breast cancer survivors and their loved ones. It is virtual. To sign up, call or see https://cancer.osu.e du/patient-support/xeexbjpdbo-epg-ybaivkm Attending educational class with other cancer survivors and their caregivers can be very helpful after surgery. For more information about our free classes and support groups call or see https://cancer.os.edu/patient-support/qewytaqwla-jhc-nwhbclb Reputable websites National Cancer Watkins: https://www.cancer.gov/ I and love and you Foundation: https://ww5.Transit App.org/ Support organizations of interest to people with breast cancer Reach to Recovery: https://www.cancer.org/treatment/bksdxut-snwgaurz-xmn-services/mvhle-rs-ocwrhvyr .html Living beyond breast cancer: https://www.lbbc.org/ Young Survival Coalition: https://www.youngsurvival.org/ [employer] Foundation: https://www.Timeeterlifomiddletown emergency departmentation.org/ Cancer Support Community: https://www.cancersupportcommunity.org/ If you need support talking to your children or grandchildren about your diagnosis, please refer to: This explanation by psychologist on how to tell your children or grandchildren: https://www.HomeStayube.com/watch?v=1xkkhD7M2wF&feature=[employer].be This video for children to explain the cancer diagnosis: https://www.HomeStayube.com/watch?v=5DTYSnvmecA&feature=youBrevityu.be This website which coaches you through how to tell your children: http://www.[employer].Captricity/ * Attachments The following attachments cannot be sent through Care Everywhere. * Constipation and Pain Medicine ([facility]) (Mongolian) [facility] Nurse Surgical operation note* Yuliana Arenas RN - 08/22/2022 8:41 AM EST Last chemo 07/26/2022 and Patient denies recent radiation. Patient denies metal or foreign objects in body. Patient denies hx of seizure or stroke. [facility] Nurse Note* Yuliana Arenas RN - 08/22/2022 8:41 AM EST Last chemo 07/26/2022 and Patient denies recent radiation. Patient denies metal or foreign objects in body. Patient denies hx of seizure or stroke. documented in this [facility]Av[facility] History of Present illness Narrative* Sigrid Sorto - 08/22/2022 8:00 AM EST Completed a LT breast x-ray guided needle localization using a 10 cm wire. Patient tolerated the procedure without any bleeding complications. Bandage was applied and patient was released to surgery in good condition. [facility] Procedure note* Brooke Galvan MD - 08/22/2022 8:00 AM ESTAssociated Order(s): GENERAL PROCEDURE History and Physical Update: The H&P completed on 08/17/22 and 08/04/22 was reviewed and patient was assessed. No changes were noted. Brooke Galvan MD, 08/22/2022, 8:00 AM. [facility] Work Phone: [phone]) 949-973302-14-2023 Procedure note* Brooke Galvan MD - 08/22/2022 8:00 AM ESTAssociated Order(s): GENERAL PROCEDURE History and Physical Update: The H&P completed on 08/17/22 and 08/04/22 was reviewed and patient was assessed. No changes were noted. Brooke Galvan MD, 08/22/2022, 8:00 AM. documented in this encounterAv[facility] History of Present illness Narrative* Alisa Ward RN - 08/04/2022 8:00 AM EST Patient offered a medical critical care unit manager for sensitive exam. Patient declined critical care unit manager. * Lorenzo Farris III, MD - 08/04/2022 8:00 AM EST INITIAL PATIENT EVALUATION / HISTORY AND PHYSICAL EXAMINATION FOR SURGICAL ONCOLOGY CLINIC Stage = T1c N0 M0 = STAGE IA HISTORY OF PRESENT ILLNESS The patient is here after receiving preoperative chemotherapy for a stage IA HER2 Veronica positive invasive ductal carcinoma. She received TCHP x6 cycles and finished that regimen in mid July. She is for surgical consultation. The patient is a 61-year-old female who was diagnosed with a left breast invasive ductal carcinoma on ultrasound-guided biopsy that was performed March 15, 2022. Subsequently the patientwent on to receive neoadjuvant chemotherapy for this HER2 Veronica positive cancer. The patient had a bilateral screening mammogram on February 22, 2022. There was a hyperdense mass in the upper inner quadrant of the left breast in the posterior 3rd. This mass measured 1.2 x 0.9 cm and was seen only on the MLO view. Right breast showed no abnormalities. A diagnostic mammogram was performed March 01, 2022 with spot compressions and additional views. There was redemonstration of the mass in the upper inner quadrant of the left breast measuring 1.3 cm. Suspicious calcifications were identified anterior to the mass. These were in a linear distribution measuring 1.8 cm x 0.5 cm. The extent anterior and inferior to the mass. That same day a limited left breast ultrasound was performed and this showed a 8 mm oval hypoechoic mass with microlobulated margins at the 11:00 a.m. axis12 cm from the nipple. A core needle biopsy was performed on March 15, 2022. The left breast core needle biopsy showed invasive ductal carcinoma, nuclear grade 3. Ki-67 staining is positive at 50%. Estrogen and progesterone receptors are negative. The cancer is HER2 3+. A satisfactorily position Bard coil shaped clip was placed at the site of the cancer. The patient started neoadjuvant TCHP on April 12, 2022 and had no grade 3 or 4 toxicities. An echocardiogram from June 29, 2022 showed an ejection fraction of 70%. The patient is not allergic to penicillin or latex. She is not allergic to tape or Band-Aids. She does not have a bleeding tendency and is on no blood thinners. She does not have a history of deep venous thrombosis. She has had general anesthesia before without difficulty. She has had surgical incisions previously and has healed well. She had carpal tunnel surgery. She is not a smoker and is not diabetic. She does not have a history of cardiac disease or implanted cardiac devices. The patient does have asthma but uses her inhaler only occasionally. The patient does have hypertension. The patient is a former smoker when she was younger. She does not smoke at this time. She has a Port-A-Cath in place. REVIEW OF SYSTEMS General/Constitutional: Negative for fever, chills, fatigue, recent weight gain or loss. HEENT: No visual disturbances, diplopia, or amarosis fugax. No hearing loss, tinnitus, sore throat,nosebleeds, and rhinorrhea. No dysphagia or odynophagia. Cardiovascular: Negative for palpitations, chest pain, dyspnea on exertion, orthopnea or paroxysmalnocturnal dyspnea. Respiratory: No history of TB exposure. Negative for chronic or productive cough, hemoptysis, or asthma. Gastrointestinal: Negative for abdominal pain, nausea, vomiting, diarrhea, constipation or changes in bowel habits. Genitourinary: Negative for dysuria or hematuria. No frequency, urgency, or hesitancy. Musculoskeletal: Negative for arthralgias, myalgias, or back pain. Neurological: Negative for dizziness, syncope, focal weakness or headaches. Psychiatric: Negative for depression, anxiety or mood disorders. Lymph/Heme: No history of hematologic magligancies or bleeding disorders. No lymphadenopathy. Skin: Negative for acute skin lesions. PAST MEDICAL HISTORY She has a past medical history of Malignant neoplasm of upper-inner quadrant of left breast in female, estrogen receptor negative (03/15/2022). PAST SURGICAL HISTORY She has a past surgical history that includes core biopsy of the breast (Left, 03/15/2022). MEDICATIONS She has a current medication list which includes the following prescription(s): Ascorbic Acid (Vitamin C) 1000 MG tablet, ASPIRIN 81 PO, Cholecalciferol (Vitamin D3) 125 MCG (5000 UT) Tab Dispersible, Coenzyme Q10 (CO Q 10 PO), [place]-3 1000 MG capsule, Valsartan 160 MG tablet, and Zinc 22.5 MG tablet. ALLERGIES No Known Allergies IMMUNIZATIONS There is no immunization history on file for this patient. 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 SOCIAL HISTORY She has no history on file for tobacco use, alcohol use, and drug use. PHYSICAL EXAMINATION Vital Signs: BP 124/72 Pulse 108 Temp 98.8 F (37.1 C) Ht 1.6 m (5' 3) Wt 61.2 kg (135 lb) BMI 23.91 kg/m , General: Well developed, well nourished female, who looks their stated age of 61 y.o.. No acute distress. HEENT: Head: Normocephalic and atraumatic. Eyes: Pupils are equal, round, and reactive to light andaccomodation. Extraocular movements are intact. Sclerae are anicteric. Neck: Supple, non-tender. Notracheal deviation. No thyromegally. Heart: Regular rate and rhythm. Normal S1, S2. No murmurs, rubs or gallops. Lung/Chest: Lungs are clear to auscultation bilaterally. No wheezes, rhonchi or rales noted. Breast: There is no dominant mass or nodularity in the left breast. The right breast is normal on palpation as well. The nipples are normal bilaterally. There are no skin or nipple retractions. Lymph Nodes: There is no cervical or supraclavicular or axillary lymphadenopathy. Abdomen: Abdomen with normoactive bowel sounds in all four quadrants. Soft, non- tender, non-distended. No organomegaly. Extremities: Normal range of motion in all four extremities, with normal strength equally and symmetrically. No cyanosis or clubbing or peripheral edema. Vascular: 2+ distal pulses in upper and lower extremities. 2+ carotid pulses without carotid bruits. Neurological: Conscious, alert and oriented. Grossly intact. Skin: Skin is warm and dry. No skin lesions. ASSESSMENT AND PLAN The patient has received preoperative chemotherapy for a stage I invasive ductal carcinoma that is HER2 positive. Her axilla is clinically negative. She is interested in breast conservation therapy. I explained the procedure in detail. I explained the potential risk of bleeding, infection, scarring, pain, numbness, seroma, lymphedema and possible need for additional surgery. She wishes to proceed. She is due to have an echocardiogram soon. She understands the need for postoperative radiation therapy to the breast. She was treated in [place]. She may have radiation therapy at that facility. She had genetic testing that was negative. I have reviewed [facility] medical, surgical and other pertinent history in detail, and haveupdated medication and allergy information in the computerized patient record. REFERRING/PRIMARY PROVIDER(S) -Referring Provider for today's consult: Janet Hernandez APRN* -Primary Care Provider: Vincenzo Proctor Study Result Narrative & Impression EXAM: BREAST IMAGING SECOND OPINION READING, 08/01/2022 09:49 AM CLINICAL INDICATIONS: 61-year-old female diagnosed with left breast invasive ductal carcinoma on ultrasound-guided biopsy performed 03/15/2022 currently receiving neoadjuvant chemotherapy was in a patient of Dr. Farris's clinic. The patient's outside imaging was submitted for second opinion reading. The patient was initially recalled from screening mammography for a mass in the upper outer left breast. Ultrasound identified a 0.8 x 0.7 x 0.7 cm mass at 11:00 12 cm from the nipple. Left breast core biopsy was performed showing invasive ductal carcinoma, nuclear grade 3. ER negative, MA negative, HER-2/veronica positive. COMPARISON: Mammogram 09/04/2018 and 10/03/2019. 02/22/2022 BILATERAL SCREENING MAMMOGRAM WITH TOMOSYNTHESIS: 2-D MLO and CC views were obtained of the bilateral breasts. 3-D MLO and CC digital tomosynthesis images were also acquired. The breasts have scattered areas of fibroglandular density. There is a hyperdense mass in the upper inner posterior third of the left breast, only visualized on the MLO view, measuring 1.2 x 0.9 cm. There are calcifications, which appear to be extending anterior from the mass. There is no mass, distortion, or suspicious calcification in the right breast. 03/01/2022 DIAGNOSTIC LEFT MAMMOGRAM: 2-D spot compression CC, spot compression MLO, CC, and XCCL views of the left breast were obtained. There is redemonstration of the mass in the upper inner quadrant which measures 1.3 cm in transverse dimension. There is suspicious calcifications in a linear distribution measuring 1.8 cm AP x 0.5 cm TRV x 0.4 cm CC extending anterior inferior to the mass. Magnification views were not performed. 03/01/2022 LIMITED LEFT BREAST ULTRASOUND: Limited ultrasound of the left breast was performed with images obtained at 11:00. In the left breast 11:00 12 cm from the nipple, there is an oval hypoechoic mass with microlobulated margins measuring 0.8 x 0.7 x 0.7 cm. 03/15/2022 ULTRASOUND-GUIDED LEFT BREAST BIOPSY: Images show a needle traversing the mass. Postprocedure CC and MLO view show placement of a Bard coil-shaped clip within the superior anterior aspect of the mass. 03/22/2022 LIMITED LEFT BREAST AND LEFT AXILLARY ULTRASOUND: Images show redemonstration of the biopsy-proven malignancy in the left breast 11:00 measuring 0.8 x 0.6 x 0.8 cm. No abnormal-appearing left axillary lymph nodes were imaged. MRI FINDINGS: None submitted IMPRESSION IMPRESSION: 1. Left breast invasive ductal carcinoma on ultrasound-guided biopsy of a 0.8 x 0.7 x 0.7 cm mass located far posteriorly in the left breast at 11:00 12 cm from the nipple with satisfactory position of a Bard coil-shaped clip. There are suspicious calcifications extending anteriorly from the inferior aspect of the mass measuring approximately 1.8 x 0.5 x 0.4 cm. Recommend 2-D/3-D CC, 2-D/3-D ML, magnification CC, and magnification ML view to evaluate the known malignancy and anterior calcifications. 2. No mammographic evidence of malignancy in the right breast. * Alisa Ward RN - 08/04/2022 8:00 AM EST Faxed request for 03/15/22 left breast biopsy slides ([id number]) to be sent to [facility] for review to the Pathology Department at [facility] at [phone]. Signed authorization to release medical information form included. Ambulatory referral to pathology order placed. documented in this [facility]Av[facility] Instructions* Patient Instructions* Alisa Ward RN - 08/04/2022 8:00 AM EST Your Surgical Oncology Team: [facility] Breast [address] [place] [address] Doctor: Dr. Lorenzo Farris Nurse Practitioner: Lilia NOWAK Primary Nurse: Alisa Ward orthopedic rn phone: [phone] Office fax: [phone] We are available to take calls Sunday-Sunday 8:00-4:30. During non-business hours and holidays phone calls will be forwarded to a service covering our patients. Please communicate with our team through [facility] for non-urgent issues only. Please allow at least 10 business days for your team to complete any paperwork. When requesting medication refills, please try to provide as much notice as possible (5 days) in order to ensure that you do not run out of medication. When leaving messages, it is important to leave: 1. Patient name (spelling of last name) 2. date of 3. phone number documented in this encounterU [facility]Chief [facility]+Reason for visit Narrative* Chief Complaint SCREENING ABDNORMAL BARBIE L BREAST BIRADS 4 L BREAST MASS F/U breast bx, discuss treatment plan LEFT BREAST CA/ CLIP CHECK POST BIOPSY PELVIC FLOOR. RX HERE Reason for Visit Breast lump on left side at 11 o'clock position Breast cancer [facility] Work Phone: [facility] complaint+Reason for visit Narrative* Chief Complaint SCREENING ABDNORMAL BARBIE L BREAST BIRADS 4 L BREAST MASS F/U breast bx, discuss treatment plan LEFT BREAST CA/ CLIP CHECK POST BIOPSY PELVIC FLOOR. RX HERE NEW-BREAST CA Reason for Visit Breast cancer of upp er-outer quadrant of left female breast [facility] Work Phone: Chief complaint+Reason for visit Narrative* Chief Complaint L BREAST BIRADS 4 L BREAST MASS F/U breast bx, discuss treatment plan LEFT BREAST CA/ CLIP CHECK POST BIOPSY NEW-BREAST CA Discuss/schedule port CHEMO ED INSERTION RT POSS LT IJ PORT INSERTION RT POSS LT IJ PORT LONG TIME HIGH RISK MEDS 2WKS LABS NEW CHEMO START 3 WKS - LABS - TCHP 2WKS LABS TOX CHECK PELVIC FLOOR. RX HERE 1WK LABS TCHP 3 WKS - LABS - TCHP SHELTER DRUG THERAPY 3 WKS - LABS - TCHP 2WKS LABS NEW CHEMO START Reason for Visit Breast cancer of upp er-outer quadrant of left female breast Breast cancer of upper-outer quadrant of left female breast Breast cancer of upper-outer quadrant of left female breast Encounter for education Breast cancer of upper-outer quadrant of left female breast Anxiety Breast cancer of upper-outer quadrant of left female breast Encounter for chemotherapy management Breast cancer of upper-outer quadrant of left female breast Breast cancer of upper-outer quadrant of left female breast Breast cancer of upper-outer quadrant of left female breast Encounter for chemotherapy management Hypokalemia Breast cancer of upper-outer quadrant of left female breast Encounter for chemotherapy management Encounter for monitoring cardiotoxic drug therapy Hand foot syndrome Hypokalemia [facility] Work Phone: Evaluation noteNo assessment information available [facility] Work Phone: Evaluation note* Diagnosis Onset Date Resolution Status Breast lump on left side at 11 o'clock position acute Breast cancer acute [facility] Work Phone: Evaluation note* Diagnosis Onset Date Resolution Status Breast cancer of upper-outer quadrant of left female breast acute [facility] Work Phone: Evaluation note* Diagnosis Onset Date Resolution Status Breast cancer of upper-outer quadrant of left female breast acute Breast cancer of upper-outer quadrant of left female breast acute Breast cancer of upper-outer quadrant of left female breast acute Encounter for education acut e Breast cancer of upper-outer quadrant of left female breast acute Anxiety acute Breast cancer of upper-outer quadrant of left female breast acute Encounter for chemotherapy management acute Breast cancer of upper-outer quadrant of left female breast acute Breast cancer of upper-outer quadrant of left female breast acute Breast cancer of upper-outer quadrant of left female breast acute Encounter for chemotherapy management acute Hypokalemia acute Breast cancer of upper-outer quadrant of left female breast acute Encounter for chemotherapy management acute Encounter for monitoring cardiotoxic drug therapy acute Hand foot syndrome acute Hypokalemia acute [facility] Work Phone: Evaluation note* Diagnosis Malignant neoplasm of left breast in female, estrogen receptor negative, unspecified site of breast [facility] Diagnosis Malignant neoplasm of upper-inner quadrant of left breast in female, estrogen receptor negative- Primary Malignant neoplasm of upper-inner quadrant of left breast in female, estrogen receptor negative [facility] Diagnosis Malignant neoplasm of upper-inner quadrant of left breast in female, estrogen receptor negative Malignant neoplasm of upper-inner quadrant of left breast in female, estrogen receptor negative [facility] Diagnosis Malignant neoplasm of upper-inner quadrant of left breast in female, estrogen receptor negative [facility] Diagnosis Malignant neoplasm of upper-inner quadrant of left breast in female, estrogen receptor negative [facility] Diagnosis Malignant neoplasm of upper-inner quadrant of left breast in female, estrogen receptor negative [facility] Diagnosis Malignant neoplasm of upper-inner quadrant of left breast in female, estrogen receptor negative [facility] Diagnosis Malignant neoplasm of upper-inner quadrant of left breast in female, estrogen receptor negative- Primary [facility] Diagnosis Onset Date Resolution Status Breast cancer of upper-outer quadrant of left female breast acute Breast cancer of upper-outer quadrant of left female breast acute Encounter for chemotherapy management acute Hypokalemia acute Breast cancer of upper-outer quadrant of left female breast acute Encounter for chemotherapy management acute Encounter for monitoring cardiotoxic drug therapy acute Hand foot syndrome acute Hypokalemia acute Breast cancer of upper-outer quadrant of left female breast acute Breast cancer of upper-outer quadrant of left female breast acute Breast cancer of upper-outer quadrant of left female breast acute Hypokalemia acute Hypomagnesemia acute Breast cancer of upper-outer quadrant of left female breast acute Spitting suture acute [facility] Work Phone: Evaluation note* Diagnosis Malignant neoplasm of upper-inner quadrant of left breast in female, estrogen receptor negative- Primary Encounter for screening mammogram for malignant neoplasm of breast Other screening mammogram [facility] Diagnosis Onset Date Resolution Status Breast cancer of upper-outer quadrant of left female breast acute Encounter for chemotherapy management acute Hypokalemia acute Breast cancer of upper-outer quadrant of left female breast acute Encounter for chemotherapy management acute Encounter for monitoring cardiotoxic drug therapy acute Hand foot syndrome acute Hypokalemia acute Breast cancer of upper-outer quadrant of left female breast acute Breast cancer of upper-outer quadrant of left female breast acute Breast cancer of upper-outer quadrant of left female breast acute Hypokalemia acute Hypomagnesemia acute Breast cancer of upper-outer quadrant of left female breast acute Spitting suture acute Breast cancer of upper-outer quadrant of left female breast acute [facility] Work Phone: Evaluation note* Diagnosis Onset Date Resolution Status Breast cancer of upper-outer quadrant of left female breast acute Spitting suture acute Breast cancer of upper-outer quadrant of left female breast acute Breast cancer of upper-outer quadrant of left female breast acute Breast cancer of upper-outer quadrant of left female breast acute Breast cancer of upper-outer quadrant of left female breast acute Breast cancer of upper-outer quadrant of left female breast acute Breast cancer of upper-outer quadrant of left female breast acute Breast cancer of upper-outer quadrant of left female breast acute Encounter for education acut e Breast cancer of upper-outer quadrant of left female breast acute Breast cancer of upper-outer quadrant of left female breast acute Encounter for education acut e Hypokalemia acute [facility] Work Phone: Evaluation note* Diagnosis Malignant neoplasm of upper-inner quadrant of left breast in female, estrogen receptor negative- Primary Encounter for screening mammogram for malignant neoplasm of breast Other screening mammogram [facility] Diagnosis Malignant neoplasm of upper-inner quadrant of left breast in female, estrogen receptor negative Encounter for screening mammogram for malignant neoplasm of breast Other screening mammogram [facility] Diagnosis Onset Date Resolution Status Breast cancer of upper-outer quadrant of left female breast acute Breast cancer of upper-outer quadrant of left female breast acute Port-A-Cath in place acute Breast cancer of upper-outer quadrant of left female breast acute Port-A-Cath in place acute Encounter for chemotherapy management acute HTN (hypertension), benign a cute [facility] Work Phone: Evaluation note* Diagnosis Onset Date Resolution Status Breast cancer of upper-outer quadrant of left female breast acute Breast cancer of upper-outer quadrant of left female breast acute Port-A-Cath in place acute Breast cancer of upper-outer quadrant of left female breast acute Port-A-Cath in place acute Encounter for chemotherapy management acute HTN (hypertension), benign a cute Breast cancer of upper-outer quadrant of left female breast [facility] Work Phone: Evaluation note* Diagnosis Onset Date Resolution Status Encounter for chemotherapy management acute HTN (hypertension), benign a cute Breast cancer of upper-outer quadrant of left female breast acute Breast cancer of upper-outer quadrant of left female breast [facility] Work Phone: Evaluation note* Diagnosis Malignant neoplasm of upper-inner quadrant of left breast in female, estrogen receptor negative- Primary Abnormal mammogram Abnormal mammogram, unspecified [facility] Diagnosis Malignant neoplasm of upper-inner quadrant of left breast in female, estrogen receptor negative Encounter for screening mammogram for malignant neoplasm of breast Other screening mammogram [facility] Diagnosis Encounter for screening for malignant neoplasm of colon- Primary Special screening for malignant neoplasms, colon History of breast cancer Personal history of malignant neoplasm of breast [facility] Diagnosis Screening for colon cancer- Primary Special screening for malignant neoplasms, colon Encounter for screening for malignant neoplasm of colon Special screening for malignant neoplasms, colon [facility] Diagnosis Adenomatous polyp- Primary Benign neoplasm of unspecified site [facility]* Diagnosis Malignant neoplasm of upper-inner quadrant of left breast in female, estrogen receptor negative- Primary [facility] Diagnosis Malignant neoplasm of upper-inner quadrant of left breast in female, estrogen receptor negative Abnormal mammogram Abnormal mammogram, unspecified [facility] Diagnosis Onset Date Resolution Status Admit Date Breast cancer of upper-outer quadrant of left female breast acute J andria 2024 10:28am [email or web address] Work Phone: Evaluation note* Diagnosis Malignant neoplasm of upper-inner quadrant of left breast in female, estrogen receptor negative [facility] Consultation (Routine) - New Request Specialty Diagnoses / Procedures Referred By Contact Referred To Contact Clinical Pathology/Laboratory Medicine Diagnoses Malignant neoplasm of upper-inner quadrant of left breast in female, estrogen receptor negative Lilia Browning APRN-CNP [address] [place] [address] [facility] [address] [place] [address] Referral ID Status Reason Start Date Expiration Date Visits Requested Visits Authorized [id number] New Request Specialty Services Required 08/04/2022 08/29/2023 1 1 * Radiology (Routine) - New Request Specialty Diagnoses / Procedures Referred By Joe dupree Referred To Contact Diagnoses Malignant neoplasm of upper-inner quadrant of left breast in female, estrogen receptor negative Procedures MAMMO GUIDED NEEDLE LOCALIZATION BREAST LEFT Lilia Browning APRN-CNP [address] [place] [address] Referral ID Status Reason Start Date Expiration Date V isits Requested Visits Authorized [id number] New Request 08/04/2022 08/29/2023 1 1 * Radiology (Routine) - New Request Specialty Diagnoses / Procedures Referred By Joe dupree Referred To Contact Diagnoses Malignant neoplasm of upper-inner quadrant of left breast in female, estrogen receptor negative Procedures NUC BREAST/LYMPH GLAND INJECTION MA INJ RADIOACTIVE TRACER FOR ID OF SENTINEL NODE Lilia Browning APRN-CNP [address] [place] [address] Referral ID Status Reason Start Date Expiration Date V isits Requested Visits Authorized [id number] New Request 08/04/2022 08/29/2023 1 1 [facility] for referral (narrative)* Outpatient Procedure (Routine) - Pending Review Specialty Diagnoses / Procedures Referred By Joe dupree Referred To Contact [facility] Diagnoses Encounter for screening for malignant neoplasm of colon Procedures COLONOSCOPY SCREENING COLONOSCOPY FLX DX W/COLLJ SPEC WHEN Padma Ordaz APRN.CNP [address] [place] [address] [facility] [place] [id number] Referral ID Status Reason Start Date Expiration Date Visits Requested Visits Authorized [id number] Pending Review Auto-Generat ed Referral 07/18/2024 07/18/[address] [facility] for referral (narrative)* Outpatient Procedure (Routine) - Closed Specialty Diagnoses / Procedures Referred By Joe dupree Referred To Contact [facility] Diagnoses Encounter for screening for malignant neoplasm of colon Procedures COLONOSCOPY SCREENING COLONOSCOPY FLX DX W/COLLJ SPEC WHEN Padma Ordaz APRN.CNP [address] [place] [address] [address] Referral ID Status Reason Start Date Expiration Date V isits Requested Visits Authorized [id number] Closed Auto-Generate d Referral 07/25/2024 07/08/[address] [facility] for referral (narrative)No reason for referral information available[facility] Narrative* Auth/Cert Specialty Diagnoses / Procedures Referred By Joe dupree Referred To Contact Diagnoses Malignant neoplasm of upper-inner quadrant of left breast in female, estrogen receptor negative Malignant neoplasm of upper-inner quadrant of left breast in female, estrogen receptor negative [C50.212, Z17.1] Procedures MA MASTECTOMY, PARTIAL MA BX/REMV,LYMPH NODE,DEEP AXILL MA INJ RADIOACTIVE TRACER FOR ID OF SENTINEL NODE MA REMOVE ARMPITS LYMPH NODES COMPLT MASTECTOMY PARTIAL (LUMPECTOMY) BX LYMPH NODE AXILLARY DEEP INJECTION RADIOACTIVE TRACER FOR SENTINEL NODE IDENTIFICATION LYMPHADENECTOMY AXILLARY DEEP Lorenzo Farris III, MD [address] [facility] [address] Floor, [address] [place] [address] [facility] [address] [place] [address] Referral ID Status Reason Start Date Expiration Date Visits Re quested Visits Authorized [id number] 1 1 [facility] N[facility]* Outpatient Procedure (Routine) - Closed Specialty Diagnoses / Procedures Referred By Joe dupree Referred To Contact [facility] Diagnoses Encounter for screening for malignant neoplasm of colon Procedures COLONOSCOPY SCREENING COLONOSCOPY FLX DX W/COLLJ SPEC WHEN Padma Ordaz APRN.EXECUTIVE HOUSEKEEPER [address] [place] [address] [facility] [place] [address] [place] [address] Referral ID Status Reason Start Date Expiration Date V isits Requested Visits Authorized [id number] Closed Auto-Generate d Referral 07/25/2024 07/08/2025 1 1 [facility] for visit Narrative* Radiology (Routine) - Pending Review Specialty Diagnoses / Procedures Referred By Joe dupree Referred To Contact Diagnoses Malignant neoplasm of upper-inner quadrant of left breast in female, estrogen receptor negative Abnormal mammogram Procedures MAMMO DIAGNOSTIC WITH Lilia Shin, DIRECTOR OF PUPIL PERSONNEL PROGRAM-EXECUTIVE HOUSEKEEPER [address] [place] [address] Phone: tel: fax: Referral ID Status Reason Start Date Expiration Date V isits Requested Visits Authorized [id number] Pending Review 03/13/2024 04/07/2025 1 1 [facility] N[facility]* Radiology (Routine) - Pending Review Specialty Diagnoses / Procedures Referred By Joe dupree Referred To Contact Diagnoses Malignant neoplasm of upper-inner quadrant of left breast in female, estrogen receptor negative Procedures MAMMO DIAGNOSTIC WITH FRANDY Lilia Landers, DIRECTOR OF PUPIL PERSONNEL PROGRAM-EXECUTIVE HOUSEKEEPER Phone: tel: fax: Referral ID Status Reason Start Date Expiration Date V isits Requested Visits Authorized [id number] Pending Review 09/11/2024 10/06/2025 1 1 [facility] Chief Complaint and Reason for Visit Chief Complaint SCREENING Chief Complaint SCREENING ABDNORMAL BARBIE Chief Complaint 1WK LABS TCHP 3 WKS - LABS - TCHP SHELTER DRUG THERAPY 3 WKS - LABS - TCHP NO LABS DISCUSS SURGEON 3 WKS - LABS - TCHP TOX CHECK - LABS CONSULT - BREAST LIU Malignant neoplasm of upper-outer quadrant of unsp stitch on port needs clipped PELVIC FLOOR. RX HERE Reason for Visit Breast cancer of upp er-outer quadrant of left female breast Breast cancer of upper-outer quadrant of left female breast Encounter for chemotherapy management Hypokalemia Breast cancer of upper-outer quadrant of left female breast Encounter for chemotherapy management Encounter for monitoring cardiotoxic drug therapy Hand foot syndrome Hypokalemia Breast cancer of upper-outer quadrant of left female breast Breast cancer of upper-outer quadrant of left female breast Breast cancer of upper-outer quadrant of left female breast Hypokalemia Hypomagnesemia Breast cancer of upper-outer quadrant of left female breast Spitting suture Chief Complaint 3 WKS - LABS - TCHP SHELTER DRUG THERAPY 3 WKS - LABS - TCHP NO LABS DISCUSS SURGEON 3 WKS - LABS - TCHP TOX CHECK - LABS CONSULT - BREAST Malignant neoplasm of upper-outer quadrant of unsp stitch on port needs clipped PELVIC FLOOR. RX HERE 2MO LABS REVIEW PATH-[facility] LIU Reason for Visit Breast cancer of upp er-outer quadrant of left female breast Encounter for chemotherapy management Hypokalemia Breast cancer of upper-outer quadrant of left female breast Encounter for chemotherapy management Encounter for monitoring cardiotoxic drug therapy Hand foot syndrome Hypokalemia Breast cancer of upper-outer quadrant of left female breast Breast cancer of upper-outer quadrant of left female breast Breast cancer of upper-outer quadrant of left female breast Hypokalemia Hypomagnesemia Breast cancer of upper-outer quadrant of left female breast Spitting suture Breast cancer of upper-outer quadrant of left female breast Chief Complaint CONSULT - BREAST Malignant neoplasm of upper-outer quadrant of unsp stitch on port needs clipped PELVIC FLOOR. 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 Reason for Visit Breast cancer of upp er-outer quadrant of left female breast Spitting suture Breast cancer of upper-outer quadrant of left female breast Breast cancer of upper-outer quadrant of left female breast Breast cancer of upper-outer quadrant of left female breast Breast cancer of upper-outer quadrant of left female breast Breast cancer of upper-outer quadrant of left female breast Breast cancer of upper-outer quadrant of left female breast Breast cancer of upper-outer quadrant of left female breast Encounter for education Breast cancer of upper-outer quadrant of left female breast Breast cancer of upper-outer quadrant of left female breast Encounter for education Hypokalemia Chief Complaint 3 WKS - LABS - TRAST UZUMAB LIU PORT REMOVAL 4 month f/u breast WOUND CHECK NEW CARDIAC ONC PT I34.0 Amb Documentation Reason for Visit Breast cancer of upp er-outer quadrant of left female breast Breast cancer of upper-outer quadrant of left female breast Port-A-Cath in place Breast cancer of upper-outer quadrant of left female breast Port-A-Cath in place Encounter for chemotherapy management HTN (hypertension), benign Chief Complaint 3 WKS - LABS - TRAST UZUMAB PORT REMOVAL 4 month f/u breast WOUND CHECK NEW CARDIAC ONC PT I34.0 Amb Documentation 3 MO - LABS LIU Amb Documentation Reason for Visit Breast cancer of upp er-outer quadrant of left female breast Breast cancer of upper-outer quadrant of left female breast Port-A-Cath in place Breast cancer of upper-outer quadrant of left female breast Port-A-Cath in place Encounter for chemotherapy management HTN (hypertension), benign Breast cancer of upper-outer quadrant of left female breast Chief Complaint NEW CARDIAC ONC PT I34.0 Amb Documentation 3 MO - LABS LIU Amb Documentation 4 MONTH BREAST F/U Reason for Visit Encounter for chemot herapy management HTN (hypertension), benign Breast cancer of upper-outer quadrant of left female breast Breast cancer of upper-outer quadrant of left female breast Chief Complaint Admit Date 4 MO - NO LABS January 22, 2025 10:2 8am Reason for Visit Admit Date Breast cancer of upper-outer quadrant of left female breast January 22, 2025 10:28am Chief Complaint Admit Date 4 MO - NO LABS January 22, 2025 10:2 8am 8 MONTH BREAST F/U February 24, 2025 9: 06am Reason for Visit Admit Date Breast cancer of upper-outer quadrant of left female breast January 22, 2025 10:28am Breast cancer of upper-outer quadrant of left female breast February 24, 2025 9:06am Family History No Family History Records Found Relationship Condition Age at Onset Recorded Date/T gisselle father Hypertension Unknown Diabetes mellitus Unknown mother Hypertension Unknown sister Malignant neoplasm of breast Unknown Malignant neoplasm Unknown Hypertension Unknown brother Cardiac disease Unknown Relationship Condition Age at Onset Recorded Date/T gisselle father Hypertension Unknown Diabetes mellitus Unknown Malignant neoplasm of lung Unknown Current smoker Unknown mother Hypertension Unknown sister Malignant neoplasm of breast 61 Malignant neoplasm 50 Hypertension Unknown Multiple sclerosis Unknown brother Cardiac disease Unknown Advance Directives No Advanced Directives Records Found Advance Directive Response Recorded Date/ Time Advance Directives on File No Decem 2021 9:00am Advance Directives No June 9:00am Living Will No July 05, 2 022 9:00am Power of Hot Dip Plating Supervisor No July 05, 2022 9:00am Advance Directive Response Recorded Date/ Time Advance Directives on File No 2022 1:36pm Advance Directives No August 09, 2022 1:36pm Living Will No August 09 1:36pm Power of Hot Dip Plating Supervisor No August 09, 2022 1:36pm Advance Directive Response Recorded Date/ Time Advance Directives on File No November 082022 11:41am Advance Directives No December 06 11:41am Living Will No December 06, 2022 1 1:41am Power of Hot Dip Plating Supervisor No December 06, 2022 11:41am Advance Directive Response Recorded Date/ Time Advance Directives on File No Augus t 2022 1:29pm Advance Directives No March 01, 2023 1:29pm Living Will No March 01 1:29pm Power of Hot Dip Plating Supervisor No March 01, 2 023 1:29pm Advance Directive Response Recorded Date/ Time Advance Directives No March 01, 2023 2:29pm Reason for Referral Specialty Diagnoses / Procedures Referred By Contac t Referred To Contact Procedures NO MECHANICAL DVT PROPHYLAXIS Rhoda [employer], CARMEN [address] [place] [address] Referral ID Status Reason Start Date Expiration Date V isits Requested Visits Authorized [id number] New Request 08/22/2022 09/16/2023 1 1 Specialty Diagnoses / Procedures Referred By Contac t Referred To Contact Diagnoses Malignant neoplasm of upper-inner quadrant of left breast in female, estrogen receptor negative Procedures MAMMO GUIDED NEEDLE LOCALIZATION BREAST LEFT Lilia Browning, DIRECTOR OF PUPIL PERSONNEL PROGRAM-EXECUTIVE HOUSEKEEPER [address] [place] [address] Referral ID Status Reason Start Date Expiration Date V isits Requested Visits Authorized [id number] New Request 08/04/2022 08/29/2023 1 1 Specialty Diagnoses / Procedures Referred By Contac t Referred To Contact Diagnoses Malignant neoplasm of upper-inner quadrant of left breast in female, estrogen receptor negative Procedures MAMMO SPECIMEN RADIOGRAPH BREAST MAMMO SPECIMEN RADIOGRAPH BREAST Lorenzo Farris III, MD [address] [facility] 3rd Floor, [address] [place] [address] Referral ID Status Reason Start Date Expiration Date V isits Requested Visits Authorized [id number] New Request 08/21/2022 09/15/2023 1 1 Specialty Diagnoses / Procedures Referred By Contac t Referred To Contact Diagnoses Malignant neoplasm of upper-inner quadrant of left breast in female, estrogen receptor negative Procedures NUC BREAST/LYMPH GLAND INJECTION MA INJ RADIOACTIVE TRACER FOR ID OF SENTINEL NODE Lilia Browning, DIRECTOR OF PUPIL PERSONNEL PROGRAM-EXECUTIVE HOUSEKEEPER [address] [place] [address] Referral ID Status Reason Start Date Expiration Date Visits Re quested Visits Authorized [id number] Closed 08/04/2022 08/29/2023 1 1 Specialty Diagnoses / Procedures Referred By Carenac t Referred To Contact Diagnoses Malignant neoplasm of upper-inner quadrant of left breast in female, estrogen receptor negative Encounter for screening mammogram for malignant neoplasm of breast Procedures MAMMO DIAGNOSTIC WITH FRANDY BILATERAL Lilia Browning, DIRECTOR OF PUPIL PERSONNEL PROGRAM-EXECUTIVE HOUSEKEEPER [address] [facility] [place] [address] Referral ID Status Reason Start Date Expiration Date V isits Requested Visits Authorized [id number] New Request 09/21/2022 10/16/2023 1 1 Referral ID Status Reason Start Date Expiration Date V isits Requested Visits Authorized [id number] New Request 03/08/2023 04/01/2024 1 1 Specialty Diagnoses / Procedures Referred By Joe t Referred To Contact Diagnoses Malignant neoplasm of upper-inner quadrant of left breast in female, estrogen receptor negative Abnormal mammogram Procedures MAMMO DIAGNOSTIC WITH FRANDY LEFT Lilia Browning, DIRECTOR OF PUPIL PERSONNEL PROGRAM-EXECUTIVE HOUSEKEEPER [address] [place] [address] Referral ID Status Reason Start Date Expiration Date V isits Requested Visits Authorized [id number] New Request 03/13/2024 04/07/2025 1 1 Referral ID Status Reason Start Date Expiration Date V isits Requested Visits Authorized [id number] Pending Review 03/08/2023 04/01/2024 1 1 Summary Purpose Additional Source Comments Goals (unrecognized section and content) Goals may be documented in a n alternate sectionGoals may be documented in an alternate sectionGoals may be documented in an alternate sectionGoals may be documented in an alternate sectionGoals may be documented in an alternate sectionGoals may be documented in an alternate sectionGoals may be documented in an alternate sectionGoals may be documented in an alternate sectionGoals may be documented in an alternate sectionGoals may be documented in an alternate sectionGoals may be documented in an alternate sectionGoals may be documented in an alternate section Reason for Visit (unrecogniz ed section and content) Specialty Diagnoses / Procedures Referred By Contac t Referred To Contact Diagnoses Malignant neoplasm of left breast in female, estrogen receptor negative, unspecified site of breast Procedures BREAST IMAGING SECOND OPINION READING Lilia Browning, DIRECTOR OF PUPIL PERSONNEL PROGRAM-EXECUTIVE HOUSEKEEPER [address] [place] [address] Referral ID Status Reason Start Date Expiration Date V isits Requested Visits Authorized [id number] New Request 08/01/2022 08/26/2023 1 1 Reason Comments New Patient Here for surgical co nsultation for for left IDC, ER-/MA-/HER2+. Last chemotherapy treatment was 07/26/22. Denies breast concerns prior to abnormal imaging. Reports occasional twinge of pain to left breast. Specialty Diagnoses / Procedures Referred By Joe dupree Referred To Contact Breast Clinic Diagnoses L Breast IDC HER2+/ has been receiveing neoadjuvant Janet Calderón, DIRECTOR OF PUPIL PERSONNEL PROGRAM-EXECUTIVE HOUSEKEEPER [address] [facility] 1 [place] [address] Referral ID Status Reason Start Date Expiration Date V isits Requested Visits Authorized [id number] New Request 07/17/2022 08/11/2023 1 1 Reason Comments Post Op Visit Pt states she is doi ng well, no pain, no fever, Had a left lumpectomy on 08/22/22 Reason Comments Post Op Visit Patient returns for postop evaluation. The patient underwent a left breast lumpectomy and SLNBx on 08/22/2022. Reason Comments Follow-up Pt states no breast concerns, had bilateral mammo today, history of left breast cancer Specialty Diagnoses / Procedures Referred By Joe dupree Referred To Contact Diagnoses Malignant neoplasm of upper-inner quadrant of left breast in female, estrogen receptor negative Encounter for screening mammogram for malignant neoplasm of breast Procedures MAMMO DIAGNOSTIC WITH FRANDY BILATERAL Lilia Browning, DIRECTOR OF PUPIL PERSONNEL PROGRAM-EXECUTIVE HOUSEKEEPER [address] [facility] [place] [address] Referral ID Status Reason Start Date Expiration Date V isits Requested Visits Authorized [id number] New Request 09/21/2022 10/16/2023 1 1 Reason Comments Follow-up Patient presents for annual exam and annual mammogram. Patient denies any new breast concerns. Referral ID Status Reason Start Date Expiration Date V isits Requested Visits Authorized [id number] Pending Review 03/08/2023 04/01/2024 1 1 Reason Comments Consult Colonoscopy, [address] colonoscopy Reason Comments Follow Up Reason Comments Follow-up Patient presents for annual mammogram and 6 month exam. Reason Comments Follow-up Lt [facility] today; pt w/n o breast concerns; Care Teams (unrecognized sec tion and content) Dry Kiln Worker Relationship Specialty Start Date End Date Vincenzo Proctor MD [address] [place] [address] PCP - General Family Medicine 07/17/22 Altagracia Kent, RN Registered Nurse 07/17/22 Janet Hernandez, DIRECTOR OF PUPIL PERSONNEL PROGRAM-EXECUTIVE HOUSEKEEPER [address] [facility] 1 [place] [address] Oncologist Certified Nurse Practitioner 07/17/22 Chantale Jeronimo, [facility] [address] [place] [address] Hematology 07/17/22 Dry Kiln Worker Relationship Specialty Start Date End Date Vincenzo Proctor MD [address] [place] [address] PCP - General Family Medicine 07/17/22 Altagracia Kent, RN Registered Nurse 07/17/22 Janet Hernandez, DIRECTOR OF PUPIL PERSONNEL PROGRAM-EXECUTIVE HOUSEKEEPER [address] [facility] 1 [place] [address] Oncologist Certified Nurse Practitioner 07/17/22 Chantale Jeronimo, [facility] [address] [place] [address] Hematology 07/17/22 Dry Kiln Worker Relationship Specialty Start Date End Date Vincenzo Proctor MD [address] [place] [address] PCP - General Family Medicine 07/17/22 Altagracia Kent, RN Registered Nurse 07/17/22 Janet Hernandez, DIRECTOR OF PUPIL PERSONNEL PROGRAM-EXECUTIVE HOUSEKEEPER [address] [facility] [address] [place] [address] Oncologist Certified Nurse Practitioner 07/17/22 Chantale Jeronimo, [facility] [address] [place] [address] Hematology 07/17/22 Dry Kiln Worker Relationship Specialty Start Date End Date Vincenzo Proctor MD [address] [place] [address] PCP - General Family Medicine 07/17/22 Altagracia Kent, RN Registered Nurse 07/17/22 Janet Hernandez, DIRECTOR OF PUPIL PERSONNEL PROGRAM-EXECUTIVE HOUSEKEEPER [address] [facility] [address] [place] [address] Oncologist Certified Nurse Practitioner 07/17/22 Chantale Jeronimo, [facility] [address] [place] [address] Hematology 07/17/22 Dry Kiln Worker Relationship Specialty Start Date End Date Vincenzo Proctor MD [address] [place] [address] PCP - General Family Medicine 07/17/22 Altagracia Kent, RN Registered Nurse 07/17/22 Janet Hernandez, DIRECTOR OF PUPIL PERSONNEL PROGRAM-EXECUTIVE HOUSEKEEPER [address] [facility] 1 [place] [address] Oncologist Certified Nurse Practitioner 07/17/22 Chantale Jeronimo, [facility] [address] [place] [address] Hematology 07/17/22 Dry Kiln Worker Relationship Specialty Start Date End Date Vincenzo Proctor MD [address] [place] [address] PCP - General Family Medicine 07/17/22 Altagracia Kent, RN Registered Nurse 07/17/22 Janet Hernandez, DIRECTOR OF PUPIL PERSONNEL PROGRAM-EXECUTIVE HOUSEKEEPER [address] [place] [address] Oncologist Certified Nurse Practitioner 07/17/22 Chantale Jeronimo, [facility] [address] [place] [address] Hematology 07/17/22 Dry Kiln Worker Relationship Specialty Start Date End Date Vincenzo Procotr MD [address] [place] [address] PCP - General Family Medicine 07/17/22 Altagracia Kent, RN Registered Nurse 07/17/22 Janet Hernandez, DIRECTOR OF PUPIL PERSONNEL PROGRAM-EXECUTIVE HOUSEKEEPER [address] [place] [address] Oncologist Certified Nurse Practitioner 07/17/22 Chantale Jeronimo [facility] [address] [place] [address] Hematology 07/17/22 Avery Rios DO [address] [place] [phone] Radiation Oncologist Radiation Oncology 08/30/22 Team Status: Active Member Role Status Dates Dr. Vincenzo Proctor MD Family Provider Active Dr. Vincenzo Proctor MD Primary Care Provider Active Team Status: Inactive Member Role Status Dates Dr. Vincenzo Proctor MD Primary Care Provider, Referring P rovider Active Dr. Chantale Jeronimo MD Attending Provider Active Team Status: Inactive Member Role Status Dates Dr. Vincenzo Proctor MD Primary Care Provider, Referring P rovider Active Janet Hernandez JURY CONSULTANT, JURY CONSULTANT-C Attending Provider Active Team Status: Active Member Role Status Dates Dr. Vincenzo Proctor MD Primary Care Provider Active Dr. Jay Pascal MD Attending Provider Active Team Status: Inactive Member Role Status Dates Dr. Vincenzo Proctor MD Primary Care Provider, Referring P rovider Active Dr. Avery Rios DO Attending Provider Active Team Status: Active Member Role Status Dates Dr. Vincenzo Proctor MD Primary Care Provider Active Dr. Avery Rios DO Attending Provider Active Team Status: Inactive Member Role Status Dates Dr. Vincenzo Proctor MD Primary Care Provider, Referring P rovider Active Loyda Campbell PA, PA-C Attending Provider Active Team Status: Active Member Role Status Dates Dr. Vincenzo Proctor MD Primary Care Provider Active Dr. Josue Haywood MD Attending Provider Active Team Status: Inactive Member Role Status Dates Dr. Vincenzo Proctor MD Primary Care Provider Active Dr. Claire Ybarra MD Attending Provider, Referring P rovider Active Team Status: Active Member Role Status Dates Dr. Vincenzo Proctor MD Primary Care Provider Active Dr. Chantale Jeronimo MD Attending Provider, Referrin g Provider Active Dr. Avery Rios DO Active Team Status: Inactive Member Role Status Dates Dr. Vincenzo Proctor MD Primary Care Provider Active Janet Hernandez JURY CONSULTANT, JURY CONSULTANT-C Attending Provider Active Team Status: Active Member Role Status Dates Dr. Vincenzo Proctor MD Primary Care Provide r, Attending Provider, Referring Provider Active Dry Kiln Worker Relationship Specialty Start Date End Date Vincenzo Proctor MD [address] [place] [place] [address] PCP - General Family Medicine 07/17/22 Altagracia Kent, RN Registered Nurse 07/17/22 Janet Hernandez, DIRECTOR OF PUPIL PERSONNEL PROGRAM-EXECUTIVE HOUSEKEEPER [address] [address] Oncologist Certified Nurse Practitioner 07/17/22 Chantale Jeronimo, [facility] [address] [place] [address] Hematology 07/17/22 Avery Rios DO [address] [place] [phone] Radiation Oncologist Radiation Oncology 08/30/22 Team Status: Inactive Member Role Status Dates Dr. Vincenzo Proctor MD Primary Care Provider Active Dr. Chantale Jeronimo MD Attending Provider Active Team Status: Active Member Role Status Dates Dr. Vincenzo Proctor MD Primary Care Provider Active Dr. Avery Rios DO Attending Provider, Referring P rovider Active Team Status: Inactive Member Role Status Dates Dr. Vincenzo Proctor MD Primary Care Provide r, Attending Provider, Referring Provider Active Team Status: Inactive Member Role Status Dates Dr. Vincenzo Proctor MD Primary Care Provider Active Dr. Avery Rios DO Attending Provider, Referring P rosales Active Team Status: Inactive Member Role Status Dates Dr. Vincenzo Proctor MD Primary Care Provider Active Dr. Chantale Jeronimo MD Attending Provider, Referrin g Provider Active Dry Kiln Worker Relationship Specialty Start Date End Date Vincenzo Proctor MD [address] [place], [place] [address] PCP - General Family Medicine 07/17/22 Altagracia Kent, RN Registered Nurse 07/17/22 Janet Hernandez, DIRECTOR OF PUPIL PERSONNEL PROGRAM-EXECUTIVE HOUSEKEEPER [address] [place], [place] [address] Oncologist Certified Nurse Practitioner 07/17/22 Chantale Jeronimo [facility] [address] [place], [place] [address] Hematology 07/17/22 Avery Rios DO [address] [place] [phone] Radiation Oncologist Radiation Oncology 08/30/22 Dry Kiln Worker Relationship Specialty Start Date End Date Vincenzo Proctor MD [address] [place] [address] PCP - General Family Medicine 07/17/22 Altagracia Kent, PARAMJIT Registered Nurse 07/17/22 Janet Hernandez, DIRECTOR OF PUPIL PERSONNEL PROGRAM-EXECUTIVE HOUSEKEEPER [address] [place], [place] [address] [phone] Oncologist Certified Nurse Practitioner 07/17/22 Chantale Jeronimo [facility] [address] [place] [address] Hematology 07/17/22 Avery Rios DO [address] [place] [phone] Radiation Oncologist Radiation Oncology 08/30/22 Team Status: Inactive Member Role Status Dates Dr. Vincenzo Proctor MD Primary Care Provider, Referring P rovider Active Dr. Josue Haywood MD Attending Provider Active Team Status: Inactive Member Role Status Dates Dr. Vincenzo Proctor MD Primary Care Provider, Referring P rovider Active Dr. Eliceo Johnson MD Attending Provider Active Team Status: Active Member Role Status Dates Dr. Vincenzo Proctor MD Primary Care Provider Active Susan Larkin JURY CONSULTANT, JURY CONSULTANT-C Attending Provider Active Team Status: Active Member Role Status Dates Dr. Vincenzo Proctor MD Primary Care Provider Active Dr. Chantale Jeronimo MD Attending Provider, Referrin g Provider Active Team Status: Inactive Member Role Status Dates Dr. Vincenzo Proctor MD Primary Care Provider Active Dr. Josue Haywood MD Attending Provider, Referring Pro vider Active Team Status: Active Member Role Status Dates Dr. Vincenzo Proctor MD Primary Care Provider Active Cholo Pandya JURY CONSULTANT, JURY CONSULTANT-C Attending Provider Active Team Status: Inactive Member Role Status Dates Dr. Vincenzo Proctor MD Primary Care Provider, Attending P rovider Active Team Status: Inactive Member Role Status Dates Dr. Vincenzo Proctor MD Primary Care Provider Active Dr. Avery Rios DO Attending Provider Active Dry Kiln Worker Relationship Specialty Start Date End Date Vincenzo Proctor MD [address] [place] [address] PCP - General Family Medicine 07/17/22 Altagracia Kent, PARAMJIT Registered Nurse 07/17/22 Janet Hernandez, DIRECTOR OF PUPIL PERSONNEL PROGRAM-EXECUTIVE HOUSEKEEPER [address] [phone] Oncologist Certified Nurse Practitioner 07/17/22 Chantale Jeronimo, [facility] [address] [place], [place] [address] [phone] Hematology 07/17/22 Avery Rios DO [address] [place] [phone] Radiation Oncologist Radiation Oncology 08/30/22 Dry Kiln Worker Relationship Specialty Start Date End Date Vincenzo Proctor MD [address] [place] [address] PCP - General Family Medicine 07/17/22 Altagracia Kent, RN Registered Nurse 07/17/22 Janet Hernandez, DIRECTOR OF PUPIL PERSONNEL PROGRAM-[facility] [address], [place] [phone] Oncologist Certified Nurse Practitioner 07/17/22 Chantale Jeronimo, [facility] [address] [place] [address] Hematology 07/17/22 Avery Rios DO [address] [place] [phone] Radiation Oncologist Radiation Oncology 08/30/22 Dry Kiln Worker Relationship Specialty Start Date End Date Vincenzo Proctor MD [address] [place] [address] PCP - General Family Medicine 03/09/22 Dry Kiln Worker Relationship Specialty Start Date End Date Vincenzo Proctor MD [address] [place] [address] PCP - General Family Medicine 03/09/22 Dry Kiln Worker Relationship Specialty Start Date End Date Vincenzo Proctor MD [address] [place], [place] [phone] PCP - General Family Medicine 07/17/22 Altagracia Kent, RN Registered Nurse 07/17/22 Janet Hernandez, DIRECTOR OF PUPIL PERSONNEL PROGRAM-EXECUTIVE HOUSEKEEPER [address] [facility] 1 [place], [place] [id number] Oncologist Certified Nurse Practitioner 07/17/22 Chantale Jeronimo, [facility] [address] [place], [place] [phone] Hematology 07/17/22 Avery Rios DO [address] [place] [phone] Radiation Oncologist Radiation Oncology 08/30/22 Team Status: Active Member Role/Relationship Status Dates Dr. Vincenzo Proctor MD Primary Care Provider Active Team Status: Inactive Member Role/Relationship Status Dates Dr. Vincenzo Proctor MD Primary Care Provider Active Start: January 22, 2025 End: January 22, 2025 Dr. Vincenzo Proctor MD Referring Provider Active St art: January 22, 2025 End: January 22, 2025 Janet Hernandez NP JURY CONSULTANT-C Attending Provider Active Start: January 22, 2025 End: January 22, 2025 Team Status: Inactive Member Role/Relationship Status Dates Dr. Vincenzo Proctor MD Primary Care Provider Active Start: January 06, 2025 Dr. Claire Ybarra MD Attending Provider Active Start: January 06, 2025 Team Status: Inactive Member Role/Relationship Status Dates Dr. Vincenzo Proctor MD Primary Care Provider Active Start: January 22, 2025 End: January 22, 2025 Dr. Vincenzo Proctor MD Referring Provider Active St art: January 22, 2025 End: January 22, 2025 Janet Hernandez NP JURY CONSULTANT-C Attending Provider Active Start: January 22, 2025 End: January 22, 2025 Team Status: Inactive Member Role/Relationship Status Dates Dr. Vincenzo Proctor MD Primary Care Provider Active Start: February 24, 2025 End: February 24, 2025 Dr. Vincenzo Proctor MD Referring Provider Active St art: February 24, 2025 End: February 24, 2025 Dr. Avery Rios DO Attending Provider Active Start: February 24, 2025 End: February 24, 2025 Dry Kiln Worker Relationship Specialty Start Date End Date Vincenzo Proctor MD [address] [place] [address] PCP - General Family Medicine 07/17/22 Altagracia Kent, RN Registered Nurse 07/17/22 Janet Hernandez, DIRECTOR OF PUPIL PERSONNEL PROGRAM-EXECUTIVE HOUSEKEEPER [address] [place] [address] Oncologist Certified Nurse Practitioner 07/17/[address] [facility] [address] [place], [place] [address] [phone] Hematology 07/17/22 Avery Rios DO [address] [place] [address] Radiation Oncologist Radiation Oncology 08/30/22 Dry Kiln Worker Relationship Specialty Start Date End Date Vincenzo Proctor MD [address] [place] [address] PCP - General Family Medicine 07/17/22 Altagracia Kent, RN Registered Nurse 07/17/22 Janet Hernandez, DIRECTOR OF PUPIL PERSONNEL PROGRAM-EXECUTIVE HOUSEKEEPER [address] [place] [address] Oncologist Certified Nurse Practitioner 07/17/[address] [facility] [address] [place], [place] [address] [phone] Hematology 07/17/22 Avery Rios DO [address] [place] [address] Radiation Oncologist Radiation Oncology 08/30/22 Scheduled Active and Recently Administ ered Medications (unrecognized section and content) Medication Order 08/20/2022 08/21/2022 08/22/2022 Acetaminophen (TYLENOL) tablet 975 mg (COMPLETED) 975 mg, Oral, ONCE, 1 dose, On Sun08/22/22 at 0815, Maximum dose of acetaminophen is 4000 mg from all sources in 24 hours., Pre-op/Pre-Proc 0845 (Given - Provid er: Yuliana Arenas RN) Scopolamine (TRANSDERM-SCOP) patch 1 patch 1 patch, Transdermal, ONCE, 1 dose, On Sun08/22/22 at 0815, Patient with history of motion sickness and/or previous postoperative nausea/vomiting. Each patch delivers 1 mg over 72 hours., Pre-op/Pre-Proc 0846 (Patch Applied - Provider: Yuliana Arenas RN - Comment: right)1458 (Due: Patch Removed - Provider: System Discharge - Comment: Time automatically adjusted from order being discontinued) VERIFY LINKED PATCH PLACEMENT Other, EVERY 12 HOURS, First dose on Sun08/22/22 at 0900, Until Discontinued, Confirm continued adhesion of scopolamine 1.5 mg/72hr patch at documented site. 0900 (Canceled Entry - Provider: System Discharge - Comment: Automatically canceled at discontinue of medication order) Continuous Medication Order 08/20/2022 08/21/2022 08/22/2022 Lactated ringers IV solution Intravenous, at 20 mL/hr, CONTINUOUS, Starting on Sun08/22/22 at 0815, Until Sun08/22/22 at 1658, Pre-op/Pre-Proc 0815 (Canceled Entry - Provider: System Discharge - Comment: Automatically canceled at discontinue of medication order) PRN Medication Order 08/20/2022 08/21/2022 08/22/2022 Acetaminophen (TYLENOL) tablet 650 mg 650 mg, Oral, EVERY 4 HOURS NEEDED, Starting on Sun08/22/22 at 1404, Until Sun08/22/22 at 1658, Mild Pain, Maximum dose of acetaminophen is 4000 mg from all sources in 24 hours., Post-op/Post-Proc ceFAZolin (ANCEF) 2 g in dextrose 100 mL premix IVPB (COMPLETED) 2 g, Intravenous, Administer over 30 Minutes, WOODEN FRAME BUILDER TO PROCEDURE, 1 dose, Starting on Sun08/22/22 at 0812, Until Discontinued, Other, Surgical Prophylaxis, Initiate antibiotic administration 30-60 minutes prior to surgical incision and complete administration prior to surgical incision., Pre-op/Pre-Proc 1047 (Given - Provid er: Dimitri Davey MD) Haloperidol lactate (HALDOL) injection 1 mg 1 mg, Intravenous, ONCE NEEDED, 1 dose, Starting on Sun08/22/22 at 1239, Until Sun08/22/22 at 1658, Refractory Nausea/vomiting, Use if patient still experiencing nausea/vomiting after 1st and 2nd line medications. Do not administer within 6 hours of intra-operative dose., Recovery HYDROmorphone (DILAUDID) injection 0.2 mg(Linked Group 1) 0.2 mg, Intravenous, EVERY 5 MINUTES NEEDED, Starting on Sun08/22/22 at 1239, Until Sun08/22/22 at 1658, Moderate Pain, Severe Pain, Use as initial dose. Higher dose may be administered if lower dose did not result in adverse effects (RR<10, decrease in level of consciousness) and was previously documented as ineffective. May give a total of 2 mg in PACU., Recovery HYDROmorphone (DILAUDID) injection 0.5 mg(Linked Group 1) 0.5 mg, Intravenous, EVERY 5 MINUTES NEEDED, Starting on Sun08/22/22 at 1239, Until Sun08/22/22 at 1658, Moderate Pain, Severe Pain, Higher dose may be administered if lower dose did not result in adverse effects (RR<10, decrease in level of consciousness) and was previously documented as ineffective. Decrease back to lower dose if patient has adverse effects, or no PRN used in previous 30 minutes. May give a total of 2 mg in PACU ., Recovery HYDROmorphone (DILAUDID) injection 0.5 mg(Linked Group 2) 0.5 mg, Intravenous, EVERY 3 HOURS NEEDED, Starting on Sun08/22/22 at 1404, Until Sun08/22/22 at 1658, Severe Pain, Use as initial dose. Higher dose may be administered if lower dose was previously documented as ineffective and did not result in adverse effects (RR<10, decrease in level of consciousness)., Post-op/Post-Proc HYDROmorphone (DILAUDID) injection 1 mg(Linked Group 2) 1 mg, Intravenous, EVERY 3 HOURS NEEDED, Starting on Sun08/22/22 at 1404, Until Sun08/22/22 at 1658, Severe Pain, Higher dose may be administered if lower dose was previously documented as ineffective and did not result in adverse effects (RR<10, decrease in level of consciousness). Decrease back to lower dose if patient has adverse effects, or no PRN used in previous 12 hours., Post-op/Post-Proc Labetalol (NORMODYNE) injection 5 mg 5 mg, Intravenous, EVERY 15 MINUTES NEEDED, 4 doses, Starting on Sun08/22/22 at 1239, Until Sun08/22/22 at 1658, SBP > 180 mmHg with HR >60 bpm, Hold if HR < 60. May give a total of 20 mg while in PACU. If blood pressure uncontrolled after 20mg of labetalol administered, notify MD. For vials: labetalol should be treated as a SINGLE USE VIAL. Discard remaining contents after one use., Recovery Ondansetron 4mg/2ml (ZOFRAN) injection 4 mg 4 mg, Intravenous, EVERY 4 HOURS NEEDED, Starting on Sun08/22/22 at 1404, Until Sun08/22/22 at 1658, Nausea / Vomiting, 1st Line Nausea / Vomiting, Post-op/Post-Proc oxyCODONE-acetaminophen (PERCOCET) 5-325 MG per tablet 1 tablet(Linked Group 3) 1 tablet, Oral, EVERY 4 HOURS NEEDED, Starting on Sun08/22/22 at 1404, Until Sun08/22/22 at 1658, Moderate Pain, Use as initial dose. Higher dose may be administered if lower dose was previously documented as ineffective and did not result in adverse effects (RR<10, decrease in level of consciousness)., Post-op/Post-Proc oxyCODONE-acetaminophen (PERCOCET) 5-325 MG per tablet 2 tablet(Linked Group 3) 2 tablet, Oral, EVERY 4 HOURS NEEDED, Starting on Sun08/22/22 at 1404, Until Sun08/22/22 at 1658, Moderate Pain, Higher dose may be administered if lower dose was previously documented as ineffective and did not result in adverse effects (RR<10, decrease in level of consciousness). Decrease back to lower dose if patient has adverse effects, or no PRN used in previous 12 hours., Post-op/Post-Proc Prochlorperazine (COMPAZINE) injection 5 mg 5 mg, Intravenous, EVERY 1 HOUR NEEDED, 2 doses, Starting on Sun08/22/22 at 1239, Until Sun08/22/22 at 1658, Nausea / Vomiting, FIRST Line antiemetic, Do not administer within 6 hours of intra-operative dose. For IV route: dilute dose with 10mL normal saline and give by slow IV push at a rate of 5mg/min. Maximum of 40mg/day., Recovery Promethazine (PHENERGAN) injection 12.5 mg 12.5 mg, Intravenous, EVERY 6 HOURS NEEDED, Starting on Sun08/22/22 at 1404, Until Sun08/22/22 at 1658, Nausea / Vomiting, 2nd Line Nausea / Vomiting, Extravasation Risk. If given via IV route: dilute dose with 10mL normal saline and inject through a running IV or line over 5 minutes OR if no active IV or line is saline-dwelled dilute dose with 20mL normal saline and administer over 5 minutes. AVOID Intra-arterial administration; necrosis & gangrene have resulted. Hand, wrist or foot veins SHOULD BE AVOIDED., Post-op/Post-Proc No Frequency Medication Order 08/20/2022 08/21/2022 08/22/2022 Lactated ringers IV solution 1 dose, Starting on Sun08/22/22 at 0733, Until Sun08/23/22 at 0745, Created by cabinet override [id number] (Canceled Entry - Provider: System Discharge - Comment: Automatically canceled at discontinue of medication order) Linked Groups Order Group 1: HYDROmorphone (DILAUDID) injection 0.2 mgJump to med 0.2 mg, Intravenous, EVERY 5 MINUTES NEEDED, Starting on Sun08/22/22 at 1239, Until Sun08/22/22 at 1658, Moderate Pain, Severe Pain
Use as initial dose. Higher dose may be administered if lower dose did not result in adverse effects (RR<10, decrease in level of consciousness) and was previously documented as ineffective. May give a total of 2 mg in PACU.
Recovery Or HYDROmorphone (DILAUDID) injection 0.5 mgJump to med 0.5 mg, Intravenous, EVERY 5 MINUTES NEEDED, Starting on Sun08/22/22 at 1239, Until Sun08/22/22 at 1658, Moderate Pain, Severe Pain
Higher dose may be administered if lower dose did not result in adverse effects (RR<10, decrease in level of consciousness) and was previously documented as ineffective. Decrease back to lower dose if patient has adverse effects, or no PRN used in previous 30 minutes. May give a total of 2 mg in PACU .
Recovery Group 2: HYDROmorphone (DILAUDID) injection 0.5 mgJump to med 0.5 mg, Intravenous, EVERY 3 HOURS NEEDED, Starting on Sun08/22/22 at 1404, Until Sun08/22/22 at 1658, Severe Pain
Use as initial dose. Higher dose may be administered if lower dose was previously documented as ineffective and did not result in adverse effects (RR<10, decrease in level of consciousness).
Post-op/Post-Proc Or HYDROmorphone (DILAUDID) injection 1 mgJump to med 1 mg, Intravenous, EVERY 3 HOURS NEEDED, Starting on Sun08/22/22 at 1404, Until Tu08/22/22 at 1658, Severe Pain
Higher dose may be administered if lower dose was previously documented as ineffective and did not result in adverse effects (RR<10, decrease in level of consciousness). Decrease back to lower dose if patient has adverse effects, or no PRN used in previous 12 hours.
Post-op/Post-Proc Group 3: oxyCODONE-acetaminophen (PERCOCET) 5-325 MG per tablet 1 tabletJump to med 1 tablet, Oral, EVERY 4 HOURS NEEDED, Starting on Sun08/22/22 at 1404, Until Tu08/22/22 at 1658, Moderate Pain
Use as initial dose. Higher dose may be administered if lower dose was previously documented as ineffective and did not result in adverse effects (RR<10, decrease in level of consciousness).
Post-op/Post-Proc Or oxyCODONE-acetaminophen (PERCOCET) 5-325 MG per tablet 2 tabletJump to med 2 tablet, Oral, EVERY 4 HOURS NEEDED, Starting on Sun08/22/22 at 1404, Until Sun08/22/22 at 1658, Moderate Pain
Higher dose may be administered if lower dose was previously documented as ineffective and did not result in adverse effects (RR<10, decrease in level of consciousness). Decrease back to lower dose if patient has adverse effects, or no PRN used in previous 12 hours.
Post-op/Post-Proc Source Comments (unrecognize d section and content) In the event this informatio n is protected by the Federal Confidentiality of Alcohol and Drug Abuse Patient Records regulations: The Federal rules restrict any use of the information to criminally investigate or prosecute any alcohol or drug abuse patient.[facility] the event this information is protected by the Federal Confidentiality of Alcohol and Drug Abuse Patient Records regulations: The Federal rules restrict any use of the information to criminally investigate or prosecute any alcohol or drug abuse patient.[facility] the event this information is protected by the Federal Confidentiality of Alcohol and Drug Abuse Patient Records regulations: The Federal rules restrict any use of the information to criminally investigate or prosecute any alcohol or drug abuse patient.[facility] INFORMATION SOURCE (unrecogn ized section and content) DATE CREATED AUTHOR 08/20/2024 [facility] DATE CREATED AUTHOR AUTHOR'S ORGANIZ ATION 03/21/[address] [facility] DATE CREATED AUTHOR AUTHOR'S ORGANIZ ATION 05/21/2025 [facility] FOR RECORDS PERTAINING TO PATIENTS WHO ARE OR HAVE BEEN ENROLLED IN A CHEMICAL DEPENDENCY/SUBSTANCEABUSE PROGRAM, SOME INFORMATION MAY BE OMITTED. This clinical summary was aggregated from multiple sources. Caution should be exercised in using it in the provision of clinical care. This summary normalizes information from multiple sources, and as a consequence, information in this document may materially change the coding, format and clinical context of patient data. In addition, data may be omitted in some cases. CLINICAL DECISIONS SHOULD BE BASED ON THE PRIMARY CLINICAL RECORDS. [facility]. provides no warranty or guarantee of the accuracy or completeness of information in this document.
[2025-06-10 11:00] LABS: AST(SGOT) 16 U/L (<=31); Alanine Aminotransfer ALT/SGPT 14 U/L (<=34); Albumin, Serum 4.2 g/dL (3.4-4.8); Alkaline Phosphatase 71 U/L (35-104); Bilirubin, Direct 0.20 mg/dL (0.00-0.30); Cholesterol 234 mg/dL (<=200); Globulin 2.6 g/dL (2.2-4.2); Low Density Lipoprotein Calc. 149 mg/dL; Triglycerides 68 mg/dL; Very Low Density Lipoprotein 14 mg/dL (5-40); cholesterol:hdl ratio screen 3.20
== END | disposition home or self-care (01) ==
LOC: MTLAB 07:06
PROVIDERS: PCP Family Medicine; Referring Provider Internal Medicine Cardiovascular Disease; Visit Provider Internal Medicine Cardiovascular Disease
DX: I10 Essential (primary) hypertension (principal)
CPT/HCPCS: 36415; 80061; 80076